=== PATIENT | male | born 1965 | race Caucasian/White ===

== ENCOUNTER 2018-01-01 08:46 | Day surgery (SDC) | payer BC ==
[2017-12-28 10:14] VITALS: BMI 29.5
[~2018-01-01 08:46] MED LIST: LACTATED RINGERS 1,000 ML IV SCH
[2018-01-01 09:29] VITALS: RESP 16; TEMP 97.9
[2018-01-01] MEDS ORDERED: LIDOCAINE 1% 20 ML VIAL (10MG/ML) FOR IV START INTRADERMA ONE (09:38)
[2018-01-01] MEDS ORDERED: PROPOFOL 10 MG/ML 20 ML VIAL IV ONE (10:01)
--- NOTE | 2018-01-01 10:27 | P.PCN ---
Date of Procedure: 01/01/18 Procedure(s) Performed: Procedure: Total colonoscopy. Preoperative diagnosis: Screening for neoplasia. Postoperative diagnosis: Exam within normal limits. Preparation: HalfLytely prep. Sedation: Was provided by anesthesia. Brief clinical history: The patient is a 52-year-old male who is scheduled for this evaluation for screening for neoplasia because of history of polyps. His last colonoscopy was 5 years ago. The patient has no abdominal complaints, bleeding or anemia. Procedure: With the patient on his left lateral decubitus position and after informed consent and adequate sedation, the perianal area was inspected and it did not show any fissures or fistulas. There were no masses felt on digital rectal examination. The Olympus CFQ 160L video colonoscope was then inserted in the rectum in the usual fashion and advanced to the cecum. The mucosa appeared healthy. No polyps or tumors were seen or any obvious diverticular disease or other pathology. I retroflexed the endoscope in the rectum before the endoscope was withdrawn. The patient tolerated the procedure well. Plan: The patient was reassured. In light of his history, I am recommending repeat exam in 5 years. He will follow up with you as planned.
[2018-01-01 10:40] VITALS: BP 127/85; PULSE 68
== END 2018-01-01 10:53 | disposition home or self-care (01) ==
LOC: ORWHC2ENDO 08:46
DX: Z12.11 Encounter for screening for malignant neoplasm of colon (principal); Z86.010 Personal history of colon polyps; K21.9 Gastro-esophageal reflux disease without esophagitis; M19.90 Unspecified osteoarthritis, unspecified site; Z79.1 Long term (current) use of non-steroidal anti-inflammatories (NSAID); Z79.899 Other long term (current) drug therapy; Z88.0 Allergy status to penicillin; Z88.1 Allergy status to other antibiotic agents; Z91.040 Latex allergy status
CPT/HCPCS: J2704; G0105

== ENCOUNTER 2021-09-05 19:40 | Inpatient (IN) | payer OTHER ==
--- NOTE | 2021-09-05 21:20 | XR ---
EXAMINATION TYPE: XR chest 2V DATE OF EXAM: 09/05/2021 COMPARISON: NONE HISTORY: Cough. TECHNIQUE: 2 views FINDINGS: There is patchy bilateral pulmonary interstitial and airspace infiltrates. Pulmonary vascul arity difficult to evaluate. No obvious heart failure. No pleural effusion. IMPRESSION: Moderate bilateral pneumonia..
[2021-09-05 21:37] LABS: Basophils % (A) 0 %; Eosinophils % (A) 0 %; HCT 40.7 % (39.0-53.0); Lymphocytes # (A) 0.7 k/uL (1.0-4.8); Lymphocytes % (A) 5 %; MCH 31.7 pg (25.0-35.0); MCHC 34.4 g/dL (31.0-37.0); Mean Platelet Volume 8.6; Monocytes # (A) 0.4 k/uL (0-1.0); Monocytes % (A) 3 %; Neutrophils # (A) 12.6 k/uL (1.3-7.7); Neutrophils % (A) 91 %; Platelet Count 308 k/uL (150-450); RBC 4.42 m/uL (4.30-5.90); RDW 12.9 % (11.5-15.5); WBC 13.8 k/uL (3.8-10.6)
[2021-09-05 21:50] LABS: ALT 48 U/L (4-49); AST 45 U/L (17-59); African American GFR (CKD) >90 (>60 ml/min/1.73 sqM); Albumin 3.5 g/dL (3.5-5.0); Alkaline Phosphatase 98 U/L (38-126); Anion Gap 10 mmol/L; Blood Urea Nitrogen 24 mg/dL (9-20); Calcium 9.2 mg/dL (8.4-10.2); Carbon Dioxide 25 mmol/L (22-30); Chloride 102 mmol/L (98-107); Glucose 128 mg/dL (74-99); Non-African American GFR(CKD) 81 (>60 ml/min/1.73 sqM); Potassium 4.4 mmol/L (3.5-5.1); Sodium 137 mmol/L (137-145); Total Bilirubin 0.6 mg/dL (0.2-1.3); Total Protein 6.9 g/dL (6.3-8.2)
[2021-09-05] MEDS ORDERED: DEXAMETHASONE SOD PHOSPHATE 10 MG/ML 1 ML VIAL IVP STA (22:08)
[2021-09-05] MEDS ORDERED: SODIUM CHLORIDE 0.9% 1,000 ML IV STA (22:44)
--- NOTE | 2021-09-05 22:45 | ED ---
URI HPI - General Chief Complaint: Upper Respiratory Infection Stated Complaint: Covid+,MELITA Time Seen by Provider: 09/05/21 21:56 Source: patient, RN notes reviewed Mode of arrival: ambulatory Limitations: no limitations - History of Present Illness Initial Comments: 56-year-old male presents to emergency department complaining of being Covid positive and feeling short of breath. Patient notes that he really never gets sick but feels like this time and him pretty hard. Patient was in good spirits during the exam interview. He notes that he is short of breath at rest and on exertion. Patient notes that he does not use oxygen at home but noted his saturation was 85% in triage. Patient was otherwise well-appearing. He denied any chest pain headache nausea vomiting diarrhea constipation fever fatigue chills. - Related Data Home Medications Medication Instructions Recorded Confirmed Meloxicam [Mobic] 15 mg PO QID PRN 12/28/17 12/28/17 Multivitamins, Thera [Multivitamin 1 tab PO DAILY 12/28/17 12/28/17 (formulary)] Ranitidine HCl 150 mg PO HS PRN 12/28/17 12/28/17 Allergies Allergy/AdvReac Type Severity Reaction Status Date / Time latex Allergy skin Verified 09/05/21 21:00 irritation Penicillins Allergy Rash/Hives Verified 09/05/21 21:00 tetracycline Allergy Rash/Hives Verified 09/05/21 21:00 Review of Systems ROS Statement: Those systems with pertinent positive or pertinent negative responses have been documented in the HPI. ROS Other: All systems not noted in ROS Statement are negative. Past Medical History Past Medical History: GERD/Reflux, Osteoarthritis (OA) Additional Past Medical History / Comment(s): jeannette shoulder pain from arthritis History of Any Multi-Drug Resistant Organisms: None Reported Past Surgical History: Hernia Repair, Tonsillectomy Past Anesthesia/Blood Transfusion Reactions: Motion Sickness Past Psychological History: No Psychological Hx Reported Smoking Status: Never smoker Past Alcohol Use History: Occasional Past Drug Use History: None Reported - Past Family History Sister(s) Family Medical History: Cancer General Exam Limitations: no limitations General appearance: alert, in no apparent distress Head exam: Present: atraumatic, normocephalic, normal inspection Eye exam: Present: normal appearance, PERRL, EOMI. Absent: scleral icterus, conjunctival injection, periorbital swelling ENT exam: Present: normal exam, mucous membranes moist Neck exam: Present: normal inspection Respiratory exam: Present: decreased breath sounds. Absent: respiratory distress, wheezes, rales, rhonchi, stridor Cardiovascular Exam: Present: regular rate, normal rhythm, normal heart sounds. Absent: systolic murmur, diastolic murmur, rubs, gallop, clicks GI/Abdominal exam: Present: soft, normal bowel sounds. Absent: distended, tenderness, guarding, rebound, rigid Extremities exam: Present: normal inspection, full ROM, normal capillary refill. Absent: tenderness, pedal edema, joint swelling, calf tenderness Neurological exam: Present: alert, oriented X3 Psychiatric exam: Present: normal affect, normal mood Skin exam: Present: warm, dry, intact, normal color. Absent: rash Course Vital Signs 09/05/21 09/05/21 20:56 21:02 Temperature 97.8 F Pulse Rate 92 Respiratory 22 Rate Blood Pressure 181/92 O2 Sat by Pulse 85 L 93 L Oximetry Medical Decision Making - Medical Decision Making 56-year-old male Covid-positive complaining of shortness of breath. Oxygen saturation room air was 85%, patient started on oxygen via nasal cannula at 2 L. Labs, chest x-ray ordered. X-ray shows bilateral pneumonia. Labs mild leukocytosis with white count of 10.8, lactic acid 2.6. 1 L normal saline, 10 mg Decadron ordered. Case discussed with Dr. Escamilla him a patient will be admitted. Use [facility] with him to be contacted twice as the on-call admitting physicians with no response in over an hour. Admitting orders placed. - Lab Data Result diagrams: 09/05/21 21:15 09/05/21 21:15 Lab Results 09/05/21 09/05/21 09/05/21 Range/Units 21:15 21:15 21:15 WBC 13.8 H (3.8-10.6) k/uL RBC 4.42 (4.30-5.90) m/uL Hgb 14.0 (13.0-17.5) gm/dL Hct 40.7 (39.0-53.0) % MCV 92.0 (80.0-100.0) fL MCH 31.7 (25.0-35.0) pg MCHC 34.4 (31.0-37.0) g/dL RDW 12.9 (11.5-15.5) % Plt Count 308 (150-450) k/uL MPV 8.6 Neutrophils % 91 % Lymphocytes % 5 % Monocytes % 3 % Eosinophils % 0 % Basophils % 0 % Neutrophils # 12.6 H (1.3-7.7) k/uL Lymphocytes # 0.7 L (1.0-4.8) k/uL Monocytes # 0.4 (0-1.0) k/uL Eosinophils # 0.0 (0-0.7) k/uL Basophils # 0.0 (0-0.2) k/uL Sodium 137 (137-145) mmol/L Potassium 4.4 (3.5-5.1) mmol/L Chloride 102 (98-107) mmol/L Carbon Dioxide 25 (22-30) mmol/L Anion Gap 10 mmol/L BUN 24 H (9-20) mg/dL Creatinine 1.02 (0.66-1.25) mg/dL Est GFR (CKD-EPI)AfAm >90 (>60 ml/min/1.73 sqM) Est GFR (CKD-EPI)NonAf 81 (>60 ml/min/1.73 sqM) Glucose 128 H (74-99) mg/dL Plasma Lactic Acid Yvon 2.6 H* (0.7-2.0) mmol/L Calcium 9.2 (8.4-10.2) mg/dL Total Bilirubin 0.6 (0.2-1.3) mg/dL AST 45 (17-59) U/L ALT 48 (4-49) U/L Alkaline Phosphatase 98 (38-126) U/L Total Protein 6.9 (6.3-8.2) g/dL Albumin 3.5 (3.5-5.0) g/dL - Radiology Data Radiology results: report reviewed, image reviewed Chest x-ray: Bilateral pneumonia. Disposition Clinical Impression: COVID, Hypoxia, Bilateral pneumonia Disposition: ADMITTED IP TO THIS HOSP Condition: Stable Is patient prescribed a controlled substance at d/c from ED?: No Referrals: Cody Velasquez DO [Primary Care Provider] - 1-2 days Time of Disposition: 23:17
[2021-09-06] MEDS ORDERED: MELOXICAM 7.5 MG TAB PO PRN (00:37)
[2021-09-06] MEDS ORDERED: FAMOTIDINE 20 MG TAB PO PRN (00:37)
[2021-09-06] MEDS: SODIUM CHLORIDE 0.9% 1,000 ML IV SCH ×4 (03:27→20:23)
[2021-09-06] MEDS: MULTIVITAMINS, THERA 1 EACH TAB PO SCH (09:31)
[2021-09-06] MEDS: dexAMETHasone 2 MG TAB PO SCH (12:27)
--- NOTE | 2021-09-06 16:01 | P.HPIM ---
History of Present Illness Patient was a 56-year-old male came in with complaints of shortness of breath which started 5 days to 7 days ago patient is not really clear on exact onset of symptoms patient was having sinusitis like kind of symptoms and then started having flulike symptoms. Patient was vaccinated for Covid 19 in month of January patient is found to have leukocytosis without any fever here, patient had a chest x-ray which showed moderate bilateral pneumonia patient denied any history of smoking, BMI 31 patient didn't receive any monoclonal antibodies at this time patient is presently on 2 L of oxygen came down from 4 L patient was given a do se of IV Decadron patient will be started on oral Decadron along with Lovenox pulmonary will be consulted. Patient will evaluated the pulmonary for Remdesivir. REVIEW OF SYSTEMS: CONSTITUTIONAL: No fever, no malaise, no fatigue. HEENT: No recent visual problems or hearing problems. Denied any sore throat. CARDIOVASCULAR: No chest pain, orthopnea, PND, no palpitations, no syncope. PULMONARY: As mentioned in HPI GASTROINTESTINAL: No diarrhea, no nausea, no vomiting, no abdominal pain. NEUROLOGICAL: No headaches, no weakness, no numbness. HEMATOLOGICAL: Denies any bleeding or petechiae. GENITOURINARY: Denies any burning micturition, frequency, or urgency. MUSCULOSKELETAL/RHEUMATOLOGICAL: Denies any joint pain, swelling, or any muscle pain. ENDOCRINE: Denies any polyuria or polydipsia. The rest of the 14-point review of systems is negative. PHYSICAL EXAMINATION: GENERAL: The patient is alert and oriented x3, not in any acute distress. Well developed, well nourished. HEENT: Pupils are round and equally reacting to light. EOMI. No scleral icterus. No conjunctival pallor. Normocephalic, atraumatic. No pharyngeal erythema. No thyromegaly. CARDIOVASCULAR: S1 and S2 present. No murmurs, rubs, or gallops. PULMONARY: Chest is clear to auscultation, no wheezing or crackles. ABDOMEN: Soft, nontender, nondistended, normoactive bowel sounds. No palpable organomegaly. MUSCULOSKELETAL: No joint swelling or deformity. EXTREMITIES: No cyanosis, clubbing, or pedal edema. NEUROLOGICAL: Gross neurological examination did not reveal any focal deficits. SKIN: No rashes. Assessment and plan -Covid 19 pneumonia: Patient will be continued on Decadron, Covid 19 vitamins, we'll order d-dimer, Lovenox for due to prophylaxis -Sepsis and lactic is doses: Secondary to Covid 19 pneumonia -Gastro esophageal reflux disease DVT prophylaxis: Lovenox Past Medical History Past Medical History: GERD/Reflux, Osteoarthritis (OA) Additional Past Medical History / Comment(s): jeannette shoulder pain from arthritis History of Any Multi-Drug Resistant Organisms: None Reported Past Surgical History: Hernia Repair, Tonsillectomy Past Anesthesia/Blood Transfusion Reactions: Motion Sickness Past Psychological History: No Psychological Hx Reported Smoking Status: Never smoker Past Alcohol Use History: Occasional Additional Past Alcohol Use History / Comment(s): occ cigar use Past Drug Use History: None Reported - Past Family History Sister(s) Family Medical History: Cancer Medications and Allergies Home Medications Medication Instructions Recorded Confirmed Type Meloxicam [Mobic] 15 mg PO DAILY 12/28/17 09/06/21 History Cefuroxime Axetil [Ceftin] 500 mg PO BID 09/06/21 09/06/21 History Omeprazole 20 mg PO DAILY 09/06/21 09/06/21 History traMADol HCL [Ultram] 50 mg PO BID PRN 09/06/21 09/06/21 History Allergies Allergy/AdvReac Type Severity Reaction Status Date / Time Penicillins Allergy Rash/Hives Verified 09/06/21 07:55 tetracycline Allergy Rash/Hives Verified 09/06/21 07:55 latex AdvReac skin Verified 09/06/21 07:55 irritation Physical Exam Vitals: Vital Signs Temp Pulse Pulse Resp BP BP Pulse Ox 09/06/21 14:30 98.2 F 87 18 145/83 97 09/06/21 12:51 98.6 F 92 20 153/85 94 L 09/06/21 12:32 92 20 153/85 94 L 09/06/21 10:11 77 18 94 L 09/06/21 08:00 98.6 F 79 16 149/85 94 L 09/06/21 03:30 98.7 F 84 16 171/93 94 L 09/06/21 00:00 98.8 F 81 18 154/88 94 L 09/05/21 21:02 93 L 09/05/21 20:56 97.8 F 92 22 181/92 85 L Intake and Output 09/06/21 09/06/21 09/06/21 06:59 14:59 22:59 Other: Weight 100.698 kg Results CBC & Chem 7: 09/05/21 21:15 09/05/21 21:15 Labs: Abnormal Lab Results - Last 24 Hours (Table) 09/05/21 09/05/21 09/05/21 Range/Units 21:15 21:15 21:15 WBC 13.8 H (3.8-10.6) k/uL Neutrophils # 12.6 H (1.3-7.7) k/uL Lymphocytes # 0.7 L (1.0-4.8) k/uL BUN 24 H (9-20) mg/dL Glucose 128 H (74-99) mg/dL Plasma Lactic Acid Yvon 2.6 H* (0.7-2.0) mmol/L Thrombosis Risk Factor Assmnt - Choose All That Apply Each Factor Represents 1 point: Age 41-60 years, Obesity (BMI >25) Thrombosis Risk Factor Assessment Total Risk Factor Score: 2 Thrombosis Risk Factor Assessment Level: Low Risk
--- NOTE | 2021-09-06 17:26 | P.CNPUL ---
History of Present Illness Consult date: 09/06/21 Requesting physician: Shayna Francis Reason for consult: pneumonia Chief complaint: Nasal congestion, cough, shortness of breath. History of present illness: This is a 56-year-old white male with no previous significant past medical history, nonsmoker, COVID-19 vaccinated, patient presented to the ER with 5 days history of multiple symptoms consistent with URI symptoms including pressure and fullness over the sinuses, cough, fever, shortness of breath. His last COVID-19 vaccination was in January, patient received [employer] vaccination. Multiple family members with recently diagnosed as having COVID-19 infection, patient was found to have bilateral pneumonia consistent with COVID-19 pneumonitis. Patient was admitted, he was on 2 L nasal cannula, and I was asked to see him on consulta tion. I have recommended remdesivir, I have also recommended that COVID-19 cocktail. And this would be started today. Patient denies any headache, denies any blurred vision, no dizziness, denies any loss of sensation of taste or smell, denies any GI symptoms. Review of Systems CONSTITUTIONAL: Low-grade fever, no chills, no fatigue, no weight loss. HEENT: Mostly symptoms of sinusitis pressure pressure and fullness over the sinus CARDIOVASCULAR: Negative. PULMONARY: As mentioned in HPI mostly cough and shortness of breath. Cough is productive with whitish phlegm. GASTROINTESTINAL: Negative. NEUROLOGICAL: Negative. HEMATOLOGICAL: Negative. GENITOURINARY: Negative MUSCULOSKELETAL/RHEUMATOLOGICAL: Negative. ENDOCRINE: Negative Past Medical History Past Medical History: GERD/Reflux, Osteoarthritis (OA) Additional Past Medical History / Comment(s): jeannette shoulder pain from arthritis History of Any Multi-Drug Resistant Organisms: None Reported Past Surgical History: Hernia Repair, Tonsillectomy Past Anesthesia/Blood Transfusion Reactions: Motion Sickness Past Psychological History: No Psychological Hx Reported Smoking Status: Never smoker Past Alcohol Use History: Occasional Additional Past Alcohol Use History / Comment(s): occ cigar use Past Drug Use History: None Reported - Past Family History Sister(s) Family Medical History: Cancer Medications and Allergies Home Medications Medication Instructions Recorded Confirmed Type Meloxicam [Mobic] 15 mg PO DAILY 12/28/17 09/06/21 History Cefuroxime Axetil [Ceftin] 500 mg PO BID 09/06/21 09/06/21 History Omeprazole 20 mg PO DAILY 09/06/21 09/06/21 History traMADol HCL [Ultram] 50 mg PO BID PRN 09/06/21 09/06/21 History Allergies Allergy/AdvReac Type Severity Reaction Status Date / Time Penicillins Allergy Rash/Hives Verified 09/06/21 07:55 tetracycline Allergy Rash/Hives Verified 09/06/21 07:55 latex AdvReac skin Verified 09/06/21 07:55 irritation Physical Exam Vitals: Vital Signs Temp Pulse Pulse Resp BP BP Pulse Ox 09/06/21 14:30 98.2 F 87 18 145/83 97 09/06/21 12:51 98.6 F 92 20 153/85 94 L 09/06/21 12:32 92 20 153/85 94 L 09/06/21 10:11 77 18 94 L 09/06/21 08:00 98.6 F 79 16 149/85 94 L 09/06/21 03:30 98.7 F 84 16 171/93 94 L 09/06/21 00:00 98.8 F 81 18 154/88 94 L 09/05/21 21:02 93 L 09/05/21 20:56 97.8 F 92 22 181/92 85 L Intake and Output 09/06/21 09/06/21 09/06/21 06:59 14:59 22:59 Other: Weight 100.698 kg Physical Exam: Revealed a 56-year-old white male in no distress. On 2 L nasal cannula. Head: Atraumatic, normocephalic. HEENT:[Neck is supple.] [No neck masses.] [No thyromegaly.] [No JVD.] Chest: [Symmetrical chest expansion, final crackles at the bases.] Cardiac Exam: [Normal S1 and S2, no S3 gallop, no murmur.] Abdomen: [Soft, nontender, no megaly, no rebound, no guarding, normal bowel sounds.] Extremities: [No clubbing, no edema, no cyanosis.] Neurological Exam: [No focal neurologic deficit.] Alert oriented 3. Psychiatric: Normal mood, affect and normal mental status examination. Skin: No rashes, multiple tattoos all over. Results - Laboratory Findings CBC and BMP: 09/05/21 21:15 09/05/21 21:15 Abnormal lab findings: Abnormal Labs 09/05/21 09/05/21 09/05/21 21:15 21:15 21:15 WBC 13.8 H Neutrophils # 12.6 H Lymphocytes # 0.7 L BUN 24 H Glucose 128 H Plasma Lactic Acid Yvon 2.6 H* - Diagnostic Findings Chest x-ray: image reviewed (As noted in HPI, bilateral infiltrates noted.) Assessment and Plan Assessment: Impression: Acute hypoxic respiratory failure secondary to COVID-19 pneumonia Lymphopenia secondary to COVID-19 pneumonia History of degenerative joint disease. History of GERD. COVID-19 vaccinated. Recommendation: Patient will be kept on oxygen and that will be titrated accordingly. Start the COVID-19 cocktail. Start Decadron. Start remdesivir Start Lovenox. We'll continue to follow. Time with Patient: Greater than 30
[2021-09-06] MEDS ORDERED: REMDESIVIR 200 MG in SODIUM CHLORIDE 0.9% 250 ML IVPB ONE (18:15)
[2021-09-06] MEDS: FAMOTIDINE 20 MG TAB PO SCH (20:23)
[2021-09-06] MEDS: ASCORBIC ACID 500 MG TAB PO SCH (20:23)
[2021-09-06] MEDS ORDERED: ASCORBIC ACID 500 MG TAB PO SCH (21:00)
[2021-09-07] MEDS: ZINC SULFATE 220 MG CAP PO SCH (08:39)
[2021-09-07] MEDS: ASCORBIC ACID 500 MG TAB PO SCH ×2 (08:39→20:08)
[2021-09-07] MEDS: MULTIVITAMINS, THERA 1 EACH TAB PO SCH (08:39)
[2021-09-07] MEDS: FAMOTIDINE 20 MG TAB PO SCH ×2 (08:39→20:08)
[2021-09-07] MEDS: dexAMETHasone 2 MG TAB PO SCH (08:39)
[2021-09-07] MEDS: ENOXAPARIN 40 MG/0.4 ML SYRINGE SQ SCH (09:50)
--- NOTE | 2021-09-07 15:18 | P.PN ---
Subjective Progress Note Date: 09/07/21 Principal diagnosis: Dyspnea, hypoxia, COVID-19 pneumonia This is a 56-year-old white male with no previous significant past medical history, nonsmoker, COVID-19 vaccinated, patient presented to the ER with 5 days history of multiple symptoms consistent with URI symptoms including pressure and fullness over the sinuses, cough, fever, shortness of breath. His last COVID-19 vaccination was in January, patient received Pfizer vaccination. Multiple family members with recently diagnosed as having COVID-19 infection, patient was found to have bilateral pneumonia consistent with COVID-19 pneumonitis. Patient was admitted, he was on 2 L nasal cannula, and I was asked to see him on consultation. I have recommended remdesivir, I have also recommended that COVID-19 cocktail. And this would be started today. Patient denies any headache, denies any blurred vision, no dizziness, denies any loss of sensation of taste or smell, denies any GI symptoms. On 09/07/2021 patient seen in follow-up, patient is awake and alert, he is on 2 L of oxygen, pulse ox is 94%, he is on day 2 of Remdesivir, afebrile, hemodynamically stable, appears to be breathing quite comfortably. He remains on Decadron, 6 mg daily, Lovenox and multivitamins. D-dimer today is 0.65, lactic acid has improved and is down to 1.8, inflammatory markers are pending. She continues on IV hydration with 0.9 normal saline at a rate of 75 ML per hour. No nausea vomiting or diarrhea. Objective - Vital Signs Vital signs: Vital Signs Temp 98.4 F 09/07/21 14:19 Pulse 82 09/07/21 14:19 Resp 18 09/07/21 14:19 BP 151/82 09/07/21 14:19 Pulse Ox 97 09/07/21 14:19 Intake & Output 09/06/21 09/07/21 09/07/21 18:59 06:59 18:59 Output Total 400 Balance -400 Weight 100.698 kg Output: Urine 400 - Exam GENERAL EXAM: Alert, very pleasant, 56-year-old male, on 3 L of oxygen and pulse ox of 97% comfortable in no apparent distress. HEAD: Normocephalic/atraumatic. EYES: Normal reaction of pupils, equal size. Conjunctiva pink, sclera white. NOSE: Clear with pink turbinates. THROAT: No erythema or exudates. NECK: No masses, no JVD, no thyroid enlargement, no adenopathy. CHEST: No chest wall deformity. Symmetrical expansion. LUNGS: Equal air entry with bibasilar crackles CVS: Regular rate and rhythm, normal S1 and S2, no gallops, no murmurs, no rubs ABDOMEN: Soft, nontender. No hepatosplenomegaly, normal bowel sounds, no guarding or rigidity. EXTREMITIES: No clubbing, no edema, no cyanosis, 2+ pulses and upper and lower extremities. MUSCULOSKELETAL: Muscle strength and tone normal. SPINE: No scoliosis or deformity SKIN: No rashes CENTRAL NERVOUS SYSTEM: Alert and oriented -3. No focal deficits, tone is normal in all 4 extremities. PSYCHIATRIC: Alert and oriented -3. Appropriate affect. Intact judgment and insight. - Labs CBC & Chem 7: 09/05/21 21:15 09/05/21 21:15 Labs: Abnormal Lab Results - Last 24 Hours (Table) 09/06/21 Range/Units 17:39 D-Dimer 0.65 H (<0.60) mg/L FEU Microbiology - Last 24 Hours (Table) 09/05/21 21:15 Blood Culture - Preliminary Blood No Growth after 24 hours Assessment and Plan Plan: Assessment: #1. Acute hypoxic respiratory failure is suspected to COVID-19 pneumonia, patient presented with 5 day history of symptoms, patient did receive Pfizer vaccination in January 2021. Patient was started on Remdesivir on 09/06/2021 #2. Mild lactic acidosis improved with hydration #3. GERD/reflux #4. Osteoarthritis #5. Never smoker Plan: Continue current medical treatment Today is day 2 of Remdesivir Continue Decadron Continue Lovenox Continue multivitamins Obtain follow-up chest x-ray and inflammatory markers and d-dimer tomorrow I performed a history & physical examination of the patient and discussed their management with my nurse practitioner, Jennifer Gan. I reviewed the nurse practitioner's note and agree with the documented findings and plan of care. Lung sounds are positive for diminished breath sounds throughout the lung wright. The findings and the impression was discussed with the patient. I attest to the documentation by the nurse practitioner. Time with Patient: Less than 30
--- NOTE | 2021-09-07 15:32 | P.PN ---
Subjective Progress Note Date: 09/07/21 Patient was a 56-year-old male came in with complaints of shortness of breath which started 5 days to 7 days ago patient is not really clear on exact onset of symptoms patient was having sinusitis like kind of symptoms and then started having flulike symptoms. Patient was vaccinated for Covid 19 in month of January patient is found to have leukocytosis without any fever here, patient had a chest x-ray which showed moderate bilateral pneumonia patient denied any history of smoking, BMI 31 patient didn't receive any monoclonal antibodies at this time patient is presently on 2 L of oxygen came down from 4 L patient was given a dose of IV Decadron patient will be started on oral Decadron along with Lovenox pulmonary will be consulted. Patient will evaluated the pulmonary for Remdesivir. 09/07/2021 Patient is seen and evaluated in follow-up and continues on 2 L via nasal cannula. Pulmonary following closely and patient is maintained on Remdesivir. Patient also on IV dexamethasone along with vitamin and zinc supplements and subcutaneous Lovenox and will continue. Will add incentive spirometer and encourage the patient use at least 10 times every hour while awake. Patient states he is getting up and walking to the bathroom and continues to have shortness of breath but is having a shorter recovery time and improving more quickly. Discussed with him about following up with pulmonary in the outpatient setting and most likely requiring oxygen therapy secondary to COVID-19 pneumonia on discharge. D-dimer mildly elevated at 0.65 and will continue Lovenox daily. Lactic acid improved and will discontinue IV fluids. Patient is tolerating diet with no reports of nausea or vomiting noted. Will repeat labs along with chest x-ray in the morning. Encouraged increase activity as tolerated. Review of systems: Constitutional: No reports of fatigue, fever, or chills Cardiovascular: No reports of chest pain or palpitations Respiratory: No reports of worsening shortness of breath , reports continued cough GI: No reports of nausea, vomiting, or diarrhea : No reports of dysuria or retention Neurovascular: No reports of weakness or numbness All medications have been reviewed Active Medications Ascorbic Acid (Ascorbic Acid 500 Mg Tab) 500 mg PO BID [facility] Last Admin: 09/07/21 08:39 Dose: 500 mg Documented by: Dexamethasone (Dexamethasone 2 Mg Tab) 6 mg PO DAILY [facility] Last Admin: 09/07/21 08:39 Dose: 6 mg Documented by: Enoxaparin Sodium (Enoxaparin 40 Mg/0.4 Ml Syringe) 40 mg SQ DAILY [facility] Last Admin: 09/07/21 09:50 Dose: 40 mg Documented by: Famotidine (Famotidine 20 Mg Tab) 20 mg PO HS PRN PRN Reason: reflux Last Admin: 09/06/21 03:25 Dose: 20 mg Documented by: Famotidine (Famotidine 20 Mg Tab) 20 mg PO BID [facility] Last Admin: 09/07/21 08:39 Dose: 20 mg Documented by: Sodium Chloride (Saline 0.9%) 1,000 mls @ 75 mls/hr IV .[id number] [facility] Last Admin: 09/06/21 20:23 Dose: 75 mls/hr Documented by: Remdesivir 100 mg/ Sodium (Chloride) 250 mls @ 250 mls/hr IVPB DAILY@1800 [facility] Stop: 09/10/21 18:59 Meloxicam (Meloxicam 7.5 Mg Tab) 15 mg PO QID PRN PRN Reason: Pain Multivitamins (Multivitamins, Thera 1 Each Tab) 1 each PO DAILY [facility] Last Admin: 09/07/21 08:39 Dose: 1 each Documented by: Zinc Sulfate (Zinc Sulfate 220 Mg Cap) 220 mg PO DAILY [facility] Last Admin: 09/07/21 08:39 Dose: 220 mg Documented by: PHYSICAL EXAMINATION: GENERAL: The patient is alert and oriented x3, not in any acute distress. Well developed, well nourished. Continues on 2 L. HEENT: Pupils are round and equally reacting to light. EOMI. No scleral icterus. No conjunctival pallor. Normocephalic, atraumatic. No pharyngeal erythema. No thyromegaly. CARDIOVASCULAR: S1 and S2 present. No murmurs, rubs, or gallops. PULMONARY: Chest is clear to auscultation, no wheezing or crackles. ABDOMEN: Soft, nontender, nondistended, normoactive bowel sounds. No palpable organomegaly. MUSCULOSKELETAL: No joint swelling or deformity. EXTREMITIES: No cyanosis, clubbing, or pedal edema. NEUROLOGICAL: Gross neurological examination did not reveal any focal deficits. SKIN: No rashes. Assessment and plan: -Covid 19 pneumonia: Patient will be continued on Decadron, Covid 19 vitamins, Lovenox for DVT prophylaxis -Sepsis and lactic is doses: Secondary to Covid 19 pneumonia -Elevated d-dimer secondary to COVID-19 pneumonia -Gastroesophageal reflux disease -Obesity with a BMI of 31.0 -DVT prophylaxis: Lovenox -GI prophylaxis -Full code Objective - Vital Signs Vital signs: Vital Signs Temp 98.3 F 09/07/21 05:35 Pulse 81 09/07/21 05:35 Resp 15 09/07/21 05:35 BP 149/78 09/07/21 05:35 Pulse Ox 94 L 09/07/21 07:03 Intake & Output 09/06/21 09/07/21 09/07/21 18:59 06:59 18:59 Output Total 400 Balance -400 Weight 100.698 kg Output: Urine 400 - Labs CBC & Chem 7: 09/05/21 21:15 09/05/21 21:15 Labs: Abnormal Lab Results - Last 24 Hours (Table) 09/06/21 Range/Units 17:39 D-Dimer 0.65 H (<0.60) mg/L FEU Microbiology - Last 24 Hours (Table) 09/05/21 21:15 Blood Culture - Preliminary Blood No Growth after 24 hours
[2021-09-07] MEDS: SODIUM CHLORIDE 0.9% 1,000 ML IV SCH (16:04)
[2021-09-07] MEDS ORDERED: REMDESIVIR 100 MG in SODIUM CHLORIDE 0.9% 250 ML IVPB SCH (18:00)
[2021-09-08 06:08] VITALS: RESP 16
[2021-09-08 07:05] LABS: Basophils % (A) 0 %; Eosinophils # (A) 0.3 k/uL (0-0.7); Eosinophils % (A) 3 %; HCT 41.9 % (39.0-53.0); HGB 13.9 gm/dL (13.0-17.5); Lymphocytes # (A) 1.2 k/uL (1.0-4.8); Lymphocytes % (A) 11 %; MCH 30.8 pg (25.0-35.0); MCHC 33.1 g/dL (31.0-37.0); MCV 93.1 fL (80.0-100.0); Mean Platelet Volume 8.4; Monocytes # (A) 0.5 k/uL (0-1.0); Monocytes % (A) 5 %; Neutrophils # (A) 9.2 k/uL (1.3-7.7); Neutrophils % (A) 80 %; Platelet Count 330 k/uL (150-450); RBC 4.51 m/uL (4.30-5.90); RDW 12.5 % (11.5-15.5); WBC 11.5 k/uL (3.8-10.6)
[2021-09-08 07:21] LABS: African American GFR (CKD) 88 (>60 ml/min/1.73 sqM); Anion Gap 11 mmol/L; Blood Urea Nitrogen 27 mg/dL (9-20); C Reactive Protein 5.6 mg/dL (<1.0); Calcium 9.2 mg/dL (8.4-10.2); Carbon Dioxide 24 mmol/L (22-30); Chloride 100 mmol/L (98-107); Glucose 103 mg/dL (74-99); LDH 687 U/L (313-618); Non-African American GFR(CKD) 76 (>60 ml/min/1.73 sqM); Potassium 4.2 mmol/L (3.5-5.1); Sodium 135 mmol/L (137-145)
--- NOTE | 2021-09-08 07:49 | XR ---
EXAMINATION TYPE: XR chest 1V portable DATE OF EXAM: 09/08/2021 COMPARISON: 09/05/2021 INDICATION: Covid TECHNIQUE: Single frontal view of the chest is obtained. FINDINGS: The heart size is normal. The pulmonary vasculature is prominent. Diffuse increased lung markings are present bilaterally. Findings are worsened over the interval. IMPRESSION: 1. Worsening bilateral lung infiltrates.
[2021-09-08] MEDS: ASCORBIC ACID 500 MG TAB PO SCH (08:58)
[2021-09-08] MEDS: MULTIVITAMINS, THERA 1 EACH TAB PO SCH (08:58)
[2021-09-08] MEDS: ENOXAPARIN 40 MG/0.4 ML SYRINGE SQ SCH (08:58)
[2021-09-08] MEDS: FAMOTIDINE 20 MG TAB PO SCH (08:58)
[2021-09-08] MEDS: ZINC SULFATE 220 MG CAP PO SCH (08:58)
[2021-09-08] MEDS ORDERED: amLODIPine 5 MG TAB PO SCH (09:00)
[2021-09-08 10:27] VITALS: BP 142/73; PULSE 81; TEMP 98
[2021-09-08] MEDS: dexAMETHasone 2 MG TAB PO SCH (12:13)
--- NOTE | 2021-09-08 13:33 | P.PN ---
Subjective Progress Note Date: 09/08/21 Principal diagnosis: Dyspnea, hypoxia, COVID-19 pneumonia This is a 56-year-old white male with no previous significant past medical history, nonsmoker, COVID-19 vaccinated, patient presented to the ER with 5 days history of multiple symptoms consistent with URI symptoms including pressure and fullness over the sinuses, cough, fever, shortness of breath. His last COVID-19 vaccination was in January, patient received Pfizer vaccination. Multiple family members with recently diagnosed as having COVID-19 infection, patient was found to have bilateral pneumonia consistent with COVID-19 pneumonitis. Patient was admitted, he was on 2 L nasal cannula, and I was asked to see him on consultation. I have recommended remdesivir, I have also recommended that COVID-19 cocktail. And this would be started today. Patient denies any headache, denies any blurred vision, no dizziness, denies any loss of sensation of taste or smell, denies any GI symptoms. On 09/07/2021 patient seen in follow-up, patient is awake and alert, he is on 2 L of oxygen, pulse ox is 94%, he is on day 2 of Remdesivir, afebrile, hemodynamically stable, appears to be breathing quite comfortably. He remains on Decadron, 6 mg daily, Lovenox and multivitamins. D-dimer today is 0.65, lactic acid has improved and is down to 1.8, inflammatory markers are pending. She continues on IV hydration with 0.9 normal saline at a rate of 75 ML per hour. No nausea vomiting or diarrhea. On 09/08/2021 patient seen in follow-up, patient is awake and alert, in no acute distress, he is currently on room air, his pulse ox is 96%, doing well, he sitting up in a recliner, denies any specific complaints, looks very comfortable, vital signs have been stable. Today's labs have been reviewed, white blood cell count is 11.5, improving, lymphocyte count is 1.2, d-dimer is 0.54, within normal limits, electrolytes and renal profile are unremarkable, LDH is 687, CRP is 5.6. Patient continues on Remdesivir, today is day 3 of treatment. Objective - Vital Signs Vital signs: Vital Signs Temp 98 F 09/08/21 10:26 Pulse 81 09/08/21 10: Resp 16 09/08/21 10: BP 142/73 09/08/21 10:26 Pulse Ox 94 L 09/08/21 10:26 Intake & Output 09/07/21 09/08/21 09/08/21 18:59 06:59 18:59 Intake Total 236 236 Output Total 600 Balance 236 -600 236 Intake: Oral 236 236 Output: Urine 600 Other: Voiding Method Toilet Toilet # Voids 1 2 - Exam GENERAL EXAM: Alert, very pleasant, 56-year-old male, on room air with pulse ox of 96% comfortable in no apparent distress. HEAD: Normocephalic/atraumatic. EYES: Normal reaction of pupils, equal size. Conjunctiva pink, sclera white. NOSE: Clear with pink turbinates. THROAT: No erythema or exudates. NECK: No masses, no JVD, no thyroid enlargement, no adenopathy. CHEST: No chest wall deformity. Symmetrical expansion. LUNGS: Equal air entry with bibasilar crackles CVS: Regular rate and rhythm, normal S1 and S2, no gallops, no murmurs, no rubs ABDOMEN: Soft, nontender. No hepatosplenomegaly, normal bowel sounds, no guarding or rigidity. EXTREMITIES: No clubbing, no edema, no cyanosis, 2+ pulses and upper and lower extremities. MUSCULOSKELETAL: Muscle strength and tone normal. SPINE: No scoliosis or deformity SKIN: No rashes CENTRAL NERVOUS SYSTEM: Alert and oriented -3. No focal deficits, tone is normal in all 4 extremities. PSYCHIATRIC: Alert and oriented -3. Appropriate affect. Intact judgment and insight. - Labs CBC & Chem 7: 09/08/21 06:26 09/08/21 06:26 Labs: Abnormal Lab Results - Last 24 Hours (Table) 09/08/21 09/08/21 Range/Units 06:26 06:26 WBC 11.5 H (3.8-10.6) k/uL Neutrophils # 9.2 H (1.3-7.7) k/uL Sodium 135 L (137-145) mmol/L BUN 27 H (9-20) mg/dL Glucose 103 H (74-99) mg/dL Lactate Dehydrogenase 687 H (313-618) U/L C-Reactive Protein 5.6 H (<1.0) mg/dL Microbiology - Last 24 Hours (Table) 09/05/21 21:15 Blood Culture - Preliminary Blood No Growth after 48 hours Assessment and Plan Plan: Assessment: #1. Acute hypoxic respiratory failure is suspected to COVID-19 pneumonia, patient presented with 5 day history of symptoms, patient did receive Pfizer vaccination in January 2021. Patient was started on Remdesivir on 09/06/2021 #2. Mild lactic acidosis improved with hydration #3. GERD/reflux #4. Osteoarthritis #5. Never smoker Plan: Clinically patient has remained stable, He is feeling better, he is improving, breathing comfortably Currently on room air, maintaining O2 saturations above 92% No acute events overnight, vitals are stable From pulmonary perspective he is stable for discharge home today No need to finish Remdesivir course He can complete a total of 10 day course of Decadron 6 mg daily Outpatient follow-up with Dr. Culver in the office in 2 weeks I performed a history & physical examination of the patient and discussed their management with my nurse practitioner, Jennifer Gan. I reviewed the nurse practitioner's note and agree with the documented findings and plan of care. Lung sounds are positive for diminished breath sounds throughout the lung wright. The findings and the impression was discussed with the patient. I attest to the documentation by the nurse practitioner. Time with Patient: Less than 30
--- NOTE | 2021-09-08 16:01 | P.DS ---
Providers Date of admission: 09/05/21 22:14 Expected date of discharge: 09/08/21 Attending physician: Kassi Castro Consults: 09/06/21 15:56 Consult Physician Routine Consulting Provider: Joesph Orellana Consult Reason/Comments: Covid 19 pneumonia Do you want consulting provider notified?: Yes Primary care physician: Cody Knowles [facility] Course: Final diagnosis -Covid 19 pneumonia -Sepsis and lactic acidosis, present on admission Secondary to Covid 19 pneumonia -Elevated d-dimer secondary to COVID-19 pneumonia -Gastroesophageal reflux disease -Obesity with a BMI of 31.0 -DVT prophylaxis -GI prophylaxis -Full code Discharge disposition Patient is being discharged in a stable condition with guarded prognosis to home. Patient will follow-up with Dr. Knowles in the outpatient setting upon discharge. Patient is to also follow-up with pulmonology Dr. Ghosh in the outpatient setting in 2-3 weeks. Patient will continue on dexamethasone to complete the course along with vitamin and zinc supplements. Patient will require home oxygen of 2 L via nasal cannula secondary to COVID-19. Total time taken is greater than 35 minutes. Hospital course Patient was a 56-year-old male came in with complaints of shortness of breath which started 5 days to 7 days ago patient is not really clear on exact onset of symptoms patient was having sinusitis like kind of symptoms and then started having flulike symptoms. Patient was vaccinated for Covid 19 in month of January patient is found to have leukocytosis without any fever here, patient had a chest x-ray which showed moderate bilateral pneumonia patient denied any history of smoking, BMI 31 patient didn't receive any monoclonal antibodies at this time patient is presently on 2 L of oxygen came down from 4 L patient was given a dose of IV Decadron patient will be started on oral Decadron along with Lovenox pulmonary will be consulted. Patient will evaluated the pulmonary for Remdesivir. 09/07/2021 Patient is seen and evaluated in follow-up and continues on 2 L via nasal cannula. Pulmonary following closely and patient is maintained on Remdesivir. Patient also on IV dexamethasone along with vitamin and zinc supplements and subcutaneous Lovenox and will continue. Will add incentive spirometer and encourage the patient use at least 10 times every hour while awake. Patient states he is getting up and walking to the bathroom and continues to have shortness of breath but is having a shorter recovery time and improving more quickly. Discussed with him about following up with pulmonary in the outpatient setting and most likely requiring oxygen therapy secondary to COVID-19 pneumonia on discharge. D-dimer mildly elevated at 0.65 and will continue Lovenox daily. Lactic acid improved and will discontinue IV fluids. Patient is tolerating diet with no reports of nausea or vomiting noted. Will repeat labs along with chest x-ray in the morning. Encouraged increase activity as tolerated. 09/08/2021 Patient is evaluated this morning currently sitting up in the chair on room air stating he is feeling a lot better. Patient continues to have shortness of breath with exertion and will most likely require oxygen via 2 L nasal cannula on discharge secondary to COVID-19. Case management given a prescription and arranging for home oxygen for discharge. Patient been evaluated by pulmonary recommending close outpatient follow-up and patient will also continue on dexamethasone 6 mg daily for the next 8 days to complete the course. Patient will also continue with vitamin and zinc supplements on discharge. Recommend obtaining a pulse oximeter and monitoring pulse ox saturations closely as patient does well on room air although oxygen saturations dipped down to 82% with minimal exertion. Patient was started on Remdesivir and has received 3 of the 5 doses. Patient encouraged to follow-up with primary care provider on discharge. Blood pressure mildly elevated during hospitalization with no past medical history of hypertension and will initiate low-dose Norvasc 5 mg and instructed the patient to follow-up with his primary care provider this week and monitor blood pressure and keep a diary for follow-up. Currently no reports of chest pain, shortness of breath, or palpitations. Patient is afebrile. No reports of nausea or vomiting and patient is tolerating diet. Patient will be discharged home today. GENERAL: The patient is alert and oriented x3, not in any acute distress. Well developed, well nourished. Continues on 2 L. HEENT: Pupils are round and equally reacting to light. EOMI. No scleral icterus. No conjunctival pallor. Normocephalic, atraumatic. No pharyngeal erythema. No thyromegaly. CARDIOVASCULAR: S1 and S2 present. No murmurs, rubs, or gallops. PULMONARY: Chest is clear to auscultation, no wheezing or crackles. ABDOMEN: Soft, nontender, nondistended, normoactive bowel sounds. No palpable organomegaly. MUSCULOSKELETAL: No joint swelling or deformity. EXTREMITIES: No cyanosis, clubbing, or pedal edema. NEUROLOGICAL: Gross neurological examination did not reveal any focal deficits. SKIN: No rashes. Please refer to medication reconciliation sheet for a list of medications. Patient Condition at Discharge: Stable Plan - Discharge Summary New Discharge Prescriptions: New Dexamethasone 6 mg PO DAILY 8 Days #8 tablet Ascorbic Acid [Vitamin C] 500 mg PO BID 30 Days #60 tab Multivitamins, Thera [Multivitamin (formulary)] 1 each PO DAILY 30 Days #30 tab amLODIPine [Norvasc] 5 mg PO DAILY 30 Days #30 tab Zinc Sulfate [Orazinc] 220 mg PO DAILY 30 Days #30 cap Famotidine [Pepcid] 20 mg PO BID 30 Days #60 tab Continue Meloxicam [Mobic] 15 mg PO DAILY traMADol HCL [Ultram] 50 mg PO BID PRN PRN Reason: Pain Discontinued Cefuroxime Axetil [Ceftin] 500 mg PO BID Omeprazole 20 mg PO DAILY Discharge Medication List Meloxicam [Mobic] 15 mg PO DAILY 12/28/17 [History] traMADol HCL [Ultram] 50 mg PO BID PRN 09/06/21 [History] Ascorbic Acid [Vitamin C] 500 mg PO BID 30 Days #60 tab 09/08/21 [Rx] Dexamethasone 6 mg PO DAILY 8 Days #8 tablet 09/08/21 [Rx] Famotidine [Pepcid] 20 mg PO BID 30 Days #60 tab 09/08/21 [Rx] Multivitamins, Thera [Multivitamin (formulary)] 1 each PO DAILY 30 Days #30 tab 09/08/21 [Rx] Zinc Sulfate [Orazinc] 220 mg PO DAILY 30 Days #30 cap 09/08/21 [Rx] amLODIPine [Norvasc] 5 mg PO DAILY 30 Days #30 tab 09/08/21 [Rx] Follow up Appointment(s)/Referral(s): oTbias Ghosh MD [STAFF PHYSICIAN] - 10/11/21 1:00 pm [facility] [NON-STAFF] - As Needed (oxygen ) Cody Knowles DO [Primary Care Provider] - 1-2 days (September 10 9:20am video call. If you have not done a video call before, please call office a day ahead of video to receive instructions from the office.) Patient Instructions/Handouts: Coronavirus Disease 2019 (COVID-19), Using Oxygen at Home (DC) Activity/Diet/Wound Care/Special Instructions: Activity Limited until follow-up Follow-up with primary care provider on discharge Follow-up with pulmonary outpatient Continue taking medications as prescribed Continue oxygen at 2 L via nasal cannula secondary to COVID-19 Obtain pulse oximeter and monitor oxygen saturations and keep a diary for pulmonary follow-up Continue using incentive spirometer at least 10 times every hour while awake Encourage fluids and rest and monitor closely for any worsening signs and symptoms of Covid Continue current diet Discharge/Stand Alone Forms: Work/Release Restrictions Form Discharge Disposition: HOME SELF-CARE
== END 2021-09-08 16:07 | disposition home or self-care (01) | DRG 871 ==
LOC: EC 19:40 → 4SSUR 22:14
PROVIDERS: ADMIT Hospitalist; ATTEND Hospitalist
PROC: XW033E5 Introduction of Remdesivir Anti-infective into Peripheral Vein, Percutaneous Approach, New Technology Group 5 (ICD-10-PCS; principal; 2021-09-06)
DX: A41.89 Other specified sepsis (principal); U07.1 COVID-19; J12.82 Pneumonia due to coronavirus disease 2019; J96.01 Acute respiratory failure with hypoxia; E87.2 Acidosis; I10 Essential (primary) hypertension; K21.9 Gastro-esophageal reflux disease without esophagitis; M19.90 Unspecified osteoarthritis, unspecified site; J06.9 Acute upper respiratory infection, unspecified; D72.810 Lymphocytopenia; E66.9 Obesity, unspecified; Z68.31 Body mass index [BMI] 31.0-31.9, adult; Z79.1 Long term (current) use of non-steroidal anti-inflammatories (NSAID)
CPT/HCPCS: 36415; 71045; 71046; 80048; 80053; 83605; 83615; 85025; 85379; 86140; 87040; 94760

== ENCOUNTER → 2021-09-16 | Outpatient (CLI) | payer OTHER ==
--- NOTE | 2021-09-16 15:04 | XR ---
EXAMINATION TYPE: XR chest 2V DATE OF EXAM: 09/16/2021 COMPARISON: 09/08/2021 HISTORY: 56-year-old male lewis virus pneumonia, [id number] TECHNIQUE: Frontal and lateral views FINDINGS: The cardiomediastinal silhouette, aorta, and pulmonary vasculature are within normal limits. Residual interstitial densities remain especially in the mid and lower lungs with significantly improved from prior exam. IMPRESSION: Mild residual COVID infiltrates remain in the mid and lower lungs but significantly improved from ta or exam.
== END | disposition home or self-care (01) ==
LOC: RADXRYALE 13:37
PROVIDERS: ATTEND Physician Assistant Medical
DX: U07.1 COVID-19 (principal); J12.82 Pneumonia due to coronavirus disease 2019
CPT/HCPCS: 71046

== ENCOUNTER → 2022-09-02 | Outpatient (CLI) | payer OTHER ==
--- NOTE | 2022-09-02 12:17 | XR ---
EXAMINATION TYPE: XR lumbosacral spine min 4V DATE OF EXAM: 09/02/2022 10:31 AM INDICATION: Patient age:Male; 57 years old; Reason for study: M5441,[id number],[id number] LBP,LUMBAGO,DDD; YCH. COMPARISON: None TECHNIQUE: Frontal, lateral , bilateral oblique and coned in L5-S1 lateral views of the spine. FINDINGS: No evidence of any acute osseous pathology. No evidence of loss of vertebral body height i s seen. There is normal alignment of the lumbar vertebral bodies. Mild scattered disc space narrowing . Multilevel marginal osteophyte formation throughout the visualized spine. There is facet joint arth ropathy throughout the spine. Scattered at least mild neural foraminal stenosis. IMPRESSION: 1. No acute fracture. 2. Mild multilevel disc degeneration.
== END | disposition home or self-care (01) ==
LOC: RADXRYALE 10:11
PROVIDERS: ATTEND Family Medicine
DX: M51.36 Other intervertebral disc degeneration, lumbar region (principal); M47.816 Spondylosis without myelopathy or radiculopathy, lumbar region; M99.73 Connective tissue and disc stenosis of intervertebral foramina of lumbar region
CPT/HCPCS: 72110

== ENCOUNTER → 2022-10-17 | Outpatient (CLI) | payer OTHER ==
--- NOTE | 2022-10-17 11:58 | XR ---
EXAMINATION TYPE: XR Hip Complete RT DATE OF EXAM: 10/17/2022 CLINICAL HISTORY: pain TECHNIQUE: AP and frogleg views of the right hip are obtained. COMPARISON: None. FINDINGS: There is no acute fracture/dislocation evident. Well-corticated ossific density adjacent t o the right inferior pubic ramus could reflect a remote avulsion fracture. The joint space appears mildly narrowed.. The overlying soft tissue appears unremarkable. IMPRESSION: 1. There is no acute fracture or dislocation. ICD 10 NO FRACTURE, INITIAL EVALUATION
== END | disposition home or self-care (01) ==
LOC: RADXRYALE 11:37
PROVIDERS: ATTEND Family Medicine
DX: M25.551 Pain in right hip (principal)
CPT/HCPCS: 73502

== ENCOUNTER → 2022-12-08 | Outpatient (CLI) | payer OTHER ==
--- NOTE | 2022-12-08 14:55 | XR ---
EXAMINATION TYPE: XR chest 2V DATE OF EXAM: 12/08/2022 COMPARISON: 09/16/2021 HISTORY: Congestion and cough x1 week TECHNIQUE: Frontal and lateral views of the chest are obtained. FINDINGS: The heart is not enlarged and there is no pulmonary vascular congestion. The lungs are ronald ar and there is no pleural effusion. No pneumothorax. No acute osseous abnormality. IMPRESSION: No acute cardiopulmonary process.
== END | disposition home or self-care (01) ==
LOC: RADXRYALE 14:29
PROVIDERS: ATTEND Family Medicine
DX: R05.9 Cough, unspecified (principal)
CPT/HCPCS: 71046

== ENCOUNTER 2023-04-14 23:08 | Inpatient (IN) | payer OTHER, SELFPAY ==
--- NOTE | 2023-04-15 00:55 | ED ---
Chest Pain HPI - General Chief Complaint: Chest Pain Stated Complaint: Chest Pain Time Seen by Provider: 04/15/23 00:11 Source: patient Mode of arrival: ambulatory Limitations: no limitations - History of Present Illness Initial Comments: This patient is 58-year-old man arriving here to have evaluation of substernal chest pain. The patient states that a little after 10 PM he was helping a neighbor with something when he noticed that the chest pain had come on. The patient has been having intermittent episodes going back a number of weeks. Patient states that the symptoms lasted about 3 minutes or so. He may have had a little bit of shortness of breath. Patient's brought him to have evaluation related to this. He states that all of the symptoms have resolved now MD Complaint: chest pain -: hour(s) Onset: during exertion Pain Location: substernal Pain Radiation: none - Related Data Home Medications Medication Instructions Recorded Confirmed traMADol HCL [Ultram] 50 mg PO BID PRN 09/06/21 04/15/23 Aspirin EC [Ecotrin Low Dose] 81 mg PO DAILY 04/15/23 04/15/23 Cyclobenzaprine [Flexeril] 5 - 10 mg PO TID PRN 04/15/23 04/15/23 Lisinopril-Hctz 20-25 mg 1 tab PO DAILY 04/15/23 04/15/23 [Zestoretic 20-25] Multivit-Mins/Iron/Folic/Lycop 2 tab PO DAILY 04/15/23 04/15/23 [Centrum Men's Tablet] Omeprazole [PriLOSEC] 20 mg PO DAILY 04/15/23 04/15/23 Rosuvastatin [Crestor] 10 mg PO DAILY 04/15/23 04/15/23 Previous Rx's Medication Instructions Recorded Metoprolol Tartrate [Lopressor] 25 mg PO BID #60 tab 04/17/23 Prasugrel [Effient] 10 mg PO DAILY #30 tab 04/17/23 Allergies Allergy/AdvReac Type Severity Reaction Status Date / Time Penicillins Allergy Rash/Hives Verified 04/15/23 12:23 tetracycline Allergy Rash/Hives Verified 04/15/23 12:23 latex AdvReac skin Verified 04/15/23 12:23 irritation Review of Systems ROS Statement: Those systems with pertinent positive or pertinent negative responses have been documented in the HPI. ROS Other: All systems not noted in ROS Statement are negative. Constitutional: Denies: fever, chills Respiratory: Denies: cough, dyspnea Cardiovascular: Reports: chest pain. Denies: palpitations, orthopnea, edema, syncope Gastrointestinal: Denies: abdominal pain, nausea, vomiting, diarrhea Genitourinary: Denies: dysuria, hematuria Musculoskeletal: Denies: back pain Skin: Denies: rash Neurological: Denies: headache, weakness EKG Findings - EKG Results: EKG: interpreted by ERMD, sinus rhythm (Rate 86 bpm), normal axis, normal QRS - Blocks, [place], Hypertrophy, ST Abn: Repolarization changes or abnormalities: ST or T wave suggestive of ischemia (There are inferior T inversions) Past Medical History Past Medical History: GERD/Reflux, Osteoarthritis (OA) Additional Past Medical History / Comment(s): jeannette shoulder pain from arthritis History of Any Multi-Drug Resistant Organisms: None Reported Past Surgical History: Hernia Repair, Tonsillectomy Past Anesthesia/Blood Transfusion Reactions: Motion Sickness Past Psychological History: No Psychological Hx Reported Smoking Status: Never smoker Past Alcohol Use History: Occasional Past Drug Use History: None Reported - Past Family History Sister(s) Family Medical History: Cancer Mother Family Medical History: Congestive Heart Failure (CHF) General Exam Limitations: no limitations General appearance: alert, in no apparent distress Head exam: Present: atraumatic, normocephalic Eye exam: Present: normal appearance. Absent: scleral icterus, conjunctival injection ENT exam: Present: normal oropharynx Neck exam: Present: normal inspection Respiratory exam: Present: normal lung sounds bilaterally. Absent: respiratory distress, wheezes, rales, rhonchi, stridor Cardiovascular Exam: Present: regular rate, normal rhythm, normal heart sounds. Absent: systolic murmur, diastolic murmur, rubs, gallop GI/Abdominal exam: Present: soft. Absent: distended, tenderness, guarding, rebound, rigid, mass Extremities exam: Present: normal inspection, normal capillary refill. Absent: pedal edema, calf tenderness Back exam: Present: normal inspection. Absent: CVA tenderness (R), CVA tender ness (L) Neurological exam: Present: alert Skin exam: Present: warm, dry, intact, normal color. Absent: rash Course Vital Signs 04/14/23 04/15/23 04/15/23 23:11 04:00 05:00 Temperature 97.8 F Pulse Rate 79 Pulse Rate [ 70 74 Supine Complex Commercial Litigation Paralegal] Respiratory 20 16 16 Rate Blood Pressure 123/79 Blood Pressure 119/79 119/78 [Right Arm Supine] O2 Sat by Pulse 97 95 100 Oximetry 04/15/23 04/15/23 04/15/23 06:00 08:04 11:42 Temperature Pulse Rate 73 71 Pulse Rate [ 72 Supine Complex Commercial Litigation Paralegal] Respiratory 16 18 18 Rate Blood Pressure 118/80 123/75 Blood Pressure 114/71 [Right Arm Supine] O2 Sat by Pulse 97 98 98 Oximetry 04/15/23 12:34 Temperature Pulse Rate 69 Pulse Rate [ 69 Supine Complex Commercial Litigation Paralegal] Respiratory 18 Rate Blood Pressure 117/78 Blood Pressure 117/78 [Right Arm Supine] O2 Sat by Pulse 99 Oximetry Chest Pain MDM - MDM This patient is a 58-year-old man presenting with symptoms that are concerning for acute coronary syndrome. The symptoms did resolve, but the patient does have mild elevation of troponin on his initial workup. IV heparin administered, patient be admitted for serial cardiac enzymes, telemetry monitoring, cardiology consultation. He did remain symptom-free. The patient had chest x-ray which I interpreted as negative for acute infiltrate, congestive heart failure, pneumothorax. Was pt. sent in by a medical professional or institution (, PA, BEAUTY CULTURIST APPRENTICE, urgent care, hospital, or usp...) When possible be specific @ -[No] Did you speak to anyone other than the patient for history (EMS, parent, family, police, friend...)? What history was obtained from this source @ -[No] Did you review nursing and triage notes (agree or disagree)? Why? @ -[I reviewed and agree with nursing and triage notes] Were old charts reviewed (outside hosp., previous admission, EMS record, old EKG, old radiological studies, urgent care reports/EKG's, usp records)? Report findings @ -[No old charts were reviewed] Differential Diagnosis (chest pain, altered mental status, abdominal pain women, abdominal pain men, vaginal bleeding, weakness, fever, dyspnea, syncope, headache, dizziness, GI bleed, back pain, seizure, CVA, palpatations, mental health, musculoskeletal)? @ -[Differential Chest Pain: Stable Angina, Unstable Angina, STEMI, NSTEMI Aortic Dissection, Pneumothorax, Musculoskeletal, Esophageal Spasm GERD, Cholecystitis, Pancreatitis, Zoster, this is not meant to be an all-inclusive list. EKG interpreted by me (3pts min.). @ -[As above] X-rays interpreted by me (1pt min.). @ -[As above CT interpreted by me (1pt min.). @ -[None done] U/S interpreted by me (1pt. min.). @ -[None done] What testing was considered but not performed or refused? (CT, X-rays, U/S, labs)? Why? @ -[None] What meds were considered but not given or refused? Why? @ -[None] Did you discuss the management of the patient with other professionals (professionals i.e. , PA, BEAUTY CULTURIST APPRENTICE, lab, RT, psych nurse, social service manager, environmental manager, teacher, probation officer, hospice case manager)? Give summary @ -[Case discussed with admitting physician Was smoking cessation discussed for >3mins.? @ -[No] Was critical care preformed (if so, how long)? @ -[yes, 30 minutes Were there social determinants of health that impacted care today? How? (Homelessness, low income, unemployed, alcoholism, drug addiction, transportation, low edu. Level, literacy, decrease access to med. care, senior living, rehab)? @ -[No] Was there de-escalation of care discussed even if they declined (Discuss DNR or withdrawal of care, Hospice)? DNR status @ -[No] What co-morbidities impacted this encounter? (DM, HTN, Smoking, COPD, CAD, Cancer, CVA, ARF, Chemo, Hep., AIDS, mental health diagnosis, sleep apnea, morbid obesity)? @ -[None] Was patient admitted / discharged? Hospital course, mention meds given and route, prescriptions, significant lab abnormalities, going to OR and other pertinent info. @ -[As above Undiagnosed new problem with uncertain prognosis? @ -[No] Drug Therapy requiring intensive monitoring for toxicity (Heparin, Nitro, Insulin, Cardizem)? @ -[IV heparin administered Were any procedures done? @ -[No] Diagnosis/symptom? @ -[Acute coronary syndrome elevated troponin I Acute, or Chronic, or Acute on Chronic? @ -[acute Uncomplicated (without systemic symptoms) or Complicated (systemic symptoms)? @ -[uncomplicated Side effects of treatment? @ -[No] Exacerbation, Progression, or Severe Exacerbation? @ -[No] Poses a threat to life or bodily function? How? (Chest pain, USA, NM, pneumonia, PE, COPD, DKA, ARF, appy, cholecystitis, CVA, Diverticulitis, Homicidal, Suicidal, threat to staff... and all critical care pts) @ -[Yes, untreated acute coronary syndrome related to acute NM/ Critical Care Time Critical Care Time: Yes (30 minutes) Disposition Clinical Impression: Chest pain, Elevated troponin I level Disposition: ADMITTED IP TO THIS HOSP Condition: Fair Is patient prescribed a controlled substance at d/c from ED?: No
[2023-04-15 01:12] LABS: Basophils # (A) 0.1 k/uL (0-0.2); Basophils % (A) 1 %; Eosinophils # (A) 0.4 k/uL (0-0.7); Eosinophils % (A) 6 %; HCT 41.1 % (39.0-53.0); Lymphocytes # (A) 1.9 k/uL (1.0-4.8); Lymphocytes % (A) 25 %; MCH 31.1 pg (25.0-35.0); MCHC 34.2 g/dL (31.0-37.0); MCV 90.8 fL (80.0-100.0); Mean Platelet Volume 7.9; Monocytes # (A) 0.5 k/uL (0-1.0); Monocytes % (A) 6 %; Neutrophils # (A) 4.7 k/uL (1.3-7.7); Neutrophils % (A) 61 %; Platelet Count 232 k/uL (150-450); RBC 4.52 m/uL (4.30-5.90); RDW 12.4 % (11.5-15.5); WBC 7.8 k/uL (3.8-10.6)
[2023-04-15 01:24] LABS: Partial Thromboplastin Time 23.8 sec (22.0-30.0); Prothrombin Time 10.3 sec (9.0-12.0)
[2023-04-15 01:30] LABS: Albumin 4.3 g/dL (3.5-5.0); Calcium 9.2 mg/dL (8.4-10.2); Potassium 4.4 mmol/L (3.5-5.1); Total Bilirubin 0.5 mg/dL (0.2-1.3); Total Protein 7.3 g/dL (6.3-8.2)
--- NOTE | 2023-04-15 01:41 | XR ---
EXAM: XR Chest, 2 Views CLINICAL HISTORY: ITS.REASON XR Reason: Chest Pain TECHNIQUE: Frontal and lateral views of the chest. COMPARISON: XR Chest dated 12/08/22 FINDINGS: Lungs: Unremarkable. No consolidation. Pleural space: Unremarkable. No pneumothorax. Heart: Unremarkable. No cardiomegaly. Mediastinum: Unremarkable. Bones/joints: Unremarkable. Mild degenerative changes of the thoracic spine. IMPRESSION: No evidence of acute cardiopulmonary disease.
[2023-04-15] MEDS ORDERED: HEPARIN SODIUM 1,000 UN/ML (10ML VL) IV PRN (02:24)
[2023-04-15] MEDS ORDERED: HEPARIN SODIUM 1,000 UN/ML (10ML VL) IV ONE ×2 (02:24→14:58)
[2023-04-15] MEDS ORDERED: HEPARIN SOD,PORK IN 0.45% NACL 25,000 UNIT in 0.45% NACL 1 250ML.BAG IV SCH (02:30)
[2023-04-15] MEDS ORDERED: NITROGLYCERIN SL TABS 0.4 MG TAB SUBLINGUAL PRN ×3 (02:43→15:30)
[2023-04-15] MEDS: SODIUM CHLORIDE 0.9% 1,000 ML IV SCH ×3 (02:51→23:00)
--- NOTE | 2023-04-15 04:50 | P.HPIM ---
History of Present Illness H&P Date: 04/15/23 Chief Complaint: chest pain 58 year old mal with hypertension and hyperlipidemia patient coming in for chest pain, he was checking on his sick neighbour and when coming back home noticed chest pain , centrally right across his chest , no radiation, no associated nausea , vomiting, SOB, or diaphoresis , no palpitations . pain was 5-6/10 squeezing pain. he rested for 5 mini and took 2 baby aspirin and pain went away. he has been having similar pain episodes whenever he exerts himself, he recently had a stress test done OP about 3 weeks ago, and his historian dramatic arts told him it was abnormal and they set an appointment OP, however he decided to come in today after this episode. otherwise, denies any GI bleeding , SOB, fever, chills, cough, URI symptoms , changes in urinary or bowel habits he denies tobacco smoking, illicit drugs or alcohol Review of Systems Pertinent positives as noted in HPI. All other systems were reviewed and are negative Past Medical History Past Medical History: GERD/Reflux, Osteoarthritis (OA) Additional Past Medical History / Comment(s): jeannette shoulder pain from arthritis History of Any Multi-Drug Resistant Organisms: None Reported Past Surgical History: Hernia Repair, Tonsillectomy Past Anesthesia/Blood Transfusion Reactions: Motion Sickness Past Psychological History: No Psychological Hx Reported Smoking Status: Never smoker Past Alcohol Use History: Occasional Past Drug Use History: None Reported - Past Family History Sister(s) Family Medical History: Cancer Medications and Allergies Home Medications Medication Instructions Recorded Confirmed Type Meloxicam [Mobic] 15 mg PO DAILY 12/28/17 09/06/21 History traMADol HCL [Ultram] 50 mg PO BID PRN 09/06/21 09/06/21 History Ascorbic Acid [Vitamin C] 500 mg PO BID 30 Days #60 tab 09/08/21 Rx Famotidine [Pepcid] 20 mg PO BID 30 Days #60 tab 09/08/21 Rx Multivitamins, Thera [Multivitamin 1 each PO DAILY 30 Days #30 tab 09/08/21 Rx (formulary)] Zinc Sulfate [Orazinc] 220 mg PO DAILY 30 Days #30 cap 09/08/21 Rx amLODIPine [Norvasc] 5 mg PO DAILY 30 Days #30 tab 09/08/21 Rx dexAMETHasone [Dexamethasone] 6 mg PO DAILY 8 Days #8 tablet 09/08/21 Rx Allergies Allergy/AdvReac Type Severity Reaction Status Date / Time Penicillins Allergy Rash/Hives Verified 04/14/23 23:14 tetracycline Allergy Rash/Hives Verified 04/14/23 23:14 latex AdvReac skin Verified 04/14/23 23:14 irritation Physical Exam Vitals: Vital Signs Temp Pulse Resp BP Pulse Ox 04/14/23 23:11 97.8 F 79 20 123/79 97 Intake and Output 04/14/23 04/14/23 04/15/23 14:59 22:59 06:59 Other: Weight 98.883 kg Constitutional: No acute distress, conversant, pleasant Eyes: Anicteric sclerae, moist conjunctiva, Pupils equal round reactive to light ENMT: NC/AT Oropharynx clear, no erythema, or exudates Neck: Supple, no masses, or JVD No carotid bruits No thyromegaly Lungs: Clear to auscultation Clear to percussion Normal respiratory effort, no accessory muscle use Cardiovascular: Heart regular in rate and rhythm, No murmurs, gallops, or rubs No peripheral edema Abdominal: Soft Nontender, no guarding, rebound or rigidity Abdomen moving with respiration Normoactive bowel sounds No hepatomegaly, No splenomegaly No palpable mass No abdominal wall hernia noted Skin: Normal temperature, tone, texture, turgor No induration No subcutaneous nodules No rash, lesions No ulcers Extremities: No digital cyanosis No clubbing Pedal pulses intact and symmetrical Radial pulses intact and symmetrical No calf tenderness Psychiatric: Alert and oriented to person, place and time Appropriate affect fair judgement Neuro Muscles Strength 5/5 in all 4 extremities Sensation to light touch grossly present throughout Cranial nerves II-XII grossly intact Lymphatics: no palpable cervical or supraclavicular lymph nodes Results CBC & Chem 7: 04/15/23 00:45 04/15/23 00:45 Labs: Abnormal Lab Results - Last 24 Hours (Table) 04/15/23 04/15/23 Range/Units 00:45 00:45 BUN 30 H (9-20) mg/dL Creatinine 1.28 H (0.66-1.25) mg/dL Glucose 104 H (74-99) mg/dL Troponin I 0.055 H* (0.000-0.034) ng/mL Assessment and Plan Assessment: 58 year old male with hypertension , hyperlipidemia , coming in for chest pain , I discussed the case with ED doc, and I accepted the admission for chest pain to rule out ACS with anticipated length of stay > 2 midnights NSTEMI heparin gtt cardiology consult daily aspirin and statin framing mechanic monitor vital signs nitro prn EKG showed t wave inversion lead III ivf hydration with normal saline elevatd trops 0.055 continue to trend chronic conditions hypertension , resume amlodipine 5 mg po daily hyperlipidemia resume atorvastatin 40 mg po daily renal function unremarkable BUN 30 , cr 1.28 WBC 7.8, Hgb 14 unremarkable full code DVT PPX heparin gtt for ACS
[2023-04-15] MEDS: ZINC SULFATE 220 MG CAP PO SCH (08:13)
[2023-04-15] MEDS: ATORVASTATIN 40 MG TAB PO SCH (08:13)
[2023-04-15] MEDS: METOPROLOL TARTRATE 25 MG TAB PO SCH ×2 (08:13→20:06)
[2023-04-15] MEDS: FAMOTIDINE 20 MG TAB PO SCH ×2 (08:13→20:06)
[2023-04-15] MEDS ORDERED: amLODIPine 5 MG TAB PO SCH (09:00)
[2023-04-15] MEDS ORDERED: ALPRAZolam 0.5 MG TAB PO PRN (11:13)
[2023-04-15] MEDS ORDERED: ALPRAZolam 0.25 MG TAB PO PRN (11:13)
[2023-04-15] MEDS ORDERED: ASPIRIN 325 MG TAB PO STA (11:13)
[2023-04-15] MEDS ORDERED: ATORVASTATIN 40 MG TAB PO STA (11:13)
--- NOTE | 2023-04-15 11:13 | P.CRDCN ---
History of Present Illness Consult date: 04/15/23 History of present illness: History of Present Illness: The patient's a 58-year-old male with a history of hypertension, recently seen by Dr. Hahn for evaluation of chest discomfort. For the last 2 months or so he has been getting chest discomfort, lasting few minutes, more activity related and relieved with rest associated with sweating at times and dyspnea. He underwent an MPI that showed evidence of stress-induced ischemia in the inferior wall. His ejection fraction was preserved. Yesterday he had an episode of chest discomfort while coming back from his neighbors home lasting for a few minutes and because of the persistent symptoms he came into the emergency room, his troponin was mildly elevated. He is pain-free at the time of my evaluation. The patient has no prior history of CHF or arrhythmia. He is a nonsmoker. He has a history of hypertension and hyperlipidemia, he is non-diabetic. He has a family history of premature CAD Medications: aspirin once a day, rosuvastatin 10 mg daily, lisinopril HCT 2025 milligrams daily. Review of Systems: Respiratory: He has episodes of dyspnea on exertion with the pain. He has a remote history of asthma GI: No nausea or vomiting . No history of peptic ulcer disease. No recent GI bleed. : No hematuria or dysuria. Nervous System: No stroke or seizure. Physical Examination: 58-year-old male, alert and oriented no apparent distress ,Blood pressure 118/80, Heart rate 70 Head: Normocephalic. Eyes: Sclerae nonicteric. Neck: Good carotid upstroke, no bruit, no jugular venous distention. Lungs: Clear to auscultation. Heart: Regular rate and rhythm, S1-S2, no S3, no rub. No murmur. Abdomen: Soft nontender, positive bowel sounds no organomegaly. Extremities: No edema, intact distal pulses. Labs: Hemoglobin 14, BUN 30, creatinine 1.28. Potassium 4.4. Troponin 0.055, 0.056, 0.039. Chest x-ray with no acute infiltrate EKG: Sinus mechanism with T-wave inversion inferiorly Impression: 1. Non-STEMI in a patient with abnormal MPI 2. History of hypertension 3. History of hyperlipidemia 4. Mild renal insufficiency Plan: 1. Proceed with coronary angiography, the risks and the complications were discussed with the patient who is in full agreement and understanding 2. Obtain an echocardiogram with Doppler 3. Depending on the results of the testing further recommendations will be made 4. Thank you for this consult we will follow with you Past Medical History Past Medical History: GERD/Reflux, Osteoarthritis (OA) Additional Past Medical History / Comment(s): jeannette shoulder pain from arthritis History of Any Multi-Drug Resistant Organisms: None Reported Past Surgical History: Hernia Repair, Tonsillectomy Past Anesthesia/Blood Transfusion Reactions: Motion Sickness Past Psychological History: No Psychological Hx Reported Smoking Status: Never smoker Past Alcohol Use History: Occasional Past Drug Use History: None Reported - Past Family History Sister(s) Family Medical History: Cancer Medications and Allergies Home Medications Medication Instructions Recorded Confirmed Type Meloxicam [Mobic] 15 mg PO DAILY 12/28/17 09/06/21 History traMADol HCL [Ultram] 50 mg PO BID PRN 09/06/21 09/06/21 History Ascorbic Acid [Vitamin C] 500 mg PO BID 30 Days #60 tab 09/08/21 Rx Famotidine [Pepcid] 20 mg PO BID 30 Days #60 tab 09/08/21 Rx Multivitamins, Thera [Multivitamin 1 each PO DAILY 30 Days #30 tab 09/08/21 Rx (formulary)] Zinc Sulfate [Orazinc] 220 mg PO DAILY 30 Days #30 cap 09/08/21 Rx amLODIPine [Norvasc] 5 mg PO DAILY 30 Days #30 tab 09/08/21 Rx dexAMETHasone [Dexamethasone] 6 mg PO DAILY 8 Days #8 tablet 09/08/21 Rx Allergies Allergy/AdvReac Type Severity Reaction Status Date / Time Penicillins Allergy Rash/Hives Verified 04/14/23 23:14 tetracycline Allergy Rash/Hives Verified 04/14/23 23:14 latex AdvReac skin Verified 04/14/23 23:14 irritation Physical Exam Vitals: Vital Signs Temp Pulse Pulse Resp BP BP Pulse Ox 04/15/23 08:04 73 18 118/80 98 04/15/23 06:00 72 16 114/71 97 04/15/23 05:00 74 16 119/78 100 04/15/23 04:00 70 16 119/79 95 04/14/23 23:11 97.8 F 79 20 123/79 97 Intake and Output 04/14/23 04/15/23 04/15/23 22:59 06:59 14:59 Other: Weight 98.883 kg Results 04/15/23 00:45 04/15/23 00:45 Cardiac Enzymes 04/15/23 04/15/23 04/15/23 Range/Units 00:45 00:45 04:42 AST 34 (17-59) U/L Troponin I 0.055 H* 0.056 H* (0.000-0.034) ng/mL 04/15/23 Range/Units 08:40 AST (17-59) U/L Troponin I 0.039 H* (0.000-0.034) ng/mL Coagulation 04/15/23 04/15/23 Range/Units 00:45 08:40 PT 10.3 (9.0-12.0) sec APTT 23.8 40.4 H (22.0-30.0) sec CBC 04/15/23 Range/Units 00:45 WBC 7.8 (3.8-10.6) k/uL RBC 4.52 (4.30-5.90) m/uL Hgb 14.0 (13.0-17.5) gm/dL Hct 41.1 (39.0-53.0) % Plt Count 232 (150-450) k/uL Comprehensive Metabolic Panel 04/15/23 Range/Units 00:45 Sodium 137 (137-145) mmol/L Potassium 4.4 (3.5-5.1) mmol/L Chloride 102 (98-107) mmol/L Carbon Dioxide 25 (22-30) mmol/L BUN 30 H (9-20) mg/dL Creatinine 1.28 H (0.66-1.25) mg/dL Glucose 104 H (74-99) mg/dL Calcium 9.2 (8.4-10.2) mg/dL AST 34 (17-59) U/L ALT 41 (4-49) U/L Alkaline Phosphatase 76 (38-126) U/L Total Protein 7.3 (6.3-8.2) g/dL Albumin 4.3 (3.5-5.0) g/dL Current Medications Generic Name Dose Route Start Last Admin Trade Name Freq PRN Reason Stop Dose Admin Amlodipine Besylate 5 mg 04/15/23 09:00 04/15/23 08:13 Amlodipine 5 Mg Tab PO 5 mg DAILY MARI Administration Aspirin 325 mg 04/16/23 09:00 Aspirin 325 Mg Tab PO DAILY MARI Atorvastatin Calcium 40 mg 04/15/23 09:00 04/15/23 08:13 Atorvastatin 40 Mg Tab PO 40 mg DAILY MARI Administration Famotidine 20 mg 04/15/23 09:00 04/15/23 08:13 Famotidine 20 Mg Tab PO 20 mg BID MARI Administration Heparin Sodium (Porcine) 0 unit 04/15/23 02:24 Heparin Sodium 1,000 Un/Ml (10ml Vl) IV PER PROTOCOL PRN Low PTT Protocol Heparin Sodium/Sodium Chloride 250 mls @ 10 mls/hr 04/15/23 02:30 04/15/23 02:49 25,000 unit/ Sodium Chloride IV 10.113 units/kg/hr .Q24H MARI 10 mls/hr Administration Protocol 10.113 UNITS/KG/HR Sodium Chloride 1,000 mls @ 100 mls/hr 04/15/23 02:45 04/15/23 02:51 Saline 0.9% IV 100 mls/hr .Q10H MARI Administration Metoprolol Tartrate 25 mg 04/15/23 09:00 04/15/23 08:13 Metoprolol Tartrate 25 Mg Tab PO 25 mg BID MARI Administration Nitroglycerin 0.4 mg 04/15/23 02:43 Nitroglycerin Sl Tabs 0.4 Mg Tab SUBLINGUAL Q5M PRN Chest Pain Zinc Sulfate 220 mg 04/15/23 09:00 04/15/23 08:13 Zinc Sulfate 220 Mg Cap PO 220 mg DAILY MARI Administration Intake and Output 04/14/23 04/15/23 04/15/23 22:59 06:59 14:59 Other: Weight 98.883 kg 04/15/23 00:45 04/15/23 00:45
[2023-04-15 11:44] LABS: Glucose,Whole Blood 101 mg/dL (70-110)
[2023-04-15] MEDS ORDERED: VERAPAMIL 2.5 MG/ML 2 ML AMP ONE (14:12)
--- NOTE | 2023-04-15 14:25 | P.PN ---
Subjective Progress Note Date: 04/15/23 Hospital course: Patient is a very pleasant 58-year-old male with a past medical history of hypertension, hyperlipidemia, and GERD. He presented to the emergency department with a chief complaint of chest pain. Patient reports his neighbor was sick and they had to call an ambulance and upon running across the street to check on his neighbor and running back home he began having pain in his midsternal chest which seemed to radiate horizontally across the entire chest. Patient described this pain as a squeezing sensation. He was evaluated by EMS and given 2 baby aspirin and sublingual nitro and after 5 minutes this pain seemed to resolve. Patient reports that he has been under outpatient workup with dental manager, Dr. Hahn secondary to previous episodes of exertional c hest pain and he underwent an outpatient stress test in which he and his reports was abnormal showing evidence of stress induced ischemia. Patient denies having any other associated symptoms with this episode of chest pain and reports since receiving the single dose of nitroglycerin and aspirin he has not had any further events. He underwent full evaluation in the emergency department. CBC, liver profile and coagulation profile were unremarkable. BMP showing a slight elevation of renal function with BUN of 30, creatinine 1.28, and GFR of 61 with baseline creatinine of 1.5. Initial troponin elevated at 0.055. EKG was completed showing normal sinus rhythm at 86 bpm with T-wave inversion in linferior leads III and aVF upon personal review and interpretation, no previous EKGs available for comparison. Chest x-ray completed and negative for acute cardiopulmonary process. Patient was started on heparin infusion admitted under our services with consultation to cardiology. Troponins were trended and remained elevated at 0.055, 0.056, and 0.039. Physical exam: Vital signs reviewed and stable. General: Nontoxic, no distress and appears stated age. Derm: Skin warm and dry, normal coloration for ethnicity. Head: Atraumatic, normocephalic and symmetric. Eyes: EOMs intact, no lid lag, and anicteric sclera Mouth: no lip lesions, mucus membranes moist Cardiovascular: regular rate and rhythm with normal S1S2, no murmur, positive posterior tibial pulses bilaterally, and cap refill < 2 seconds. Lungs: Respirations even, regular, and unlabored on room air. Lungs CTA jeannette aterally, no rhonchi, no rales, no wheezing, and no accessory muscle usage. Abdominal: soft, nontender to palpation, no guarding, no appreciable organomegaly Ext: ROM intact. No gross muscle atrophy, no edema, no contractures Neuro: Speech clear, face symmetrical and CN II-XII grossly intact with no noted focal neuro deficits Psych: Alert and oriented to person, place, time, and situation. Appropriate and pleasant affect. Assessment and Plan of Care: NSTEMI -Troponins were trended and remained elevated at 0.055, 0.056, and 0.039. -PTT subtherapeutic at 40.4, heparin infusion was increased to 12.1 units per kilogram per hour or 11.9 mL/hr. -EKG showing normal sinus rhythm at 86 bpm with T-wave inversion in linferior leads III and aVF upon personal review and interpretation, no previous EKGs available for comparison. -Chest x-ray completed and negative for acute cardiopulmonary process. -Troponins were trended and remained elevated at 0.055, 0.056, and 0.039. -Echocardiogram to be completed -Cardiology following planning to take patient for cardiac cath. CODE STATUS: Full code DVT prophylaxis: Heparin Discussed with: Patient, RN, and cardiology Anticipated discharge date: Clinical course to determine Anticipated discharge place: Home Patient was seen independently by Nurse Pracitioner. This document was prepared using [employer] dictation software. Please allow for errors in environmental health safety engineer, while rare they do occur. I reviewed the documentation as provided by the KRISTEL above, who is the original author of this note. I agree with the documented assessment and plan, with the following changes: none Objective - Vital Signs Vital signs: Vital Signs Temp 97.8 F 04/14/23 23:11 Pulse 73 04/15/23 08:04 Resp 18 04/15/23 08:04 BP 118/80 04/15/23 08:04 Pulse Ox 98 04/15/23 08:04 FiO2 Intake & Output 04/14/23 04/15/23 04/15/23 18:59 06:59 18:59 Weight 98.883 kg - Labs CBC & Chem 7: 04/15/23 00:45 04/15/23 00:45 Labs: Abnormal Lab Results - Last 24 Hours (Table) 04/15/23 04/15/23 04/15/23 Range/Units 00:45 00:45 04:42 BUN 30 H (9-20) mg/dL Creatinine 1.28 H (0.66-1.25) mg/dL Glucose 104 H (74-99) mg/dL Troponin I 0.055 H* 0.056 H* (0.000-0.034) ng/mL
[2023-04-15] MEDS ORDERED: fentaNYL (PF) 50 MCG/ML 2 ML AMP ONE (14:29)
[2023-04-15] MEDS ORDERED: IV FLUID CONTINUATION 1,000 ML IV ONE (14:33)
[2023-04-15] MEDS ORDERED: fentaNYL (PF) 50 MCG/ML 2 ML AMP IV ONE (14:45)
[2023-04-15] MEDS ORDERED: LIDOCAINE 1% INJ 10MG/ML (5 ML VIAL-PF) SQ ONE (14:47)
[2023-04-15] MEDS ORDERED: VERAPAMIL SYRINGE (5 MG/10 ML) INTRAARTER ONE (14:49)
[2023-04-15] MEDS ORDERED: MIDAZOLAM 2 MG/2 ML VIAL IV ONE (14:56)
[2023-04-15] MEDS ORDERED: PRASUGREL 10 MG TAB PO ONE (15:00)
[2023-04-15] MEDS ORDERED: PRASUGREL 10 MG TAB ONE (15:01)
[2023-04-15] MEDS ORDERED: IOPAMIDOL-370 100ML BTL INJ ONE ×2 (15:14→15:20)
[2023-04-15] MEDS ORDERED: MAG HYDROX/AL HYDROX/SIMETH 30 ML CUP PO PRN (15:30)
[2023-04-15] MEDS ORDERED: RX INFO: IV CONTRAST WAS GIVEN 1 EACH MISC MISCELLANE PRN (15:30)
[2023-04-15] MEDS ORDERED: ZOLPIDEM 5 MG TAB PO PRN (15:30)
[2023-04-15] MEDS ORDERED: ATROPINE SULFATE 0.1 MG/ML 10ML SYRINGE IV PRN (15:30)
[2023-04-15] MEDS ORDERED: SODIUM CHLORIDE 0.9% 1,000 ML in EMPTY BAG 1 BAG IV SCH (15:30)
--- NOTE | 2023-04-15 15:40 | P.CARDCATH ---
Date of Procedure: 04/15/23 Description of Procedure: Cardiac Catheterization: The patient is a 58-year-old male known history of hypertension and hyperlipidemia who has been complaining of chest discomfort. He has a family history of premature CAD. Had an abnormal MPI as an outpatient. He has been seen by Dr. Hahn. He presented with symptoms of chest discomfort and mild troponin elevation. Recommendations were made regarding cardiac catheterization, the risks and the complications were discussed with the patient who is in full understanding and agreement. Procedure Description: Patient was brought to lab assistant in fasting semi-sedated state after receiving Fentanyl and Benadryl achieiving moderate conscious sedated state. Using Xylocaine Anesthesia and Seldinger technique, a 6-Cymraes sheath was introduced in the right radial artery . Subsequently, selective coronary angiography was performed using a 5-Cymraes 3.5 bend Sasha catheter. Multiple views of the coronary artery including hemiaxial views were obtained. The 5-Cymraes pigtail catheter was used to cross the aortic valve and LVEDP was calculated. PCI: After removing the catheters a 6-Cymraes 0.75 AL guiding catheter was introduced and after cannulating the right coronary ostium a 0.014 BMW J-wire was positioned in the distal RCA subsequently a 2.5 X 12 mm Treck was advanced and one inflation at 8 eliel was done. After removing the balloon 3.015 mm Xience corina point stent was deployed at 16 eliel. After appropriate wait the wire was withdrawn and images were obtained and reveal stable successful stenting. Following that, catheter and sheath were removed. Hemostasis was obtained with deployment of TR band . There was no immediate complication. Patient was returned to room in stable condition. Of note, the patient received a total of 7000 units of intravenous heparin as well as intra-arterial verapamil. He received an oral loading dose of Effient. His ACT was monitored. He had chest discomfort with the inflations that resolved at the end of the procedure. Findings: Left main: This is a large size vessel, bifurcating into LAD and left circumflex. The distal left main has a 30-40% plaque. The rest of the vessel has no high-grade stenosis LAD: This is a large size vessel, reaching to the apex, the LAD gives rise to 2 diagonal branch. The LAD has mild intimal disease in the proximal and midsegment with no high-grade stenosis. Left circumflex: This is a nondominant vessel giving rise to a very proximal first obtuse marginal branch subsequently the vessel gives rise to a second smaller obtuse marginal branch that is totally occluded with no antegrade flow. There is retrograde flow through collaterals to the third obtuse margin branch and the appearance of bridging collaterals. RCA: This is a large dominant vessel, tortuous, bifurcating distally to PDA and PLV. The proximal RCA has eccentric 50% stenosis, the mid segment has a 30-40% plaque, and in the distal segment there is an eccentric 95% stenosis, the rest of the vessel has no high-grade stenosis Left Ventriculogram: Not performed Hemodynamics: There was no gradient across the aortic valve , LVEDP was 15-18 mmHg Conclusion: 1. Critical stenosis in the mid-distal RCA with intimal disease of moderate degree in the proximal and midsegment 2. Mild disease in the distal left main 3. Mild disease in the LAD 4. Totally occluded third obtuse marginal branch with retrograde filling through collaterals 5. Successful stenting mid-distal RCA with reduction of stenosis from 95% to less than 5% Recommendations: The patient will continue on aspirin and Effient for 1 year without any interruption in addition to aggressive coronary risks modifications. He will be evaluated for the need to undergo attempt angioplasty to the totally occluded left circumflex obtuse marginal branch. The findings and the recommendations were discussed with the patient and the family and they were in full understanding and agreement. Duration of sedation is 35 minutes.
--- NOTE | 2023-04-15 18:35 | CA ---
Transthoracic Echo Report Name: Arben Coley Age: 58 Gender: M : 1965 Exam Date: 04/15/2023 11:01 Exam Location: [facility] Ht (in): 71 Wt (lb): 218 Ordering Physician: Vibha Ramirez Attending/Referring Phys: [id number], James Press Box Custodian Yelitza Mcmillan, TODD Procedure CPT: Indications: chest pain, elevated troponin Cardiac Hx: Technical Quality: Good Contrast 1: Total Dose (mL): Contrast 2: Total Dose (mL): MEASUREMENTS (Male / Female) Normal Values 2D ECHO LV Diastolic Diameter PLAX 4.4 cm 4.2 - 5.9 / 3.9 - 5.3 cm LV Systolic Diameter PLAX 3.1 cm IVS Diastolic Thickness 1.2 cm 0.6 - 1.0 / 0.6 - 0.9 cm LVPW Diastolic Thickness 1.2 cm 0.6 - 1.0 / 0.6 - 0.9 cm LV Relative Wall Thickness 0.6 RV Internal Dim ED PLAX 3.1 cm LA Systolic Diameter LX 3.8 cm 3.0 - 4.0 / 2.7 - 3.8 cm LV Diastolic Volume MOD BP 81.0 cm??? 67 - 155 / 56 - 104 cm??? LV Systolic Volume MOD BP 41.4 cm??? 22 - 58 / 19 - 49 cm??? LV Ejection Fraction MOD BP 48.9 % >= 55 % LV Cardiac Index MOD BP 1107.9 cm???/min???m??? LV Diastolic Volume MOD 4C 69.4 cm??? LV Systolic Volume MOD 4C 32.7 cm??? LV Ejection Fraction MOD 4C 53.0 % LV Cardiac Index MOD 4C 1029.5 cm???/min???m??? LV Diastolic Length 4C 8.3 cm LV Systolic Length 4C 7.0 cm LV Diastolic Volume MOD 2C 88.6 cm??? LV Systolic Volume MOD 2C 50.7 cm??? LV Ejection Fraction MOD 2C 42.8 % LV Cardiac Index MOD 2C 1062.7 cm???/min???m??? LV Diastolic Length 2C 7.6 cm LV Systolic Length 2C 6.6 cm LA Volume 55.9 cm??? 18 - 58 / 22 - 52 cm??? M-MODE Aortic Root Diameter MM 3.2 cm MV E Point Septal Separation 0.3 cm AV Cusp Separation MM 2.0 cm DOPPLER MV Area PHT 4.7 cm??? Mitral E Point Velocity 78.9 cm/s Mitral A Point Velocity 89.3 cm/s Mitral E to A Ratio 0.9 MV Deceleration Time 160.0 ms MV E' Velocity 7.9 cm/s Mitral E to MV E' Ratio 10.0 TR Peak Velocity 193.1 cm/s TR Peak Gradient 14.9 mmHg Right Ventricular Systolic Press 19.9 mmHg FINDINGS Left Ventricle Left ventricular ejection fraction is estimated at 50-55 %. Left ventricular cavity size normal. Left ventricle systolic function borderline normal. Mild left ventricle hypertrophy. Right Ventricle Normal right ventricular size and function. Right ventricular systolic pressure within normal limits. Right Atrium Normal right atrial size. Left Atrium Normal left atrial size. Mitral Valve Mitral valve thickened. Mild mitral annular calcification. Mild mitral regurgitation. Aortic Valve Trileaflet aortic valve. No aortic valve stenosis or regurgitation. Tricuspid Valve Structurally normal tricuspid valve. Mild tricuspid regurgitation. Pulmonic Valve Structurally normal pulmonic valve. Trace pulmonic regurgitation. Pericardium Normal pericardium. No pericardial effusion. Aorta Normal size aortic root and proximal ascending aorta. CONCLUSIONS 1. Left ventricle systolic function borderline normal with no clear segmental wall motion abnormality 2. Mild mitral and tricuspid regurgitation 3. No pericardial effusion Previewed by: Dr. Jeannette Lowe MD (Electronically Signed) Final Date: 15 April 2023 18:35
[2023-04-15] MEDS: lisinopriL 5 MG TAB PO SCH (20:06)
[2023-04-16] MEDS ORDERED: HEPARIN SODIUM,PORCINE 2,500 UNIT in SODIUM CHLORIDE 0.9% 250 ML IRRIGATION PRN (07:00)
[2023-04-16] MEDS ORDERED: HEPARIN SODIUM,PORCINE 10,000 UNIT in SODIUM CHLORIDE 0.9% 1,000 ML IRRIGATION PRN (07:00)
[2023-04-16 07:32] LABS: HCT 43.9 % (39.0-53.0); HGB 14.8 gm/dL (13.0-17.5); MCH 31.2 pg (25.0-35.0); MCHC 33.8 g/dL (31.0-37.0); MCV 92.4 fL (80.0-100.0); Mean Platelet Volume 8.1; Platelet Count 234 k/uL (150-450); RBC 4.75 m/uL (4.30-5.90); RDW 12.5 % (11.5-15.5); WBC 8.6 k/uL (3.8-10.6)
[2023-04-16 07:57] LABS: African American GFR (CKD) 69 (>60 ml/min/1.73 sqM); Anion Gap 9 mmol/L; Blood Urea Nitrogen 24 mg/dL (9-20); Calcium 9.1 mg/dL (8.4-10.2); Carbon Dioxide 26 mmol/L (22-30); Chloride 101 mmol/L (98-107); Glucose 102 mg/dL (74-99); Non-African American GFR(CKD) 60 (>60 ml/min/1.73 sqM); Potassium 4.8 mmol/L (3.5-5.1); Sodium 136 mmol/L (137-145)
[2023-04-16] MEDS ORDERED: ASPIRIN 325 MG TAB PO SCH (09:00)
[2023-04-16] MEDS: SODIUM CHLORIDE 0.9% 1,000 ML IV SCH ×2 (09:15→19:57)
[2023-04-16] MEDS: ASPIRIN 81 MG PO SCH (09:17)
[2023-04-16] MEDS: FAMOTIDINE 20 MG TAB PO SCH ×2 (09:18→21:16)
[2023-04-16] MEDS: ZINC SULFATE 220 MG CAP PO SCH ×2 (09:18→09:21)
[2023-04-16] MEDS: METOPROLOL TARTRATE 25 MG TAB PO SCH ×2 (09:18→21:16)
[2023-04-16] MEDS: lisinopriL 5 MG TAB PO SCH ×2 (09:18→21:16)
[2023-04-16] MEDS: ATORVASTATIN 40 MG TAB PO SCH (09:18)
--- NOTE | 2023-04-16 10:39 | P.PN ---
Subjective Progress Note Date: 04/16/23 PROGRESS NOTE The patient's a 58-year-old male with a history of hypertension, recently seen by Dr. Hahn for evaluation of chest discomfort. For the last 2 months or so he has been getting chest discomfort, lasting few minutes, more activity related and relieved with rest associated with sweating at times and dyspnea. He underwent an MPI that showed evidence of stress-induced ischemia in the inferior wall. His ejection fraction was preserved. Yesterday he had an episode of chest discomfort while coming back from his neighbors home lasting for a few minutes and because of the persistent symptoms he came into the emergency room, his troponin was mildly elevated. He is pain-free at the time of my evaluation. The patient has no prior history of CHF or arrhythmia. He is a nonsmoker. He has a history of hypertension and hyperlipidemia, he is non-diabetic. He has a family history of premature CAD April 16: The patient is doing well this morning, ambulating without any symptoms of chest discomfort. He denies any dizziness or palpitations. He denies any nausea. He continues to be in sinus mechanism. Hemodynamically stable. He underwent cardiac catheterization and stenting of the RCA yesterday. He has chronically occluded OM. His left ventricle systolic function is preserved. Medications: Aspirin, Effient 10 mg daily, Lipitor 40 mg daily, Zestril 5 mg twice a day, Lopressor 25 mg twice a day PHYSICAL EXAMINATION: Blood pressure 133/70 heart rate 80 LUNGS: Clear to auscultation HEART: Regular rate and rhythm, S1, S2. No S3. Systolic ejection murmur ABDOMEN: Soft, nontender, no organomegaly EXTREMETIES: No edema, right radial pulse intact LAB: BUN 24, creatinine 1.3, hemoglobin 14.8. EKG no acute changes. IMPRESSION: 1. Status post non-STEMI with stenting of the RCA 2. Chronically occluded OM branch 3. Hypertension 4. Chronic kidney disease PLAN: 1. Increase physical activity 2. Follow renal functions 3. 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 If stable discharged home tomorrow and follow-up with Dr. Hahn Objective - Vital Signs Vital signs: Vital Signs Temp 97.8 F 04/16/23 09:10 Pulse 81 04/16/23 09:10 Resp 16 04/16/23 09:10 BP 133/70 04/16/23 09:10 Pulse Ox 95 04/16/23 09:10 FiO2 Intake & Output 04/15/23 04/16/23 04/16/23 18:59 06:59 18:59 Intake Total 342 200 180 Output Total 500 Balance 342 -300 180 Weight 98.883 kg Intake: IV 75 Intake, IV Titration 87 200 Amount Heparin Sod,Pork in 0.45% 87 NaCl 25,000 unit In 0.45 % NaCl 1 250ml.bag @ 10. 113 UNITS/KG/HR 10 mls/hr IV .Q24H [facility]I Rx#: [id number] Sodium Chloride 0.9% 1, 200 000 ml @ 100 mls/hr IV . Q10H MARI Rx#:[id number] Oral 180 180 Output: Urine 500 Other: # Voids 2 1 - Labs CBC & Chem 7: 04/16/23 07:00 04/16/23 07:00 Labs: Abnormal Lab Results - Last 24 Hours (Table) 04/15/23 04/16/23 Range/Units 17:40 07:00 APTT 61.6 H (22.0-30.0) sec Sodium 136 L (137-145) mmol/L BUN 24 H (9-20) mg/dL Creatinine 1.30 H (0.66-1.25) mg/dL Glucose 102 H (74-99) mg/dL
[2023-04-16] MEDS: PRASUGREL 10 MG TAB PO SCH (10:47)
--- NOTE | 2023-04-16 13:54 | P.PN ---
Subjective Progress Note Date: 04/16/23 (delayed charting seen at 1030) Patient is a 58-year-old male with hypertension, hyperlipidemia, and GERD who presented to the emergency department with chest pain. EMS given 2 baby aspirin and sublingual nitro and after 5 minutes this pain seemed to resolve. He underwent an extensive evaluation in the emergency department. Laboratory analysis was remarkable for a BUN of 30, creatinine 1.28, baseline creatinine of 1.5. Initial troponin was elevated at 0.055. EKG was completed showing normal sinus rhythm at 86 bpm with T-wave inversion in inferior leads III and aVF. Chest x-ray negative for acute process. Patient was started on heparin infusion admitted under our services with consultation to cardiology. Troponins were trended and remained elevated at 0.055, 0.056, and 0.039. He underwent cardiac catheterization on 04/15 which found critical stenosis in the mid distal RCA with mild disease in the distal left main and LAD. Patient had successful stenting of the mid distal RCA. Echocardiogram showed ejection fraction 50-55%. Patient seen and examined at bedside. He denies any chest pain or shortness of breath. He has been up and walking around. He denies any lightheadedness or dizziness. His mother and 2 sisters are present all questions are answered. Vital signs reviewed General: nontoxic, no distress, appears at stated age Cardiovascular: S1S2 reg, no murmur, positive posterior tibial pulse bilateral, Lungs: CTA bilateral, no rhonchi, no rales , no accessory muscle use Abdominal: soft, nontender to palpation, no guarding, no appreciable organomegaly Ext: no gross muscle atrophy, no edema, no contractures Neuro: CN II-XI grossly intact, no focal neuro deficits Psych: Alert, oriented, appropriate affect Assessment: Non-ST segment elevated myocardial infarction with PCI to the RCA Hypertension Chronic kidney disease stage II Dyslipidemia GERD Imaging: None additional Data Review: Vitals revealed temperature 97.8, pulse 81, respirations 16, blood pressure 133/70, O2 sat 95% on room air Laboratory analysis remarkable for sodium 136, creatinine 1.3 (1.3 yesterday) Plan: -Discussed with Dr. Fuller patient will likely be stable for discharge tomorrow -Continue with aspirin 81 mg, Effient 10 mg daily, Lopressor 25 mg twice daily, lisinopril 5 mg twice daily, Lipitor 40 mg daily -Follow blood pressures DVT prophylaxis: SCDs Discussed with: Patient, nursing Anticipated discharge date: in AM Anticipated discharge place: home This dictation was prepared using [employer] voice recognition software. Though every attempt is made to correct errors during during dictation some may still exist. Objective - Vital Signs Vital signs: Vital Signs Temp 97.8 F 04/16/23 09:10 Pulse 70 04/16/23 13:07 Resp 16 04/16/23 13:07 BP 120/80 04/16/23 13:07 Pulse Ox 98 04/16/23 13:07 FiO2 Intake & Output 04/15/23 04/16/23 04/16/23 18:59 06:59 18:59 Intake Total 342 200 180 Output Total 500 Balance 342 -300 180 Weight 98.883 kg Intake: IV 75 Intake, IV Titration 87 200 Amount Heparin Sod,Pork in 0.45% 87 NaCl 25,000 unit In 0.45 % NaCl 1 250ml.bag @ 10. 113 UNITS/KG/HR 10 mls/hr IV .Q24H MARI Rx#: [id number] Sodium Chloride 0.9% 1, 200 000 ml @ 100 mls/hr IV . Q10H MARI Rx#:[id number] Oral 180 180 Output: Urine 500 Other: # Voids 2 1 - Labs CBC & Chem 7: 04/16/23 07:00 04/16/23 07:00 Labs: Abnormal Lab Results - Last 24 Hours (Table) 04/15/23 04/16/23 Range/Units 17:40 07:00 APTT 61.6 H (22.0-30.0) sec Sodium 136 L (137-145) mmol/L BUN 24 H (9-20) mg/dL Creatinine 1.30 H (0.66-1.25) mg/dL Glucose 102 H (74-99) mg/dL
[2023-04-16] MEDS ORDERED: HYDROcodone/APAP 5-325MG 1 EACH TAB PO PRN (19:06)
[2023-04-16] MEDS ORDERED: ACETAMINOPHEN TAB 325 MG TAB PO PRN (19:06)
[2023-04-17] MEDS: SODIUM CHLORIDE 0.9% 1,000 ML IV SCH (03:35)
[2023-04-17 03:38] VITALS: PULSE 71
[2023-04-17] MEDS: PRASUGREL 10 MG TAB PO SCH (07:51)
[2023-04-17] MEDS: ATORVASTATIN 40 MG TAB PO SCH (07:52)
[2023-04-17] MEDS: ASPIRIN 81 MG PO SCH (07:52)
[2023-04-17] MEDS: lisinopriL 5 MG TAB PO SCH (07:52)
[2023-04-17] MEDS: FAMOTIDINE 20 MG TAB PO SCH (07:52)
[2023-04-17] MEDS: METOPROLOL TARTRATE 25 MG TAB PO SCH (07:52)
[2023-04-17] MEDS: ZINC SULFATE 220 MG CAP PO SCH (07:53)
[2023-04-17 07:55] VITALS: RESP 16; TEMP 98
--- NOTE | 2023-04-17 10:37 | P.PN ---
Subjective PROGRESS NOTE The patient's a 58-year-old male with a history of hypertension, recently seen by Dr. Hahn for evaluation of chest discomfort. For the last 2 months or so he has been getting chest discomfort, lasting few minutes, more activity related and relieved with rest associated with sweating at times and dyspnea. He underwent an MPI that showed evidence of stress-induced ischemia in the inferior wall. His ejection fraction was preserved. Yesterday he had an episode of chest discomfort while coming back from his neighbors home lasting for a few minutes and because of the persistent symptoms he came into the emergency room, his troponin was mildly elevated. He is pain-free at the time of my evaluation. The patient has no prior history of CHF or arrhythmia. He is a nonsmoker. He has a history of hypertension and hyperlipidemia, he is non-diabetic. He has a family history of premature CAD April 16: The patient is doing well this morning, ambulating without any symptoms of chest discomfort. He denies any dizziness or palpitations. He denies any nausea. He continues to be in sinus mechanism. Hemodynamically stable. He underwent cardiac catheterization and stenting of the RCA yesterday. He has chronically occluded OM. His left ventricle systolic function is preserved. 04/17 Seen and examined. Patient denies any chest pain or pressure. He underwent PCI of RCA. He still has circumflex LICENSED FINAL EXPENSE AGENTS however no significant angina. He has been on metoprolol and tolerating well. No hematochezia or melena. PHYSICAL EXAMINATION: Vitals reviewed LUNGS: Clear to auscultation HEART: Regular rate and rhythm, S1, S2. No S3. Systolic ejection murmur ABDOMEN: Soft, nontender, no organomegaly EXTREMETIES: No edema, right radial pulse intact IMPRESSION: 1. Status post non-STEMI with stenting of the RCA 2. Chronically occluded OM branch 3. Hypertension 4. Chronic kidney disease PLAN: Continue current regimen. Patient appears stable for discharge home. Follow-up in office in 1 week. Objective - Vital Signs Vital signs: Vital Signs Temp 98.0 F 04/17/23 07:48 Pulse 71 04/17/23 07:48 Resp 16 04/17/23 07:48 BP 120/76 04/17/23 07:48 Pulse Ox 98 04/17/23 08:13 FiO2 Intake & Output 04/16/23 04/17/23 04/17/23 18:59 06:59 18:59 Intake Total 540 250 240 Output Total 475 Balance 540 -225 240 Intake: Oral 540 250 240 Output: Urine 475 Other: Voiding Method Toilet # Voids 3 2 - Labs CBC & Chem 7: 04/16/23 07:00 04/16/23 07:00
[2023-04-17 10:47] LABS: African American GFR (CKD) 69 (>60 ml/min/1.73 sqM); Anion Gap 10 mmol/L; Blood Urea Nitrogen 31 mg/dL (9-20); Calcium 9.5 mg/dL (8.4-10.2); Carbon Dioxide 25 mmol/L (22-30); Chloride 100 mmol/L (98-107); Glucose 116 mg/dL (74-99); Non-African American GFR(CKD) 59 (>60 ml/min/1.73 sqM); Potassium 5.3 mmol/L (3.5-5.1); Sodium 135 mmol/L (137-145)
[2023-04-17] MEDS ORDERED: SODIUM ZIRCONIUM CYCLOSILICATE 10 GM PACKET PO ONE (11:00)
[2023-04-17 11:35] VITALS: BP 120/68
[2023-04-17 11:48] LABS: Chol/HDL Ratio 4.18 Ratio
--- NOTE | 2023-04-17 12:10 | P.DS ---
Providers Date of admission: 04/15/23 02:43 Expected date of discharge: 04/17/23 Attending physician: Veronica Valdez MD Consults: 04/15/23 02:43 Consult Physician Urgent Consulting Provider: Prabhjot Armendariz Consult Reason/Comments: chest pain Do you want consulting provider notified?: Yes 04/15/23 15:30 Consult Physician Routine Consulting Provider: [facility] Consult Reason/Comments: Post Interventional Patient Do you want consulting provider notified?: Already Contacted Primary care physician: Cody Velasquez Hospital Course: Discharge Diagnosis: Non-ST segment elevated myocardial infarction with PCI to the RCA Hypertension Hyperkalemia Chronic kidney disease stage II Dyslipidemia GERD Hospital Course: Patient is a 58-year-old male with hypertension, hyperlipidemia, and GERD who presented to the emergency department with chest pain. EMS given 2 baby aspirin and sublingual nitro and after 5 minutes this pain seemed to resolve. He underwent an extensive evaluation in the emergency department. Laboratory analysis was remarkable for a BUN of 30, creatinine 1.28, baseline creatinine of 1.5. Initial troponin was elevated at 0.055. EKG was completed showing normal sinus rhythm at 86 bpm with T-wave inversion in inferior leads III and aVF. Chest x-ray negative for acute process. Patient was started on heparin infusion admitted under our services with consultation to cardiology. Troponins were trended and remained elevated at 0.055, 0.056, and 0.039. He underwent cardiac catheterization on 04/15 which found critical stenosis in the mid distal RCA with mild disease in the distal left main and LAD. Patient had successful stenting of the mid distal RCA. Echocardiogram showed ejection fraction 50-55%. He did well. He was determined stable for discharge home by cardiology. He did have one episode of hyperkalemia treated with lokelma. His hydrochlorothiazide was restarted which we anticipate will correct his hyperkalemia. Follow-up: Dr. Hahn in 1 week, Dr. Velasquez on 04/21/23, repeat basic metabolic profile in 2-3 days, medications include FEN 10 mg daily and metop rolol 25 mg twice daily. He was resumed on his prior dose of Crestor, aspirin, and lisinopril hydrochlorothiazide Patient seen and examined at bedside. Well. No chest pain. No shortness of breath. Understands the need to ensure he takes both of his antiplatelet agents every day due to the risk of thrombosis if he misses a dose. Vital signs reviewed and stable. General: nontoxic, no distress, appears at stated age Cardiovascular: S1S2 reg, no murmur, positive posterior tibial pulse bilateral, Lungs: CTA bilateral, no rhonchi, no rales , no accessory muscle use Abdominal: soft, nontender to palpation, no guarding, no appreciable organomegaly Ext: no gross muscle atrophy, no edema b/l lower extremities, no contractures Neuro: CN II-XI grossly intact, no focal neuro deficits Psych: Alert, oriented, appropriate affect A total of 35 minutes of time were spent preparing this complex discharge summary. Patient was discharged on 04/17/23. This dictation was prepared using Deep Domain voice recognition software. Though every attempt is made to correct errors during during dictation some may still exist. Patient Condition at Discharge: Fair Plan - Discharge Summary New Discharge Prescriptions: New RX: Prasugrel [Effient] 10 mg PO DAILY #30 tab RX: Metoprolol Tartrate [Lopressor] 25 mg PO BID #60 tab Continue RX: Omeprazole [PriLOSEC] 20 mg PO DAILY RX: Multivit-Mins/Iron/Folic/Lycop [Centrum Men's Tablet] 2 tab PO DAILY RX: Lisinopril-Hctz 20-25 mg [Zestoretic 20-25] 1 tab PO DAILY RX: traMADol HCL [Ultram] 50 mg PO BID PRN PRN Reason: Pain RX: Cyclobenzaprine [Flexeril] 5 - 10 mg PO TID PRN PRN Reason: Muscle Pain RX: Rosuvastatin [Crestor] 10 mg PO DAILY RX: Aspirin EC [Ecotrin Low Dose] 81 mg PO DAILY Discontinued Acetaminophen [Tylenol Arthritis] 650 mg PO Q6H PRN PRN Reason: Pain Or Fever > 100.5 Discharge Medication List RX: traMADol HCL [Ultram] 50 mg PO BID PRN 09/06/21 [History] RX: Aspirin EC [Ecotrin Low Dose] 81 mg PO DAILY 04/15/23 [History] RX: Cyclobenzaprine [Flexeril] 5 - 10 mg PO TID PRN 04/15/23 [History] RX: Lisinopril-Hctz 20-25 mg [Zestoretic 20-25] 1 tab PO DAILY 04/15/23 [History] RX: Multivit-Mins/Iron/Folic/Lycop [Centrum Men's Tablet] 2 tab PO DAILY 04/15/23 [History] RX: Omeprazole [PriLOSEC] 20 mg PO DAILY 04/15/23 [History] RX: Rosuvastatin [Crestor] 10 mg PO DAILY 04/15/23 [History] RX: Metoprolol Tartrate [Lopressor] 25 mg PO BID #60 tab 04/17/23 [Rx] RX: Prasugrel [Effient] 10 mg PO DAILY #30 tab 04/17/23 [Rx] Follow up Appointment(s)/Referral(s): Mauricio Hahn DO [STAFF PHYSICIAN] - 04/18/23 7:45 am Cody Velasquez DO [Primary Care Provider] - 04/21/23 10:20 am Ambulatory/Diagnostic Orders: Basic Metabolic Panel [LAB.AMB] Time Frame: 3 Days, Location: None Selected Patient Instructions/Handouts: Chest Pain (ED), Heart Catheterization (DC) Activity/Diet/Wound Care/Special Instructions: Activity: as tolerated, post radial cath precautions Diet: heart healthy Special Instructions: Do not miss aspirin and Effient this would put you at risk for your started to develop a blockage. Repeat potassium level [facility] Thank you for trusting us with your care we wish you well [facility] Discharge Disposition: HOME SELF-CARE
[2023-04-18] MEDS ORDERED: lisinopriL 5 MG TAB PO SCH (09:00)
== END 2023-04-17 12:32 | disposition home or self-care (01) | DRG 247 ==
LOC: EC 23:08 → 3SCARD 04-15 02:43
PROVIDERS: ADMIT Internal Medicine; ATTEND Internal Medicine
PROC: 027034Z Dilation of Coronary Artery, One Artery with Drug-eluting Intraluminal Device, Percutaneous Approach (ICD-10-PCS; principal; 2023-04-15 13:30)
PROC: B2111ZZ Fluoroscopy of Multiple Coronary Arteries using Low Osmolar Contrast (ICD-10-PCS; principal; 2023-04-15 13:30)
PROC: 4A023N7 Measurement of Cardiac Sampling and Pressure, Left Heart, Percutaneous Approach (ICD-10-PCS; principal; 2023-04-15 13:30)
DX: I21.4 Non-ST elevation (NSTEMI) myocardial infarction (principal); E78.5 Hyperlipidemia, unspecified; E87.5 Hyperkalemia; I12.9 Hypertensive chronic kidney disease with stage 1 through stage 4 chronic kidney disease, or unspecified chronic kidney disease; N18.2 Chronic kidney disease, stage 2 (mild); K21.9 Gastro-esophageal reflux disease without esophagitis; I25.10 Atherosclerotic heart disease of native coronary artery without angina pectoris; M19.012 Primary osteoarthritis, left shoulder; M19.011 Primary osteoarthritis, right shoulder; Z79.1 Long term (current) use of non-steroidal anti-inflammatories (NSAID); Z79.899 Other long term (current) drug therapy; Z88.0 Allergy status to penicillin; Z91.040 Latex allergy status; Z88.1 Allergy status to other antibiotic agents
CPT/HCPCS: 36415; 71046; 80048; 80053; 80061; 83735; 84484; 85025; 85027; 85610; 85730; 93005; 93306; 93458; 94760; 96361; 96365; 96375; 99291

== ENCOUNTER 2024-09-04 17:21 | Inpatient (IN) | payer OTHER ==
--- NOTE | 2024-09-04 17:47 | ED ---
Chest Pain HPI - General Chief Complaint: Chest Pain Stated Complaint: chest pressure Time Seen by Provider: 09/04/24 17:37 Source: patient, RN notes reviewed, old records reviewed Mode of arrival: ambulatory Limitations: no limitations - History of Present Illness Initial Comments: This is a 59-year-old male to the ER for evaluation of chest pain today. Patient had about a 20-minute episode of chest pain prior to arrival with history of CAD and stent placed MD Complaint: chest pain, other (Chest pain resolved) -: hour(s) Onset: during rest, during exertion Pain Location: substernal, left chest Pain Radiation: RUE Severity: mild Severity scale (1-10): 2 Quality: tightness Consistency: constant, now resolved Improves With: nothing Worsens With: nothing Anginal Symptoms: dyspnea, sense of impending doom Other Symptoms: palpitations Treatments Prior to Arrival: none - Related Data Home Medications Medication Instructions Recorded Confirmed traMADol HCL [Ultram] 50 mg PO BID PRN 09/06/21 09/04/24 Aspirin EC [Ecotrin Low Dose] 81 mg PO DAILY 04/15/23 09/04/24 Cyclobenzaprine [Flexeril] 5 mg PO HS 04/15/23 09/04/24 Omeprazole [PriLOSEC] 20 mg PO DAILY 04/15/23 09/04/24 Ezetimibe [Zetia] 10 mg PO DAILY 09/04/24 09/04/24 Isosorbide Mononitrate ER [Imdur] 30 mg PO DAILY 09/04/24 09/04/24 Meloxicam [Mobic] 7.5 mg PO DAILY 09/04/24 09/04/24 Montelukast [Singulair] 10 mg PO DAILY 09/04/24 09/04/24 Rosuvastatin [Crestor] 20 mg PO DAILY 09/04/24 09/04/24 lisinopriL [Zestril] 20 mg PO BID 09/04/24 09/04/24 Previous Rx's Medication Instructions Recorded Metoprolol Tartrate [Lopressor] 25 mg PO BID #60 tab 04/17/23 Allergies Allergy/AdvReac Type Severity Reaction Status Date / Time Penicillins Allergy Rash/Hives Verified 09/04/24 20:17 tetracycline Allergy Rash/Hives Verified 09/04/24 20:17 latex AdvReac skin Verified 09/04/24 20:17 irritation Review of Systems ROS Statement: Those systems with pertinent positive or pertinent negative responses have been documented in the HPI. ROS Other: All systems not noted in ROS Statement are negative. EKG Findings - EKG Comments: EKG Findings:: EKG is sinus 78 CA 160 QRS 93 QTc 377 - EKG Results: EKG: interpreted by DANICAD Past Medical History Past Medical History: GERD/Reflux, Hypertension, Myocardial Infarction (PA), Osteoarthritis (OA) Additional Past Medical History / Comment(s): jeannette shoulder pain from arthritis History of Any Multi-Drug Resistant Organisms: None Reported Past Surgical History: Hernia Repair, Tonsillectomy Past Anesthesia/Blood Transfusion Reactions: No Reported Reaction, Motion Sickness Past Psychological History: No Psychological Hx Reported Smoking Status: Never smoker Past Alcohol Use History: Occasional Past Drug Use History: None Reported - Past Family History Sister(s) Family Medical History: Cancer Mother Family Medical History: Congestive Heart Failure (CHF) Father Additional Family Medical History / Comment(s): Father in a motorcycle accident when he was 32 General Exam Limitations: no limitations General appearance: alert, in no apparent distress Head exam: Present: atraumatic, normocephalic, normal inspection Eye exam: Present: normal appearance, PERRL, EOMI. Absent: scleral icterus, conjunctival injection, periorbital swelling ENT exam: Present: normal exam, mucous membranes moist Neck exam: Present: normal inspection. Absent: tenderness, meningismus, lymphadenopathy Respiratory exam: Present: normal lung sounds bilaterally. Absent: respiratory distress, wheezes, rales, rhonchi, stridor Cardiovascular Exam: Present: regular rate, normal rhythm, normal heart sounds. Absent: systolic murmur, diastolic murmur, rubs, gallop, clicks GI/Abdominal exam: Present: soft, normal bowel sounds. Absent: distended, tenderness, guarding, rebound, rigid Extremities exam: Present: normal inspection, full ROM, normal capillary refill. Absent: tenderness, pedal edema, joint swelling, calf tenderness Back exam: Present: normal inspection Neurological exam: Present: alert, oriented X3, CN II-XII intact Psychiatric exam: Present: normal affect, normal mood Skin exam: Present: warm, dry, intact, normal color. Absent: rash Course Vital Signs 09/04/24 09/04/2409/04/24 17:28 21:13 22:19 Temperature 98.1 F 98.0 F Pulse Rate 85 76 77 Respiratory 18 19 18 Rate Blood Pressure 138/83 140/95 149/87 O2 Sat by Pulse 97 97 96 Oximetry 09/05/24 09/05/24 09/05/24 01:08 06:01 11:14 Temperature 97.9 F 98.0 F Pulse Rate 77 74 74 Respiratory 18 18 18 Rate Blood Pressure 154/92 117/80 118/64 O2 Sat by Pulse 96 96 99 Oximetry - Reevaluation(s) Reevaluation #1: 09/04/24 20:30 Medical records reviewed Reevaluation #2: 09/04/24 21:04 Patient has no current chest pain Reevaluation #3: 09/04/24 21:04 Patient informed of results questions answered Reevaluation #4: Was pt. sent in by a medical professional or institution (, PA, COSMETIC MAKER, urgent care, hospital, or custodial...) When possible be specific @ -no Did you speak to anyone other than the patient for history (EMS, parent, family, police, friend...)? What history was obtained from this source @ -no Did you review nursing and triage notes (agree or disagree)? Why? @ -agree Are old charts reviewed (outside hosp., previous admission, EMS record, old EKG, old radiological studies, urgent care reports/EKG's, custodial records)? Report findings @ -yes Differential Diagnosis (chest pain, altered mental status, abdominal pain women, abdominal pain men, vaginal bleeding, weakness, fever, dyspnea, syncope, headache, dizziness, GI bleed, back pain, seizure, CVA, palpatations, mental health, musculoskeletal)? @ -prior EKG interpreted by me (3pts min.). @ -yes X-rays interpreted by me (1pt min.). @ -yes negative for acute disease CT interpreted by me (1pt min.). @ -no U/S interpreted by me (1pt. min.). @ -no What testing was considered but not performed or refused? (CT, X-rays, U/S, labs)? Why? @ -none What meds were considered but not given or refused? Why? @ -none Did you discuss the management of the patient with other professionals (professionals i.e. , PA, COSMETIC MAKER, lab, RT, psych nurse, social services technician, director of outside sales, teacher, custodial officer, rehabilitation case coordinator)? Give summary @ -no Was smoking cessation discussed for >3mins.? @ -no Was critical care preformed (if so, how long)? @ -yes31 Were there social determinants of health that impacted care today? How? ( Homelessness, low income, unemployed, alcoholism, drug addiction, transportation, low edu. Level, literacy, decrease access to med. care, snf, rehab)? @ -none Was there de-escalation of care discussed even if they declined (Discuss DNR or withdrawal of care, Hospice)? DNR status @ -no What co-morbidities impacted this encounter? (DM, HTN, Smoking, COPD, CAD, Cancer, CVA, ARF, Chemo, Hep., AIDS, mental health diagnosis, sleep apnea, morbid obesity)? @ -none Was patient admitted / discharged? Hospital course, mention meds given and route, prescriptions, significant lab abnormalities, going to OR and other pertinent info. @ - 59-year-old male with elevated troponin, patient will be admitted for non- ST elevated PA with chest pain that is resolved here in the ER Admitted Undiagnosed new problem with uncertain prognosis? @ -no Drug Therapy requiring intensive monitoring for toxicity (Heparin, Nitro, Insulin, Cardizem)? @ -no Were any procedures done? @ -no Diagnosis/symptom? @ -Non-STEMI Acute, or Chronic, or Acute on Chronic? @ -Acute Uncomplicated (without systemic symptoms) or Complicated (systemic symptoms)? @ -Complicated Side effects of treatment? @ -no Exacerbation, Progression, or Severe Exacerbation? @ -exacerbation Poses a threat to life or bodily function? How? (Chest pain, USA, PA, pneumonia, PE, COPD, DKA, ARF, appy, cholecystitis, CVA, Diverticulitis, Homicidal, Suicidal, threat to staff... and all critical care pts) @ -yes Reevaluation #5: Differential Chest Pain: Stable Angina, Unstable Angina, STEMI, NSTEMI Aortic Dissection, Pneumothorax, Musculoskeletal, Esophageal Spasm GERD, Cholecystitis, Pancreatitis, Zoster, this is not meant to be an all-inclusive list. - Consultations Consultation #1: Spoke with bhumi who agrees to admit this patient Chest Pain MDM - MDM 59-year-old male with elevated troponin, patient will be admitted for non-ST elevated PA with chest pain that is resolved here in the ER Critical Care Time Critical Care Time: Yes Total Critical Care Time: 31 Disposition Clinical Impression: NSTEMI (non-ST elevated myocardial infarction), Chest pain, Unstable angina pectoris Disposition: ADMITTED IP TO THIS HOSP Condition: Serious Is patient prescribed a controlled substance at d/c from ED?: No Time of Disposition: 21:00
[2024-09-04 18:28] LABS: Basophils % (A) 0 %; Eosinophils # (A) 0.5 k/uL (0-0.7); Eosinophils % (A) 5 %; HCT 45.2 % (39.0-53.0); HGB 15.5 gm/dL (13.0-17.5); Lymphocytes # (A) 1.7 k/uL (1.0-4.8); Lymphocytes % (A) 19 %; MCH 31.4 pg (25.0-35.0); MCHC 34.4 g/dL (31.0-37.0); MCV 91.5 fL (80.0-100.0); Mean Platelet Volume 8.3; Monocytes # (A) 0.5 k/uL (0-1.0); Monocytes % (A) 5 %; Neutrophils # (A) 6.2 k/uL (1.3-7.7); Neutrophils % (A) 69 %; Platelet Count 237 k/uL (150-450); RBC 4.94 m/uL (4.30-5.90); RDW 13.3 % (11.5-15.5)
--- NOTE | 2024-09-04 18:29 | XR ---
EXAMINATION TYPE: XR chest 2V DATE OF EXAM: 09/04/2024 6:25 PM CLINICAL INDICATION: Male, 59 years old with history of Chest Pain; [facility] COMPARISON: Chest radiographs from 04/15/2023 TECHNIQUE: XR chest 2V Frontal and lateral views of the chest. FINDINGS: Lungs/Pleura: There is no evidence of pleural effusion, focal consolidation, or pneumothorax. Pulmonary vascularity: Unremarkable. Heart/mediastinum: Cardiomediastinal silhouette is unremarkable. Musculoskeletal: No acute osseous pathology. IMPRESSION: No acute cardiopulmonary disease/process. [facility], , 09/04/2024 6:26 PM
[2024-09-04 18:37] LABS: ALT 43 U/L (4-49); AST 42 U/L (17-59); African American GFR (CKD) 69 (>60 ml/min/1.73 sqM); Albumin 4.6 g/dL (3.5-5.0); Alkaline Phosphatase 69 U/L (38-126); Anion Gap 9 mmol/L; Blood Urea Nitrogen 25 mg/dL (9-20); Calcium 9.2 mg/dL (8.4-10.2); Carbon Dioxide 26 mmol/L (22-30); Chloride 105 mmol/L (98-107); Glucose 94 mg/dL (74-99); INR 0.9 (<1.2); Lipase 104 U/L (23-300); Magnesium 1.9 mg/dL (1.6-2.3); Non-African American GFR(CKD) 60 (>60 ml/min/1.73 sqM); Partial Thromboplastin Time 24.1 sec (22.0-30.0); Potassium 4.7 mmol/L (3.5-5.1); Prothrombin Time 10.3 sec (10.0-12.5); Sodium 140 mmol/L (137-145); Total Bilirubin 0.6 mg/dL (0.2-1.3); Total Protein 7.3 g/dL (6.3-8.2)
[2024-09-04 18:42] LABS: NT-Pro-B-Type Natriuretic Pept 56 pg/mL
[2024-09-04] MEDS ORDERED: NITROGLYCERIN SL TABS 0.4 MG TAB SUBLINGUAL PRN (21:01)
[2024-09-04] MEDS ORDERED: MORPHINE SULFATE 4 MG/ML SYRINGE IV PRN (21:01)
[2024-09-04] MEDS: HEPARIN SODIUM 1,000 UN/ML (10ML VL) IV ONE (21:19)
[2024-09-04] MEDS: HEPARIN SOD,PORK IN 0.45% NACL 25,000 UNIT in 0.45% NACL 1 250ML.BAG IV SCH (21:20)
[2024-09-04] MEDS: ASPIRIN 81 MG PO STA (21:22)
[2024-09-04] MEDS: NITROGLYCERIN OINT 1 INCH/GM PACKET TOPICAL SCH (22:30)
--- NOTE | 2024-09-05 00:40 | P.HPIM ---
History of Present Illness H&P Date: 09/05/24 History of present illness; Arben Coley 59-year-old male with CAD with stent placement, hypertension, chronic muscle pain presents with chest pain. Patient states chest pain began suddenly located substernally, described as pressure, nonradiating and lasting for 2 minutes, nonpleuritic. Symptoms occurred while at walking into work and was a 10 out of 10 in severity. Pain stopped after sitting and resting. Patient had no other symptoms at that time. Patient describes previous incident of a similar pain 1 year ago which resulted in coronary stent placement in mid distal RCA, and has had no incident since. No other complaints at this time. Patient notes qasim-going chest pain 11/22 at the time of interview, also substernal and non-radiating. Patient currently reports absence of fever, chills, weight loss, palpitations, diaphoresis, dyspnea, cough, nausea, vomiting, constipation, diarrhea, abdominal pain, weakness, myalgia, dizziness, headache, LE pain or edema, and dysuria. Initial lab work done in the ER showed WBC 9.0, hemoglobin 15.5, platelets 237, coag studies are WNL, sodium 140, potassium 4.7, bicarb 26, BUN 25, creatinine 1.3, proBNP 56, troponin 0.019 => 0.056 EKG done in the ER independently interpreted showed heart rate of 78, no ST segment elevation or depression seen, no T-wave inversions seen. Chest x-ray done independently interpreted in the ER showed no acute cardio pulmonary process Patient admitted to internal medicine service for chest pain REVIEW OF SYSTEMS: All Systems reviewed, pertinent positives and negatives noted in HPI. All other symptoms are negative. PHYSICAL EXAMINATION: Vitals reviewed GENERAL: No acute distress. Well developed, well nourished. HEENT: Pupils are round and equally reacting to light. EOMI. No scleral icterus. Normocephalic, atraumatic. No pharyngeal erythema. No thyromegaly. CARDIOVASCULAR: S1 and S2 present. No murmurs, rubs, or gallops. PULMONARY: Chest is clear to auscultation, no wheezing or crackles. ABDOMEN: Soft, nontender, nondistended, normoactive bowel sounds. No palpable organomegaly. MUSCULOSKELETAL: No apparent joint swelling and deformities. EXTREMITIES: No apparent cyanosis, clubbing, or pedal edema. NEUROLOGICAL: The patient is alert and oriented x3, Gross neurological examination did not reveal any focal deficits. SKIN: No apparent rashes. Labs reviewed Imaging reviewed Assessment and plan Arben Coley 59-year-old male with CAD with stent placement, hypertension, chronic muscle pain who is being treated for NSTEMI. # NSTEMI # CAD with hx of PCI to RCA -Troponin 0.019 => 0.056, continue to trend No acute ST changes noted on EKG Reports absence of current chest pain Given aspirin 325mg and continue daily Continue Lipitor 80mg stat and HS Continue metoprolol 25 mg twice daily Continue heparin drip Continue Nitrostat sublingual and nitroglycerin topical, and IV morphine as needed Obtain echocardiogram Pending lipid panel Cardiology consulted Cardiac monitoring Chronic Medical Conditions # Essential hypertension Resume home lisinopril #Chronic muscle and joint pain Resume Mobic and Flexeril #Hyperlipidemia Lipitor as above Resume home ezetimibe #GERD Begin pantoprazole F: P.o. E: Replete as needed N: Heart healthy diet E: None DVT ppx: Heparin infusion Code status: Full code Anticipated discharge place: Pending clinical course Anticipated discharge time: Pending clinical course Dictation was produced using [employer] dictation software. Please excuse any grammatical, word or spelling errors. Past Medical History Past Medical History: GERD/Reflux, Hypertension, Myocardial Infarction (ME), Osteoarthritis (OA) Additional Past Medical History / Comment(s): jeannette shoulder pain from arthritis History of Any Multi-Drug Resistant Organisms: None Reported Past Surgical History: Hernia Repair, Tonsillectomy Past Anesthesia/Blood Transfusion Reactions: No Reported Reaction, Motion Sickness Past Psychological History: No Psychological Hx Reported Smoking Status: Never smoker Past Alcohol Use History: Occasional Past Drug Use History: None Reported - Past Family History Sister(s) Family Medical History: Cancer Mother Family Medical History: Congestive Heart Failure (CHF) Medications and Allergies Home Medications Medication Instructions Recorded Confirmed Type traMADol HCL [Ultram] 50 mg PO BID PRN 09/06/21 09/04/24 History Aspirin EC [Ecotrin Low Dose] 81 mg PO DAILY 04/15/23 09/04/24 History Cyclobenzaprine [Flexeril] 5 mg PO HS 04/15/23 09/04/24 History Omeprazole [PriLOSEC] 20 mg PO DAILY 04/15/23 09/04/24 History Metoprolol Tartrate [Lopressor] 25 mg PO BID #60 tab 04/17/23 09/04/24 Rx Ezetimibe [Zetia] 10 mg PO DAILY 09/04/24 09/04/24 History Isosorbide Mononitrate ER [Imdur] 30 mg PO DAILY 09/04/24 09/04/24 History Meloxicam [Mobic] 7.5 mg PO DAILY 09/04/24 09/04/24 History Montelukast [Singulair] 10 mg PO DAILY 09/04/24 09/04/24 History Rosuvastatin [Crestor] 20 mg PO DAILY 09/04/24 09/04/24 History lisinopriL [Zestril] 20 mg PO BID 09/04/24 09/04/24 History Allergies Allergy/AdvReac Type Severity Reaction Status Date / Time Penicillins Allergy Rash/Hives Verified 09/04/24 20:17 tetracycline Allergy Rash/Hives Verified 09/04/24 20:17 latex AdvReac skin Verified 09/04/24 20:17 irritation Physical Exam Vitals: Vital Signs Temp Pulse Resp BP Pulse Ox 09/04/24 22:19 98.0 F 77 18 149/87 96 09/04/24 21:13 76 19 140/95 97 09/04/24 17:28 98.1 F 85 18 138/83 97 Intake and Output 09/04/24 09/04/24 09/05/24 14:59 22:59 06:59 Other: Weight 103.873 kg Results CBC & Chem 7: 09/04/24 17:58 09/04/24 17:58 Labs: Abnormal Lab Results - Last 24 Hours (Table) 09/04/24 09/04/24 Range/Units 17:58 20:18 BUN 25 H (9-20) mg/dL Creatinine 1.30 H (0.66-1.25) mg/dL Troponin I 0.056 H* (0.000-0.034) ng/mL
[2024-09-05] MEDS: HEPARIN SODIUM 1,000 UN/ML (10ML VL) IV PRN ×2 (05:46→23:30)
[2024-09-05] MEDS: ATORVASTATIN 80 MG TAB PO SCH (08:23)
[2024-09-05] MEDS: ASPIRIN 81 MG PO SCH (08:23)
[2024-09-05] MEDS: MONTELUKAST 10 MG TAB PO SCH (08:24)
[2024-09-05] MEDS: SODIUM CHLORIDE 0.9% 1,000 ML IV SCH (08:24)
[2024-09-05] MEDS: EZETIMIBE 10 MG TAB PO SCH (08:24)
[2024-09-05] MEDS: METOPROLOL TARTRATE 25 MG TAB PO SCH (08:24)
[2024-09-05] MEDS: PANTOPRAZOLE 40 MG TABLET PO SCH (08:24)
[2024-09-05] MEDS: lisinopriL 20 MG TAB PO SCH (08:24)
[2024-09-05 08:56] LABS: Chol/HDL Ratio 2.78 Ratio; VLDL Calculation 18.38 mg/dL (5.00-40.00)
[2024-09-05] MEDS ORDERED: MELOXICAM 7.5 MG TAB PO SCH (09:00)
[2024-09-05] MEDS ORDERED: ASPIRIN 325 MG TAB PO SCH (09:00)
[2024-09-05] MEDS ORDERED: ASPIRIN 81 MG PO SCH (09:00)
[2024-09-05] MEDS ORDERED: NITROGLYCERIN SL TABS 0.4 MG TAB SUBLINGUAL PRN ×2 (09:10→12:16)
[2024-09-05] MEDS ORDERED: ALPRAZolam 0.25 MG TAB PO PRN (09:10)
[2024-09-05] MEDS ORDERED: ALPRAZolam 0.5 MG TAB PO PRN (09:10)
[2024-09-05] MEDS: ATORVASTATIN 80 MG TAB PO STA (09:17)
[2024-09-05] MEDS: ASPIRIN 325 MG TAB PO STA (09:21)
--- NOTE | 2024-09-05 11:03 | P.CRDCN ---
History of Present Illness Consult date: 09/05/24 Consult reason: chest pain History of present illness: This is a 59-year-old male patient of Dr. Marilyn Hoang in the past and is now following with Dr. Jackson with past medical history of coronary artery disease status post angioplasty and stent placement of the right coronary artery in the setting of a mild non-ST MARILYN with known chronically occluded OM with collaterals, hypertension, hyperlipidemia. We have been asked to evaluate the patient for chest pain. The patient states that he developed some mid sternal chest pain when he arrived at work yesterday. He was not exerting himself at the time. He states it lasted for about 1 to 2 minutes and has not returned. He has been feeling more tired over the past couple of days. He denies having any other symptoms with this, no nausea or vomiting, no diaphoresis, no radiation of pain, no palpitations. He has been taking all of his medications as directed. Blood pressure 117/80, heart rate 74. Patient is seen today in the emergency center waiting for bed on the cardiac stepdown unit. He has been started on a heparin drip. Regarding kidney function, patient states that he has had trouble taking Mobic which caused his kidney function to worsen and he has been on and off this for his osteoarthritis. Discussed recommendations for cardiac catheterization for which patient is willing to move forward with. EKG: Sinus rhythm with Q waves similar to previous EKGs Chest x-ray: No acute findings. Laboratory studies: Troponin 0.019, 0.056, 0.049 and 0.03. proBNP 56. CBC within normal limits. BUN 25 creatinine 1.3. Home cardiac medications: Aspirin 81 mg daily, Zetia 10 mg daily, Imdur 30 mg daily, lisinopril 20 mg twice daily, Lopressor 25 mg twice daily, Crestor 20 mg daily. Cardiac catheterization performed 04/14/[address] Lowe revealed critical stenosis in the mid distal RCA with intimal disease of the moderate degree in the proximal and mid section. Mild disease in the distal left main, mild disease in the LAD. Totally occluded third obtuse marginal branch with retrograde filling through collaterals. Patient underwent successful stenting of the mid distal RCA. Echocardiogram performed 04/15/2023 revealed EF of 50 to 55%, mild mitral and tricuspid regurgitation. No pericardial effusion. Review Of Systems: At the time of my exam: CONSTITUTIONAL: Denies fever or chills. HEENT: Denies blurred vision, vision changes, or eye pain. Denies hemoptysis CARDIOVASCULAR: Denies chest pain. Denies orthopnea. Denies PND. Denies palpitations RESPIRATORY: Denies shortness of breath. GASTROINTESTINAL: Denies abdominal pain. Denies nausea or vomiting. HEMATOLOGIC: Denies bleeding disorders. GENITOURINARY: Denies any blood in urine. SKIN: Denies puritis. Denies rash. Physical examination: Gen: This is a 59-year-old male in no acute distress. VS: reviewed HEENT: Head is atraumatic, normocephalic. Pupils equal, round. Sclerae is anicteric. NECK: Supple. No JVD. LUNGS: Clear to auscultation. No wheezes or rhonchi. No intercostal retractions. HEART: Regular rate and rhythm. No murmur. ABDOMEN: Soft No tenderness. EXTREMITIES: No pedal edema. No calf tenderness. NEUROLOGICAL: Patient is awake, alert and oriented x3. Assessment: NSTEMI History of coronary artery disease with previous stenting of the mid distal RCA in April 2023 Hypertension Hyperlipidemia Plan: Resume patient's home cardiac medications Continue heparin drip Start patient on aspirin 81 mg daily, continue atorvastatin 80 mg daily Schedule patient for cardiac catheterization today with Dr. Marilyn Hoang Obtain 2-D echocardiogram and Doppler study to assess cardiac structure and func tion Further recommendations to follow based upon clinical course Thank you kindly for this consultation. Nurse practitioner note has been reviewed, I agree with documented findings and plan of care. Patient was seen and examined. Past Medical History Past Medical History: GERD/Reflux, Hypertension, Myocardial Infarction ([place]), Osteoarthritis (OA) Additional Past Medical History / Comment(s): jeannette shoulder pain from arthritis History of Any Multi-Drug Resistant Organisms: None Reported Past Surgical History: Hernia Repair, Tonsillectomy Past Anesthesia/Blood Transfusion Reactions: No Reported Reaction, Motion Sickness Past Psychological History: No Psychological Hx Reported Smoking Status: Never smoker Past Alcohol Use History: Occasional Past Drug Use History: None Reported - Past Family History Sister(s) Family Medical History: Cancer Mother Family Medical History: Congestive Heart Failure (CHF) Medications and Allergies Home Medications Medication Instructions Recorded Confirmed Type traMADol HCL [Ultram] 50 mg PO BID PRN 09/06/21 09/04/24 History Aspirin EC [Ecotrin Low Dose] 81 mg PO DAILY 04/15/23 09/04/24 History Cyclobenzaprine [Flexeril] 5 mg PO HS 04/15/23 09/04/24 History Omeprazole [PriLOSEC] 20 mg PO DAILY 04/15/23 09/04/24 History Metoprolol Tartrate [Lopressor] 25 mg PO BID #60 tab 04/17/23 09/04/24 Rx Ezetimibe [Zetia] 10 mg PO DAILY 09/04/24 09/04/24 History Isosorbide Mononitrate ER [Imdur] 30 mg PO DAILY 09/04/24 09/04/24 History Meloxicam [Mobic] 7.5 mg PO DAILY 09/04/24 09/04/24 History Montelukast [Singulair] 10 mg PO DAILY 09/04/24 09/04/24 History Rosuvastatin [Crestor] 20 mg PO DAILY 09/04/24 09/04/24 History lisinopriL [Zestril] 20 mg PO BID 09/04/24 09/04/24 History Allergies Allergy/AdvReac Type Severity Reaction Status Date / Time Penicillins Allergy Rash/Hives Verified 09/04/24 20:17 tetracycline Allergy Rash/Hives Verified 09/04/24 20:17 latex AdvReac skin Verified 09/04/24 20:17 irritation Physical Exam Vitals: Vital Signs Temp Pulse Resp BP Pulse Ox 09/05/24 06:01 98.0 F 74 18 117/80 96 09/05/24 01:08 97.9 F 77 18 154/92 96 09/04/24 22:19 98.0 F 77 18 149/87 96 09/04/24 21:13 76 19 140/95 97 09/04/24 17:28 98.1 F 85 18 138/83 97 Intake and Output 09/04/24 09/05/24 09/05/24 22:59 06:59 14:59 Intake Total 81.667 Balance 81.667 Intake: Intake, IV Titration 81.667 Amount Heparin Sod,Pork in 0.45% 81.667 NaCl 25,000 unit In 0.45 % NaCl 1 250ml.bag @ 9. 627 UNITS/KG/HR 10 mls/hr IV .Q24H [facility] Rx#: [id number] Other: Weight 103.873 kg Results 09/04/24 17:58 09/04/24 17:58 Cardiac Enzymes 09/04/24 09/04/24 09/04/24 Range/Units 17:58 17:58 20:18 AST 42 (17-59) U/L Troponin I 0.019 0.056 H* (0.000-0.034) ng/mL 09/05/24 09/05/24 Range/Units 00:11 04:08 AST (17-59) U/L Troponin I 0.049 H* 0.030 (0.000-0.034) ng/mL Coagulation 09/04/24 09/05/24 Range/Units 17:58 04:08 PT 10.3 (10.0-12.5) sec APTT 24.1 37.4 H (22.0-30.0) sec CBC 09/04/24 Range/Units 17:58 WBC 9.0 (3.8-10.6) k/uL RBC 4.94 (4.30-5.90) m/uL Hgb 15.5 (13.0-17.5) gm/dL Hct 45.2 (39.0-53.0) % Plt Count 237 (150-450) k/uL Comprehensive Metabolic Panel 09/04/24 Range/Units 17:58 Sodium 140 (137-145) mmol/L Potassium 4.7 (3.5-5.1) mmol/L Chloride 105 (98-107) mmol/L Carbon Dioxide 26 (22-30) mmol/L BUN 25 H (9-20) mg/dL Creatinine 1.30 H (0.66-1.25) mg/dL Glucose 94 (74-99) mg/dL Calcium 9.2 (8.4-10.2) mg/dL AST 42 (17-59) U/L ALT 43 (4-49) U/L Alkaline Phosphatase 69 (38-126) U/L Total Protein 7.3 (6.3-8.2) g/dL Albumin 4.6 (3.5-5.0) g/dL Current Medications Generic Name Dose Route Start Last Admin Trade Name Freq PRN Reason Stop Dose Admin Aspirin 325 mg 09/05/24 09:00 Aspirin 325 Mg Tab PO DAILY [facility] Atorvastatin Calcium 80 mg 09/05/24 09:00 Atorvastatin 80 Mg Tab PO DAILY [facility] Cyclobenzaprine HCl 5 mg 09/05/24 21:00 Cyclobenzaprine 5 Mg Tab PO HS [facility] Ezetimibe 10 mg 09/05/24 09:00 Ezetimibe 10 Mg Tab PO DAILY [facility] Heparin Sodium (Porcine) 0 unit 09/05/24 05:34 09/05/24 05:46 Heparin Sodium 1,000 Un/Ml (10ml Vl) IV 2,596 unit PER PROTOCOL PRN Administration Low PTT Protocol Heparin Sodium/Sodium Chloride 250 mls @ 10 mls/hr 09/04/24 21:15 09/05/24 05:30 25,000 unit/ Sodium Chloride IV 11.627 units/kg/hr .Q24H MARI 12.077 mls/hr Titration Protocol 9.627 UNITS/KG/HR Lisinopril 20 mg 09/05/24 09:00 Lisinopril 20 Mg Tab PO BID [facility] Meloxicam 7.5 mg 09/05/24 09:00 Meloxicam 7.5 Mg Tab PO DAILY [facility] Metoprolol Tartrate 25 mg 09/05/24 09:00 Metoprolol Tartrate 25 Mg Tab PO BID [facility] Montelukast Sodium 10 mg 09/05/24 09:00 Montelukast 10 Mg Tab PO DAILY [facility] Morphine Sulfate 4 mg 09/04/24 21:01 Morphine Sulfate 4 Mg/Ml Syringe IV Q4HR PRN Chest Pain Nitroglycerin 0.4 mg 09/04/24 21:01 Nitroglycerin Sl Tabs 0.4 Mg Tab SUBLINGUAL Q5M PRN Chest Pain Nitroglycerin 0.5 inch 09/04/24 22:30 09/05/24 05:59 Nitroglycerin Oint 1 Inch/Gm Packet TOPICAL 0.5 inch Q6HR [facility] Administration Pantoprazole Sodium 40 mg 09/05/24 07:30 Pantoprazole 40 Mg Tablet PO AC-BRKFST [facility] Intake and Output 09/04/24 09/05/24 09/05/24 22:59 06:59 14:59 Intake Total 81.667 Balance 81.667 Intake: Intake, IV Titration 81.667 Amount Heparin Sod,Pork in 0.45% 81.667 NaCl 25,000 unit In 0.45 % NaCl 1 250ml.bag @ 9. 627 UNITS/KG/HR 10 mls/hr IV .Q24H [facility] Rx#: [id number] Other: Weight 103.873 kg 09/04/24 17:58 09/04/24 17:58
--- NOTE | 2024-09-05 11:27 | CA ---
Transthoracic Echo Report Name: Arben Coley Age: 59 Gender: M : 1965 Exam Date: 09/05/2024 08:39 Exam Location: [facility] Ht (in): 71 Wt (lb): 229 Ordering Physician: Yunior Escamilla DO Attending/Referring Phys: [id number], Andi Associate Manager [employer] Cinthya Em RDCS Procedure CPT: Indications: elevTrop Cardiac Hx: Stent 05/05 Technical Quality: Technically difficult study Contrast 1: Definity Total Dose (mL): 2 Contrast 2: Total Dose (mL): MEASUREMENTS (Male / Female) Normal Values 2D ECHO LV Diastolic Diameter PLAX 4.6 cm 4.2 - 5.9 / 3.9 - 5.3 cm LV Systolic Diameter PLAX 3.1 cm IVS Diastolic Thickness 0.8 cm 0.6 - 1.0 / 0.6 - 0.9 cm LVPW Diastolic Thickness 1.0 cm 0.6 - 1.0 / 0.6 - 0.9 cm LV Relative Wall Thickness 0.4 LVOT Diameter 2.1 cm LA Volume 45.6 cm??? 18 - 58 / 22 - 52 cm??? LA Volume Index 19.7 cm???/m??? 16 - 28 cm???/m??? Ascending Aorta Diameter 3.3 cm DOPPLER AV Peak Velocity 143.7 cm/s AV Peak Gradient 8.3 mmHg AV Mean Velocity 103.4 cm/s AV Mean Gradient 4.7 mmHg AV Velocity Time Integral 26.9 cm LVOT Peak Velocity 113.7 cm/s LVOT Peak Gradient 5.2 mmHg LVOT Velocity Time Integral 21.1 cm LVOT Stroke Volume 72.3 cm??? LVOT Stroke Volume Index 32.4 ml/m??? LVOT Cardiac Index 2346.1 cm???/min???m??? AV Area Cont Eq vti 2.7 cm??? AV Area Cont Eq pk 2.7 cm??? MV Area PHT 3.4 cm??? Mitral E Point Velocity 48.3 cm/s Mitral A Point Velocity 63.4 cm/s Mitral E to A Ratio 0.8 MV Deceleration Time 226.0 ms PV Peak Velocity 124.8 cm/s PV Peak Gradient 6.2 mmHg FINDINGS Left Ventricle Left ventricular ejection fraction is estimated at 55-60 %. Left ventricular cavity size normal. Left ventricular wall thickness normal. No obvious regional wall motion abnormalities. Right Ventricle Normal right ventricular size and function. Unable to estimate the right ventricular systolic pressure. Right Atrium Normal right atrial size. Left Atrium Normal left atrial size. Mitral Valve Structurally normal mitral valve. No mitral stenosis, regurgitation or prolapse. Aortic Valve Trileaflet aortic valve. No aortic valve stenosis or regurgitation. Tricuspid Valve Structurally normal tricuspid valve. No tricuspid stenosis. No tricuspid regurgitation. Pulmonic Valve Pulmonic valve not well visualized. No pulmonic stenosis. No pulmonic regurgitation. Increased velocities. Pericardium No pericardial effusion. Prominent epicardial fat. Aorta Normal size aortic root and proximal ascending aorta. CONCLUSIONS Normal left ventricle size and systolic function. Significant abnormality on the Doppler exam. No pericardial effusion probable fat pad. There is aortic sclerosis and mild mitral annular calcification Previewed by: Dr. Barry Leigh MD (Electronically Signed) Final Date: 05 September 2024 11:26
[2024-09-05] MEDS: HEPARIN SODIUM,PORCINE (1 ML) 2,500 UNIT in SODIUM CHLORIDE 0.9% 250 ML IRRIGATION PRN (11:45)
[2024-09-05] MEDS: HEPARIN SODIUM,PORCINE 10,000 UNIT in SODIUM CHLORIDE 0.9% 1,000 ML IRRIGATION PRN (11:45)
[2024-09-05] MEDS: MIDAZOLAM 2 MG/2 ML VIAL IVP ONE (11:49)
[2024-09-05] MEDS: fentaNYL (PF) 50 MCG/ML 2 ML AMP IVP ONE (11:49)
[2024-09-05] MEDS: IV FLUID CONTINUATION 1,000 ML IV ONE (11:50)
[2024-09-05] MEDS: LIDOCAINE 1% INJ 10MG/ML (20 ML MDV) SQ ONE (11:50)
[2024-09-05] MEDS: VERAPAMIL SYRINGE (5 MG/10 ML) INTRAARTER ONE (11:52)
[2024-09-05] MEDS: HEPARIN SODIUM 1,000 UN/ML (10ML VL) IV ONE (11:59)
[2024-09-05] MEDS: IOPAMIDOL-370 100ML BTL INJ ONE (12:14)
[2024-09-05] MEDS ORDERED: ATROPINE SULFATE 0.1 MG/ML 10ML SYRINGE IV PRN (12:16)
[2024-09-05] MEDS ORDERED: ZOLPIDEM 5 MG TAB PO PRN (12:16)
[2024-09-05] MEDS ORDERED: RX INFO: IV CONTRAST WAS GIVEN 1 EACH MISC MISCELLANE PRN (12:16)
--- NOTE | 2024-09-05 13:02 | CC ---
CARDIAC CATHETERIZATION REPORT INDICATION: Acute non ST-segment elevation AR. PROCEDURE NOTE: After obtaining informed consent, left heart catheterization and coronary angiogram were performed via the right radial artery using standard Sasha catheters. The patient tolerated the procedure well without any obvious immediate complications. Total sedation time was 22 minutes. Right radial artery access was obtained using Seldinger technique, 6-Slovak sheath was placed. Catheters and wires were floated into the ascending aorta under fluoroscopic guidance. The patient received verapamil and heparin per protocol. FINDINGS: 1. HEMODYNAMICS: Left ventricular end-diastolic pressure is 18 mm. There is no significant gradient across the aortic valve. 2. LEFT VENTRICULOGRAM: Left ventriculogram was not performed. 3. ANGIOGRAPHIC DATA: a.Right coronary artery: Right coronary artery is a large dominant vessel that had prior intervention in the mid to distal portion with stent placement. Stent appeared patent. However, in the proximal portion of the right coronary artery, there is a focal 70% stenosis noted. b.Left main coronary artery is a normal-sized vessel. There is a 30% stenosis in the distal portion as it bifurcates into LAD and circumflex coronary artery. c.Circumflex coronary artery is totally occluded proximally. There are collaterals from the distal right to the OM branches. LAD shows a focal 80% to 90% stenosis in the proximal part. CONCLUSION: Severe three-vessel coronary artery disease as described above. PLAN: I reviewed angiographic data with Dr. Lowe, the on-call waterfront director, who felt that the patient will be better after surgical revascularization. We are going to treat him with optimal medical therapy and consult Dr. Lynne, the Cardiothoracic Surgeon for surgical revascularization. I discussed these issues with the patient and his . They understand and are in agreement with the plans. MMODL / IJN: [id number] /
--- NOTE | 2024-09-05 13:24 | P.GSCN ---
History of Present Illness Consult date: 09/05/24 Reason for Consult: Coronary artery disease Requesting physician: Makenzie Seay History of present illness: This is a 59-year-old gentleman who follows outpatient with Dr. Velasquez for primary care. He has a previous medical history of coronary artery disease with previous stenting to the RCA in April 2023, hypertension, hyperlipidemia, remote history of pneumonia, COVID in 2019, previous tobacco dependence. In April 2023 he underwent heart catheterization by Dr. Lowe and had stent placed to the right coronary artery, was discharged on Effient for 1 year. He presented to [facility] emergency room yesterday with complaints of chest pressure, states it feels similar to when he was here over a year ago. He denied any shortness of breath, nausea, dizziness, or any other symptomatology. In the [facility] room EKG demonstrated sinus rhythm without ischemic changes. Chest x-ray revealed no acute cardiopulmonary process. Lab work was unremarkable except BUN 25, creatinine 1.3, and troponin elevation as high as 0.056. The patient was admitted for evaluation and treatment with consultation placed to cardiology. Echocardiogram was completed this morning demonstrating normal left ventricular systolic function with EF 55 to 60%, and no significant valvular pathology. He was taken [facility] today by Dr. Hoang revealing triple-vessel coronary artery disease with RCA stenosis 70%, circumflex stenosis 100%, and proximal LAD stenosis 80 to 90%. Due to these findings consultation was placed to Dr. Lynne from cardiothoracic surgery for surgical revascularization recommendations. Review of Systems Review of systems was completed and was negative except as noted - Cardiovascular Reports chest pain Past Medical History Past Medical History: Coronary Artery Disease (CAD), GERD/Reflux, Hyper lipidemia, Hypertension, Myocardial Infarction ([place]), Osteoarthritis (OA) Additional Past Medical History / Comment(s): jeannette shoulder pain from arthritis History of Any Multi-Drug Resistant Organisms: None Reported Past Surgical History: Hernia Repair, Tonsillectomy Past Anesthesia/Blood Transfusion Reactions: No Reported Reaction, Motion Sickness Past Psychological History: No Psychological Hx Reported Smoking Status: Former smoker Past Alcohol Use History: Occasional Additional Past Alcohol Use History / Comment(s): States he has 1 drink per week Past Drug Use History: None Reported Additional History: States he quit smoking many many years ago - Past Family History Sister(s) Family Medical History: Cancer Mother Family Medical History: Congestive Heart Failure (CHF) Father Additional Family Medical History / Comment(s): Father in a motorcycle accident when he was 31 Medications and Allergies Home Medications Medication Instructions Recorded Confirmed Type traMADol HCL [Ultram] 50 mg PO BID PRN 09/06/21 09/04/24 History Aspirin EC [Ecotrin Low Dose] 81 mg PO DAILY 04/15/23 09/04/24 History Cyclobenzaprine [Flexeril] 5 mg PO HS 04/15/23 09/04/24 History Omeprazole [PriLOSEC] 20 mg PO DAILY 04/15/23 09/04/24 History Metoprolol Tartrate [Lopressor] 25 mg PO BID #60 tab 04/17/23 09/04/24 Rx Ezetimibe [Zetia] 10 mg PO DAILY 09/04/24 09/04/24 History Isosorbide Mononitrate ER [Imdur] 30 mg PO DAILY 09/04/24 09/04/24 History Meloxicam [Mobic] 7.5 mg PO DAILY 09/04/24 09/04/24 History Montelukast [Singulair] 10 mg PO DAILY 09/04/24 09/04/24 History Rosuvastatin [Crestor] 20 mg PO DAILY 09/04/24 09/04/24 History lisinopriL [Zestril] 20 mg PO BID 09/04/24 09/04/24 History Allergies Allergy/AdvReac Type Severity Reaction Status Date / Time Penicillins Allergy Rash/Hives Verified 09/04/24 20:17 tetracycline Allergy Rash/Hives Verified 09/04/24 20:17 latex AdvReac skin Verified 09/04/24 20:17 irritation Surgical - Exam Vital Signs Temp Pulse Resp BP Pulse Ox 98.1 F 85 18 138/83 97 09/04/24 17:28 09/04/24 17:28 09/04/24 17:28 09/04/24 17:28 09/04/24 17:28 CONSTITUTIONAL: Awake and alert, appears comfortable, cooperative, well- developed, well-nourished, no pain, no acute distress EYES: Pupils equal, round, reactive to light, normal ocular movement ENT: Moist mucous membranes without oral lesions present NECK: No masses, no bruits, trachea midline RESPIRATORY: Lungs sounds clear to auscultation bilaterally. Respirations even, nonlabored. Currently on room air with oxygen saturation 94%. Strong cough. No chest wall deformities. No clubbing or cyanosis present CARDIOVASCULAR: S1, S2 present. Regular rate and rhythm, sinus rhythm on telemetry. Palpable peripheral pulses bilaterally. No edema present. No calf pain or tenderness noted. No significant lower extremity varicosities noted GASTROINTESTINAL: Abdomen soft, nontender, nondistended without masses or organomegaly noted. There is no rebound or guarding present. Active bowel sounds present 4 quadrants. GENITOURINARY: Deferred INTEGUMENTARY: Skin is warm and dry with evidence of good perfusion. NEUROLOGIC: Cranial nerves II through XII intact, normal coordination, no obvious motor or sensory deficits, speech is normal MUSKULOSKELETAL: Able to move all extremities, strength equal bilaterally, normal posture PSYCHIATRIC: Alert and oriented to person place and time, appropriate affect, intact judgment and insight CLINICAL FRAILTY SCORE 3 Results - Labs 09/04/24 17:58 09/04/24 17:58 Abnormal Lab Results - Last 24 Hours (Table) 09/04/24 09/04/24 09/05/24 Range/Units 17:58 20:18 00:11 APTT (22.0-30.0) sec BUN 25 H (9-20) mg/dL Creatinine 1.30 H (0.66-1.25) mg/dL Troponin I 0.056 H* 0.049 H* (0.000-0.034) ng/mL 09/05/24 Range/Units 04:08 APTT 37.4 H (22.0-30.0) sec BUN (9-20) mg/dL Creatinine (0.66-1.25) mg/dL Troponin I (0.000-0.034) ng/mL Diabetes panel 09/04/24 09/05/24 Range/Units 17:58 04:08 Sodium 140 (137-145) mmol/L Potassium 4.7 (3.5-5.1) mmol/L Chloride 105 (98-107) mmol/L Carbon Dioxide 26 (22-30) mmol/L BUN 25 H (9-20) mg/dL Creatinine 1.30 H (0.66-1.25) mg/dL Glucose 94 (74-99) mg/dL Calcium 9.2 (8.4-10.2) mg/dL AST 42 (17-59) U/L ALT 43 (4-49) U/L Alkaline Phosphatase 69 (38-126) U/L Total Protein 7.3 (6.3-8.2) g/dL Albumin 4.6 (3.5-5.0) g/dL Triglycerides 91.90 (0.00-149.00) mg/dL HDL Cholesterol 43.60 (40.00-60.00) mg/dL Calcium panel 09/04/24 Range/Units 17:58 Calcium 9.2 (8.4-10.2) mg/dL Albumin 4.6 (3.5-5.0) g/dL Pituitary panel 09/04/24 Range/Units 17:58 Sodium 140 (137-145) mmol/L Potassium 4.7 (3.5-5.1) mmol/L Chloride 105 (98-107) mmol/L Carbon Dioxide 26 (22-30) mmol/L BUN 25 H (9-20) mg/dL Creatinine 1.30 H (0.66-1.25) mg/dL Glucose 94 (74-99) mg/dL Calcium 9.2 (8.4-10.2) mg/dL Adrenal panel 09/04/24 Range/Units 17:58 Sodium 140 (137-145) mmol/L Potassium 4.7 (3.5-5.1) mmol/L Chloride 105 (98-107) mmol/L Carbon Dioxide 26 (22-30) mmol/L BUN 25 H (9-20) mg/dL Creatinine 1.30 H (0.66-1.25) mg/dL Glucose 94 (74-99) mg/dL Calcium 9.2 (8.4-10.2) mg/dL Total Bilirubin 0.6 (0.2-1.3) mg/dL AST 42 (17-59) U/L ALT 43 (4-49) U/L Alkaline Phosphatase 69 (38-126) U/L Total Protein 7.3 (6.3-8.2) g/dL Albumin 4.6 (3.5-5.0) g/dL - Imaging Chest x-ray: report reviewed, image reviewed EKG: image reviewed Assessment and Plan Assessment: Triple-vessel coronary artery disease, non-STEMI this admission Chest pain, secondary to above History of coronary artery disease with previous stenting to the RCA in April 2023 Hypertension Hyperlipidemia, treated, cholesterol 121, LDL 59 Remote history of pneumonia COVID in 2019 Previous tobacco dependence with cessation a long time ago Plan: The patient was seen and examined sitting up on a cart in the Extended Stay unit after having his heart catheterization. was present. Chart/diagnostics reviewed. The usual perioperative course of open-heart surgery was discussed in detail with the patient and his , risks and benefits were reviewed, all questions were answered. Preoperative testing was initiated. Once complete we will calculate STS risk score and discuss with the patient. Will complete 5 m walk test. Recommend continuing to maximize medical therapy with aspirin, statin, beta-delia therapy. Case will be discussed in detail with Dr. Lynne, will review films. Continue medical management per internal medicine, cardiology. More recommendations to follow. Thank you for this consult. We will continue to follow along with you and make recommendations as appropriate. I have personally seen and examined the patient, performed the documentation and the assessment and plan as written. Number of minutes spent on the visit: 30. ARMAND March
--- NOTE | 2024-09-05 15:04 | US ---
EXAMINATION TYPE: US arterial LE multi level DATE OF EXAM: 09/05/2024 2:56 PM CLINICAL INDICATION: Male, 59 years old with history of Ankle Brachial Index (MARIKA); History of: Smoker: No Hypertension: Yes Diabetic: No Hyperlipidemia: No TIA/CVA: No Previous Vascular Surgery: Yes CAD: Yes SD: Yes Vascular Ulcers: No Claudication: No Gangrene: No Doppler Waveforms: Right: Biphasic Left: Biphasic Pulse Volume Recording: Pressure Gradients: Right Brachial Pressure: 150 Left Brachial Pressure: 150 Ankle-Brachial Indices: Right: 1.17 Left: 1.15 (Vessel hardening > 1.4; Normal 0.9 - 1.4, Moderate 0.7 - 0.9, Severe 0.5-0.7) Toe Brachial Indices: Right: NA Left: NA IMPRESSION: ABIs are within the normal range bilaterally. [facility], , 09/05/2024 3:01 PM
--- NOTE | 2024-09-05 15:48 | US ---
EXAMINATION TYPE: Pre-Operative Non-Invasive Evaluation of the hand for Potential Radial Artery Janet , Measurements only DATE OF EXAM: 09/05/2024 2:57 PM CLINICAL INDICATION: Male, 59 years old with history of measurements only; SIDE PERFORMED: Left TECHNIQUE: Grayscale and color Doppler imaging of the radial artery(s) FINDINGS: Dominant hand: Right Duplex Findings: Radial Artery: Color flow seen Measurements in mm, transverse view: Left Radial: Proximal: 3.1 x 2.6 mm Mid: 3.1 x 2.7 mm Distal: 2.8 x 2.0 mm IMPRESSION: No evidence for occlusion. Measurements as described above. [facility], , 09/05/2024 3:45 PM
--- NOTE | 2024-09-05 15:50 | US ---
EXAMINATION TYPE: US carotid duplex BILAT DATE OF EXAM: 09/05/2024 COMPARISON: NONE CLINICAL INDICATION: Male, 59 years old with history of preop cardiac surgery; TECHNIQUE: Grayscale, color Doppler and spectral Doppler evaluation of the bilateral carotid systems and vertebral arteries.Indirect Doppler criteria was utilized. 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 Elevated velocities within right ICA, ECA, and left CCA. IMPRESSION: Right: 50-69% stenosis of the carotid bifurcation suggested by peak systolic velocity however the rat io is not elevated. Left: Less than 50% stenosis of the carotid bifurcation. Normal (no stenosis)=ICA PSV < 125 cm/s: rat io < 2.0: ICA EDV<40 cm/s. Criteria for Assigning % of Stenosis / Diameter reduction (Estimation based on the indirect measurements of the internal carotid artery velocities (ICA PSV). 1. Normal (no stenosis)=ICA PSV < 125 cm/s: ratio < 2.0: ICA EDV<40 cm/s. 2. Less than 50% stenosis=ICA PSV < 125 cm/s: ratio < 2.0: ICA EDV<40 cm/s. 3. 50 to 69% stenosis=ICA PSV of 125 to 230 cm/s: ration 2.0 ? 4.0: ICA EDV 40-100 cm/s. 4. Greater than 70% stenosis to near occlusion= ICA PSV > 230 cm/s: ratio > 4.0: ICA EDV > 100 cm/s. 5. Near occlusion= ICA PSV velocities may be low or undetectable: variable ratio and ICA EDV. 6. Total occlusion=unable to detect flow. [facility], , 09/05/2024 3:47 PM
--- NOTE | 2024-09-05 16:25 | US ---
EXAMINATION TYPE: US vein mapping BILAT DATE OF EXAM: 09/05/2024 2:57 PM COMPARISON: NONE CLINICAL INDICATION: Male, 59 years old with history of preop cardiac surgery; TECHNIQUE: Grayscale and color Doppler imaging of the lower extremity venous system. SIDE PERFORMED: Bilateral FINDINGS: PATIENT HISTORY: Smoker: Prior Previous DVT: No Vascular Surgery: No Discoloration: No Hypertension: Yes Diabetes: No Paralysis: No Varicosities: No Edema: No DUPLEX FINDINGS: Greater Saphenous: Color flow seen Lesser Saphenous: Color flow seen Measurements in mm: Right Greater Saphenous: Groin: 9.5 x 7.4 mm High Thigh: 3.7 x 3.5 mm Mid Thigh: 3.4 x 3.5 mm Above Knee: 2.8 x 2.1 mm Knee: 3.3 x 2.4 mm Below Knee: 1.9 x 1.6 mm Mid Calf: 1.3 x 1.2 mm At Ankle: 3.5 x 2.1 mm Left Greater Saphenous: Groin: 7.9 x 7.2 mm High Thigh: 2.4 x 2.9 mm Mid Thigh: 3.2 x 2.6 mm Above Knee: 3.1 x 2.1 mm Knee: 3.3 x 2.3 mm Below Knee: 3.1 x 2.7 mm Mid Calf: 2.7 x 1.8 mm At Ankle: 2.3 x 1.5 mm Veins appear to have intimal wall thickening. IMPRESSION: 1. No evidence for occlusion. 2. GSV measurements listed above. 3. Performing surgeon to determine viability as conduit. [facility], Workstation: [id number], 09/05/2024 4:23 PM
[2024-09-05] MEDS: HEPARIN SOD,PORK IN 0.45% NACL 25,000 UNIT in 0.45% NACL 1 250ML.BAG IV SCH (16:36)
[2024-09-05 16:37] LABS: Appearance,Urine Clear (Clear); Bilirubin,Urine Negative (Negative); Blood,Urine Negative (Negative); Color,Urine Light Yellow; Glucose,Urine (UA) Negative (Negative); Ketones,Urine Negative (Negative); Leukocyte Esterase,Urine Negative (Negative); Nitrite,Urine Negative (Negative); PH, Urine 6.5 (5.0-8.0); Protein,Urine Negative (Negative); Specific Gravity,Urine 1.022 (1.001-1.035); Urobilinogen,Urine <2.0 mg/dL (<2.0)
--- NOTE | 2024-09-05 17:16 | CT ---
EXAMINATION TYPE: CT chest wo con CT DLP: 546.5 mGycm, Automated exposure control for dose reduction was used. DATE OF EXAM: 09/05/2024 4:40 PM COMPARISON: None CLINICAL INDICATION: Male, 59 years old with history of Evaluate aorta for clamp ability; [facility], Evalua te aorta for clampability. TECHNIQUE: Multiple axial images were obtained through the chest. Sagittal and coronal reformats were created for review. MIP was performed on a separate workstation. Contrast used: mL of (None if empty) Oral contrast used: (None if empty) FINDINGS: LUNGS/ PLEURA: No evidence for focal consolidation, pneumothorax or pleural effusion. Right middle lo be 4 mm pulmonary nodule. Series 201 image 79. AIRWAY: Patent and unremarkable. HEART: Size within normal limits.Atherosclerosis of the arterial vasculature. MEDIASTINUM: No gross evidence of adenopathy. Small hiatal hernia. VASCULATURE: . Minimal calcifications along the aorta. No evidence for aneurysmal dilation. MUSCULOSKELETAL: Mild disc degeneration changes are present throughout the thoracolumbar spine. SOFT TISSUES/LYMPH NODES: Unremarkable. LOWER NECK: No significant findings. UPPER ABDOMEN: No significant findings. IMPRESSION: 1. Minimal calcification along the aorta. 2. Mild to moderate coronary artery dislocations. 3. Small hiatal hernia. [facility], , 09/05/2024 5:14 PM
--- NOTE | 2024-09-05 17:53 | P.PN ---
Subjective Progress Note Date: 09/05/24 Hospital course: Patient is a very pleasant 59-year-old male with a past medical history of CAD with previous stent placement, hypertension, hyperlipidemia, and GERD. He presented to the emergency department on 09/04/2024 secondary to reports of chest pain. Upon arrival to our facility, patient underwent evaluation in the emergency department. Vital signs upon arrival show blood pressure 138/83, heart rate 85, respiratory rate 18, temp 98.1 F, and SpO2 of 97% on room air. She was completed showing normal sinus rhythm at 78 bpm with no noted T wave or ST abnormality showing no signs of acute ischemia upon personal review and interpretation. Chest x-ray was negative for acute cardiopulmonary process. Labs were completed and reviewed. CBC unremarkable. Coagulation profile normal findings. BMP showing mild elevation of renal function with BUN of 25, creatinine of 1.30, GFR of 60. Magnesium was 1.9. Liver profile unremarkable. Troponin was 0.019 and proBNP was 56. Patient was admitted under our services with consultation to cardiology. Troponins were trended resulting at 0.019 and elevating to 0.056. Patient was started on low intensity heparin infusion. Physical exam: Patient was seen and fully evaluated at bedside this morning. He was sitting on edge of bed visiting with family at bedside. Patient awaiting to be taken down for cardiac catheterization later today. He reports resolution of previous reported chest pain and currently denies having any complaints. Vital signs reviewed and stable. General: Nontoxic, no distress and appears stated age. Derm: Skin warm and dry, normal coloration for ethnicity. Head: Atraumatic, normocephalic and symmetric. Eyes: EOM's intact, no lid lag, and anicteric sclera Mouth: no lip lesions, mucus membranes moist Cardiovascular: regular rate and rhythm with normal S1S2, no murmur, positive posterior tibial pulses bilaterally, and cap refill < 2 seconds. Lungs: Respirations even, regular, and unlabored on room air. Lungs CTA bilate rally, no rhonchi, no rales, no wheezing, and no accessory muscle usage. Abdominal: soft, nontender to palpation, no guarding, no appreciable organomegaly Ext: ROM intact. No gross muscle atrophy, no edema, no contractures Neuro: Speech clear, face symmetrical and CN II-XII grossly intact with no noted focal neuro deficits Psych: Alert and oriented to person, place, time, and situation. Appropriate and pleasant affect. 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 -Telemetry monitoring -Per trended overnight resulting at 0.019, 0.056, 0.049, and 0.030. -Cardiac diet, NPO at midnight -Aspirin 81 mg daily, atorvastatin 80 mg daily, Zetia 10 mg daily, lisinopril 20 mg twice daily, and metoprolol 25 mg twice daily. -Continue low intensity heparin infusion with close monitoring of PTT for goal therapeutic range of 45 to 79 seconds. Currently PTT subtherapeutic at 37.4. Heparin infusion paused at this time pending cardiac catheterization. -Lipid profile unremarkable. -Echocardiogram completed showing preserved EF of 55 to 60% with no significant valvular or structural abnormalities reported. CODE STATUS: Full Code DVT prophylaxis: Heparin Anticipated discharge date: Pending clinical course Anticipated discharge place: Home Patient was seen independently by Nurse Pracitioner. This document was prepared using [employer] dictation software. 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 I reviewed the documentation as provided by the KRISTEL above, who is the original author of this note. I agree with the documented assessment and plan, with the following changes: none Objective - Vital Signs Vital signs: Vital Signs Temp 98.0 F 09/05/24 06:01 Pulse 74 09/05/24 06:01 Resp 18 09/05/24 06:01 BP 117/80 09/05/24 06:01 Pulse Ox 96 09/05/24 06:01 FiO2 Intake & Output 09/04/24 09/05/24 09/05/24 18:59 06:59 18:59 Intake Total 81.667 Balance 81.667 Weight 103.873 kg Intake: Intake, IV Titration 81.667 Amount Heparin Sod,Pork in 0.45% 81.667 NaCl 25,000 unit In 0.45 % NaCl 1 250ml.bag @ 9. 627 UNITS/KG/HR 10 mls/hr IV .Q24H [facility] Rx#: [id number] - Labs CBC & Chem 7: 09/08/24 07:09 09/08/24 07:09 Labs: Abnormal Lab Results - Last 24 Hours (Table) 09/04/24 09/04/24 09/05/24 Range/Units 17:58 20:18 00:11 APTT (22.0-30.0) sec BUN 25 H (9-20) mg/dL Creatinine 1.30 H (0.66-1.25) mg/dL Troponin I 0.056 H* 0.049 H* (0.000-0.034) ng/mL 09/05/24 Range/Units 04:08 APTT 37.4 H (22.0-30.0) sec BUN (9-20) mg/dL Creatinine (0.66-1.25) mg/dL Troponin I (0.000-0.034) ng/mL
[2024-09-05] MEDS: CYCLOBENZAPRINE 5 MG TAB PO SCH (20:13)
[2024-09-06 06:37] LABS: Basophils % (A) 1 %; Eosinophils # (A) 0.4 k/uL (0-0.7); Eosinophils % (A) 6 %; HCT 43.8 % (39.0-53.0); HGB 14.1 gm/dL (13.0-17.5); Lymphocytes # (A) 1.6 k/uL (1.0-4.8); Lymphocytes % (A) 25 %; MCH 30.8 pg (25.0-35.0); MCHC 32.3 g/dL (31.0-37.0); MCV 95.4 fL (80.0-100.0); Mean Platelet Volume 8.2; Monocytes # (A) 0.4 k/uL (0-1.0); Monocytes % (A) 6 %; Neutrophils # (A) 3.9 k/uL (1.3-7.7); Neutrophils % (A) 60 %; Platelet Count 193 k/uL (150-450); RBC 4.59 m/uL (4.30-5.90); RDW 12.9 % (11.5-15.5); WBC 6.5 k/uL (3.8-10.6)
[2024-09-06 08:22] LABS: Potassium 5.2 mmol/L (3.5-5.1)
[2024-09-06 08:23] LABS: African American GFR (CKD) 69 (>60 ml/min/1.73 sqM); Anion Gap 8 mmol/L; Blood Urea Nitrogen 20 mg/dL (9-20); Carbon Dioxide 25 mmol/L (22-30); Chloride 106 mmol/L (98-107); Glucose 106 mg/dL (74-99); Non-African American GFR(CKD) 60 (>60 ml/min/1.73 sqM); Sodium 139 mmol/L (137-145)
--- NOTE | 2024-09-06 11:27 | P.PN ---
Subjective Progress Note Date: 09/06/24 Principal diagnosis: Multivessel coronary artery disease, non-ST elevated myocardial infarction this admission. Past medical history significant for hypertension, hyperlipidemia, myocardial infarction in April 2023, coronary artery disease with previous stenting to the RCA in April 2023, GERD, osteoarthritis, remote history of pneumonia, COVID in 2019, previous tobacco dependence. The patient was seen and examined in follow-up today September 06, 2024 at his bedside on the third floor cardiac stepdown unit. He is currently sitting up to the bedside edge, is awake, alert, oriented x 3 and is in no acute apparent distress. Denies any complaints of shortness of breath, chest pain/chest pressure, nausea or vomiting. Remains hemodynamically stable and is currently on no inotropic or pressor support. Heparin drip remains infusing per protocol. He is scheduled for off-pump myocardial revascularization surgery on Tuesday, September 10, 2024 with left internal mammary artery, endoscopic vein harvest, possible endoscopic left radial harvest, exclusion left atrial appendage and intraoperative transesophageal echocardiogram to be completed by Dr. Asim Lynne. A 5 m walk test was completed with the patient today and he tolerated well, time 1: 2.18 seconds, time 2: 2.75 seconds, time 3: 2.46 seconds. A clinical frailty score was calculated yesterday which the score equaled 3. An STS risk was calculated and discussed with the patient. Preoperative teaching has been reinforced with the patient. Carotid duplex study results showed a right 50 to 69% stenosis of the carotid bifurcation, and left less than 50% stenosis of the carotid bifurcation. CT scan of the chest showed minimal calcification along the aorta, mild to moderate coronary artery calcifications, and small hiatal hernia. Oxygen saturations are 97% on room air and he is achieving 1500 mL on his incentive spirometry with encouragement. Remote telemetry is showing normal sinus rhythm heart rate 70 bpm. Objective - Vital Signs Vital signs: Vital Signs Temp 98.2 F 09/06/24 04:00 Pulse 69 09/06/24 04:00 Resp 18 09/06/24 04:00 BP 145/83 09/06/24 04:00 Pulse Ox 97 09/06/24 04:00 FiO2 Intake & Output 09/05/24 09/06/24 09/06/24 18:59 06:59 18:59 Intake Total 551.5 79 103.616 Balance 551.5 79 103.616 Weight 103.873 kg 103.3 kg Intake: IV 551.5 10 Invasive Line 1 10 Intake, IV Titration 69 103.616 Amount Heparin Sod,Pork in 0.45% 69 103.616 NaCl 25,000 unit In 0.45 % NaCl 1 250ml.bag @ 9. 627 UNITS/KG/HR 10 mls/hr IV .Q24H [facility] Rx#: [id number] Other: Voiding Method Urinal Toilet # Voids 1 - Exam CONSTITUTIONAL: Sitting up to the bedside edge on the cardiac stepdown unit, appears comfortable, cooperative, no apparent acute distress. HEENT: Neck is supple, no JVD, no lymphadenopathy. RESPIRATORY: Lungs sounds essentially clear throughout. No wheezes, rhonchi or crackles. Respirations are symmetrical and nonlabored. Currently on room air with oxygen saturations 96%. Able to achieve 1500 mL on his incentive spirometry. Strong cough. CARDIOVASCULAR: Regular rhythm and rate. S1 and S2 present, negative for S3, gallop or murmur. GASTROINTESTINAL: Abdomen soft, nontender, nondistended. Active bowel sounds present 4 quadrants. Tolerating diet. Passing flatus. No guarding or rigidity. GENITOURINARY: Continues to void. INTEGUMENTARY: Skin is warm and dry with no evidence of clubbing or cyanosis. NEUROLOGIC: Cranial nerves II through XII intact. No focal deficits. MUSKULOSKELETAL: Able to move all extremities, strength equal bilaterally. PSYCHIATRIC: Alert and oriented to person place and time, appropriate affect, intact judgment and insight. - Allied health notes Allied health notes reviewed: nursing - Labs CBC & Chem 7: 09/06/24 06:05 09/06/24 06:05 Labs: Abnormal Lab Results - Last 24 Hours (Table) 09/05/24 09/06/24 09/06/24 Range/Units 22:36 06:05 06:05 APTT 32.4 H 82.2 H (22.0-30.0) sec Potassium 5.2 H (3.5-5.1) mmol/L Creatinine 1.29 H (0.66-1.25) mg/dL Glucose 106 H (74-99) mg/dL - Imaging and Cardiology Chest x-ray: report reviewed, image reviewed CT scan - chest: report reviewed, image reviewed Venous US: report reviewed Assessment and Plan Assessment: Triple-vessel coronary artery disease, non-STEMI this admission Chest pain, secondary to above History of coronary artery disease with previous stenting to the RCA in April 2023 History of myocardial infarction in April 2023 Hypertension Hyperlipidemia, treated, cholesterol 121, LDL 59 Remote history of pneumonia COVID in 2019 GERD Osteoarthritis Previous tobacco dependence with cessation a long time agoq Plan: The patient is scheduled for off-pump myocardial revascularization surgery on Tuesday, September 10, 2024 with left internal mammary artery, endoscopic vein harvest, possible left radial artery harvest, exclusion left atrial appendage, and intraoperative transesophageal echocardiogram to be completed by Dr. Asim Lynne. A 5 m walk test was completed with the patient today and he tolerated well, time 1: 2.18 seconds, time 2: 2.75 seconds, time 3: 2.46 seconds. Preoperative teaching has been reinforced with the patient. An STS risk or has been calculated and discussed with the patient. Heparin drip management per cardiology recommendations. Continue to maximize medical management with aspirin, statin and beta-delia. More recommendations to follow based on patient's clinical course. Time with Patient: Greater than 30
--- NOTE | 2024-09-06 11:59 | P.PN ---
Subjective Progress Note Date: 09/06/24 Hospital course: Patient is a very pleasant 59-year-old male with a past medical history of CAD with previous stent placement, hypertension, hyperlipidemia, and GERD. He presented to the emergency department on 09/04/2024 secondary to reports of chest pain. Upon arrival to our facility, patient underwent evaluation in the emergency department. Vital signs upon arrival show blood pressure 138/83, heart rate 85, respiratory rate 18, temp 98.1 F, and SpO2 of 97% on room air. She was completed showing normal sinus rhythm at 78 bpm with no noted T wave or ST abnormality showing no signs of acute ischemia upon personal review and interpretation. Chest x-ray was negative for acute cardiopulmonary process. Labs were completed and reviewed. CBC unremarkable. Coagulation profile normal findings. BMP showing mild elevation of renal function with BUN of 25, creatinine of 1.30, GFR of 60. Magnesium was 1.9. Liver profile unremarkable. Troponin was 0.019 and proBNP was 56. Patient was admitted under our services with consultation to cardiology. Troponins were trended resulting at 0.019 and elevating to 0.056. Patient was started on low intensity heparin infusion. Echocardiogram completed showing preserved EF of 55 to 60% with no significant v alvular or structural abnormalities reported. He was taken to the [facility] 09/05/[address] Hoang. Cardiac cath revealed triple-vessel coronary artery disease with RCA stenosis 70%, circumflex stenosis 100%, and proximal LAD stenosis 80 to 90%. Due to these findings cardiology consulted cardiothoracic surgery for evaluation and possible revascularization. Physical exam: Patient was seen and fully evaluated at bedside this morning. He was sitting up in the chair visiting with family members at bedside. Patient currently denies having any pain or complaints at this time. He remains on heparin infusion and states full resolution of previous reported chest pain he was experiencing. Vital signs reviewed and stable. General: Nontoxic, no distress and appears stated age. Derm: Skin warm and dry, normal coloration for ethnicity. Head: Atraumatic, normocephalic and symmetric. Eyes: EOM's intact, no lid lag, and anicteric sclera Mouth: no lip lesions, mucus membranes moist Cardiovascular: regular rate and rhythm with normal S1S2, no murmur, positive posterior tibial pulses bilaterally, and cap refill < 2 seconds. Lungs: Respirations even, regular, and unlabored on room air. Lungs CTA bilaterally, no rhonchi, no rales, no wheezing, and no accessory muscle usage. Abdominal: soft, nontender to palpation, no guarding, no appreciable org anomegaly Ext: ROM intact. No gross muscle atrophy, no edema, no contractures Neuro: Speech clear, face symmetrical and CN II-XII grossly intact with no noted focal neuro deficits Psych: Alert and oriented to person, place, time, and situation. Appropriate and pleasant affect. Assessment and Plan of Care: NSTEMI Triple vessel obstructive coronary artery disease Hyperkalemia History of CAD status post previous stenting Hypertension Hyperlipidemia -Cardiology consulted, took patient for cardiac cath on 09/05/2024 revealing triple-vessel obstructive coronary artery disease. -Cardiac cath revealed triple-vessel coronary artery disease with RCA stenosis 70%, circumflex stenosis 100%, and proximal LAD stenosis 80 to 90%. -Cardiothoracic surgery was consulted for evaluation and has scheduled patient for off-pump myocardial revascularization surgery on 09/10/[address] Lynne. -Patient to remain on continuous telemetry monitoring -Discontinued lisinopril secondary to hyperkalemia. Discussed with cardiothoracic surgery who was in agreement and recommended starting patient on hydralazine -Aspirin 81 mg daily, atorvastatin 80 mg daily, Zetia 10 mg daily, hydralazine 25 mg twice daily, and metoprolol 25 mg twice daily. Lisinopril was discontinued secondary to hyperkalemia. -Continue low intensity heparin infusion with close monitoring of PTT for goal therapeutic range of 45 to 79 seconds. Currently PTT supratherapeutic at 82.2. Heparin infusion was decreased from 12.6 units/kg/h down to 10.6 units/kg/h -Lipid profile unremarkable. -Echocardiogram completed showing preserved EF of 55 to 60% with no significant valvular or structural abnormalities reported. Data and imaging reviewed: -Morning labs reviewed and stable. CBC showing WBC count of 6.5, hemoglobin 14.1 and platelet count of 193. PTT was supratherapeutic at 82.2. BMP showing hyperkalemia with potassium of 5.2 and slightly elevated renal function with BUN of 20, creatinine of 1.29, GFR of 60. Blood glucose was 114 hemoglobin A1c 5.6%. Normal findings at 1.90. -Cardiac cath revealed triple-vessel coronary artery disease with RCA stenosis 70%, circumflex stenosis 100%, and proximal LAD stenosis 80 to 90%. CODE STATUS: Full Code DVT prophylaxis: Heparin Anticipated discharge date: Pending clinical course Anticipated discharge place: Home Patient was seen independently by Nurse Pracitioner. This document was prepared using [employer] dictation software. 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 I reviewed the documentation as provided by the KRISTEL above, who is the original author of this note. I agree with the documented assessment and plan, with the following changes: none Objective - Vital Signs Vital signs: Vital Signs Temp 98.2 F 09/06/24 04:00 Pulse 69 09/06/24 04:00 Resp 18 09/06/24 04:00 BP 145/83 09/06/24 04:00 Pulse Ox 97 09/06/24 04:00 FiO2 Intake & Output 09/05/24 09/06/24 09/06/24 18:59 06:59 18:59 Intake Total 551.5 79 103.616 Balance 551.5 79 103.616 Weight 103.873 kg 103.3 kg Intake: IV 551.5 10 Invasive Line 1 10 Intake, IV Titration 69 103.616 Amount Heparin Sod,Pork in 0.45% 69 103.616 NaCl 25,000 unit In 0.45 % NaCl 1 250ml.bag @ 9. 627 UNITS/KG/HR 10 mls/hr IV .Q24H [facility] Rx#: [id number] Other: Voiding Method Urinal Toilet # Voids 1 - Labs CBC & Chem 7: 09/08/24 07:09 09/08/24 07:09 Labs: Abnormal Lab Results - Last 24 Hours (Table) 09/05/24 09/06/24 09/06/24 Range/Units 22:36 06:05 06:05 APTT 32.4 H 82.2 H (22.0-30.0) sec Potassium 5.2 H (3.5-5.1) mmol/L
--- NOTE | 2024-09-06 12:12 | P.PN ---
Subjective Progress Note Date: 09/06/24 Consult reason: chest pain History of present illness: This is a 59-year-old male patient of Dr. Marilyn Hoang in the past and is now following with Dr. Jackson with past medical history of coronary artery disease status post angioplasty and stent placement of the right coronary artery in the setting of a mild non-ST MARILYN with known chronically occluded OM with collaterals, hypertension, hyperlipidemia. We have been asked to evaluate the patient for chest pain. The patient states that he developed some mid sternal chest pain when he arrived at work yesterday. He was not exerting himself at the time. He states it lasted for about 1 to 2 minutes and has not returned. He has been feeling more tired over the past couple of days. He denies having any other symptoms with this, no nausea or vomiting, no diaphoresis, no radiation of pain, no palpitations. He has been taking all of his medications as directed. Blood pressure 117/80, heart rate 74. Patient is seen today in the emergency center waiting for bed on the cardiac stepdown unit. He has been started on a heparin drip. Regarding kidney function, patient states that he has had trouble taking Mobic which caused his kidney function to worsen and he has been on and off this for his osteoarthritis. Discussed recommendations for cardiac catheterization for which patient is willing to move forward with. EKG: Sinus rhythm with Q waves similar to previous EKGs Chest x-ray: No acute findings. Laboratory studies: Troponin 0.019, 0.056, 0.049 and 0.03. proBNP 56. CBC within normal limits. BUN 25 creatinine 1.3. Home cardiac medications: Aspirin 81 mg daily, Zetia 10 mg daily, Imdur 30 mg daily, lisinopril 20 mg twice daily, Lopressor 25 mg twice daily, Crestor 20 mg daily. Cardiac catheterization performed 04/14/[address] Lowe revealed critical stenosis in the mid distal RCA with intimal disease of the moderate degree in the proximal and mid section. Mild disease in the distal left main, mild disease in the LAD. Totally occluded third obtuse marginal branch with retrogra de filling through collaterals. Patient underwent successful stenting of the mid distal RCA. Echocardiogram performed 04/15/2023 revealed EF of 50 to 55%, mild mitral and tricuspid regurgitation. No pericardial effusion. 09/06 Yesterday, patient underwent cardiac catheterization with Dr. Hoang which revealed severe three-vessel coronary artery disease. Patient has been seen by cardiothoracic surgery and scheduled for CABG 60%. Aortic sclerosis and mild mitral annular calcification. Carotid ultrasound reveals 50 to 69% stenosis of the right carotid bifurcation and less than 50% on the left. CT chest minimal calcification along the aorta. Mild to moderate coronary artery atherosclerosis. Blood pressure 146/84, heart rate 77, pulse ox 95% on room air. Patient denies having any chest pain no lightheadedness or dizziness. He has been ambulating in his room without any symptoms. Noted the blood pressure readings are somewhat elevated but will be holding on starting any new medicatio ns at this time. Patient encouraged to start using incentive spirometer now. Repeat EKG normal sinus rhythm with no acute changes. Physical examination: Gen: This is a 59-year-old male in no acute distress. VS: reviewed HEENT: Head is atraumatic, normocephalic. Pupils equal, round. Sclerae is an icteric. NECK: Supple. No JVD. LUNGS: Clear to auscultation. No wheezes or rhonchi. No intercostal retractions. HEART: Regular rate and rhythm. No murmur. ABDOMEN: Soft No tenderness. EXTREMITIES: No pedal edema. No calf tenderness. NEUROLOGICAL: Patient is awake, alert and oriented x3. Assessment: NSTEMI with three-vessel coronary artery disease on cardiac cath performed 09/05 History of coronary artery disease with previous stenting of the mid distal RCA in April 2023 Hypertension Hyperlipidemia Plan: Continue current cardiac medications: Aspirin 81 mg daily, atorvastatin 80 mg daily, Zetia 10 mg daily, Lopressor 25 mg twice daily Hydralazine 25 mg twice daily started by medicine Continue heparin drip Further recommendations to follow based upon clinical course Thank you kindly for this consultation. Nurse practitioner note has been reviewed, I agree with documented findings and plan of care. Patient was seen and examined. Objective - Vital Signs Vital signs: Vital Signs Temp 98.2 F 09/06/24 04:00 Pulse 69 09/06/24 04:00 Resp 18 09/06/24 04:00 BP 145/83 09/06/24 04:00 Pulse Ox 97 09/06/24 04:00 FiO2 Intake & Output 09/05/24 09/06/24 09/06/24 18:59 06:59 18:59 Intake Total 551.5 79 103.616 Balance 551.5 79 103.616 Weight 103.873 kg 103.3 kg Intake: IV 551.5 10 Invasive Line 1 10 Intake, IV Titration 69 103.616 Amount Heparin Sod,Pork in 0.45% 69 103.616 NaCl 25,000 unit In 0.45 % NaCl 1 250ml.bag @ 9. 627 UNITS/KG/HR 10 mls/hr IV .Q24H [facility] Rx#: [id number] Other: Voiding Method Urinal Toilet # Voids 1 - Labs CBC & Chem 7: 09/06/24 06:05 09/06/24 06:05 Labs: Abnormal Lab Results - Last 24 Hours (Table) 09/05/24 09/06/24 09/06/24 Range/Units 22:36 06:05 06:05 APTT 32.4 H 82.2 H (22.0-30.0) sec Potassium 5.2 H (3.5-5.1) mmol/L Creatinine 1.29 H (0.66-1.25) mg/dL Glucose 106 H (74-99) mg/dL
[2024-09-06 14:51] VITALS: BMI 31.7
[2024-09-06 15:55] LABS: Hepatitis A Antibody IgM Nonreactive (Nonreactive)
[2024-09-06 15:56] LABS: Hepatitis B Core IgM Nonreactive (Nonreactive); Hepatitis B Surface Antigen Nonreactive (Nonreactive); Hepatitis C IgG Antibody Nonreactive (Nonreactive)
[2024-09-06] MEDS: hydrALAZINE HCL 25 MG TAB PO SCH (21:04)
[2024-09-07 06:51] LABS: HCT 43.9 % (39.0-53.0); MCH 30.3 pg (25.0-35.0); MCHC 31.9 g/dL (31.0-37.0); Mean Platelet Volume 7.6; Platelet Count 192 k/uL (150-450); RBC 4.62 m/uL (4.30-5.90); RDW 12.9 % (11.5-15.5)
[2024-09-07 08:00] LABS: African American GFR (CKD) 76 (>60 ml/min/1.73 sqM); Anion Gap 6 mmol/L; Blood Urea Nitrogen 20 mg/dL (9-20); Calcium 9.1 mg/dL (8.4-10.2); Carbon Dioxide 25 mmol/L (22-30); Chloride 107 mmol/L (98-107); Glucose 103 mg/dL (74-99); Magnesium 1.8 mg/dL (1.6-2.3); Non-African American GFR(CKD) 66 (>60 ml/min/1.73 sqM); Potassium 4.5 mmol/L (3.5-5.1); Sodium 138 mmol/L (137-145)
--- NOTE | 2024-09-07 08:32 | P.PN ---
Subjective Progress Note Date: 09/07/24 Principal diagnosis: Multivessel coronary artery disease, non-ST elevated myocardial infarction this admission. Past medical history significant for hypertension, hyperlipidemia, myocardial infarction in April 2023, coronary artery disease with previous stenting to the RCA in April 2023, GERD, osteoarthritis, remote history of pneumonia, COVID in 2019, previous tobacco dependence. The patient was seen and examined in follow-up today September 07, 2024 at his bedside on the third floor cardiac stepdown unit. He is currently up ambulating in his room, is awake, alert, oriented x 3 and is in no acute apparent distress. Denies any complaints of shortness of breath or chest pain/chest pressure at this time. He remains on heparin drip per protocol. Oxygen saturations are 97% on room air and he is achieving 3500 mL on his incentive spirometry with encouragement. Remote telemetry is showing normal sinus rhythm heart rate 74 bpm. Preoperative teaching has been reinforced with the patient. He is scheduled for off-pump myocardial revascularization surgery with left internal mammary artery, endoscopic greater saphenous vein harvest, possible endoscopic left radial artery harvest, intraoperative transesophageal echocardiogram, and exclusion left atrial appendage to be performed by Dr. Asim Lynne on Tuesday, September 10, 2024. Preoperative testing has been completed, and STS risk or has been calculated and discussed with the patient. Laboratory results were re viewed. Objective - Vital Signs Vital signs: Vital Signs Temp 97.9 F 09/07/24 03:50 Pulse 65 09/07/24 03:50 Resp 15 09/07/24 03:50 BP 121/75 09/07/24 03:50 Pulse Ox 97 09/07/24 03:50 FiO2 Intake & Output 09/06/24 09/07/24 09/07/24 18:59 06:59 18:59 Intake Total 1866.138 20 Output Total 525 Balance 1866.138 -505 Weight 103.3 kg 102.1 kg Intake: IV 20 Invasive Line 1 20 Intake, IV Titration 546.138 Amount Heparin Sod,Pork in 0.45% 171.138 NaCl 25,000 unit In 0.45 % NaCl 1 250ml.bag @ 9. 627 UNITS/KG/HR 10 mls/hr IV .Q24H [facility] Rx#: [id number] Sodium Chloride 0.9% 1, 375 000 ml @ 75 mls/hr IV . [id number] [facility] Rx#:[id number] Oral 1320 Output: Urine 525 Other: Voiding Method Toilet # Voids 2 1 # Bowel Movements 0 1 - Exam CONSTITUTIONAL: Appears comfortable, cooperative, no apparent acute distress. HEENT: Neck is supple, no JVD, no lymphadenopathy. RESPIRATORY: Lungs sounds essentially clear throughout. No wheezes, rhonchi or crackles. Respirations are symmetrical and nonlabored. Currently on room air with oxygen saturations 97%. Able to achieve 3500 mL on his incentive spirometry. Strong cough. CARDIOVASCULAR: Regular rhythm and rate. S1 and S2 present, negative for S3, gallop or murmur. GASTROINTESTINAL: Abdomen soft, nontender, nondistended. Active bowel sounds present 4 quadrants. Tolerating diet. Passing flatus. No guarding or rigidity. GENITOURINARY: Continues to void. INTEGUMENTARY: Skin is warm and dry with no evidence of clubbing or cyanosis. NEUROLOGIC: Cranial nerves II through XII intact. No focal deficits. MUSKULOSKELETAL: Able to move all extremities, strength equal bilaterally. PSYCHIATRIC: Alert and oriented to person place and time, appropriate affect, intact judgment and insight. - Allied health notes Allied health notes reviewed: nursing - Labs CBC & Chem 7: 09/07/24 06:21 09/07/24 06:21 Labs: Abnormal Lab Results - Last 24 Hours (Table) 09/06/24 09/06/24 09/07/24 Range/Units 06:05 12:58 06:21 APTT 46.4 H (22.0-30.0) sec Creatinine 1.29 H (0.66-1.25) mg/dL Glucose 106 H 103 H (74-99) mg/dL 09/07/24 Range/Units 06:21 APTT 45.1 H (22.0-30.0) sec Creatinine (0.66-1.25) mg/dL Glucose (74-99) mg/dL Microbiology - Last 24 Hours (Table) 09/05/24 16:10 Nasal Screen MRSA/MSSA - Final Nasopharyngeal Swab Assessment and Plan Assessment: Triple-vessel coronary artery disease, non-STEMI this admission Chest pain, secondary to above History of coronary artery disease with previous stenting to the RCA in April 2023 History of myocardial infarction in April 2023 Hypertension Hyperlipidemia, treated, cholesterol 121, LDL 59 Remote history of pneumonia COVID in 2019 GERD Osteoarthritis Previous tobacco dependence with cessation a long time agoq Plan: The patient is scheduled for off-pump myocardial revascularization surgery on Tuesday, September 10, 2024 with left internal mammary artery, endoscopic vein harvest, possible left radial artery harvest, exclusion left atrial appendage, and intraoperative transesophageal echocardiogram to be completed by Dr. Asim Lynne. A 5 m walk test has been completed with the patient and he tolerated well, time 1: 2.18 seconds, time 2: 2.75 seconds, time 3: 2.46 seconds. Preoperative teaching has been reinforced with the patient. An STS risk or has been calculated and discussed with the patient. Heparin drip management per cardiology recommendations. Continue to maximize medical management with aspirin, statin and beta-delia. Lisinopril was discontinued yesterday as his potassium has been trending up to 5.2, he was started on hydralazine 25 mg p.o. twice daily. More recommendations to follow based on patient's clinical course. Time with Patient: Greater than 30
[2024-09-07] MEDS: MAGNESIUM SULFATE-D5W PMX 1 GM in DEXTROSE/WATER 1 100ML.BAG IVPB ONE (09:06)
--- NOTE | 2024-09-07 11:28 | P.PN ---
Subjective Progress Note Date: 09/07/24 Hospital course: Patient is a very pleasant 59-year-old male with a past medical history of CAD with previous stent placement, hypertension, hyperlipidemia, and GERD. He presented to the emergency department on 09/04/2024 secondary to reports of chest pain. Upon arrival to our facility, patient underwent evaluation in the emergency department. Vital signs upon arrival show blood pressure 138/83, heart rate 85, respiratory rate 18, temp 98.1 F, and SpO2 of 97% on room air. She was completed showing normal sinus rhythm at 78 bpm with no noted T wave or ST abnormality showing no signs of acute ischemia upon personal review and interpretation. Chest x-ray was negative for acute cardiopulmonary process. Labs were completed and reviewed. CBC unremarkable. Coagulation profile normal findings. BMP showing mild elevation of renal function with BUN of 25, creatinine of 1.30, GFR of 60. Magnesium was 1.9. Liver profile unremarkable. Troponin was 0.019 and proBNP was 56. Patient was admitted under our services with consultation to cardiology. Troponins were trended resulting at 0.019 and elevating to 0.056. Patient was started on low intensity heparin infusion. Echocardiogram completed showing preserved EF of 55 to 60% with no significant v alvular or structural abnormalities reported. He was taken to the [facility] 09/05/[address] Hoang. Cardiac cath revealed triple-vessel coronary artery disease with RCA stenosis 70%, circumflex stenosis 100%, and proximal LAD stenosis 80 to 90%. Due to these findings cardiology consulted cardiothoracic surgery for evaluation and possible revascularization. Patient is scheduled to undergo off-pump myocardial revascularization surgery on 09/10/[address] Lynne. Physical exam: Patient was seen and fully evaluated at bedside this morning. He was sitting up in chair this morning and reports feeling well. Patient states he is went for 2 walks already this morning and denies any further episodes of chest pain/discomfort. Patient reports just feeling anxious over impending CABG on Monday. Otherwise denies having any complaints or concerns at this time. Vital signs reviewed and stable. General: Nontoxic, no distress and appears stated age. Derm: Skin warm and dry, normal coloration for ethnicity. Head: Atraumatic, normocephalic and symmetric. Eyes: EOM's intact, no lid lag, and anicteric sclera Mouth: no lip lesions, mucus membranes moist Cardiovascular: regular rate and rhythm with normal S1S2, no murmur, positive posterior tibial pulses bilaterally, and cap refill < 2 seconds. Lungs: Respirations even, regular, and unlabored on room air. Lungs CTA bilaterally, no rhonchi, no rales, no wheezing, and no accessory muscle usage. Abdominal: soft, nontender to palpation, no guarding, no appreciable organomegaly Ext: ROM intact. No gross muscle atrophy, no edema, no contractures Neuro: Speech clear, face symmetrical and CN II-XII grossly intact with no noted focal neuro deficits Psych: Alert and oriented to person, place, time, and situation. Appropriate and pleasant affect. Assessment and Plan of Care: NSTEMI Triple vessel obstructive coronary artery disease Hyperkalemia, resolved History of CAD status post previous stenting Hypertension Hyperlipidemia -Cardiology consulted, took patient for cardiac cath on 09/05/2024 revealing triple-vessel obstructive coronary artery disease. -Cardiac cath revealed triple-vessel coronary artery disease with RCA stenosis 70%, circumflex stenosis 100%, and proximal LAD stenosis 80 to 90%. -Cardiothoracic following and patient is scheduled for off-pump myocardial revascularization surgery on 09/10/[address] Lynne. -Patient to remain on continuous telemetry monitoring -Discontinued lisinopril secondary to hyperkalemia. Discussed with cardiothoracic surgery who was in agreement and recommended starting patient on hydralazine -Aspirin 81 mg daily, atorvastatin 80 mg daily, Zetia 10 mg daily, hydralazine 2 5 mg twice daily, and metoprolol 25 mg twice daily. Lisinopril was discontinued as stated above secondary to hyperkalemia. -Continue low intensity heparin infusion with close monitoring of PTT for goal therapeutic range of 45 to 79 seconds. Currently PTT supratherapeutic at 82.2. Heparin infusion was decreased from 12.6 units/kg/h down to 10.6 units/kg/h -Lipid profile unremarkable. -Echocardiogram completed showing preserved EF of 55 to 60% with no significant valvular or structural abnormalities reported. Data and imaging reviewed: -Morning labs reviewed and stable. CBC and BMP remain unremarkable. Blood glucose 103. Magnesium 1.8. PTT therapeutic at 45.1. -Vital signs reviewed. Blood pressure 133/75, heart rate 76, respiratory rate 17, temp 97.5 F, and SpO2 of 97% on room air. CODE STATUS: Full Code DVT prophylaxis: Heparin Anticipated discharge date: Pending clinical course Anticipated discharge place: Home Patient was seen independently by Nurse Pracitioner. This document was prepared using [email or web address] dictation software. Please allow for errors in net maker, while rare they do occur. I reviewed the documentation as provided by the KRISTEL above, who is the original author of this note. I agree with the documented assessment and plan, with the following changes: none Objective - Vital Signs Vital signs: Vital Signs Temp 97.9 F 09/07/24 03:50 Pulse 65 09/07/24 03:50 Resp 15 09/07/24 03:50 BP 121/75 09/07/24 03:50 Pulse Ox 97 09/07/24 03:50 FiO2 Intake & Output 09/06/24 09/07/24 09/07/24 18:59 06:59 18:59 Intake Total 1866.138 20 Output Total 525 Balance 1866.138 -505 Weight 103.3 kg 102.1 kg Intake: IV 20 Invasive Line 1 20 Intake, IV Titration 546.138 Amount Heparin Sod,Pork in 0.45% 171.138 NaCl 25,000 unit In 0.45 % NaCl 1 250ml.bag @ 9. 627 UNITS/KG/HR 10 mls/hr IV .Q24H [facility] Rx#: [id number] Sodium Chloride 0.9% 1, 375 000 ml @ 75 mls/hr IV . [id number] [facility] Rx#:[id number] Oral 1320 Output: Urine 525 Other: Voiding Method Toilet # Voids 2 1 # Bowel Movements 0 1 - Labs CBC & Chem 7: 09/08/24 07:09 09/08/24 07:09 Labs: Abnormal Lab Results - Last 24 Hours (Table) 09/06/24 09/06/24 09/07/24 Range/Units 06:05 12:58 06:21 APTT 46.4 H 45.1 H (22.0-30.0) sec Potassium 5.2 H (3.5-5.1) mmol/L Creatinine 1.29 H (0.66-1.25) mg/dL Glucose 106 H (74-99) mg/dL Microbiology - Last 24 Hours (Table) 09/05/24 16:10 Nasal Screen MRSA/MSSA - Final Nasopharyngeal Swab
--- NOTE | 2024-09-07 12:30 | P.PN ---
Subjective Progress Note Date: 09/07/24 The patient is a 59-year-old male who presented to the emergency room with chest pressure. He underwent coronary angiogram revealing severe triple coronary artery disease. Surgery has been consulted and he is pending CABG on Monday with Dr. Lynne. Patient stated did well overnight. No current chest pain or pressure. No difficulty breathing. He has been up ambulating around the unit GENERAL: Well-appearing, well-nourished and in no acute distress. NECK: Supple without JVD or thyromegaly. LUNGS: Breath sounds clear to auscultation bilaterally. Respiration equal and unlabored. No wheezes, rales or rhonchi. HEART: Regular rate and rhythm without murmurs, rubs or gallops. S1 and S2 heard. EXTREMITIES: Normal range of motion, no edema. No clubbing or cyanosis. Peripheral pulses intact and strong. TELEMETRY: Sinus rhythm overnight without arrhythmias LABS: WBC 7.0, hemoglobin 14.0, hematocrit 43.9, platelet 192, sodium 138, potassium 4.5, BUN 20, creatinine 1.20 IMPRESSION: NSTEMI with three-vessel coronary artery disease on cardiac cath performed 09/05 History of coronary artery disease with previous stenting of the mid distal RCA in April 2023 Hypertension Hyperlipidemia PLAN: Continue IV heparin Patient to undergo coronary bypass next week Continue pulmonary hygiene preoperatively Further recommendations to be based upon clinical course I am dictating on behalf of Dr Jayme Whiteside's history/physical and assessment/plan. Objective - Vital Signs Vital signs: Vital Signs Temp 97.5 F L 09/07/24 09:03 Pulse 67 09/07/24 11:30 Resp 18 09/07/24 11:30 BP 127/70 09/07/24 11:30 Pulse Ox 100 09/07/24 11:30 FiO2 Intake & Output 09/06/24 09/07/24 09/07/24 18:59 06:59 18:59 Intake Total 1866.138 20 240 Output Total 525 Balance 1866.138 -505 240 Weight 103.3 kg 102.1 kg Intake: IV 20 Invasive Line 1 20 Intake, IV Titration 546.138 Amount Heparin Sod,Pork in 0.45% 171.138 NaCl 25,000 unit In 0.45 % NaCl 1 250ml.bag @ 9. 627 UNITS/KG/HR 10 mls/hr IV .Q24H [facility] Rx#: [id number] Sodium Chloride 0.9% 1, 375 000 ml @ 75 mls/hr IV . [id number] [facility] Rx#:[id number] Oral 1320 240 Output: Urine 525 Other: Voiding Method Toilet Toilet # Voids 2 1 # Bowel Movements 0 1 - Labs CBC & Chem 7: 09/07/24 06:21 09/07/24 06:21 Labs: Abnormal Lab Results - Last 24 Hours (Table) 09/06/24 09/07/24 09/07/24 Range/Units 12:58 06:21 06:21 APTT 46.4 H 45.1 H (22.0-30.0) sec Glucose 103 H (74-99) mg/dL Microbiology - Last 24 Hours (Table) 09/05/24 16:10 Nasal Screen MRSA/MSSA - Final Nasopharyngeal Swab
[2024-09-07] MEDS: MAG HYDROX/AL HYDROX/SIMETH 30 ML CUP PO PRN (22:47)
[2024-09-08 07:46] LABS: HCT 44.9 % (39.0-53.0); HGB 15.1 gm/dL (13.0-17.5); MCH 31.3 pg (25.0-35.0); MCHC 33.7 g/dL (31.0-37.0); MCV 92.7 fL (80.0-100.0); Mean Platelet Volume 8.3; Platelet Count 233 k/uL (150-450); RBC 4.84 m/uL (4.30-5.90); RDW 13.4 % (11.5-15.5); WBC 7.2 k/uL (3.8-10.6)
[2024-09-08 08:06] LABS: African American GFR (CKD) 81 (>60 ml/min/1.73 sqM); Anion Gap 7 mmol/L; Blood Urea Nitrogen 20 mg/dL (9-20); Calcium 9.2 mg/dL (8.4-10.2); Carbon Dioxide 25 mmol/L (22-30); Chloride 106 mmol/L (98-107); Glucose 98 mg/dL (74-99); Non-African American GFR(CKD) 70 (>60 ml/min/1.73 sqM); Potassium 4.4 mmol/L (3.5-5.1); Sodium 138 mmol/L (137-145)
--- NOTE | 2024-09-08 09:01 | P.PN ---
Subjective Progress Note Date: 09/08/24 Principal diagnosis: Multivessel coronary artery disease, non-ST elevated myocardial infarction this admission. Past medical history significant for hypertension, hyperlipidemia, myocardial infarction in April 2023, coronary artery disease with previous stenting to the RCA in April 2023, GERD, osteoarthritis, remote history of pneumonia, COVID in 2019, previous tobacco dependence. The patient was seen and examined at his bedside on the third floor cardiac stepdown unit today September 08, 2024. He is currently sitting up to the bedside edge, his is present at his bedside. The patient is awake, alert, oriented x 3 and is in no acute apparent distress. Denies any complaints of pain or shortness of breath at this time. States he had an episode of heartburn last ni gh which was relieved with some Maalox. Heparin drip is infusing per protocol. Oxygen saturations are 97% on room air and he is achieving 3500 mL on his incentive spirometry with encouragement. Remote telemetry is showing normal sinus rhythm heart rate 70 bpm. Laboratory and chest x-ray results reviewed. He is scheduled for off-pump myocardial revascularization surgery with left internal mammary artery, endoscopic greater saphenous vein harvest, possible endoscopic left radial artery harvest, intraoperative transesophageal echocardiogram, and exclusion left atrial appendage to be performed by Dr. Asim Lynne on Tuesday, September 10, 2024. Preoperative testing has been reinforced with the patient and his family member present at his bedside. Objective - Vital Signs Vital signs: Vital Signs Temp 97.7 F 09/08/24 04:00 Pulse 62 09/08/24 04:00 Resp 15 09/08/24 04:00 BP 128/67 09/08/24 04:00 Pulse Ox 97 09/08/24 04:00 FiO2 Intake & Output 09/07/24 09/08/24 09/08/24 18:59 06:59 18:59 Intake Total 1450 20 10 Output Total 600 Balance 1450 -580 10 Weight 102.1 kg Intake: IV 20 10 Invasive Line 1 20 Invasive Line 2 10 Intake, IV Titration 250 Amount Heparin Sod,Pork in 0.45% 250 NaCl 25,000 unit In 0.45 % NaCl 1 250ml.bag @ 9. 627 UNITS/KG/HR 10 mls/hr IV .Q24H [facility] Rx#: [id number] Oral 1200 Output: Urine 600 Other: Voiding Method Toilet Toilet # Voids 2 2 # Bowel Movements 2 - Exam CONSTITUTIONAL: Appears comfortable, cooperative, no apparent acute distress. HEENT: Neck is supple, no JVD, no lymphadenopathy. RESPIRATORY: Lungs sounds essentially clear throughout. No wheezes, rhonchi or crackles. Respirations are symmetrical and nonlabored. Currently on room air with oxygen saturations 97%. Able to achieve 3500 mL on his incentive spirometry. Strong cough. CARDIOVASCULAR: Regular rhythm and rate. S1 and S2 present, negative for S3, gallop or murmur. GASTROINTESTINAL: Abdomen soft, nontender, nondistended. Active bowel sounds present 4 quadrants. Tolerating diet. Passing flatus. No guarding or rigidity. GENITOURINARY: Continues to void. INTEGUMENTARY: Skin is warm and dry with no evidence of clubbing or cyanosis. NEUROLOGIC: Cranial nerves II through XII intact. No focal deficits. MUSKULOSKELETAL: Able to move all extremities, strength equal bilaterally. PSYCHIATRIC: Alert and oriented to person place and time, appropriate affect, intact judgment and insight. - Allied health notes Allied health notes reviewed: nursing - Labs CBC & Chem 7: 09/08/24 07:09 09/08/24 07:09 Labs: Abnormal Lab Results - Last 24 Hours (Table) 09/08/24 Range/Units 07:09 APTT 46.4 H (22.0-30.0) sec Assessment and Plan Assessment: Triple-vessel coronary artery disease, non-STEMI this admission Chest pain, secondary to above History of coronary artery disease with previous stenting to the RCA in April 2023 History of myocardial infarction in April 2023 Hypertension Hyperlipidemia, treated, cholesterol 121, LDL 59 Remote history of pneumonia COVID in 2019 GERD Osteoarthritis Previous tobacco dependence with cessation a long time agoq Plan: The patient is scheduled for off-pump myocardial revascularization surgery on Tuesday, September 10, 2024 with left internal mammary artery, endoscopic vein harvest, possible left radial artery harvest, exclusion left atrial appendage, and intraoperative transesophageal echocardiogram to be completed by Dr. Asim Lynne. A 5 m walk test has been completed with the patient and he tolerated well, time 1: 2.18 seconds, time 2: 2.75 seconds, time 3: 2.46 seconds. Preoperative teaching has been reinforced with the patient. An STS risk or has been calculated and discussed with the patient. Heparin drip management per cardiology recommendations. Continue to maximize medical management with aspirin, statin and beta-delia. Continue hydralazine 25 mg p.o. twice daily. More recommendations to follow based on patient's clinical course. Time with Patient: Greater than 30
[2024-09-08] MEDS: ACETAMINOPHEN TAB 325 MG TAB PO PRN (10:13)
--- NOTE | 2024-09-08 12:13 | P.PN ---
Subjective Progress Note Date: 09/08/24 The patient is a 59-year-old male who presented to the emergency room with chest pressure. He underwent coronary angiogram revealing severe triple coronary artery disease. Surgery has been consulted and he is pending CABG on Monday with Dr. Lynne. Patient stated did well overnight. He did have an episode of acid reflux, which required some Maalox. No current chest pain or pressure. No difficulty breathing. He has been up ambulating around the unit. GENERAL: Well-appearing, well-nourished and in no acute distress. NECK: Supple without JVD or thyromegaly. LUNGS: Breath sounds clear to auscultation bilaterally. Respiration equal and unlabored. No wheezes, rales or rhonchi. HEART: Regular rate and rhythm without murmurs, rubs or gallops. S1 and S2 heard. EXTREMITIES: Normal range of motion, no edema. No clubbing or cyanosis. Peripheral pulses intact and strong. TELEMETRY: Sinus rhythm overnight without arrhythmias LABS: WBC 7.2, hemoglobin 15.1, hematocrit 44.9, platelet 233, sodium 138, potassium 4.4, BUN 20, creatinine 1.14 IMPRESSION: NSTEMI with three-vessel coronary artery disease on cardiac cath performed 09/05 History of coronary artery disease with previous stenting of the mid distal RCA in April 2023 Hypertension Hyperlipidemia PLAN: Continue IV heparin Patient to undergo coronary bypass on Monday Further recommendations to be based upon clinical course I am dictating on behalf of Dr Jayme Whiteside's history/physical and assessment/plan. Objective - Vital Signs Vital signs: Vital Signs Temp 97.9 F 09/08/24 09:37 Pulse 62 09/08/24 11:24 Resp 17 09/08/24 11:24 BP 126/78 09/08/24 11:24 Pulse Ox 95 09/08/24 11:24 FiO2 Intake & Output 09/07/24 09/08/24 09/08/24 18:59 06:59 18:59 Intake Total 1450 20 250 Output Total 600 Balance 1450 -580 250 Weight 102.1 kg Intake: IV 20 10 Invasive Line 1 20 Invasive Line 2 10 Intake, IV Titration 250 Amount Heparin Sod,Pork in 0.45% 250 NaCl 25,000 unit In 0.45 % NaCl 1 250ml.bag @ 9. 627 UNITS/KG/HR 10 mls/hr IV .Q24H [facility] Rx#: [id number] Oral 1200 240 Output: Urine 600 Other: Voiding Method Toilet Toilet Toilet # Voids 2 2 # Bowel Movements 2 - Labs CBC & Chem 7: 09/08/24 07:09 09/08/24 07:09 Labs: Abnormal Lab Results - Last 24 Hours (Table) 09/08/24 Range/Units 07:09 APTT 46.4 H (22.0-30.0) sec
--- NOTE | 2024-09-08 14:30 | P.PN ---
Subjective Progress Note Date: 09/08/24 Hospital course: Patient is a very pleasant 59-year-old male with a past medical history of CAD with previous stent placement, hypertension, hyperlipidemia, and GERD. He presented to the emergency department on 09/04/2024 secondary to reports of chest pain. Upon arrival to our facility, patient underwent evaluation in the emergency department. Vital signs upon arrival show blood pressure 138/83, heart rate 85, respiratory rate 18, temp 98.1 F, and SpO2 of 97% on room air. She was completed showing normal sinus rhythm at 78 bpm with no noted T wave or ST abnormality showing no signs of acute ischemia upon personal review and interpretation. Chest x-ray was negative for acute cardiopulmonary process. Labs were completed and reviewed. CBC unremarkable. Coagulation profile normal findings. BMP showing mild elevation of renal function with BUN of 25, creatinine of 1.30, GFR of 60. Magnesium was 1.9. Liver profile unremarkable. Troponin was 0.019 and proBNP was 56. Patient was admitted under our services with consultation to cardiology. Troponins were trended resulting at 0.019 and elevating to 0.056. Patient was started on low intensity heparin infusion. Echocardiogram completed showing preserved EF of 55 to 60% with no significant v alvular or structural abnormalities reported. He was taken to the [facility] 09/05/[address] Hoang. Cardiac cath revealed triple-vessel coronary artery disease with RCA stenosis 70%, circumflex stenosis 100%, and proximal LAD stenosis 80 to 90%. Due to these findings cardiology consulted cardiothoracic surgery for evaluation and possible revascularization. Patient is scheduled to undergo off-pump myocardial revascularization surgery on 09/10/[address] Lynne. Physical exam: Patient was seen and fully evaluated at bedside this morning. He was sitting up in chair this morning and visiting with his at bedside. Patient reports he continues to do well despite mild anxiety over CABG scheduled for Monday. Patient reports he has been using his incentive spirometry as recommended and continues to ambulate in the halls without difficulties. He remains on heparin infusion at this time denies any further episodes of chest pain/discomfort. Vital signs reviewed and stable. General: Nontoxic, no distress and appears stated age. Derm: Skin warm and dry, normal coloration for ethnicity. Head: Atraumatic, normocephalic and symmetric. Eyes: EOM's intact, no lid lag, and anicteric sclera Mouth: no lip lesions, mucus membranes moist Cardiovascular: regular rate and rhythm with normal S1S2, no murmur, positive posterior tibial pulses bilaterally, and cap refill < 2 seconds. Lungs: Respirations even, regular, and unlabored on room air. Lungs CTA bilaterally, no rhonchi, no rales, no wheezing, and no accessory muscle usage. Abdominal: soft, nontender to palpation, no guarding, no appreciable organomegaly Ext: ROM intact. No gross muscle atrophy, no edema, no contractures Neuro: Speech clear, face symmetrical and CN II-XII grossly intact with no noted focal neuro deficits Psych: Alert and oriented to person, place, time, and situation. Appropriate and pleasant affect. Assessment and Plan of Care: NSTEMI Triple vessel obstructive coronary artery disease Hyperkalemia, resolved History of CAD status post previous stenting Hypertension Hyperlipidemia -Cardiology consulted, took patient for cardiac cath on 09/05/2024 revealing triple-vessel obstructive coronary artery disease. -Cardiac cath revealed triple-vessel coronary artery disease with RCA stenosis 70%, circumflex stenosis 100%, and proximal LAD stenosis 80 to 90%. -Cardiothoracic following surgery following and discussed with Cardiothoracic LAWYER CRIMINAL, patient is scheduled for off-pump myocardial revascularization surgery on 09/10/[address] Lynne. -Patient to remain on continuous telemetry monitoring -Discontinued lisinopril secondary to hyperkalemia. Discussed with cardiothoracic surgery who was in agreement and recommended starting patient on hydralazine -Aspirin 81 mg daily, atorvastatin 80 mg daily, Zetia 10 mg daily, hydralazine 25 mg twice daily, and metoprolol 25 mg twice daily. Lisinopril was discontinued as stated above secondary to hyperkalemia. -Continue low intensity heparin infusion with close monitoring of PTT for goal therapeutic range of 45 to 79 seconds. Currently PTT therapeutic at 46.4. -Lipid profile unremarkable. -Echocardiogram completed showing preserved EF of 55 to 60% with no significant valvular or structural abnormalities reported. Data and imaging reviewed: -Morning labs reviewed and stable. CBC and BMP remain unremarkable. Blood glucose 98. Magnesium 2.0. PTT therapeutic at 46.4. -Vital signs reviewed. Blood pressure 128/78, heart rate 71, respiratory rate 17, temp 97.9 F, and SpO2 of 95% on room air. CODE STATUS: Full Code DVT prophylaxis: Heparin Anticipated discharge date: Pending clinical course Anticipated discharge place: Home Patient was seen independently by Nurse Pracitioner. This document was prepared using [employer] dictation software. Please allow for errors in semi conductor assembler, while rare they do occur. I reviewed the documentation as provided by the KRISTEL above, who is the original author of this note. I agree with the documented assessment and plan, with the following changes: none Objective - Vital Signs Vital signs: Vital Signs Temp 97.7 F 09/08/24 04:00 Pulse 62 09/08/24 04:00 Resp 15 09/08/24 04:00 BP 128/67 09/08/24 04:00 Pulse Ox 97 09/08/24 04:00 FiO2 Intake & Output 09/07/24 09/08/24 09/08/24 18:59 06:59 18:59 Intake Total 1450 20 10 Output Total 600 Balance 1450 -580 10 Weight 102.1 kg Intake: IV 20 10 Invasive Line 1 20 Invasive Line 2 10 Intake, IV Titration 250 Amount Heparin Sod,Pork in 0.45% 250 NaCl 25,000 unit In 0.45 % NaCl 1 250ml.bag @ 9. 627 UNITS/KG/HR 10 mls/hr IV .Q24H [facility] Rx#: [id number] Oral 1200 Output: Urine 600 Other: Voiding Method Toilet Toilet # Voids 2 2 # Bowel Movements 2 - Labs CBC & Chem 7: 09/08/24 07:09 09/08/24 07:09 Labs: Abnormal Lab Results - Last 24 Hours (Table) 09/08/24 Range/Units 07:09 APTT 46.4 H (22.0-30.0) sec
[2024-09-09 05:24] LABS: HCT 43.4 % (39.0-53.0); HGB 14.7 gm/dL (13.0-17.5); MCH 31.2 pg (25.0-35.0); MCHC 33.8 g/dL (31.0-37.0); MCV 92.5 fL (80.0-100.0); Mean Platelet Volume 8.2; Platelet Count 205 k/uL (150-450); RBC 4.69 m/uL (4.30-5.90); RDW 13.4 % (11.5-15.5); WBC 8.4 k/uL (3.8-10.6)
[2024-09-09 05:48] LABS: African American GFR (CKD) 64 (>60 ml/min/1.73 sqM); Anion Gap 4 mmol/L; Blood Urea Nitrogen 22 mg/dL (9-20); Calcium 9.2 mg/dL (8.4-10.2); Carbon Dioxide 28 mmol/L (22-30); Chloride 106 mmol/L (98-107); Glucose 102 mg/dL (74-99); Non-African American GFR(CKD) 56 (>60 ml/min/1.73 sqM); Potassium 4.8 mmol/L (3.5-5.1); Sodium 138 mmol/L (137-145)
[2024-09-09] MEDS ORDERED: MD COMMUNICATION TO PHARMACY 1 EACH MISC PO ONE ×4 (08:25)
--- NOTE | 2024-09-09 08:49 | P.PN ---
Subjective Progress Note Date: 09/09/24 Principal diagnosis: Multivessel coronary artery disease, non-ST elevated myocardial infarction this admission. Past medical history significant for hypertension, hyperlipidemia, myocardial infarction in April 2023, coronary artery disease with previous stenting to the RCA in April 2023, GERD, osteoarthritis, remote history of pneumonia, COVID in 2019, previous tobacco dependence. The patient was seen and examined at his bedside on the third floor cardiac stepdown unit today September 09, 2024. He is currently sitting up to the bedside chair. The patient is awake, alert, oriented x 3 and is in no acute apparent distress. Denies any complaints of chest pain/chest pressure or shortness of breath at this time. Heparin drip is infusing per protocol. Oxygen saturations are 98% on room air and he is achieving 3500 mL on his incentive spirometry with encouragement. Remote telemetry is showing normal sinus rhythm heart rate 72 bpm. Laboratory and chest x-ray results reviewed. He is scheduled for off-pump myocardial revascularization surgery with left internal mammary artery, endoscopic greater saphenous vein harvest, possible endoscopic left radial artery harvest, intraoperative transesophageal echocardiogram, and exclusion left atrial appendage to be performed by Dr. Asim Lynne tomorrow Monday, September 10, 2024. Preoperative teaching has been reinforced with the patient. Objective - Vital Signs Vital signs: Vital Signs Temp 98.1 F 09/08/24 20:15 Pulse 72 09/09/24 03:05 Resp 16 09/09/24 03:05 BP 146/75 09/09/24 03:05 Pulse Ox 98 09/09/24 03:05 FiO2 Intake & Output 09/08/24 09/09/24 09/09/24 18:59 06:59 18:59 Intake Total 740 Output Total 275 325 Balance 740 -275 -325 Weight 100.9 kg Intake: IV 10 Invasive Line 2 10 Intake, IV Titration 250 Amount Heparin Sod,Pork in 0.45% 250 NaCl 25,000 unit In 0.45 % NaCl 1 250ml.bag @ 9. 627 UNITS/KG/HR 10 mls/hr IV .Q24H [facility] Rx#: [id number] Oral 480 Output: Urine 275 325 Other: Voiding Method Toilet Toilet # Voids 2 1 1 - Exam CONSTITUTIONAL: Appears comfortable, cooperative, no apparent acute distress. HEENT: Neck is supple, no JVD, no lymphadenopathy. RESPIRATORY: Lungs sounds essentially clear throughout. No wheezes, rhonchi or crackles. Respirations are symmetrical and nonlabored. Currently on room air with oxygen saturations 98%. Able to achieve 3500 mL on his incentive spirometry. Strong cough. CARDIOVASCULAR: Regular rhythm and rate. S1 and S2 present, negative for S3, gallop or murmur. GASTROINTESTINAL: Abdomen soft, nontender, nondistended. Active bowel sounds present 4 quadrants. Tolerating diet. Passing flatus. No guarding or rigidity. GENITOURINARY: Continues to void. INTEGUMENTARY: Skin is warm and dry with no evidence of clubbing or cyanosis. NEUROLOGIC: Cranial nerves II through XII intact. No focal deficits. MUSKULOSKELETAL: Able to move all extremities, strength equal bilaterally. PSYCHIATRIC: Alert and oriented to person place and time, appropriate affect, intact judgment and insight. - Allied health notes Allied health notes reviewed: nursing - Labs CBC & Chem 7: 09/09/24 05:11 09/09/24 05:11 Labs: Abnormal Lab Results - Last 24 Hours (Table) 09/09/24 09/09/24 Range/Units 05:11 05:11 APTT 42.2 H (22.0-30.0) sec BUN 22 H (9-20) mg/dL Creatinine 1.37 H (0.66-1.25) mg/dL Glucose 102 H (74-99) mg/dL Assessment and Plan Assessment: Triple-vessel coronary artery disease, non-STEMI this admission Chest pain, secondary to above History of coronary artery disease with previous stenting to the RCA in April 2023 History of myocardial infarction in April 2023 Hypertension Hyperlipidemia, treated, cholesterol 121, LDL 59 Remote history of pneumonia COVID in 2019 GERD Osteoarthritis Previous tobacco dependence with cessation a long time ago Plan: The patient is scheduled for off-pump myocardial revascularization surgery tomorrow Tuesday, September 10, 2024 with left internal mammary artery, endoscopic vein harvest, possible left radial artery harvest, exclusion left atrial appendage, and intraoperative transesophageal echocardiogram to be completed by Dr. Asim Lynne. A 5 m walk test has been completed with the patient and he tolerated well, time 1: 2.18 seconds, time 2: 2.75 seconds, time 3: 2.46 seconds. Preoperative teaching has been reinforced with the patient. An STS risk or has been calculated and discussed with the patient. Heparin drip management per cardiology recommendations. Hold heparin drip at 6 AM. Continue to maximize medical management with aspirin, statin and beta-delia. Continue hydralazine 25 mg p.o. twice daily. Increase 0.9% normal saline to 75 mL/h as his creatinine today is 1.37. N.p.o. after midnight More recommendations to follow based on patient's clinical course. Time with Patient: Greater than 30
--- NOTE | 2024-09-09 11:45 | P.PN ---
Subjective HISTORY OF PRESENT ILLNESS: This is a 59-year-old male patient of Dr. Marilyn Hoang in the past and is now following with Dr. Jackson with past medical history of coronary artery disease status post angioplasty and stent placement of the right coronary artery in the setting of a mild non-ST MARILYN with known chronically occluded OM with collaterals, hypertension, hyperlipidemia. We have been asked to evaluate the patient for chest pain. The patient states that he developed some mid sternal chest pain when he arrived at work yesterday. He was not exerting himself at the time. He states it lasted for about 1 to 2 minutes and has not returned. He has been feeling more tired over the past couple of days. He denies having any other symptoms with this, no nausea or vomiting, no diaphoresis, no radiation of pain, no palpitations. He has been taking all of his medications as directed. Blood pressure 117/80, heart rate 74. Patient is seen today in the emergency center waiting for bed on the cardiac stepdown unit. He has been started on a heparin drip. Regarding kidney function, patient states that he has had trouble taking Mobic which caused his kidney function to worsen and he has been on and off this for his osteoarthritis. Discussed recommendations for cardiac catheterization for which patient is willing to move forward with. EKG: Sinus rhythm with Q waves similar to previous EKGs Chest x-ray: No acute findings. Laboratory studies: Troponin 0.019, 0.056, 0.049 and 0.03. proBNP 56. CBC within normal limits. BUN 25 creatinine 1.3. Home cardiac medications: Aspirin 81 mg daily, Zetia 10 mg daily, Imdur 30 mg daily, lisinopril 20 mg twice daily, Lopressor 25 mg twice daily, Crestor 20 mg daily. Cardiac catheterization performed 04/14/[address] Lowe revealed critical stenosis in the mid distal RCA with intimal disease of the moderate degree in the proximal and mid section. Mild disease in the distal left main, mild disease in the LAD. Totally occluded third obtuse marginal branch with retrograde filling through collaterals. Patient underwent successful stenting of the mid distal RCA. Echocardiogram performed 04/15/2023 revealed EF of 50 to 55%, mild mitral and tricuspid regurgitation. No pericardial effusion. 09/06 Yesterday, patient underwent cardiac catheterization with Dr. Hoang which revealed severe three-vessel coronary artery disease. Patient has been seen by cardiothoracic surgery and scheduled for CABG 60%. Aortic sclerosis and mild mitral annular calcification. Carotid ultrasound reveals 50 to 69% stenosis of the right carotid bifurcation and less than 50% on the left. CT chest minimal c alcification along the aorta. Mild to moderate coronary artery atherosclerosis. Blood pressure 146/84, heart rate 77, pulse ox 95% on room air. Patient denies having any chest pain no lightheadedness or dizziness. He has been ambulating in his room without any symptoms. Noted the blood pressure readings are somewhat elevated but will be holding on starting any new medications at this time. Patient encouraged to start using incentive spirometer now. Repeat EKG normal sinus rhythm with no acute changes. 09/09/2024 Patient examined this morning at the bedside. Patient currently denies chest pain or pressure. He denies shortness of breath. He remains on IV heparin. Vital signs are stable. Telemetry reveals sinus mechanism. He is scheduled to undergo CABG tomorrow with Dr. Lynne. PHYSICAL EXAM: VITAL SIGNS: Reviewed. GENERAL: Well-developed in no acute distress. NECK: Supple. No JVD or thyromegaly LUNGS: Respirations even and unlabored. Lungs essentially clear to auscultation bilaterally. HEART: Regular rate and rhythm. S1 and S2 heard. EXTREMITIES: Normal range of motion. No clubbing or cyanosis. Peripheral pulses intact. No lower extremity edema ASSESSMENT: NSTEMI with three-vessel coronary artery disease on cardiac cath performed 09/05 History of coronary artery disease with previous stenting of the mid distal RCA in April 2023 Hypertension Hyperlipidemia Former nicotine dependence Mild TRAN, creatinine 1.37 PLAN: Continue current cardiac medications Continue IV heparin Patient scheduled for CABG tomorrow with CT surgery Further recommendations pending patient course Nurse practitioner note has been reviewed by physician. Signing provider agrees with the documented findings, assessment, and plan of care documented by BRIM PLATER as a scribe. Objective - Vital Signs Vital signs: Vital Signs Temp 98.1 F 09/08/24 20:15 Pulse 72 09/09/24 03:05 Resp 16 09/09/24 03:05 BP 146/75 09/09/24 03:05 Pulse Ox 98 09/09/24 03:05 FiO2 Intake & Output 09/08/24 09/09/24 09/09/24 18:59 06:59 18:59 Intake Total 740 Output Total 275 325 Balance 740 -275 -325 Weight 100.9 kg Intake: IV 10 Invasive Line 2 10 Intake, IV Titration 250 Amount Heparin Sod,Pork in 0.45% 250 NaCl 25,000 unit In 0.45 % NaCl 1 250ml.bag @ 9. 627 UNITS/KG/HR 10 mls/hr IV .Q24H [facility] Rx#: [id number] Oral 480 Output: Urine 275 325 Other: Voiding Method Toilet Toilet # Voids 2 1 1 - Labs CBC & Chem 7: 09/09/24 05:11 09/09/24 05:11 Labs: Abnormal Lab Results - Last 24 Hours (Table) 09/09/24 09/09/24 Range/Units 05:11 05:11 APTT 42.2 H (22.0-30.0) sec BUN 22 H (9-20) mg/dL Creatinine 1.37 H (0.66-1.25) mg/dL Glucose 102 H (74-99) mg/dL
--- NOTE | 2024-09-09 13:16 | P.PN ---
Subjective Progress Note Date: 09/09/24 Hospital course: Patient is a very pleasant 59-year-old male with a past medical history of CAD with previous stent placement, hypertension, hyperlipidemia, and GERD. He presented to the emergency department on 09/04/2024 secondary to reports of chest pain. Upon arrival to our facility, patient underwent evaluation in the emergency department. Vital signs upon arrival show blood pressure 138/83, heart rate 85, respiratory rate 18, temp 98.1 F, and SpO2 of 97% on room air. She was completed showing normal sinus rhythm at 78 bpm with no noted T wave or ST abnormality showing no signs of acute ischemia upon personal review and interpretation. Chest x-ray was negative for acute cardiopulmonary process. Labs were completed and reviewed. CBC unremarkable. Coagulation profile normal findings. BMP showing mild elevation of renal function with BUN of 25, creatinine of 1.30, GFR of 60. Magnesium was 1.9. Liver profile unremarkable. Troponin was 0.019 and proBNP was 56. Patient was admitted under our services with consultation to cardiology. Troponins were trended resulting at 0.019 and elevating to 0.056. Patient was started on low intensity heparin infusion. Echocardiogram completed showing preserved EF of 55 to 60% with no significant v alvular or structural abnormalities reported. He was taken to the [facility] 09/05/[address] Hoang. Cardiac cath revealed triple-vessel coronary artery disease with RCA stenosis 70%, circumflex stenosis 100%, and proximal LAD stenosis 80 to 90%. Due to these findings cardiology consulted cardiothoracic surgery for evaluation and possible revascularization. Patient is scheduled to undergo off-pump myocardial revascularization surgery tomorrow with Dr. Lynne. Physical exam: Patient was seen and fully evaluated at bedside this morning. He was sitting up in chair this morning and visiting with his daughter at bedside. Patient reports he continues to do well despite mild anxiety over CABG scheduled for Monday but states his anxiety is nothing compared to his families. Patient reports he is otherwise doing well and continues to have no complaints. He has been using his incentive spirometry as recommended and continues to ambulate in the halls without difficulties. He remains on heparin infusion at this time and continues to deny any further episodes of chest pain/discomfort. Vital signs reviewed and stable. General: Nontoxic, no distress and appears stated age. Derm: Skin warm and dry, normal coloration for ethnicity. Head: Atraumatic, normocephalic and symmetric. Eyes: EOM's intact, no lid lag, and anicteric sclera Mouth: no lip lesions, mucus membranes moist Cardiovascular: regular rate and rhythm with normal S1S2, no murmur, positive posterior tibial pulses bilaterally, and cap refill < 2 seconds. Lungs: Respirations even, regular, and unlabored on room air. Lungs CTA bilaterally, no rhonchi, no rales, no wheezing, and no accessory muscle usage. Abdominal: soft, nontender to palpation, no guarding, no appreciable o rganomegaly Ext: ROM intact. No gross muscle atrophy, no edema, no contractures Neuro: Speech clear, face symmetrical and CN II-XII grossly intact with no noted focal neuro deficits Psych: Alert and oriented to person, place, time, and situation. Appropriate and pleasant affect. Assessment and Plan of Care: NSTEMI Triple vessel obstructive coronary artery disease Hyperkalemia, resolved History of CAD status post previous stenting Hypertension Hyperlipidemia -Cardiology consulted, took patient for cardiac cath on 09/05/2024 revealing triple-vessel obstructive coronary artery disease. -Cardiac cath revealed triple-vessel coronary artery disease with RCA stenosis 70%, circumflex stenosis 100%, and proximal LAD stenosis 80 to 90%. -Cardiothoracic following surgery following and discussed with Cardiothoracic ABRASIVE BAND WINDER, patient is scheduled for off-pump myocardial revascularization surgery tomorrow with Dr. Lynne. -Patient to remain on continuous telemetry monitoring -Discontinued lisinopril secondary to hyperkalemia. Discussed with cardiothoracic surgery who was in agreement and recommended starting patient on hydralazine -Aspirin 81 mg daily, atorvastatin 80 mg daily, Zetia 10 mg daily, hydralazine 25 mg twice daily, and metoprolol 25 mg twice daily. Lisinopril was discontinued as stated above secondary to hyperkalemia. -Continue low intensity heparin infusion with close monitoring of PTT for goal therapeutic range of 45 to 79 seconds. Currently PTT subtherapeutic at 42.4. -Lipid profile unremarkable. -Echocardiogram completed showing preserved EF of 55 to 60% with no significant valvular or structural abnormalities reported. Data and imaging reviewed: -Morning labs reviewed. CBC unremarkable. BMP showing mild elevation of renal function with BUN of 22, creatinine of 1.37, GFR 56. Blood glucose 102. Magnesium 2.0. PTT is subtherapeutic at 42.4 -Vital signs reviewed. Blood pressure 128/78, heart rate 71, respiratory rate 17, temp 97.9 F, and SpO2 of 95% on room air. CODE STATUS: Full Code DVT prophylaxis: Heparin Anticipated discharge date: Pending clinical course Anticipated discharge place: Home Patient was seen independently by Nurse Pracitioner. This document was prepared using [employer] dictation software. Please allow for errors in tack cleaner, while rare they do occur. I reviewed the documentation as provided by the KRISTEL above, who is the original author of this note. I agree with the documented assessment and plan, with the following changes: none Objective - Vital Signs Vital signs: Vital Signs Temp 98.1 F 09/08/24 20:15 Pulse 72 09/09/24 03:05 Resp 16 09/09/24 03:05 BP 146/75 09/09/24 03:05 Pulse Ox 98 09/09/24 03:05 FiO2 Intake & Output 09/08/24 09/09/24 09/09/24 18:59 06:59 18:59 Intake Total 740 Output Total 275 325 Balance 740 -275 -325 Weight 100.9 kg Intake: IV 10 Invasive Line 2 10 Intake, IV Titration 250 Amount Heparin Sod,Pork in 0.45% 250 NaCl 25,000 unit In 0.45 % NaCl 1 250ml.bag @ 9. 627 UNITS/KG/HR 10 mls/hr IV .Q24H [facility] Rx#: [id number] Oral 480 Output: Urine 275 325 Other: Voiding Method Toilet Toilet # Voids 2 1 1 - Labs CBC & Chem 7: 09/09/24 05:11 09/09/24 05:11 Labs: Abnormal Lab Results - Last 24 Hours (Table) 09/09/24 09/09/24 Range/Units 05:11 05:11 APTT 42.2 H (22.0-30.0) sec BUN 22 H (9-20) mg/dL Creatinine 1.37 H (0.66-1.25) mg/dL Glucose 102 H (74-99) mg/dL
[2024-09-09] MEDS: MUPIROCIN 2% OINT 22 GM TUBE NASAL SCH (19:32)
[2024-09-10] MEDS ORDERED: ALBUMIN HUMAN 25% 50 ML in EMPTY BAG 1 BAG IVPB ONE (05:00)
[2024-09-10] MEDS ORDERED: SODIUM BICARB 8.4% 50 ML SYR (1 MEQ/ML) IV ONE (05:00)
[2024-09-10] MEDS ORDERED: MAGNESIUM SULFATE 16.24 MEQ in EMPTY SYRINGE 1 SYR IV ONE (05:00)
[2024-09-10] MEDS ORDERED: NITROGLYCERIN-D5W PMX 50 MG in DEXTROSE/WATER 1 250ML.BAG IV SCH (05:00)
[2024-09-10] MEDS ORDERED: ceFAZolin 1,000 MG in SODIUM CHLORIDE 0.9% IRRIGATIO 1,000 ML IRRIGATION ONE (05:00)
[2024-09-10] MEDS ORDERED: PAPAVERINE 360 MG in SODIUM CHLORIDE 0.9% 90 ML IV ONE (05:00)
[2024-09-10] MEDS ORDERED: PHENYLEPHRINE 10 MG/ML VIAL IV ONE (05:00)
[2024-09-10] MEDS ORDERED: PROTAMINE SULFATE 10 MG/ML 25 ML VIAL IV ONE ×2 (05:00→13:18)
[2024-09-10] MEDS ORDERED: ALBUMIN HUMAN 5% 500 ML in EMPTY BAG 1 BAG IVPB ONE ×6 (05:00)
[2024-09-10] MEDS ORDERED: MANNITOL 25% 12.5 GM/50 ML VIAL IV ONE ×2 (05:00)
[2024-09-10] MEDS ORDERED: NOREPINEPHRINE 4 MG in SODIUM CHLORIDE 0.9% 250 ML IV SCH (05:00)
[2024-09-10] MEDS ORDERED: PROTAMINE SULFATE 250 MG in EMPTY BAG 1 BAG IV ONE (05:00)
[2024-09-10] MEDS ORDERED: TRANEXAMIC ACID 2,000 MG in SODIUM CHLORIDE 0.9% 80 ML IV ONE ×2 (05:00→06:00)
[2024-09-10] MEDS ORDERED: HEPARIN SODIUM 1,000 UN/ML (10ML VL) IV ONE (05:00)
[2024-09-10] MEDS ORDERED: NITROGLYCERIN-D5W PMX 25 MG/250 ML BTL IV ONE (05:00)
[2024-09-10] MEDS ORDERED: DILTIAZEM 125 MG in SODIUM CHLORIDE 0.9% 100 ML IV SCH (05:00)
[2024-09-10] MEDS ORDERED: HEPARIN SODIUM,PORCINE (1 ML) 5,000 UNIT in SODIUM CHLORIDE 0.9% 500 ML 500 ML IV ONE (05:00)
[2024-09-10] MEDS ORDERED: CLEVIDIPINE BUTYRATE 25 MG in EMPTY BAG 1 BAG IV SCH (05:00)
[2024-09-10] MEDS ORDERED: CALCIUM CHLORIDE 100 MG/ML 10 ML SYRINGE IVP ONE (05:00)
[2024-09-10] MEDS ORDERED: PHENYLEPHRINE 40 MG in SODIUM CHLORIDE 0.9% 250 ML IV ONE (05:00)
[2024-09-10] MEDS: METOPROLOL TARTRATE 12.5 MG TAB PO ONE (05:12)
[2024-09-10] MEDS: ATORVASTATIN 10 MG TAB PO ONE (05:12)
[2024-09-10] MEDS: ASPIRIN 325 MG TAB PO ONE (05:12)
[2024-09-10] MEDS ORDERED: CARDIOPLEGIC SOLN (K+ 16 MEQ/L 1,000 ML with SOD BICARB SYR 8.4% (1 MEQ/ML) 20 ML, LIDO... PERFUSION NR (06:00)
[2024-09-10] MEDS ORDERED: INSULIN REGULAR 100 UNIT in SODIUM CHLORIDE 0.9% 100 ML IV SCH (06:00)
[2024-09-10 06:45] LABS: HCT 44.8 % (39.0-53.0); HGB 14.9 gm/dL (13.0-17.5); MCH 31.1 pg (25.0-35.0); MCHC 33.2 g/dL (31.0-37.0); MCV 93.6 fL (80.0-100.0); Mean Platelet Volume 7.7; Platelet Count 218 k/uL (150-450); RBC 4.79 m/uL (4.30-5.90); WBC 8.7 k/uL (3.8-10.6)
[2024-09-10 07:04] LABS: ALT 106 U/L (4-49); AST 75 U/L (17-59); African American GFR (CKD) 64 (>60 ml/min/1.73 sqM); Albumin 4.2 g/dL (3.5-5.0); Alkaline Phosphatase 66 U/L (38-126); Anion Gap 6 mmol/L; Blood Urea Nitrogen 23 mg/dL (9-20); Calcium 9.3 mg/dL (8.4-10.2); Carbon Dioxide 29 mmol/L (22-30); Chloride 103 mmol/L (98-107); Glucose 99 mg/dL (74-99); Magnesium 1.9 mg/dL (1.6-2.3); Non-African American GFR(CKD) 55 (>60 ml/min/1.73 sqM); Potassium 4.4 mmol/L (3.5-5.1); Sodium 138 mmol/L (137-145); Total Bilirubin 0.6 mg/dL (0.2-1.3); Total Protein 6.7 g/dL (6.3-8.2)
[2024-09-10] MEDS: IV FLUID CONTINUATION 1,000 ML IV ONE (11:37)
[2024-09-10 12:01] LABS: Glucose,Whole Blood 88 mg/dL (70-110)
--- NOTE | 2024-09-10 12:02 | P.PN ---
Subjective HISTORY OF PRESENT ILLNESS: This is a 59-year-old male patient of Dr. Marilyn Hoang in the past and is now following with Dr. Jackson with past medical history of coronary artery disease status post angioplasty and stent placement of the right coronary artery in the setting of a mild non-ST MARILYN with known chronically occluded OM with collaterals, hypertension, hyperlipidemia. We have been asked to evaluate the patient for chest pain. The patient states that he developed some mid sternal chest pain when he arrived at work yesterday. He was not exerting himself at the time. He states it lasted for about 1 to 2 minutes and has not returned. He has been feeling more tired over the past couple of days. He denies having any other symptoms with this, no nausea or vomiting, no diaphoresis, no radiation of pain, no palpitations. He has been taking all of his medications as directed. Blood pressure 117/80, heart rate 74. Patient is seen today in the emergency center waiting for bed on the cardiac stepdown unit. He has been started on a heparin drip. Regarding kidney function, patient states that he has had trouble taking Mobic which caused his kidney function to worsen and he has been on and off this for his osteoarthritis. Discussed recommendations for cardiac catheterization for which patient is willing to move forward with. EKG: Sinus rhythm with Q waves similar to previous EKGs Chest x-ray: No acute findings. Laboratory studies: Troponin 0.019, 0.056, 0.049 and 0.03. proBNP 56. CBC within normal limits. BUN 25 creatinine 1.3. Home cardiac medications: Aspirin 81 mg daily, Zetia 10 mg daily, Imdur 30 mg daily, lisinopril 20 mg twice daily, Lopressor 25 mg twice daily, Crestor 20 mg daily. Cardiac catheterization performed 04/14/[address] Lowe revealed critical stenosis in the mid distal RCA with intimal disease of the moderate degree in the proximal and mid section. Mild disease in the distal left main, mild disease in the LAD. Totally occluded third obtuse marginal branch with retrograde filling through collaterals. Patient underwent successful stenting of the mid distal RCA. Echocardiogram performed 04/15/2023 revealed EF of 50 to 55%, mild mitral and tricuspid regurgitation. No pericardial effusion. 09/06 Yesterday, patient underwent cardiac catheterization with Dr. Hoang which revealed severe three-vessel coronary artery disease. Patient has been seen by cardiothoracic surgery and scheduled for CABG 60%. Aortic sclerosis and mild mitral annular calcification. Carotid ultrasound reveals 50 to 69% stenosis of the right carotid bifurcation and less than 50% on the left. CT chest minimal c alcification along the aorta. Mild to moderate coronary artery atherosclerosis. Blood pressure 146/84, heart rate 77, pulse ox 95% on room air. Patient denies having any chest pain no lightheadedness or dizziness. He has been ambulating in his room without any symptoms. Noted the blood pressure readings are somewhat elevated but will be holding on starting any new medications at this time. Patient encouraged to start using incentive spirometer now. Repeat EKG normal sinus rhythm with no acute changes. 09/09/2024 Patient examined this morning at the bedside. Patient currently denies chest pain or pressure. He denies shortness of breath. He remains on IV heparin. Vital signs are stable. Telemetry reveals sinus mechanism. He is scheduled to undergo CABG tomorrow with Dr. Lynne. 09/10/2024 Patient examined this morning at the bedside. Patient's family is present. Patient currently denies chest pain or pressure. He denies shortness of breath. He remains on IV heparin. Patient is scheduled for CABG this afternoon. PHYSICAL EXAM: VITAL SIGNS: Reviewed. GENERAL: Well-developed in no acute distress. NECK: Supple. No JVD or thyromegaly LUNGS: Respirations even and unlabored. Lungs essentially clear to auscultation bilaterally. HEART: Regular rate and rhythm. S1 and S2 heard. EXTREMITIES: Normal range of motion. No clubbing or cyanosis. Peripheral pulses intact. No lower extremity edema ASSESSMENT: NSTEMI with three-vessel coronary artery disease on cardiac cath performed 09/05 History of coronary artery disease with previous stenting of the mid distal RCA in April 2023 Hypertension Hyperlipidemia Former nicotine dependence Mild TRAN, creatinine 1.37 PLAN: Continue current cardiac medications Continue IV heparin Patient scheduled for CABG this afternoon with CT surgery Further recommendations pending patient course Nurse practitioner note has been reviewed by physician. Signing provider agrees with the documented findings, assessment, and plan of care documented by PAPER SALES REPRESENTATIVE as a scribe. Objective - Vital Signs Vital signs: Vital Signs Temp 97.6 F 09/10/24 11:34 Pulse 74 09/10/24 11:34 Resp 16 09/10/24 11:34 BP 140/78 09/10/24 11:34 Pulse Ox 94 L 09/10/24 11:34 FiO2 Intake & Output 09/09/24 09/10/24 09/10/24 18:59 06:59 18:59 Intake Total 250.184 164.074 Output Total 325 800 Balance -74.816 -635.926 Weight 101 kg Intake: Intake, IV Titration 250.184 164.074 Amount Heparin Sod,Pork in 0.45% 250.184 164.074 NaCl 25,000 unit In 0.45 % NaCl 1 250ml.bag @ 9. 627 UNITS/KG/HR 10 mls/hr IV .Q24H [facility] Rx#: [id number] Output: Urine 325 800 Other: Voiding Method Toilet Toilet Toilet Urinal # Voids 1 - Labs CBC & Chem 7: 09/10/24 06:05 09/10/24 06:05 Labs: Abnormal Lab Results - Last 24 Hours (Table) 09/09/24 09/10/24 Range/Units 23:07 06:05 APTT 51.2 H (22.0-30.0) sec BUN 23 H (9-20) mg/dL Creatinine 1.38 H (0.66-1.25) mg/dL AST 75 H (17-59) U/L ALT 106 H (4-49) U/L
[2024-09-10] MEDS: CHLORHEXIDINE GLUCONATE 15 ML CUP MUCOUS MEM ONE (12:29)
[2024-09-10] MEDS ORDERED: VECURONIUM 10 MG VIAL IV ONE (13:18)
[2024-09-10] MEDS ORDERED: PROPOFOL 10 MG/ML 20 ML VIAL IV ONE (13:18)
[2024-09-10] MEDS ORDERED: ALBUMIN HUMAN 5% (25gm) 500 ML VIAL IVPB ONE (13:18)
[2024-09-10] MEDS ORDERED: HEPARIN SODIUM,PORCINE 10,000 UNIT/ML 1 ML VIAL ONE (13:18)
[2024-09-10] MEDS ORDERED: fentaNYL (PF) 50 MCG/ML 50 ML VIAL ONE (13:18)
[2024-09-10] MEDS ORDERED: MIDAZOLAM HCL 10 MG/10 ML VIAL ONE (13:18)
[2024-09-10 13:46] LABS: ABG Glucose Whole Blood 97 mg/dL (75-99); ABG HCO3 25 mmol/L (21-25); ABG Hematocrit 41 % (34.0-46.0); ABG Ionized Calcium 4.8 mg/dL (4.5-5.3); ABG Lactic Acid Whole Blood 1.2 mmol/L (0.5-1.6); ABG Oxygen Saturation 99.1 % (94-97); ABG PCO2 45 mmHg (35-45); ABG PH 7.35 (7.35-7.45); ABG PO2 302 mmHg (83-108); ABG Potassium Whole Blood 4.1 mmol/L (3.4-4.5); ABG Sodium Whole Blood 140 mmol/L (135-146); ABG TCO2 23 mmol/L (19-24)
[2024-09-10] MEDS: ceFAZolin 1,000 MG in SODIUM CHLORIDE 0.9% 1,000 ML IRRIGATION ONE (14:23)
[2024-09-10] MEDS: PAPAVERINE 360 MG in SODIUM CHLORIDE 0.9% 90 ML IV ONE (14:23)
[2024-09-10] MEDS: SODIUM CHLORIDE 0.9% 500 ML 500 ML with HEPARIN SODIUM,PORCINE (1 ML) 5,000 UNIT IV ONE (14:23)
--- NOTE | 2024-09-10 14:30 | P.ANPRN ---
Procedure Note - Anesthesia - Invasive Line Right Arterial Line Time Out Performed: Yes (1240) Date of Procedure: 09/10/24 Time of Procedure: 12:41 Location of Patient: Phase I Preparation: Sterile Prep, Sterile Dressing Arterial Line Location: Radial (right) Ultrasound Used: No Purpose - Visualization and Identification of Vasculature: No Needle Guage: 20g Image Stored and Saved: No Narrative: Invasive line placement per sterile protocol utilized.
--- NOTE | 2024-09-10 14:31 | P.ANPRN ---
Procedure Note - Anesthesia - Invasive Line Right Central Line Time Out Performed: Yes (1240) Date of Procedure: 09/10/24 Time of Procedure: 12:47 Location of Patient: Phase I Preparation: Sterile Prep, Sterile Dressing Central Line Location: Internal Jugular (right ij) Ultrasound Used: No Purpose - Visualization and Identification of Vasculature: No Needle Guage: 18g angio Image Stored and Saved: No Narrative: Invasive line placement per sterile protocol utilized. Anesthesia note Procedure: Right internal jugular central venous catheter insertion: 8.5-Cambodian Cordis Sterile protocol followed. Right neck prepped. Lidocaine 1% used. local ane sthetic was instilled site over right Internal Jugular vein. Angiocath was used to gain access via ultrasound. Once free flow non-pulsatile blood flow was confirmed, 12 inch extension tubing was then placed on Angiocath. Once central venous pressure was confirmed, J-wire was then placed through Angiocath. Angiocath was then withdrawn. Local was instilled at J-wire site. Small skin leona was then made with provided sterile scalpel. 8.5-Cambodian Cordis was then inserted over the wire while maintaining control of wire at all times. Uneventful insertion with dilation. Free flow nonpulsatile blood flow through Cordis. Hooked up to IV tubing. Secured with suture. Dressings applied. Drapes Removed. Attempts x1.
--- NOTE | 2024-09-10 14:32 | P.ANPRN ---
Procedure Note - Anesthesia - Invasive Line Right [place] Time Out Performed: Yes (1240) Date of Procedure: 09/10/24 Time of Procedure: 12:55 Location of Patient: PreOp Preparation: Sterile Prep [place] Line Location: Internal Jugular (right) Ultrasound Used: No Purpose - Visualization and Identification of Vasculature: No Image Stored and Saved: No Narrative: Invasive line placement per sterile protocol utilized. Anesthesia note Procedure right [place] catheter placed through central venous catheter Sterile protocol maintained from previous procedure. [place] catheter sterilely placed in sheath and flushed prior to insertion. After advancing 15 cm [place] catheter was then slowly inserted with balloon up. Advanced through CVP, RV to PA waveform. [place] catheter wedged around 51 cm. Balloon down. Catheter withdrawn 5 cm. . No wedge. Proximal and distal sites locked on sheath. Attempts x1. Sterile drapes removed and dressings applied.
--- NOTE | 2024-09-10 14:33 | P.ANPRN ---
Procedure Note - Anesthesia - LEONEL Intraop Pre Bypass LEONEL Intraop - Anesthesia Indication: cad Date of Procedure: 09/10/24 Pre-operative Diagnosis: cad Post-operative Diagnosis: same Surgeon: Asim Lynne Left Ventricle: wnl Ejection Fraction: Normal Regional Wall Motion Abnormalities: None Left Ventricle Hypertrophy: No R. Ventricle Function: Normal Anatomy: Trileaflet Aortic Stenosis: None Aortic Regurgitation: None Mitral Stenosis: None Mitral Regurgitation: Trace Tricuspid Stenosis: None Tricuspid Regurgitation: Trace Pulmonic Stenosis: None Pulmonic Regurgitation: None R. Atrial Dilation: No R. Atrial PFO: No L. Atrial Dilation: No Aortic Dissection: No Aortic Calcification: None Plural Effusion: None
--- NOTE | 2024-09-10 14:49 | P.PN ---
Subjective Progress Note Date: 09/10/24 Hospital course: Patient is a very pleasant 59-year-old male with a past medical history of CAD with previous stent placement, hypertension, hyperlipidemia, and GERD. He presented to the emergency department on 09/04/2024 secondary to reports of chest pain. Upon arrival to our facility, patient underwent evaluation in the emergency department. Vital signs upon arrival show blood pressure 138/83, heart rate 85, respiratory rate 18, temp 98.1 F, and SpO2 of 97% on room air. She was completed showing normal sinus rhythm at 78 bpm with no noted T wave or ST abnormality showing no signs of acute ischemia upon personal review and interpretation. Chest x-ray was negative for acute cardiopulmonary process. Labs were completed and reviewed. CBC unremarkable. Coagulation profile normal findings. BMP showing mild elevation of renal function with BUN of 25, creatinine of 1.30, GFR of 60. Magnesium was 1.9. Liver profile unremarkable. Troponin was 0.019 and proBNP was 56. Patient was admitted under our services with consultation to cardiology. Troponins were trended resulting at 0.019 and elevating to 0.056. Patient was started on low intensity heparin infusion. Echocardiogram completed showing preserved EF of 55 to 60% with no significant v alvular or structural abnormalities reported. He was taken to the [facility] 09/05/[address] Hoang. Cardiac cath revealed triple-vessel coronary artery disease with RCA stenosis 70%, circumflex stenosis 100%, and proximal LAD stenosis 80 to 90%. Due to these findings cardiology consulted cardiothoracic surgery for evaluation and possible revascularization. Patient is scheduled to undergo off-pump myocardial revascularization surgery tomorrow with Dr. Lynne. Physical exam: Patient was seen and fully evaluated at bedside this morning. He was sitting up in chair this morning and visiting with his at bedside. Patient waiting to be taken down for preparation of CABG scheduled today at noon. Patient and patient's at bedside deny having any questions, needs, or concerns at this time. Patient denies having any chest pain, palpitations, shortness of breath, or any other complaints at this time. States he is just ready to get this over with so he can get back home. Vital signs reviewed and stable. General: Nontoxic, no distress and appears stated age. Derm: Skin warm and dry, normal coloration for ethnicity. Head: Atraumatic, normocephalic and symmetric. Eyes: EOM's intact, no lid lag, and anicteric sclera Mouth: no lip lesions, mucus membranes moist Cardiovascular: regular rate and rhythm with normal S1S2, no murmur, positive posterior tibial pulses bilaterally, and cap refill < 2 seconds. Lungs: Respirations even, regular, and unlabored on room air. Lungs CTA bilaterally, no rhonchi, no rales, no wheezing, and no accessory muscle usage. Abdominal: soft, nontender to palpation, no guarding, no appreciable organome alexia Ext: ROM intact. No gross muscle atrophy, no edema, no contractures Neuro: Speech clear, face symmetrical and CN II-XII grossly intact with no noted focal neuro deficits Psych: Alert and oriented to person, place, time, and situation. Appropriate and pleasant affect. Assessment and Plan of Care: NSTEMI Triple vessel obstructive coronary artery disease Hyperkalemia, resolved History of CAD status post previous stenting Hypertension Hyperlipidemia -Cardiology consulted, took patient for cardiac cath on 09/05/2024 revealing triple-vessel obstructive coronary artery disease. -Cardiac cath revealed triple-vessel coronary artery disease with RCA stenosis 70%, circumflex stenosis 100%, and proximal LAD stenosis 80 to 90%. -Cardiothoracic following surgery taking patient for off-pump myocardial revascularization surgery later today with Dr. Lynne. -Patient to remain on continuous telemetry monitoring -Discontinued lisinopril secondary to episode of hyperkalemia. Discussed with cardiothoracic surgery who was in agreement and recommended starting patient on hydralazine -Aspirin 81 mg daily, atorvastatin 80 mg daily, Zetia 10 mg daily, hydralazine 25 mg twice daily, and metoprolol 25 mg twice daily. Lisinopril was discontinued as stated above secondary to hyperkalemia. -Lipid profile unremarkable. -Echocardiogram completed showing preserved EF of 55 to 60% with no significant valvular or structural abnormalities reported. Data and imaging reviewed: -Morning labs reviewed. CBC unremarkable. BMP showing mild elevation of renal function with BUN of 23, creatinine of 1.38, GFR 55. Blood glucose 99. Magnesium 1.9. Liver profile showing elevated AST of 75 and ALT of 106. -Vital signs reviewed. Blood pressure 120/79, heart rate 96, respiratory rate 18, temp 98.5 F, and SpO2 of 94% on room air. CODE STATUS: Full Code DVT prophylaxis: Heparin Anticipated discharge date: Pending clinical course Anticipated discharge place: Home Patient was seen independently by Nurse Pracitioner. This document was prepared using [employer] dictation software. Please allow for errors in crematory operator, while rare they do occur. I reviewed the documentation as provided by the KRISTEL above, who is the original author of this note. I agree with the documented assessment and plan, with the following changes: none Objective - Vital Signs Vital signs: Vital Signs Temp 98.5 F 09/10/24 07:45 Pulse 96 09/10/24 07:45 Resp 18 09/10/24 08:03 BP 120/79 09/10/24 07:45 Pulse Ox 94 L 09/10/24 07:45 FiO2 Intake & Output 09/09/24 09/10/24 09/10/24 18:59 06:59 18:59 Intake Total 250.184 164.074 Output Total 325 800 Balance -74.816 -635.926 Weight 101 kg Intake: Intake, IV Titration 250.184 164.074 Amount Heparin Sod,Pork in 0.45% 250.184 164.074 NaCl 25,000 unit In 0.45 % NaCl 1 250ml.bag @ 9. 627 UNITS/KG/HR 10 mls/hr IV .Q24H [facility] Rx#: [id number] Output: Urine 325 800 Other: Voiding Method Toilet Toilet Toilet Urinal # Voids 1 - Labs CBC & Chem 7: 09/10/24 06:05 09/10/24 06:05 Labs: Abnormal Lab Results - Last 24 Hours (Table) 09/09/24 09/09/24 09/10/24 Range/Units 05:14 23:07 06:05 APTT 51.2 H (22.0-30.0) sec BUN 23 H (9-20) mg/dL Creatinine 1.38 H (0.66-1.25) mg/dL AST 75 H (17-59) U/L ALT 106 H (4-49) U/L Crossmatch See Detail
[2024-09-10 15:13] LABS: ABG Base Excess -0.4 mmol/L; ABG Glucose Whole Blood 107 mg/dL (75-99); ABG HCO3 25 mmol/L (21-25); ABG Hematocrit 40 % (34.0-46.0); ABG Ionized Calcium 4.7 mg/dL (4.5-5.3); ABG Lactic Acid Whole Blood 1.1 mmol/L (0.5-1.6); ABG PCO2 44 mmHg (35-45); ABG PH 7.37 (7.35-7.45); ABG PO2 203 mmHg (83-108); ABG Potassium Whole Blood 4.3 mmol/L (3.4-4.5); ABG Sodium Whole Blood 139 mmol/L (135-146); ABG TCO2 23 mmol/L (19-24)
[2024-09-10 15:54] LABS: ABG Base Excess -0.5 mmol/L; ABG Glucose Whole Blood 100 mg/dL (75-99); ABG HCO3 25 mmol/L (21-25); ABG Hematocrit 37 % (34.0-46.0); ABG Ionized Calcium 4.6 mg/dL (4.5-5.3); ABG Lactic Acid Whole Blood 0.9 mmol/L (0.5-1.6); ABG PCO2 42 mmHg (35-45); ABG PH 7.38 (7.35-7.45); ABG PO2 191 mmHg (83-108); ABG Potassium Whole Blood 4.2 mmol/L (3.4-4.5); ABG Sodium Whole Blood 139 mmol/L (135-146); ABG TCO2 23 mmol/L (19-24)
[2024-09-10 17:08] LABS: ABG Base Excess -0.8 mmol/L; ABG Glucose Whole Blood 108 mg/dL (75-99); ABG HCO3 24 mmol/L (21-25); ABG Hematocrit 37 % (34.0-46.0); ABG Ionized Calcium 4.6 mg/dL (4.5-5.3); ABG Lactic Acid Whole Blood 0.9 mmol/L (0.5-1.6); ABG Oxygen Saturation 98.9 % (94-97); ABG PCO2 41 mmHg (35-45); ABG PH 7.39 (7.35-7.45); ABG PO2 172 mmHg (83-108); ABG Potassium Whole Blood 4.1 mmol/L (3.4-4.5); ABG Sodium Whole Blood 139 mmol/L (135-146); ABG TCO2 22 mmol/L (19-24)
[2024-09-10] MEDS ORDERED: hydrALAZINE HCL 20 MG/ML 1 ML VIAL IVP PRN (17:17)
[2024-09-10] MEDS ORDERED: ALBUMIN HUMAN 5% 250 ML in EMPTY BAG 1 BAG IVPB PRN (17:17)
[2024-09-10] MEDS ORDERED: IPRATROPIUM-ALBUTEROL 3 ML NEB INHALATION PRN (17:17)
[2024-09-10] MEDS ORDERED: Potassium Replacement Protocol 1 EACH MISC MISCELLANE PRN (17:17)
[2024-09-10] MEDS ORDERED: BENZOCAINE/MENTHOL LOZENG 1 EACH LOZENGE MUCOUS MEM PRN (17:17)
[2024-09-10] MEDS ORDERED: Magnesium Replacement Protocol 1 EACH MISC MISCELLANE PRN (17:17)
[2024-09-10] MEDS ORDERED: DEXTROSE 50% SYRINGE 50 ML IVP PRN ×2 (17:17)
--- NOTE | 2024-09-10 17:45 | P.OP ---
Date of Procedure: 09/10/24 Preoperative Diagnosis: Coronary artery disease, unstable angina, subendocardial infarction. Postoperative Diagnosis: Same Procedure(s) Performed: Off-pump CABG x 3 with TERRY to LAD, saphenous vein graft to PDA, saphenous vein graft to obtuse marginal. Endovascular vein harvest from left lower extremity greater saphenous vein. Occlusion of left atrial appendage with 35 mm AtriCure clip. Implants: 35 mm AtriCure clip to left atrial appendage Anesthesia: GETA Surgeon: Asim Lynne Senior Systems Analyst #1: Jens Barnes Senior Systems Analyst #2: Paras Young Estimated Blood Loss (ml): 600 IV fluids (ml): 2,000 Urine output (ml): 200 Pathology: none sent Condition: stable Disposition: ICU Indications for Procedure: 59-year-old male with known history of coronary artery disease and previous coronary stenting presents with unstable angina and subendocardial infarction. He was found to have three-vessel coronary artery disease with restenosis of the proximal LAD. Urgent surgical revascularization was requested. Operative Findings: Coronary targets were small but graftable. TERRY was also small it was cut fairly short and had good flow. Saphenous vein was of excellent quality. Description of Procedure: Monitoring lines were placed in the preop holding area. Patient was brought to the operating room and placed supine on the operating table. General anesthesia was induced and the LEONEL probe was placed. Anterior torso and bilateral lower extremities were sterilely prepped and draped. Greater saphenous vein was harvested from mid calf to groin using endovascular vein harvest technique and was prepared on the back table. Simultaneous sternotomy was performed the left hemisternum was retracted upwards and the left internal mammary artery harvested on a vascularized pedicle left intact on its origin from the subclavian and divided distally. It was a relatively small vessel. Left pleural space was drained with a 32 Austrian chest tube. Standard sternal retractor was placed. Pericardium was opened in the midline. Heart was exposed with pericardial sutures. The patient was systemically heparinized. ACT's were maintained greater than 250 during grafting. 35 mm AtriCure clip was placed at the base of the left atrial appendage. TERRY was tunneled into the pericardial space. The LAD was relatively small but could be grafted proximally fairly easily and had no evidence of diffuse disease present whatsoever. The TERRY was small however by cutting it fairly short we healed a reasonable sized piece of artery that had good flow. LAD was opened to the proximal third bed flow was controlled with a 1.5 mm flow-through. End-to-side anastomosis between the TERRY to the LAD was constructed with running 8-0 Prolene suture. On completion of the anastomosis the flow through was removed effectively probing the proximal distal portion of the anastomosis. Suture was tied with good result and hemostasis. Inflow was opened. Graft was noted to lay well with good length. The guerra filled well with no kinking. The ARTHUR pedicle was tacked surrounding epicardium with 6-0 silk sutures. Next the lateral wall of the heart was exposed. The obtuse marginal was a remarkably good-looking vessel. It was grafted fairly proximally. It was opened and was 1.75 mm lumen. Blood flow was controlled with a 1.5 mm flow-through. There was relatively little blood flow in this vessel. Saphenous vein was anastomosed in end-to-side fashion with running 7-0 Prolene suture. On completion of the anastomosis, flow through was removed effectively probing the proximal and distal portion of the anastomosis. Suture was tied with good result and hemostasis and good backbleeding was noted into the vein graft to the first valve. Heart was lowered in anatomic position and the vein was brought up to the ascending aorta beneath the TERRY. It was cut to appropriate length. Heartstring device was deployed in the mid ascending aorta to the left of midline and proximal anastomosis of the vein graft to the OM was performed with running 5-0 Prolene suture. On completion the anastomosis heartstring device was removed suture was tied with good result hemostasis the vein graft was de-aired with needle holes in the inflow open. Graft was noted to lay well. Anastomosis was hemostatic. Next the inferior wall of the heart was exposed. The PDA was dissected out. It was a relatively small 1.5 mm vessel. In the proximal third there was a fairly tight lesion. We open distal to this and then cut across this lesion. Blood flow was controlled with a 1.5 mm flow-through. Baby patch anastomosis was performed with running 7-0 Prolene suture. On completion anastomosis the flow through was removed effective probing the proximal distal portion of the anastomosis. Suture was tied with good result and hemostasis. Good backbleeding was noted into the vein graft. The vein graft guerra filled well and the graft lay well. Heart was lowered in anatomic position. Vein was brought around the right side of the heart up to the ascending aorta. It was cut to appropriate length. Second heartstring de vice was deployed in the proximal ascending aorta in the midline. Proximal anastomosis of the vein graft to the PDA was performed with running 5-0 Prolene suture. On completion anastomosis, heartstring device was removed and the suture was tied with good result and hemostasis. Vein graft was de-aired with needle holes and the inflow was opened. The vein graft lay well with good length. Distal anastomosis was hemostatic. Heparin was now reversed with protamine. Good hemostasis was obtained throughout. The mediastinum was drained with a 36 Austrian chest tube. Mediastinum was irrigated with antibiotic solution. Sternum was closed with 8 sternal wires. Fascia was closed with 0 Ethibond. Subcutaneous and subcuticular layers and the leg and chest were closed with layers of Vicryl suture. Dry sterile dressings were applied the patient was transferred to ICU in stable hemodynamic condition on no inotropic support having received no blood transfusions.
[2024-09-10 18:04] LABS: Glucose,Whole Blood 90 mg/dL (70-110)
[2024-09-10] MEDS: NITROGLYCERIN-D5W PMX 50 MG in DEXTROSE/WATER 1 250ML.BAG IV SCH (18:05)
[2024-09-10] MEDS: CLEVIDIPINE BUTYRATE 25 MG in EMPTY BAG 1 BAG IV SCH (18:06)
[2024-09-10] MEDS: SODIUM CHLORIDE 0.9% 1,000 ML IV SCH (18:06)
[2024-09-10 18:14] LABS: Basophils % (A) 0 %; Eosinophils # (A) 0.3 k/uL (0-0.7); Eosinophils % (A) 3 %; HCT 37.4 % (39.0-53.0); HGB 12.7 gm/dL (13.0-17.5); Lymphocytes # (A) 1.2 k/uL (1.0-4.8); Lymphocytes % (A) 10 %; MCH 31.7 pg (25.0-35.0); MCHC 34.1 g/dL (31.0-37.0); MCV 93.2 fL (80.0-100.0); Mean Platelet Volume 8.5; Monocytes # (A) 0.5 k/uL (0-1.0); Monocytes % (A) 5 %; Neutrophils # (A) 9.4 k/uL (1.3-7.7); Neutrophils % (A) 82 %; Platelet Count 156 k/uL (150-450); RBC 4.02 m/uL (4.30-5.90); RDW 13.1 % (11.5-15.5); WBC 11.5 k/uL (3.8-10.6)
[2024-09-10 18:16] LABS: Ionized Calcium 4.7 mg/dL (4.5-5.3)
[2024-09-10 18:25] LABS: INR 1.2 (<1.2); Partial Thromboplastin Time 26.3 sec (22.0-30.0); Prothrombin Time 12.3 sec (10.0-12.5)
[2024-09-10 18:27] LABS: ALT 71 U/L (4-49); AST 57 U/L (17-59); African American GFR (CKD) 82 (>60 ml/min/1.73 sqM); Albumin 3.6 g/dL (3.5-5.0); Alkaline Phosphatase 39 U/L (38-126); Anion Gap 8 mmol/L; Blood Urea Nitrogen 20 mg/dL (9-20); Calcium 8.1 mg/dL (8.4-10.2); Carbon Dioxide 23 mmol/L (22-30); Chloride 107 mmol/L (98-107); Glucose 92 mg/dL (74-99); Magnesium 1.4 mg/dL (1.6-2.3); Non-African American GFR(CKD) 71 (>60 ml/min/1.73 sqM); Potassium 3.8 mmol/L (3.5-5.1); Sodium 138 mmol/L (137-145); Total Protein 5.7 g/dL (6.3-8.2)
[2024-09-10 18:32] LABS: ABG Base Excess -1.9 mmol/L; ABG HCO3 25 mmol/L (21-25); ABG PCO2 49 mmHg (35-45); ABG PH 7.31 (7.35-7.45); ABG PO2 271 mmHg (83-108); ABG TCO2 26 mmol/L (19-24); Allen Test Performed? Yes
[2024-09-10] MEDS: ACETAMINOPHEN IV (For NPO) 1,000 MG in EMPTY BAG 1 BAG IVPB SCH (18:33)
[2024-09-10] MEDS: MAGNESIUM SULFATE-D5W PMX 1 GM in DEXTROSE/WATER 1 100ML.BAG IVPB SCH (18:53)
--- NOTE | 2024-09-10 19:11 | XR ---
EXAMINATION TYPE: XR chest 1V portable DATE OF EXAM: 09/10/2024 COMPARISON: 09/04/2024 INDICATION: Postop cardiac surgery TECHNIQUE: Single frontal view of the chest is obtained. FINDINGS: The heart size is enlarged. The pulmonary vasculature is normal. Some mild right lower lobe infiltrate is present. Left costophrenic angle is poorly visualized. Degre e of inspiration is limited Endotracheal tube tip is 0.4 cm above the ja and could be pulled back at least 1 cm. Nasogastric tube positioning is normal with the tip in the left upper quadrant of the abdomen. Left-sided chest tube is present. No pneumothorax is evident. Mediastinal tube is in the midline. Swa n-Leyla catheter is present with the tip in the main pulmonary artery region IMPRESSION: 1. Clinical correlation for left basilar atelectasis. 2. Multiple lines and catheters discussed above. 3. Endotracheal tube tip 0.4 cm above the ja. This could be pulled back 1 to 1 and 1/[address] positioning[address] [facility], Workstation: [facility], 09/10/2024 7:08 PM
[2024-09-10 19:18] LABS: Glucose,Whole Blood 111 mg/dL (70-110)
[2024-09-10] MEDS: POTASSIUM BICARBONATE/CIT AC 20 MEQ TABLET.EFF NG-TUBE SCH (19:50)
[2024-09-10] MEDS: SENNOSIDES-DOCUSATE SODIUM 1 EACH TAB PO SCH (19:55)
[2024-09-10 20:17] LABS: Glucose,Whole Blood 155 mg/dL (70-110)
[2024-09-10] MEDS: INSULIN REGULAR 100 UNIT in SODIUM CHLORIDE 0.9% 100 ML IV SCH (20:19)
[2024-09-10] MEDS: DEXMEDETOMIDINE/0.9% NACL(PMX) 400 MCG in EMPTY BAG 1 BAG IV SCH (20:52)
[2024-09-10] MEDS: IPRATROPIUM-ALBUTEROL 3 ML NEB INHALATION SCH (20:53)
[2024-09-10 21:03] LABS: Glucose,Whole Blood 156 mg/dL (70-110)
[2024-09-10 21:18] LABS: Basophils # (A) 0.1 k/uL (0-0.2); Basophils % (A) 0 %; Eosinophils # (A) 0.2 k/uL (0-0.7); Eosinophils % (A) 2 %; HCT 39.6 % (39.0-53.0); HGB 13.4 gm/dL (13.0-17.5); Lymphocytes # (A) 1.4 k/uL (1.0-4.8); Lymphocytes % (A) 10 %; MCH 31.7 pg (25.0-35.0); MCHC 33.9 g/dL (31.0-37.0); MCV 93.6 fL (80.0-100.0); Mean Platelet Volume 8.2; Monocytes # (A) 0.7 k/uL (0-1.0); Monocytes % (A) 5 %; Neutrophils # (A) 11.6 k/uL (1.3-7.7); Neutrophils % (A) 82 %; Platelet Count 195 k/uL (150-450); RBC 4.23 m/uL (4.30-5.90); RDW 13.5 % (11.5-15.5); WBC 14.2 k/uL (3.8-10.6)
[2024-09-10 22:08] LABS: Glucose,Whole Blood 133 mg/dL (70-110)
[2024-09-10 22:12] LABS: ABG Base Excess -3.1 mmol/L; ABG HCO3 23 mmol/L (21-25); ABG Oxygen Saturation 96.3 % (94-97); ABG PCO2 41 mmHg (35-45); ABG PH 7.34 (7.35-7.45); ABG PO2 82 mmHg (83-108); ABG TCO2 24 mmol/L (19-24); Allen Test Performed? Yes
[2024-09-10 22:56] LABS: Glucose,Whole Blood 135 mg/dL (70-110)
[2024-09-10] MEDS: HEPARIN SODIUM,PORCINE 5,000 UNIT/ML 1 ML VIAL SQ SCH (23:26)
[2024-09-11 00:12] LABS: Glucose,Whole Blood 133 mg/dL (70-110)
[2024-09-11 00:40] LABS: Basophils % (A) 0 %; Eosinophils % (A) 0 %; HCT 39.9 % (39.0-53.0); HGB 13.4 gm/dL (13.0-17.5); Lymphocytes # (A) 0.5 k/uL (1.0-4.8); Lymphocytes % (A) 3 %; MCH 31.4 pg (25.0-35.0); MCHC 33.5 g/dL (31.0-37.0); MCV 93.8 fL (80.0-100.0); Mean Platelet Volume 7.8; Monocytes # (A) 0.8 k/uL (0-1.0); Monocytes % (A) 5 %; Neutrophils # (A) 13.1 k/uL (1.3-7.7); Neutrophils % (A) 90 %; Platelet Count 177 k/uL (150-450); RBC 4.25 m/uL (4.30-5.90); RDW 13.1 % (11.5-15.5); WBC 14.5 k/uL (3.8-10.6)
--- NOTE | 2024-09-11 01:08 | P.CNPUL ---
History of Present Illness Consult date: 09/11/24 Requesting physician: Magdalena De Jesus Reason for consult: other (Postcardiac surgery) Chief complaint: Chest pain History of present illness: Patient is 59-year-old male with past medical history significant for coronary artery disease with previous PCI/stenting, hypertension, hyperlipidemia, and remote history of tobacco use. Patient presented to the ED back on September 04 with non-ST elevation DC. Subsequently, underwent heart catheterization the following day showing severe triple-vessel coronary artery disease involving the LAD, left circumflex artery, and RCA. Cardiothoracic surgery was then consulted, and patient has had a thorough preoperative workup. Transthoracic echocardiogram showing a preserved left ventricular ejection fraction of 55 to 60%. No significant valvular abnormalities. Carotid Doppler significant for 50 to 69% stenosis at the right carotid bifurcation. Chest CT did not show evidence of acute pulmonary process such as focal consolidation, pneumothorax, pleural effusion; small right middle lobe 4 mm nodule. Yesterday, patient underwent off-pump CABG x 3 with TERRY to LAD, SVG to PDA, SVG to obtuse marginal, and left atrial appendage occlusion. No intraoperative complications were reported. EBL was 600. No blood products were necessary. Patient was then transferred back to the intensive care unit yesterday evening for recovery. Hemodynamics have remained stable. Not on any vasopressors. Current vitals include heart rate 84 bpm, blood pressure 101/58 mmHg, PAP 38/18 mmHg, and most recent CO/CI 5.8/2.6. Urine output has been adequate in the order of 30 to 50 cc/h. Minimal chest tube output with a total of 140 mL of serosanguineous drai nage in the mediastinal chest tube and 107 mL of serosanguineous drainage within the left pleural atrium. These are to suction at -20 cm H2O. No discernible airleak. Postoperative chest x-ray showing the endotracheal tube 4 mm from the ja. NG tube coursing below the diaphragm. Left chest tube and mediastinal chest tube midline. No pneumothoraces or pleural effusions. Pulmonary artery catheter in appropriate position. Minimal left basilar atelectasis. Propofol has been stopped, and transitioned over to Precedex infusion in preparation for weaning. He is calm and cooperative. Rapid weaning protocol is in place. Patient was on pressure support for 30 minutes, and follow-up ABG is satisfactory. PaO2 82, pCO2 41, pH of 7.34. Weaning parameters are also satisfactory. RSBI 38 and negative inspiratory force -23. There is a positive cuff leak. Calm and following commands appropriately. Hence, I gave the order for the patient to be extubated. Patient is currently being evaluated in the intensive care unit, he is on 3 L/min nasal cannula. He is in no acute respiratory distress. He is alert and fully oriented. No focal neurological deficits. Most recent CBC: WBC count 14.2, hemoglobin 13.4, hematocrit 39.6, platelets 195. Most recent postoperative CMP: Sodium 138, potassium 3.8, chloride 107, serum bicarb 23, BUN 20, creatinine 1.12, glucose 135. iCal 4.7. Magnesium 1.4. LFTs unremarkable. Normal saline is infusing at 50 mL/h. Nitroglycerin also infusing at 5 mcg/min. Insulin being titrated per protocol. Precedex is going to be turned off. Patient is going to receive an incentive spirometer. Postsurgical pain rated 5 on a 10 point numerical scale. Patient feels is well-managed with current analgesics. Plan is for early ambulation in the morning. Review of Systems Constitutional: Denies chills, Denies fever Ears, nose, mouth and throat: Reports sore throat, Denies headache, Denies nasal congestion, Denies nasal discharge, Denies post-nasal drip, Denies sinus pain, Denies sinus pressure Cardiovascular: Reports chest pain, Denies leg edema, Denies orthopnea, Denies palpitations, Denies paroxysmal nocturnal dyspnea, Denies shortness of breath Respiratory: Denies cough Gastrointestinal: Denies abdominal pain, Denies nausea, Denies vomiting Genitourinary: Denies dysuria Musculoskeletal: Denies limitation of motion Integumentary: Denies rash Neurological: Denies change in mentation, Denies change in speech, Denies lack of coordination, Denies paralysis, Denies paresthesias, Denies seizures, Denies syncope, Denies visual changes Psychiatric: Denies anxiety, Denies depression Past Medical History Past Medical History: Coronary Artery Disease (CAD), GERD/Reflux, Hyperlipidemia, Hypertension, Myocardial Infarction (DC), Osteoarthritis (OA) Additional Past Medical History / Comment(s): jeannette shoulder pain from arthritis Last Myocardial Infarction Date:: 04/18/2023 History of Any Multi-Drug Resistant Organisms: None Reported Past Surgical History: Heart Catheterization With Stent, Hernia Repair, Tonsillectomy Past Anesthesia/Blood Transfusion Reactions: No Reported Reaction, Motion Sickness Date of Last Stent Placement:: 04/19/2023 Past Psychological History: No Psychological Hx Reported Smoking Status: Former smoker Past Alcohol Use History: Occasional Additional Past Alcohol Use History / Comment(s): States he has 1 drink per week Past Drug Use History: None Reported - Past Family History Sister(s) Family Medical History: Cancer Mother Family Medical History: Congestive Heart Failure (CHF) Father Additional Family Medical History / Comment(s): Father in a motorcycle accident when he was 31 Medications and Allergies Home Medications Medication Instructions Recorded Confirmed Type traMADol HCL [Ultram] 50 mg PO BID PRN 09/06/21 09/04/24 History Aspirin EC [Ecotrin Low Dose] 81 mg PO DAILY 04/15/23 09/04/24 History Cyclobenzaprine [Flexeril] 5 mg PO HS 04/15/23 09/04/24 History Omeprazole [PriLOSEC] 20 mg PO DAILY 04/15/23 09/04/24 History Metoprolol Tartrate [Lopressor] 25 mg PO BID #60 tab 04/17/23 09/04/24 Rx Ezetimibe [Zetia] 10 mg PO DAILY 09/04/24 09/04/24 History Isosorbide Mononitrate ER [Imdur] 30 mg PO DAILY 09/04/24 09/04/24 History Meloxicam [Mobic] 7.5 mg PO DAILY 09/04/24 09/04/24 History Montelukast [Singulair] 10 mg PO DAILY 09/04/24 09/04/24 History Rosuvastatin [Crestor] 20 mg PO DAILY 09/04/24 09/04/24 History lisinopriL [Zestril] 20 mg PO BID 09/04/24 09/04/24 History Allergies Allergy/AdvReac Type Severity Reaction Status Date / Time Penicillins Allergy Rash/Hives Verified 09/04/24 20:17 tetracycline Allergy Rash/Hives Verified 09/04/24 20:17 latex AdvReac skin Verified 09/04/24 20:17 irritation Physical Exam Vitals: Vital Signs Temp Pulse Pulse Pulse Resp BP BP 09/10/24 23:15 84 18 121/78 09/10/24 23:00 86 15 09/10/24 22:45 88 20 09/10/24 22:30 90 18 09/10/24 22:15 89 17 135/81 09/10/24 22:05 09/10/24 22:00 95 16 09/10/24 21:45 92 17 09/10/24 21:30 91 18 09/10/24 21:15 87 16 121/69 09/10/24 21:05 92 09/10/24 21:00 90 16 09/10/24 20:53 90 09/10/24 20:50 09/10/24 20:45 96 16 106/73 09/10/24 20:30 84 16 116/67 09/10/24 20:15 84 16 09/10/24 20:00 98.1 F 86 92 16 09/10/24 19:45 84 17 09/10/24 19:30 80 16 09/10/24 19:15 79 16 09/10/24 19:00 78 16 09/10/24 18:45 80 16 09/10/24 18:37 09/10/24 18:36 09/10/24 18:30 81 12 09/10/24 18:20 79 12 09/10/24 18:10 77 12 09/10/24 18:01 09/10/24 18:00 75 12 09/10/24 11:34 97.6 F 74 16 140/78 09/10/24 08:03 18 09/10/24 07:45 98.5 F 96 18 09/10/24 04:00 98 F 72 15 BP BP Pulse Ox FiO2 09/10/24 23:15 98 09/10/24 23:00 96 09/10/24 22:45 98 09/10/24 22:30 97 09/10/24 22:15 99 09/10/24 22:05 40 09/10/24 22:00 98 09/10/24 21:45 97 40 09/10/24 21:30 97 09/10/24 21:15 97 09/10/24 21:05 09/10/24 21:00 94 L 09/10/24 20:53 09/10/24 20:50 60 09/10/24 20:45 97 09/10/24 20:30 94 L 09/10/24 20:15 95 09/10/24 20:00 95 60 09/10/24 19:45 96 09/10/24 19:30 94 L 09/10/24 19:15 94 L 09/10/24 19:00 94 L 09/10/24 18:45 97 09/10/24 18:37 60 09/10/24 18:36 60 09/10/24 18:30 100 09/10/24 18:20 100 100 09/10/24 18:10 100 09/10/24 18:01 100 09/10/24 18:00 100 100 09/10/24 11:34 140/78 94 L 09/10/24 08:03 09/10/24 07:45 120/79 94 L 09/10/24 04:00 122/72 96 Intake and Output 09/10/24 09/10/24 09/11/24 14:59 22:59 06:59 Intake Total 103 741.105 79 Output Total 1400 546 84 Balance -1297 195.105 -5 Intake: IV 103 635 79 ACETAMINOPHEN IV (For NPO 100 ) 1,000 mg In Empty Bag 1 bag @ 400 mls/hr IVPB Q6HR [facility] Rx#:[id number] CO/CI 90 20 Magnesium Sulfate-D5w Pmx 250 50 1 gm In Dextrose/Water 1 100ml.bag @ 100 mls/hr IVPB Q1H [facility] Rx#: [id number] Pressure Bags 45 9 Sodium Chloride 0.9% 1, 150 000 ml @ 50 mls/hr IV . Q20H [facility] Rx#:[id number] Intake, IV Titration 106.105 Amount Clevidipine Butyrate 25 35.667 mg In Empty Bag 1 bag @ 1 MG/HR 2 mls/hr IV .Q24H [facility] Rx#:[id number] Dexmedetomidine/0.9% NaCl 10.816 (Pmx) 400 mcg In Empty Bag 1 bag @ Titrate IV . Q0M [facility] Rx#:[id number] Insulin Regular 100 unit 3.567 In Sodium Chloride 0.9% 100 ml @ Per Protocol IV .Q0M [facility]I Rx#:[id number] propofoL 1,000 mg In 56.055 Empty Bag 1 bag @ Titrate IV .Q0M [facility]I Rx#: [id number] Output: Chest Tube Drainage 226 24 Left Pleural 100 10 Mediastinal 126 14 Urine 600 320 60 Estimated Blood Loss 800 Other: Voiding Method Toilet Indwelling Catheter Urinal ABP, PAP, CO, CI - Last 8 Hours Arterial Blood Pressure 111/62 Arterial Blood Pressure 101/58 Arterial Blood Pressure 118/66 Arterial Blood Pressure 114/62 Arterial Blood Pressure 122/63 Arterial Blood Pressure 135/63 Arterial Blood Pressure 129/61 Arterial Blood Pressure 128/60 Arterial Blood Pressure 139/60 Arterial Blood Pressure 115/55 Arterial Blood Pressure 108/57 Arterial Blood Pressure 121/54 Arterial Blood Pressure 119/55 Arterial Blood Pressure 124/55 Arterial Blood Pressure 130/57 Arterial Blood Pressure 153/58 Arterial Blood Pressure 146/58 Arterial Blood Pressure 137/57 Arterial Blood Pressure 133/57 Arterial Blood Pressure 127/47 Arterial Blood Pressure 137/68 Arterial Blood Pressure 116/49 Arterial Blood Pressure 0/0 Pulmonary Artery Pressure 36/13 Pulmonary Artery Pressure 38/18 Pulmonary Artery Pressure 35/13 Pulmonary Artery Pressure 36/12 Pulmonary Artery Pressure 37/15 Pulmonary Artery Pressure 39/16 Pulmonary Artery Pressure 42/18 Pulmonary Artery Pressure 39/19 Pulmonary Artery Pressure 38/18 Pulmonary Artery Pressure 37/17 Pulmonary Artery Pressure 62/3 Pulmonary Artery Pressure 35/21 Pulmonary Artery Pressure 39/24 Pulmonary Artery Pressure 46/25 Pulmonary Artery Pressure 69/21 Pulmonary Artery Pressure 31/24 Pulmonary Artery Pressure 45/24 Pulmonary Artery Pressure 45/26 Pulmonary Artery Pressure 49/24 Pulmonary Artery Pressure 44/17 Pulmonary Artery Pressure 35/9 Cardiac Output 5.8 Cardiac Output 7.1 Cardiac Output 7.2 Cardiac Output 7 Cardiac Output 5.5 Cardiac Output 5.5 Cardiac Output 5.5 Cardiac Output 5.5 Cardiac Output 5.5 Cardiac Index 2.6 Cardiac Index 3.2 Cardiac Index 3.3 Cardiac Index 3.2 Cardiac Index 2.5 Cardiac Index 2.5 Cardiac Index 2.5 Cardiac Index 2.5 Cardiac Index 2.5 GENERAL EXAM: Alert, 59-year-old white male, postsurgical midsternal incision with heart hugger in place, mediastinal and left pleural chest tubes, on 3 L/min nasal cannula, comfortable in no apparent distress. HEAD: Normocephalic and atraumatic EYES: Normal reaction of pupils, equal size. NOSE: Clear with pink turbinates. THROAT: No erythema or exudates. NECK: No masses, no JVD. Right IJ cordis with [place]-Leyla catheter locked CHEST: Midsternal incision approximated with surgical glue, postoperative dressing intact, mediastinal and left lateral chest tubes in place. Atriums to suction at -20 cm H2O. No airleak. LUNGS: Equal air entry with no crackles, wheeze, rhonchi or dullness. On 3 L/mi n nasal cannula. No conversational dyspnea or accessory muscle use.. CVS: S1 and S2 normal with no audible murmur, regular rhythm. No extra heart sounds ABDOMEN: No hepatosplenomegaly, active bowel sounds, no guarding or rigidity. SPINE: No scoliosis or deformity SKIN: No rashes CENTRAL NERVOUS SYSTEM: No focal deficits, tone is normal in all 4 extremities. EXTREMITIES: Bilateral lower extremities wrapped with Duarte bandages. No clubbing or cyanosis. Peripheral pulses are intact. Results - Laboratory Findings CBC and BMP: 09/10/24 21:00 09/10/24 18:03 ABG ABG pH 7.34 (7.35-7.45) L 09/10/24 22:10 ABG pCO2 41 mmHg (35-45) 09/10/24 22:10 ABG pO2 82 mmHg (83-108) L 09/10/24 22:10 ABG O2 Saturation 96.3 % (94-97) 09/10/24 22:10 PT/INR, D-dimer PT 12.3 sec (10.0-12.5) 09/10/24 18:03 INR 1.2 (<1.2) H 09/10/24 18:03 Abnormal lab findings: Abnormal Labs 09/04/24 09/04/24 09/05/24 17:58 20:18 00:11 WBC RBC Hgb Hct Neutrophils # INR APTT ABG pH ABG pCO2 ABG pO2 ABG Total CO2 ABG O2 Saturation ABG Glucose Hemoglobin Potassium BUN 25 H Creatinine 1.30 H Glucose POC Glucose (mg/dL) Calcium Magnesium AST ALT Troponin I 0.056 H* 0.049 H* Total Protein Arterial Blood Glucose Crossmatch 09/05/24 09/05/24 09/06/24 04:08 22:36 06:05 WBC RBC Hgb Hct Neutrophils # INR APTT 37.4 H 32.4 H ABG pH ABG pCO2 ABG pO2 ABG Total CO2 ABG O2 Saturation ABG Glucose Hemoglobin Potassium 5.2 H BUN Creatinine 1.29 H Glucose 106 H POC Glucose (mg/dL) Calcium Magnesium AST ALT Troponin I Total Protein Arterial Blood Glucose Crossmatch 09/06/24 09/06/24 09/07/24 06:05 12:58 06:21 WBC RBC Hgb Hct Neutrophils # INR APTT 82.2 H 46.4 H ABG pH ABG pCO2 ABG pO2 ABG Total CO2 ABG O2 Saturation ABG Glucose Hemoglobin Potassium BUN Creatinine Glucose 103 H POC Glucose (mg/dL) Calcium Magnesium AST ALT Troponin I Total Protein Arterial Blood Glucose Crossmatch 09/07/24 09/08/24 09/09/24 06:21 07:09 05:11 WBC RBC Hgb Hct Neutrophils # INR APTT 45.1 H 46.4 H ABG pH ABG pCO2 ABG pO2 ABG Total CO2 ABG O2 Saturation ABG Glucose Hemoglobin Potassium BUN 22 H Creatinine 1.37 H Glucose 102 H POC Glucose (mg/dL) Calcium Magnesium AST ALT Troponin I Total Protein Arterial Blood Glucose Crossmatch 09/09/24 09/09/24 09/09/24 05:11 05:14 23:07 WBC RBC Hgb Hct Neutrophils # INR APTT 42.2 H 51.2 H ABG pH ABG pCO2 ABG pO2 ABG Total CO2 ABG O2 Saturation ABG Glucose Hemoglobin Potassium BUN Creatinine Glucose POC Glucose (mg/dL) Calcium Magnesium AST ALT Troponin I Total Protein Arterial Blood Glucose Crossmatch See Detail 09/10/24 09/10/24 09/10/24 06:05 13:51 15:19 WBC RBC Hgb Hct Neutrophils # INR APTT ABG pH ABG pCO2 ABG pO2 302 H 203 H ABG Total CO2 ABG O2 Saturation 99.1 H 99.0 H ABG Glucose 107 H Hemoglobin Potassium BUN 23 H Creatinine 1.38 H Glucose POC Glucose (mg/dL) Calcium Magnesium AST 75 H ALT 106 H Troponin I Total Protein Arterial Blood Glucose 107 H Crossmatch 09/10/24 09/10/24 09/10/24 15:59 17:14 18:03 WBC 11.5 H RBC 4.02 L Hgb 12.7 L Hct 37.4 L Neutrophils # 9.4 H INR APTT ABG pH ABG pCO2 ABG pO2 191 H 172 H ABG Total CO2 ABG O2 Saturation 99.0 H 98.9 H ABG Glucose 100 H 108 H Hemoglobin 12.2 L 12.2 L Potassium BUN Creatinine Glucose POC Glucose (mg/dL) Calcium Magnesium AST ALT Troponin I Total Protein Arterial Blood Glucose 100 H 108 H Crossmatch 09/10/24 09/10/24 09/10/24 18:03 18:03 18:31 WBC RBC Hgb Hct Neutrophils # INR 1.2 H APTT ABG pH 7.31 L ABG pCO2 49 H ABG pO2 271 H ABG Total CO2 26 H ABG O2 Saturation 100.0 H ABG Glucose Hemoglobin Potassium BUN Creatinine Glucose POC Glucose (mg/dL) Calcium 8.1 L Magnesium 1.4 L AST ALT 71 H Troponin I Total Protein 5.7 L Arterial Blood Glucose Crossmatch 09/10/24 09/10/24 09/10/24 19:17 20:15 21:00 WBC 14.2 H RBC 4.23 L Hgb Hct Neutrophils # 11.6 H INR APTT ABG pH ABG pCO2 ABG pO2 ABG Total CO2 ABG O2 Saturation ABG Glucose Hemoglobin Potassium BUN Creatinine Glucose POC Glucose (mg/dL) 111 H 155 H Calcium Magnesium AST ALT Troponin I Total Protein Arterial Blood Glucose Crossmatch 09/10/24 09/10/24 09/10/24 21:01 22:05 22:10 WBC RBC Hgb Hct Neutrophils # INR APTT ABG pH 7.34 L ABG pCO2 ABG pO2 82 L ABG Total CO2 ABG O2 Saturation ABG Glucose Hemoglobin Potassium BUN Creatinine Glucose POC Glucose (mg/dL) 156 H 133 H Calcium Magnesium AST ALT Troponin I Total Protein Arterial Blood Glucose Crossmatch 09/10/24 09/11/24 22:55 00:00 WBC RBC Hgb Hct Neutrophils # INR APTT ABG pH ABG pCO2 ABG pO2 ABG Total CO2 ABG O2 Saturation ABG Glucose Hemoglobin Potassium BUN Creatinine Glucose POC Glucose (mg/dL) 135 H 133 H Calcium Magnesium AST ALT Troponin I Total Protein Arterial Blood Glucose Crossmatch - Diagnostic Findings Chest x-ray: image reviewed Assessment and Plan Assessment: Severe triple-vessel coronary artery disease status postoperative day #1 followi ng off-pump CABG x 3 with TERRY to the LAD, SVG to the PDA, SVG to the obtuse marginal, and left atrial appendage occlusion. No intraoperative complications were reported. Routine mechanical ventilator management, adequate ABG and weaning parameters. Extubated per rapid extubation protocol. Acute Non-ST elevation DC Acute leukocytosis, reactive to surgery Hypomagnesemia, replace per protocol Carotid artery stenosis, estimated at 50 to 69% at the right carotid bifurcation History of hypertension History of hyperlipidemia GERD Remote history of tobacco use Plan: Medications, labs, chest x-ray reviewed Rapid extubation protocol was in place. Patient had adequate ABG on pressure s upport and excellent weaning parameters. Positive cuff leak. Calm and follows commands on Precedex infusion. Patient was extubated without any complication. Currently on 3 L/min nasal cannula Patient will be provided with incentive spirometer, which should be encouraged 10 times per hour while awake Postoperative pain reportedly well-managed Monitor chest tube output Not requiring any vasopressor support Unnecessary lines will likely be discontinued in the morning Monitor and replace electrolytes per protocol GI prophylaxis: Protonix DVT prophylaxis: Heparin SCDs are on We will continue to follow the patient while in the intensive care unit I have personally seen and examined the patient, performed the documentation and the assessment and plan as written. Number of minutes spent on the visit:20 Time with Patient: Greater than 30
[2024-09-11 01:19] LABS: Glucose,Whole Blood 137 mg/dL (70-110)
[2024-09-11 02:20] LABS: Glucose,Whole Blood 132 mg/dL (70-110)
[2024-09-11 03:10] LABS: Glucose,Whole Blood 153 mg/dL (70-110)
[2024-09-11 04:19] LABS: Glucose,Whole Blood 137 mg/dL (70-110)
[2024-09-11 04:34] LABS: Basophils % (A) 0 %; Eosinophils % (A) 0 %; HCT 40.1 % (39.0-53.0); HGB 13.3 gm/dL (13.0-17.5); Lymphocytes # (A) 0.6 k/uL (1.0-4.8); Lymphocytes % (A) 4 %; MCH 30.9 pg (25.0-35.0); MCHC 33.2 g/dL (31.0-37.0); MCV 92.9 fL (80.0-100.0); Mean Platelet Volume 8.7; Monocytes # (A) 0.6 k/uL (0-1.0); Monocytes % (A) 4 %; Neutrophils # (A) 13.7 k/uL (1.3-7.7); Neutrophils % (A) 91 %; Platelet Count 179 k/uL (150-450); RBC 4.32 m/uL (4.30-5.90); RDW 13.5 % (11.5-15.5)
[2024-09-11 04:50] LABS: Ionized Calcium 4.7 mg/dL (4.5-5.3)
[2024-09-11] MEDS: ONDANSETRON 4 MG/2 ML VIAL IVP PRN (04:53)
[2024-09-11 05:02] LABS: ALT 72 U/L (4-49); AST 65 U/L (17-59); African American GFR (CKD) 84 (>60 ml/min/1.73 sqM); Alkaline Phosphatase 49 U/L (38-126); Anion Gap 6 mmol/L; Blood Urea Nitrogen 20 mg/dL (9-20); Calcium 8.5 mg/dL (8.4-10.2); Carbon Dioxide 21 mmol/L (22-30); Chloride 107 mmol/L (98-107); Glucose 136 mg/dL (74-99); Magnesium 1.9 mg/dL (1.6-2.3); Non-African American GFR(CKD) 73 (>60 ml/min/1.73 sqM); Potassium 4.4 mmol/L (3.5-5.1); Sodium 134 mmol/L (137-145); Total Bilirubin 1.1 mg/dL (0.2-1.3); Total Protein 6.1 g/dL (6.3-8.2)
[2024-09-11 05:10] LABS: Glucose,Whole Blood 142 mg/dL (70-110)
[2024-09-11] MEDS: MAGNESIUM SULFATE-D5W PMX 1 GM in DEXTROSE/WATER 1 100ML.BAG IVPB ONE (05:52)
[2024-09-11 05:57] LABS: Glucose,Whole Blood 150 mg/dL (70-110)
[2024-09-11] MEDS: METOCLOPRAMIDE 5 MG/ML 2 ML VIAL IVP PRN (06:42)
[2024-09-11 07:05] LABS: Glucose,Whole Blood 168 mg/dL (70-110)
--- NOTE | 2024-09-11 07:32 | XR ---
EXAMINATION TYPE: XR chest 1V portable DATE OF EXAM: 09/11/2024 Comparison: 09/10/2024 Clinical History: 59-year-old male Post Operative Cardiac Surgery Findings: Interval removal of ET tube and NG tube. Median sternotomy wires and post-CABG clips redemonstrated. Mediastinal drain and left-sided chest tube in place. Right IJ [place]-Leyla catheter redemonstrated. Cur rent exam is slightly rotated showing the tip of the catheter in the left hilum probably distal left main pulmonary artery. Clinically correlate. Dacp-le-zbtzyhem cardiomegaly. Patchy retrocardiac and l eft basilar opacity persists. Some improvement in the previous perihilar opacities. Impression: 1. Note that the right IJ [place]-Leyla catheter tip is at the LEFT hilum probably in the distal left nalini n pulmonary artery. 2. Cardiomegaly and improving pulmonary vascular congestion. Retrocardiac/left basilar opacity persis ts. [facility], , 09/11/2024 7:30 AM
[2024-09-11] MEDS: IPRATROPIUM-ALBUTEROL 3 ML NEB INHALATION SCH (07:49)
--- NOTE | 2024-09-11 08:09 | P.PN ---
Subjective Progress Note Date: 09/11/24 The patient is a pleasant 59-year-old gentleman who was admitted to the hospital with chest discomfort and underwent a heart catheterization which showed severe triple-vessel coronary artery disease. He underwent open heart surgery yesterday and he underwent CABG x 3 with TERRY to LAD and SVG to OM and SVG to PDA. September 11, 2024 The patient was seen and evaluated this morning and this is postoperation day #1. He is stable hemodynamically has been maintaining normal sinus mechanism with also urine output appears to be within normal limits. Blood work and chest x-ray reviewed. Overall the patient is stable from a cardiac standpoint of view and he is on maximized medical treatment. Examination is remarkable for regular rhythm with a distant heart sounds and diminished breathing sounds bilaterally and no edema was noted in the lower extremities. Assessment Acute coronary syndrome CAD Status post CABG Multiple comorbid conditions Plan Continue current medical regimen Continue monitor the blood work including CBC and BMP and electrolytes Follow-up with the daily chest x-ray Monitor the urine output Follow-up with the patient Objective - Vital Signs Vital signs: Vital Signs Temp 98.8 F 09/11/24 05:45 Pulse 84 09/11/24 08:03 Resp 18 09/11/24 06:15 BP 120/77 09/11/24 06:15 Pulse Ox 96 09/11/24 08:03 FiO2 40 09/10/24 22:05 Intake & Output 09/10/24 09/11/24 09/11/24 18:59 06:59 18:59 Intake Total 537.047 4109.622 2.233 Output Total 1485 1206 Balance -1202.000 -22.378 2.233 Weight 100.7 kg Intake: IV 282 1068 ACETAMINOPHEN IV (For NPO 100 ) 1,000 mg In Empty Bag 1 bag @ 400 mls/hr IVPB Q6HR [facility] Rx#:[id number] CO/CI 20 160 Magnesium Sulfate-D5w Pmx 650 1 gm In Dextrose/Water 1 100ml.bag @ 100 mls/hr IVPB Q1H [facility] Rx#: [id number] Pressure Bags 9 108 Sodium Chloride 0.9% 1, 50 100 000 ml @ 50 mls/hr IV . Q20H [facility] Rx#:[id number] ceFAZolin 2 gm In Sodium 50 Chloride 0.9% 50 ml @ 100 mls/hr IVPB ONCE ONE Rx# :[id number] Intake, IV Titration 1.000 115.622 2.233 Amount Clevidipine Butyrate 25 1.000 34.667 mg In Empty Bag 1 bag @ 1 MG/HR 2 mls/hr IV .Q24H [facility] Rx#:[id number] Dexmedetomidine/0.9% NaCl 10.816 (Pmx) 400 mcg In Empty Bag 1 bag @ Titrate IV . Q0M [facility] Rx#:[id number] Insulin Regular 100 unit 14.084 2.233 In Sodium Chloride 0.9% 100 ml @ Per Protocol IV .Q0M [facility] Rx#:[id number] propofoL 1,000 mg In 56.055 Empty Bag 1 bag @ Titrate IV .Q0M [facility] Rx#: [id number] Output: Chest Tube Drainage 0 486 Left Pleural 0 196 Mediastinal 0 290 Urine 685 720 Estimated Blood Loss 800 Other: Voiding Method Toilet Indwelling Catheter Urinal ABP, PAP, CO, CI - Last Documented Arterial Blood Pressure 119/57 Pulmonary Artery Pressure 26/16 Cardiac Output 6.4 Cardiac Index 2.9 - Labs CBC & Chem 7: 09/11/24 04:20 09/11/24 04:20 Labs: Abnormal Lab Results - Last 24 Hours (Table) 09/09/24 09/10/24 09/10/24 Range/Units 05:14 13:51 15:19 WBC (3.8-10.6) k/uL RBC (4.30-5.90) m/uL Hgb (13.0-17.5) gm/dL Hct (39.0-53.0) % Neutrophils # (1.3-7.7) k/uL Lymphocytes # (1.0-4.8) k/uL INR (<1.2) ABG pH (7.35-7.45) ABG pCO2 (35-45) mmHg ABG pO2 302 H 203 H (83-108) mmHg ABG Total CO2 (19-24) mmol/L ABG O2 Saturation 99.1 H 99.0 H (94-97) % ABG Glucose 107 H (75-99) mg/dL Hemoglobin (13.0-17.5) gm/dL Sodium (137-145) mmol/L Carbon Dioxide (22-30) mmol/L Glucose (74-99) mg/dL POC Glucose (mg/dL) (70-110) mg/dL Calcium (8.4-10.2) mg/dL Magnesium (1.6-2.3) mg/dL AST (17-59) U/L ALT (4-49) U/L Total Protein (6.3-8.2) g/dL Arterial Blood Glucose 107 H (75-99) mg/dL Crossmatch See Detail 09/10/24 09/10/24 09/10/24 Range/Units 15:59 17:14 18:03 WBC 11.5 H (3.8-10.6) k/uL RBC 4.02 L (4.30-5.90) m/uL Hgb 12.7 L (13.0-17.5) gm/dL Hct 37.4 L (39.0-53.0) % Neutrophils # 9.4 H (1.3-7.7) k/uL Lymphocytes # (1.0-4.8) k/uL INR (<1.2) ABG pH (7.35-7.45) ABG pCO2 (35-45) mmHg ABG pO2 191 H 172 H (83-108) mmHg ABG Total CO2 (19-24) mmol/L ABG O2 Saturation 99.0 H 98.9 H (94-97) % ABG Glucose 100 H 108 H (75-99) mg/dL Hemoglobin 12.2 L 12.2 L (13.0-17.5) gm/dL Sodium (137-145) mmol/L Carbon Dioxide (22-30) mmol/L Glucose (74-99) mg/dL POC Glucose (mg/dL) (70-110) mg/dL Calcium (8.4-10.2) mg/dL Magnesium (1.6-2.3) mg/dL AST (17-59) U/L ALT (4-49) U/L Total Protein (6.3-8.2) g/dL Arterial Blood Glucose 100 H 108 H (75-99) mg/dL Crossmatch 09/10/24 09/10/24 09/10/24 Range/Units 18:03 18:03 18:31 WBC (3.8-10.6) k/uL RBC (4.30-5.90) m/uL Hgb (13.0-17.5) gm/dL Hct (39.0-53.0) % Neutrophils # (1.3-7.7) k/uL Lymphocytes # (1.0-4.8) k/uL INR 1.2 H (<1.2) ABG pH 7.31 L (7.35-7.45) ABG pCO2 49 H (35-45) mmHg ABG pO2 271 H (83-108) mmHg ABG Total CO2 26 H (19-24) mmol/L ABG O2 Saturation 100.0 H (94-97) % ABG Glucose (75-99) mg/dL Hemoglobin (13.0-17.5) gm/dL Sodium (137-145) mmol/L Carbon Dioxide (22-30) mmol/L Glucose (74-99) mg/dL POC Glucose (mg/dL) (70-110) mg/dL Calcium 8.1 L (8.4-10.2) mg/dL Magnesium 1.4 L (1.6-2.3) mg/dL AST (17-59) U/L ALT 71 H (4-49) U/L Total Protein 5.7 L (6.3-8.2) g/dL Arterial Blood Glucose (75-99) mg/dL Crossmatch 09/10/24 09/10/24 09/10/24 Range/Units 19:17 20:15 21:00 WBC 14.2 H (3.8-10.6) k/uL RBC 4.23 L (4.30-5.90) m/uL Hgb (13.0-17.5) gm/dL Hct (39.0-53.0) % Neutrophils # 11.6 H (1.3-7.7) k/uL Lymphocytes # (1.0-4.8) k/uL INR (<1.2) ABG pH (7.35-7.45) ABG pCO2 (35-45) mmHg ABG pO2 (83-108) mmHg ABG Total CO2 (19-24) mmol/L ABG O2 Saturation (94-97) % ABG Glucose (75-99) mg/dL Hemoglobin (13.0-17.5) gm/dL Sodium (137-145) mmol/L Carbon Dioxide (22-30) mmol/L Glucose (74-99) mg/dL POC Glucose (mg/dL) 111 H 155 H (70-110) mg/dL Calcium (8.4-10.2) mg/dL Magnesium (1.6-2.3) mg/dL AST (17-59) U/L ALT (4-49) U/L Total Protein (6.3-8.2) g/dL Arterial Blood Glucose (75-99) mg/dL Crossmatch 09/10/24 09/10/24 09/10/24 Range/Units 21:01 22:05 22:10 WBC (3.8-10.6) k/uL RBC (4.30-5.90) m/uL Hgb (13.0-17.5) gm/dL Hct (39.0-53.0) % Neutrophils # (1.3-7.7) k/uL Lymphocytes # (1.0-4.8) k/uL INR (<1.2) ABG pH 7.34 L (7.35-7.45) ABG pCO2 (35-45) mmHg ABG pO2 82 L (83-108) mmHg ABG Total CO2 (19-24) mmol/L ABG O2 Saturation (94-97) % ABG Glucose (75-99) mg/dL Hemoglobin (13.0-17.5) gm/dL Sodium (137-145) mmol/L Carbon Dioxide (22-30) mmol/L Glucose (74-99) mg/dL POC Glucose (mg/dL) 156 H 133 H (70-110) mg/dL Calcium (8.4-10.2) mg/dL Magnesium (1.6-2.3) mg/dL AST (17-59) U/L ALT (4-49) U/L Total Protein (6.3-8.2) g/dL Arterial Blood Glucose (75-99) mg/dL Crossmatch 09/10/24 09/11/24 09/11/24 Range/Units 22:55 00:00 00:00 WBC 14.5 H (3.8-10.6) k/uL RBC 4.25 L (4.30-5.90) m/uL Hgb (13.0-17.5) gm/dL Hct (39.0-53.0) % Neutrophils # 13.1 H (1.3-7.7) k/uL Lymphocytes # 0.5 L (1.0-4.8) k/uL INR (<1.2) ABG pH (7.35-7.45) ABG pCO2 (35-45) mmHg ABG pO2 (83-108) mmHg ABG Total CO2 (19-24) mmol/L ABG O2 Saturation (94-97) % ABG Glucose (75-99) mg/dL Hemoglobin (13.0-17.5) gm/dL Sodium (137-145) mmol/L Carbon Dioxide (22-30) mmol/L Glucose (74-99) mg/dL POC Glucose (mg/dL) 135 H 133 H (70-110) mg/dL Calcium (8.4-10.2) mg/dL Magnesium (1.6-2.3) mg/dL AST (17-59) U/L ALT (4-49) U/L Total Protein (6.3-8.2) g/dL Arterial Blood Glucose (75-99) mg/dL Crossmatch 09/11/24 09/11/24 09/11/24 Range/Units 01:08 02:08 02:59 WBC (3.8-10.6) k/uL RBC (4.30-5.90) m/uL Hgb (13.0-17.5) gm/dL Hct (39.0-53.0) % Neutrophils # (1.3-7.7) k/uL Lymphocytes # (1.0-4.8) k/uL INR (<1.2) ABG pH (7.35-7.45) ABG pCO2 (35-45) mmHg ABG pO2 (83-108) mmHg ABG Total CO2 (19-24) mmol/L ABG O2 Saturation (94-97) % ABG Glucose (75-99) mg/dL Hemoglobin (13.0-17.5) gm/dL Sodium (137-145) mmol/L Carbon Dioxide (22-30) mmol/L Glucose (74-99) mg/dL POC Glucose (mg/dL) 137 H 132 H 153 H (70-110) mg/dL Calcium (8.4-10.2) mg/dL Magnesium (1.6-2.3) mg/dL AST (17-59) U/L ALT (4-49) U/L Total Protein (6.3-8.2) g/dL Arterial Blood Glucose (75-99) mg/dL Crossmatch 09/11/24 09/11/24 09/11/24 Range/Units 04:18 04:20 04:20 WBC 15.0 H (3.8-10.6) k/uL RBC (4.30-5.90) m/uL Hgb (13.0-17.5) gm/dL Hct (39.0-53.0) % Neutrophils # 13.7 H (1.3-7.7) k/uL Lymphocytes # 0.6 L (1.0-4.8) k/uL INR (<1.2) ABG pH (7.35-7.45) ABG pCO2 (35-45) mmHg ABG pO2 (83-108) mmHg ABG Total CO2 (19-24) mmol/L ABG O2 Saturation (94-97) % ABG Glucose (75-99) mg/dL Hemoglobin (13.0-17.5) gm/dL Sodium 134 L (137-145) mmol/L Carbon Dioxide 21 L (22-30) mmol/L Glucose 136 H (74-99) mg/dL POC Glucose (mg/dL) 137 H (70-110) mg/dL Calcium (8.4-10.2) mg/dL Magnesium (1.6-2.3) mg/dL AST 65 H (17-59) U/L ALT 72 H (4-49) U/L Total Protein 6.1 L (6.3-8.2) g/dL Arterial Blood Glucose (75-99) mg/dL Crossmatch 09/11/24 09/11/24 09/11/24 Range/Units 05:09 05:56 07:03 WBC (3.8-10.6) k/uL RBC (4.30-5.90) m/uL Hgb (13.0-17.5) gm/dL Hct (39.0-53.0) % Neutrophils # (1.3-7.7) k/uL Lymphocytes # (1.0-4.8) k/uL INR (<1.2) ABG pH (7.35-7.45) ABG pCO2 (35-45) mmHg ABG pO2 (83-108) mmHg ABG Total CO2 (19-24) mmol/L ABG O2 Saturation (94-97) % ABG Glucose (75-99) mg/dL Hemoglobin (13.0-17.5) gm/dL Sodium (137-145) mmol/L Carbon Dioxide (22-30) mmol/L Glucose (74-99) mg/dL POC Glucose (mg/dL) 142 H 150 H 168 H (70-110) mg/dL Calcium (8.4-10.2) mg/dL Magnesium (1.6-2.3) mg/dL AST (17-59) U/L ALT (4-49) U/L Total Protein (6.3-8.2) g/dL Arterial Blood Glucose (75-99) mg/dL Crossmatch
[2024-09-11 08:24] LABS: Glucose,Whole Blood 170 mg/dL (70-110)
[2024-09-11] MEDS: ATORVASTATIN 40 MG TAB PO SCH (08:49)
[2024-09-11] MEDS: METOPROLOL TARTRATE 12.5 MG TAB PO SCH (08:49)
[2024-09-11] MEDS: CLOPIDOGREL 75 MG TAB PO SCH (08:49)
[2024-09-11] MEDS: ASPIRIN 325 MG TAB PO SCH (08:49)
[2024-09-11] MEDS: PANTOPRAZOLE 40 MG/10 ML VIAL IVP SCH (08:50)
[2024-09-11] MEDS ORDERED: MAGNESIUM HYDROXIDE 2,400 MG/30 ML CUP PO PRN (09:00)
[2024-09-11 09:04] LABS: Glucose,Whole Blood 169 mg/dL (70-110)
[2024-09-11] MEDS ORDERED: KETOROLAC 15 MG/ML 1 ML VIAL IVP SCH (09:37)
--- NOTE | 2024-09-11 09:41 | P.PN ---
Subjective Progress Note Date: 09/11/24 Principal diagnosis: Multivessel coronary artery disease, non-ST elevated myocardial infarction this admission. Past medical history significant for hypertension, hyperlipidemia, myocardial infarction in April 2023, coronary artery disease with previous stenting to the RCA in April 2023, GERD, osteoarthritis, remote history of pneumonia, COVID in 2019, previous tobacco dependence. POD #1 Off-pump CABG x 3 with left internal mammary artery to the left anterior descending coronary artery, saphenous vein graft to posterior descending coronary artery, saphenous vein graft to obtuse marginal coronary artery. Endovascular vein harvest from left lower extremity greater saphenous vein. Occlusion of left atrial appendage with 35 mm AtriCure clip. The patient was seen and examined in follow-up today September 11, 2024 at his bedside in the intensive care unit. He was successfully extubated at 10:20 PM last evening, is currently sitting up to the bedside chair, is awake, alert, oriented x 3 and is in no acute apparent distress. Oxygen saturations are currently 96% on room air and he is achieving 1000 mL on his incentive spirometry. Bedside telemetry is showing normal sinus rhythm a heart rate 84 bpm. Right IJ cordis and Dickens-Leyla catheter remains in place with current hemodynamic showing a cardiac output 6.4, cardiac index 2.9, SVR 986, PA pressures 30/17 and CVP 7 mmHg. Mediastinal and left pleural chest tubes remain in place to low continuous wall suction -20 cm H2O. No air leak is present. Mediastinal chest tube draining thin serosanguineous drainage with 165 mL output in the last 8 hours and 280 mL output since surgery. Left pleural chest tube draining thin serosanguineous drainage with 100 mL output in the last 8 hours and 210 mL output since surgery. The patient denies any complaints of shortness of breath at this time, although is complaining of some surgical type pain and complaints of gas pain. Currently rating his pain 2-3 out of 10 on the pain scale. He reports the current pain medication regimen is controlling his pain. Laboratory and chest x-ray results were reviewed. Objective - Vital Signs Vital signs: Vital Signs Temp 98.8 F 09/11/24 05:45 Pulse 79 09/11/24 08:30 Resp 12 09/11/24 08:30 BP 138/78 09/11/24 08:30 Pulse Ox 97 09/11/24 08:30 FiO2 40 09/10/24 22:05 Intake & Output 09/10/24 09/11/24 09/11/24 18:59 06:59 18:59 Intake Total 650.686 6699.622 261.233 Output Total 1485 1206 150 Balance -1202.000 -22.378 111.233 Weight 100.7 kg Intake: IV 282 1068 59 ACETAMINOPHEN IV (For NPO 100 ) 1,000 mg In Empty Bag 1 bag @ 400 mls/hr IVPB Q6HR [facility] Rx#:[id number] CO/CI 20 160 Magnesium Sulfate-D5w Pmx 650 1 gm In Dextrose/Water 1 100ml.bag @ 100 mls/hr IVPB Q1H [facility]I Rx#: [id number] Pressure Bags 9 108 9 Sodium Chloride 0.9% 1, 50 100 50 000 ml @ 50 mls/hr IV . Q20H [facility]I Rx#:[id number] ceFAZolin 2 gm In Sodium 50 Chloride 0.9% 50 ml @ 100 mls/hr IVPB ONCE ONE Rx# :[id number] Intake, IV Titration 1.000 115.622 2.233 Amount Clevidipine Butyrate 25 1.000 34.667 mg In Empty Bag 1 bag @ 1 MG/HR 2 mls/hr IV .Q24H [facility] Rx#:[id number] Dexmedetomidine/0.9% NaCl 10.816 (Pmx) 400 mcg In Empty Bag 1 bag @ Titrate IV . Q0M [facility]I Rx#:[id number] Insulin Regular 100 unit 14.084 2.233 In Sodium Chloride 0.9% 100 ml @ Per Protocol IV .Q0M [facility]I Rx#:[id number] propofoL 1,000 mg In 56.055 Empty Bag 1 bag @ Titrate IV .Q0M MARI Rx#: [id number] Oral 200 Output: Chest Tube Drainage 0 486 20 Left Pleural 0 196 0 Mediastinal 0 290 20 Urine 685 720 130 Estimated Blood Loss 800 Other: Voiding Method Toilet Indwelling Catheter Indwelling Catheter Urinal ABP, PAP, CO, CI - Last Documented Arterial Blood Pressure 140/57 Pulmonary Artery Pressure 24/13 Cardiac Output 6.4 Cardiac Index 2.9 - Exam CONSTITUTIONAL: Sitting up to the bedside chair in the intensive care unit, appears comfortable, cooperative, no apparent acute distress. HEENT: Neck is supple, no JVD, no lymphadenopathy. Right IJ Cordis and Dickens- Leyla catheter in place and functioning. RESPIRATORY: Lungs sounds essentially clear throughout, diminished to his bilateral bases. Respirations are symmetrical and nonlabored. Currently on room air with oxygen saturations 96%. Able to achieve 1000 mL on their incentive spirometry. Strong cough. CARDIOVASCULAR: Regular rhythm and rate. S1 and S2 present, negative for S3, gallop or murmur. Sternum is stable. Palpable peripheral pulses bilaterally. No calf pain or tenderness noted. Heart hugger in place with patient demonstrating appropriate use. Knee-high JENNIFER hose and sequential compression devices in place to his bilateral lower extremities. GASTROINTESTINAL: Abdomen soft, nontender, nondistended. Hypoactive bowel sounds present 4 quadrants. Tolerating diet. Passing flatus. No guarding or rigidity. GENITOURINARY: Soto present draining clear, yellow urine. Urine output 485 mL in the last 8 hours. INTEGUMENTARY: Skin is warm and dry with no evidence of clubbing or cyanosis. Midline sternal incision clean dry and well approximated, covered with dry intact dressing. Left lower extremity EVH site well approximated without redness or drainage. NEUROLOGIC: Cranial nerves II through XII intact. No focal deficits. MUSKULOSKELETAL: Able to move all extremities, strength equal bilaterally, generalized weakness. PSYCHIATRIC: Alert and oriented to person place and time, appropriate affect, intact judgment and insight. INVASIVE LINES AND TUBES: Mediastinal/left pleural chest tubes present and connected to low continuous wall suction, no air leaks present. Mediastinal tube with 100 mL of thin serosanguineous drainage overnight, 210 mL output in the last 24 hours. Left pleural chest tube with 100 mL of thin serosanguineous drainage overnight, 165 mL output in the last 24 hours. Right internal jugular Dickens/Cordis, right radial arterial line present. Last CO 6.4, CI 2.9, SVR 986, PA 30/17 and CVP 7 mmHg. - Allied health notes Allied health notes reviewed: nursing - Labs CBC & Chem 7: 09/11/24 04:20 09/11/24 04:20 Labs: Abnormal Lab Results - Last 24 Hours (Table) 09/09/24 09/10/24 09/10/24 Range/Units 05:14 13:51 15:19 WBC (3.8-10.6) k/uL RBC (4.30-5.90) m/uL Hgb (13.0-17.5) gm/dL Hct (39.0-53.0) % Neutrophils # (1.3-7.7) k/uL Lymphocytes # (1.0-4.8) k/uL INR (<1.2) ABG pH (7.35-7.45) ABG pCO2 (35-45) mmHg ABG pO2 302 H 203 H (83-108) mmHg ABG Total CO2 (19-24) mmol/L ABG O2 Saturation 99.1 H 99.0 H (94-97) % ABG Glucose 107 H (75-99) mg/dL Hemoglobin (13.0-17.5) gm/dL Sodium (137-145) mmol/L Carbon Dioxide (22-30) mmol/L Glucose (74-99) mg/dL POC Glucose (mg/dL) (70-110) mg/dL Calcium (8.4-10.2) mg/dL Magnesium (1.6-2.3) mg/dL AST (17-59) U/L ALT (4-49) U/L Total Protein (6.3-8.2) g/dL Arterial Blood Glucose 107 H (75-99) mg/dL Crossmatch See Detail 09/10/24 09/10/24 09/10/24 Range/Units 15:59 17:14 18:03 WBC 11.5 H (3.8-10.6) k/uL RBC 4.02 L (4.30-5.90) m/uL Hgb 12.7 L (13.0-17.5) gm/dL Hct 37.4 L (39.0-53.0) % Neutrophils # 9.4 H (1.3-7.7) k/uL Lymphocytes # (1.0-4.8) k/uL INR (<1.2) ABG pH (7.35-7.45) ABG pCO2 (35-45) mmHg ABG pO2 191 H 172 H (83-108) mmHg ABG Total CO2 (19-24) mmol/L ABG O2 Saturation 99.0 H 98.9 H (94-97) % ABG Glucose 100 H 108 H (75-99) mg/dL Hemoglobin 12.2 L 12.2 L (13.0-17.5) gm/dL Sodium (137-145) mmol/L Carbon Dioxide (22-30) mmol/L Glucose (74-99) mg/dL POC Glucose (mg/dL) (70-110) mg/dL Calcium (8.4-10.2) mg/dL Magnesium (1.6-2.3) mg/dL AST (17-59) U/L ALT (4-49) U/L Total Protein (6.3-8.2) g/dL Arterial Blood Glucose 100 H 108 H (75-99) mg/dL Crossmatch 09/10/24 09/10/24 09/10/24 Range/Units 18:03 18:03 18:31 WBC (3.8-10.6) k/uL RBC (4.30-5.90) m/uL Hgb (13.0-17.5) gm/dL Hct (39.0-53.0) % Neutrophils # (1.3-7.7) k/uL Lymphocytes # (1.0-4.8) k/uL INR 1.2 H (<1.2) ABG pH 7.31 L (7.35-7.45) ABG pCO2 49 H (35-45) mmHg ABG pO2 271 H (83-108) mmHg ABG Total CO2 26 H (19-24) mmol/L ABG O2 Saturation 100.0 H (94-97) % ABG Glucose (75-99) mg/dL Hemoglobin (13.0-17.5) gm/dL Sodium (137-145) mmol/L Carbon Dioxide (22-30) mmol/L Glucose (74-99) mg/dL POC Glucose (mg/dL) (70-110) mg/dL Calcium 8.1 L (8.4-10.2) mg/dL Magnesium 1.4 L (1.6-2.3) mg/dL AST (17-59) U/L ALT 71 H (4-49) U/L Total Protein 5.7 L (6.3-8.2) g/dL Arterial Blood Glucose (75-99) mg/dL Crossmatch 09/10/24 09/10/24 09/10/24 Range/Units 19:17 20:15 21:00 WBC 14.2 H (3.8-10.6) k/uL RBC 4.23 L (4.30-5.90) m/uL Hgb (13.0-17.5) gm/dL Hct (39.0-53.0) % Neutrophils # 11.6 H (1.3-7.7) k/uL Lymphocytes # (1.0-4.8) k/uL INR (<1.2) ABG pH (7.35-7.45) ABG pCO2 (35-45) mmHg ABG pO2 (83-108) mmHg ABG Total CO2 (19-24) mmol/L ABG O2 Saturation (94-97) % ABG Glucose (75-99) mg/dL Hemoglobin (13.0-17.5) gm/dL Sodium (137-145) mmol/L Carbon Dioxide (22-30) mmol/L Glucose (74-99) mg/dL POC Glucose (mg/dL) 111 H 155 H (70-110) mg/dL Calcium (8.4-10.2) mg/dL Magnesium (1.6-2.3) mg/dL AST (17-59) U/L ALT (4-49) U/L Total Protein (6.3-8.2) g/dL Arterial Blood Glucose (75-99) mg/dL Crossmatch 09/10/24 09/10/24 09/10/24 Range/Units 21:01 22:05 22:10 WBC (3.8-10.6) k/uL RBC (4.30-5.90) m/uL Hgb (13.0-17.5) gm/dL Hct (39.0-53.0) % Neutrophils # (1.3-7.7) k/uL Lymphocytes # (1.0-4.8) k/uL INR (<1.2) ABG pH 7.34 L (7.35-7.45) ABG pCO2 (35-45) mmHg ABG pO2 82 L (83-108) mmHg ABG Total CO2 (19-24) mmol/L ABG O2 Saturation (94-97) % ABG Glucose (75-99) mg/dL Hemoglobin (13.0-17.5) gm/dL Sodium (137-145) mmol/L Carbon Dioxide (22-30) mmol/L Glucose (74-99) mg/dL POC Glucose (mg/dL) 156 H 133 H (70-110) mg/dL Calcium (8.4-10.2) mg/dL Magnesium (1.6-2.3) mg/dL AST (17-59) U/L ALT (4-49) U/L Total Protein (6.3-8.2) g/dL Arterial Blood Glucose (75-99) mg/dL Crossmatch 09/10/24 09/11/24 09/11/24 Range/Units 22:55 00:00 00:00 WBC 14.5 H (3.8-10.6) k/uL RBC 4.25 L (4.30-5.90) m/uL Hgb (13.0-17.5) gm/dL Hct (39.0-53.0) % Neutrophils # 13.1 H (1.3-7.7) k/uL Lymphocytes # 0.5 L (1.0-4.8) k/uL INR (<1.2) ABG pH (7.35-7.45) ABG pCO2 (35-45) mmHg ABG pO2 (83-108) mmHg ABG Total CO2 (19-24) mmol/L ABG O2 Saturation (94-97) % ABG Glucose (75-99) mg/dL Hemoglobin (13.0-17.5) gm/dL Sodium (137-145) mmol/L Carbon Dioxide (22-30) mmol/L Glucose (74-99) mg/dL POC Glucose (mg/dL) 135 H 133 H (70-110) mg/dL Calcium (8.4-10.2) mg/dL Magnesium (1.6-2.3) mg/dL AST (17-59) U/L ALT (4-49) U/L Total Protein (6.3-8.2) g/dL Arterial Blood Glucose (75-99) mg/dL Crossmatch 09/11/24 09/11/24 09/11/24 Range/Units 01:08 02:08 02:59 WBC (3.8-10.6) k/uL RBC (4.30-5.90) m/uL Hgb (13.0-17.5) gm/dL Hct (39.0-53.0) % Neutrophils # (1.3-7.7) k/uL Lymphocytes # (1.0-4.8) k/uL INR (<1.2) ABG pH (7.35-7.45) ABG pCO2 (35-45) mmHg ABG pO2 (83-108) mmHg ABG Total CO2 (19-24) mmol/L ABG O2 Saturation (94-97) % ABG Glucose (75-99) mg/dL Hemoglobin (13.0-17.5) gm/dL Sodium (137-145) mmol/L Carbon Dioxide (22-30) mmol/L Glucose (74-99) mg/dL POC Glucose (mg/dL) 137 H 132 H 153 H (70-110) mg/dL Calcium (8.4-10.2) mg/dL Magnesium (1.6-2.3) mg/dL AST (17-59) U/L ALT (4-49) U/L Total Protein (6.3-8.2) g/dL Arterial Blood Glucose (75-99) mg/dL Crossmatch 09/11/24 09/11/24 09/11/24 Range/Units 04:18 04:20 04:20 WBC 15.0 H (3.8-10.6) k/uL RBC (4.30-5.90) m/uL Hgb (13.0-17.5) gm/dL Hct (39.0-53.0) % Neutrophils # 13.7 H (1.3-7.7) k/uL Lymphocytes # 0.6 L (1.0-4.8) k/uL INR (<1.2) ABG pH (7.35-7.45) ABG pCO2 (35-45) mmHg ABG pO2 (83-108) mmHg ABG Total CO2 (19-24) mmol/L ABG O2 Saturation (94-97) % ABG Glucose (75-99) mg/dL Hemoglobin (13.0-17.5) gm/dL Sodium 134 L (137-145) mmol/L Carbon Dioxide 21 L (22-30) mmol/L Glucose 136 H (74-99) mg/dL POC Glucose (mg/dL) 137 H (70-110) mg/dL Calcium (8.4-10.2) mg/dL Magnesium (1.6-2.3) mg/dL AST 65 H (17-59) U/L ALT 72 H (4-49) U/L Total Protein 6.1 L (6.3-8.2) g/dL Arterial Blood Glucose (75-99) mg/dL Crossmatch 09/11/24 09/11/24 09/11/24 Range/Units 05:09 05:56 07:03 WBC (3.8-10.6) k/uL RBC (4.30-5.90) m/uL Hgb (13.0-17.5) gm/dL Hct (39.0-53.0) % Neutrophils # (1.3-7.7) k/uL Lymphocytes # (1.0-4.8) k/uL INR (<1.2) ABG pH (7.35-7.45) ABG pCO2 (35-45) mmHg ABG pO2 (83-108) mmHg ABG Total CO2 (19-24) mmol/L ABG O2 Saturation (94-97) % ABG Glucose (75-99) mg/dL Hemoglobin (13.0-17.5) gm/dL Sodium (137-145) mmol/L Carbon Dioxide (22-30) mmol/L Glucose (74-99) mg/dL POC Glucose (mg/dL) 142 H 150 H 168 H (70-110) mg/dL Calcium (8.4-10.2) mg/dL Magnesium (1.6-2.3) mg/dL AST (17-59) U/L ALT (4-49) U/L Total Protein (6.3-8.2) g/dL Arterial Blood Glucose (75-99) mg/dL Crossmatch 09/11/24 Range/Units 08:21 WBC (3.8-10.6) k/uL RBC (4.30-5.90) m/uL Hgb (13.0-17.5) gm/dL Hct (39.0-53.0) % Neutrophils # (1.3-7.7) k/uL Lymphocytes # (1.0-4.8) k/uL INR (<1.2) ABG pH (7.35-7.45) ABG pCO2 (35-45) mmHg ABG pO2 (83-108) mmHg ABG Total CO2 (19-24) mmol/L ABG O2 Saturation (94-97) % ABG Glucose (75-99) mg/dL Hemoglobin (13.0-17.5) gm/dL Sodium (137-145) mmol/L Carbon Dioxide (22-30) mmol/L Glucose (74-99) mg/dL POC Glucose (mg/dL) 170 H (70-110) mg/dL Calcium (8.4-10.2) mg/dL Magnesium (1.6-2.3) mg/dL AST (17-59) U/L ALT (4-49) U/L Total Protein (6.3-8.2) g/dL Arterial Blood Glucose (75-99) mg/dL Crossmatch - Imaging and Cardiology Chest x-ray: report reviewed, image reviewed Assessment and Plan Assessment: Triple-vessel coronary artery disease, non-STEMI this admission, status post off-pump three-vessel coronary artery bypass grafting surgery Chest pain, secondary to above Carotid artery stenosis, estimated at 50 to 69% at the right carotid bifurcation per carotid Doppler History of coronary artery disease with previous stenting to the RCA in April 2023 History of myocardial infarction in April 2023 Hypertension Hyperlipidemia, treated, cholesterol 121, LDL 59 Remote history of pneumonia COVID in 2019 GERD Osteoarthritis Previous tobacco dependence with cessation a long time ago, , preoperative FEV1 3.07, 83% of predicted value Plan: Continue to maximize medical therapy with aspirin, statin, Plavix and beta- delia. Will increase his metoprolol to tartrate to 25 mg p.o. twice daily with hold parameters. Discontinue IV nitroglycerin drip. Wean oxygen as tolerated. Encourage incentive spirometry use 10 times every hour while awake. Bronchodilators per pulmonology. Increase activity, ambulate as tolerated. PT/OT/cardiac rehab consulted. Will monitor daily labs and chest x-rays. Electrolyte replacement per protocol. GI/DVT prophylaxis. Remove right IJ Dickens-Leyla catheter. Continue right IJ cordis with continuous CVP monitoring. Insulin management per internal medicine. Patient is not a diabetic, preoperative A1c 5.6%. Should remain on continuous IV insulin for 48 hours then may transition to subcutaneous per protocol. Pain control per current medication regimen. Avoid Toradol at this time due to his history of elevated creatinine preoperatively. Continue chest tube for another 24 hours, monitor output. Continue Soto catheter for another 24 hours, continue to monitor and record strict accurate intake and output. Daily weights. More recommendations to follow based on patient's clinical course. Time with Patient: Greater than 30
[2024-09-11 10:37] LABS: Glucose,Whole Blood 135 mg/dL (70-110)
[2024-09-11] MEDS: METOPROLOL TARTRATE 12.5 MG TAB PO STA (10:49)
--- NOTE | 2024-09-11 11:19 | P.PN ---
Subjective Progress Note Date: 09/11/24 Subjective: Patient seen and examined at bedside. No acute events overnight. Patient tolerating some liquid diet. Was able to get out of the bed into the chair. Pertinent positives and negatives as discussed above, a complete review of systems was performed and all other systems are negative. Vitals Signs Reviewed. General: Nontoxic, no distress, appears at stated age Derm: Warm, dry, dressing clean, dry, intact Head: Atraumatic, normocephalic, symmetric Eyes: EOMI, no lid lag, anicteric sclera Mouth: No lip lesion, mucus membranes moist Cardiovascular: S1S2 reg, no murmur Lungs: CTA bilateral, no rhonchi, no rales, no accessory muscle use, chest tubes in place Abdominal: Soft, nontender to palpation, no guarding, no appreciable organomegaly Ext: No gross muscle atrophy, no edema, no contractures Neuro: CN II-XI grossly intact, no focal neuro deficits Psych: Alert, oriented, appropriate affect Data Reviewed Today: Pertinent Labs: WBC 15, hemoglobin 13.3, sodium 134, creatinine 1.1, total bili 1.1, AST 61, ALT 72, ALP 49, blood sugars range between 1 35-1 70 Imaging: Chest x-ray independently interpreted, shows postoperative changes Assessment and Plan: Acute NSTEMI Multivessel CAD, status post CABG Leukocytosis, anticipated outcome of surgery Hypertension Hyperlipidemia -Cardiothoracic surgery note reviewed, patient on aspirin 325 daily, atorvastatin 40 daily, Plavix 75 daily, metoprolol 25 twice daily, lisinopril 10 mg daily, continue chest tubes for another 24 hours, continue Soto catheter for another 24 hours -Cardiology note reviewed, continue current therapy -Pulmonology note reviewed, continue current therapy -Pain control with IV Tylenol, oral oxycodone, monitor for sedation -Repeat CBC and BMP tomorrow Hyperglycemia -A1c 5.6 -Continue insulin drip, blood sugars every hours -Patient currently on clear liquids, once oral intake improves, switch to subcu insulin likely tomorrow Resolved: Hyperkalemia Thank you for allowing us to participate in the care of this pleasant patient. Do not hesitate to contact us with questions. Someone can be reached from the [facility] hospitalist group all hours of the day at [phone] or via perfect serve. Objective - Vital Signs Vital signs: Vital Signs Temp 98.8 F 09/11/24 05:45 Pulse 86 09/11/24 09:30 Resp 25 H 09/11/24 09:30 BP 134/78 09/11/24 09:30 Pulse Ox 95 09/11/24 09:30 FiO2 40 09/10/24 22:05 Intake & Output 09/10/24 09/11/24 09/11/24 18:59 06:59 18:59 Intake Total 727.937 2452.622 271.933 Output Total 1485 1206 150 Balance -1202.000 -22.378 121.933 Weight 100.7 kg Intake: IV 282 1068 59 ACETAMINOPHEN IV (For NPO 100 ) 1,000 mg In Empty Bag 1 bag @ 400 mls/hr IVPB Q6HR [facility] Rx#:[id number] CO/CI 20 160 Magnesium Sulfate-D5w Pmx 650 1 gm In Dextrose/Water 1 100ml.bag @ 100 mls/hr IVPB Q1H [facility] Rx#: [id number] Pressure Bags 9 108 9 Sodium Chloride 0.9% 1, 50 100 50 000 ml @ 50 mls/hr IV . Q20H [facility] Rx#:[id number] ceFAZolin 2 gm In Sodium 50 Chloride 0.9% 50 ml @ 100 mls/hr IVPB ONCE ONE Rx# :[id number] Intake, IV Titration 1.000 115.622 12.933 Amount Clevidipine Butyrate 25 1.000 34.667 mg In Empty Bag 1 bag @ 1 MG/HR 2 mls/hr IV .Q24H [facility] Rx#:[id number] Dexmedetomidine/0.9% NaCl 10.816 (Pmx) 400 mcg In Empty Bag 1 bag @ Titrate IV . Q0M [facility] Rx#:[id number] Insulin Regular 100 unit 14.084 12.933 In Sodium Chloride 0.9% 100 ml @ Per Protocol IV .Q0M [facility] Rx#:[id number] propofoL 1,000 mg In 56.055 Empty Bag 1 bag @ Titrate IV .Q0M [facility] Rx#: [id number] Oral 200 Output: Chest Tube Drainage 0 486 20 Left Pleural 0 196 0 Mediastinal 0 290 20 Urine 685 720 130 Estimated Blood Loss 800 Other: Voiding Method Toilet Indwelling Catheter Indwelling Catheter Urinal ABP, PAP, CO, CI - Last Documented Arterial Blood Pressure 171/67 Pulmonary Artery Pressure 23/16 Cardiac Output 6.4 Cardiac Index 2.9 - Labs CBC & Chem 7: 09/11/24 04:20 09/11/24 04:20 Labs: Abnormal Lab Results - Last 24 Hours (Table) 09/09/24 09/10/24 09/10/24 Range/Units 05:14 13:51 15:19 WBC (3.8-10.6) k/uL RBC (4.30-5.90) m/uL Hgb (13.0-17.5) gm/dL Hct (39.0-53.0) % Neutrophils # (1.3-7.7) k/uL Lymphocytes # (1.0-4.8) k/uL INR (<1.2) ABG pH (7.35-7.45) ABG pCO2 (35-45) mmHg ABG pO2 302 H 203 H (83-108) mmHg ABG Total CO2 (19-24) mmol/L ABG O2 Saturation 99.1 H 99.0 H (94-97) % ABG Glucose 107 H (75-99) mg/dL Hemoglobin (13.0-17.5) gm/dL Sodium (137-145) mmol/L Carbon Dioxide (22-30) mmol/L Glucose (74-99) mg/dL POC Glucose (mg/dL) (70-110) mg/dL Calcium (8.4-10.2) mg/dL Magnesium (1.6-2.3) mg/dL AST (17-59) U/L ALT (4-49) U/L Total Protein (6.3-8.2) g/dL Arterial Blood Glucose 107 H (75-99) mg/dL Crossmatch See Detail 09/10/24 09/10/24 09/10/24 Range/Units 15:59 17:14 18:03 WBC 11.5 H (3.8-10.6) k/uL RBC 4.02 L (4.30-5.90) m/uL Hgb 12.7 L (13.0-17.5) gm/dL Hct 37.4 L (39.0-53.0) % Neutrophils # 9.4 H (1.3-7.7) k/uL Lymphocytes # (1.0-4.8) k/uL INR (<1.2) ABG pH (7.35-7.45) ABG pCO2 (35-45) mmHg ABG pO2 191 H 172 H (83-108) mmHg ABG Total CO2 (19-24) mmol/L ABG O2 Saturation 99.0 H 98.9 H (94-97) % ABG Glucose 100 H 108 H (75-99) mg/dL Hemoglobin 12.2 L 12.2 L (13.0-17.5) gm/dL Sodium (137-145) mmol/L Carbon Dioxide (22-30) mmol/L Glucose (74-99) mg/dL POC Glucose (mg/dL) (70-110) mg/dL Calcium (8.4-10.2) mg/dL Magnesium (1.6-2.3) mg/dL AST (17-59) U/L ALT (4-49) U/L Total Protein (6.3-8.2) g/dL Arterial Blood Glucose 100 H 108 H (75-99) mg/dL Crossmatch 09/10/24 09/10/24 09/10/24 Range/Units 18:03 18:03 18:31 WBC (3.8-10.6) k/uL RBC (4.30-5.90) m/uL Hgb (13.0-17.5) gm/dL Hct (39.0-53.0) % Neutrophils # (1.3-7.7) k/uL Lymphocytes # (1.0-4.8) k/uL INR 1.2 H (<1.2) ABG pH 7.31 L (7.35-7.45) ABG pCO2 49 H (35-45) mmHg ABG pO2 271 H (83-108) mmHg ABG Total CO2 26 H (19-24) mmol/L ABG O2 Saturation 100.0 H (94-97) % ABG Glucose (75-99) mg/dL Hemoglobin (13.0-17.5) gm/dL Sodium (137-145) mmol/L Carbon Dioxide (22-30) mmol/L Glucose (74-99) mg/dL POC Glucose (mg/dL) (70-110) mg/dL Calcium 8.1 L (8.4-10.2) mg/dL Magnesium 1.4 L (1.6-2.3) mg/dL AST (17-59) U/L ALT 71 H (4-49) U/L Total Protein 5.7 L (6.3-8.2) g/dL Arterial Blood Glucose (75-99) mg/dL Crossmatch 09/10/24 09/10/24 09/10/24 Range/Units 19:17 20:15 21:00 WBC 14.2 H (3.8-10.6) k/uL RBC 4.23 L (4.30-5.90) m/uL Hgb (13.0-17.5) gm/dL Hct (39.0-53.0) % Neutrophils # 11.6 H (1.3-7.7) k/uL Lymphocytes # (1.0-4.8) k/uL INR (<1.2) ABG pH (7.35-7.45) ABG pCO2 (35-45) mmHg ABG pO2 (83-108) mmHg ABG Total CO2 (19-24) mmol/L ABG O2 Saturation (94-97) % ABG Glucose (75-99) mg/dL Hemoglobin (13.0-17.5) gm/dL Sodium (137-145) mmol/L Carbon Dioxide (22-30) mmol/L Glucose (74-99) mg/dL POC Glucose (mg/dL) 111 H 155 H (70-110) mg/dL Calcium (8.4-10.2) mg/dL Magnesium (1.6-2.3) mg/dL AST (17-59) U/L ALT (4-49) U/L Total Protein (6.3-8.2) g/dL Arterial Blood Glucose (75-99) mg/dL Crossmatch 09/10/24 09/10/24 09/10/24 Range/Units 21:01 22:05 22:10 WBC (3.8-10.6) k/uL RBC (4.30-5.90) m/uL Hgb (13.0-17.5) gm/dL Hct (39.0-53.0) % Neutrophils # (1.3-7.7) k/uL Lymphocytes # (1.0-4.8) k/uL INR (<1.2) ABG pH 7.34 L (7.35-7.45) ABG pCO2 (35-45) mmHg ABG pO2 82 L (83-108) mmHg ABG Total CO2 (19-24) mmol/L ABG O2 Saturation (94-97) % ABG Glucose (75-99) mg/dL Hemoglobin (13.0-17.5) gm/dL Sodium (137-145) mmol/L Carbon Dioxide (22-30) mmol/L Glucose (74-99) mg/dL POC Glucose (mg/dL) 156 H 133 H (70-110) mg/dL Calcium (8.4-10.2) mg/dL Magnesium (1.6-2.3) mg/dL AST (17-59) U/L ALT (4-49) U/L Total Protein (6.3-8.2) g/dL Arterial Blood Glucose (75-99) mg/dL Crossmatch 09/10/24 09/11/24 09/11/24 Range/Units 22:55 00:00 00:00 WBC 14.5 H (3.8-10.6) k/uL RBC 4.25 L (4.30-5.90) m/uL Hgb (13.0-17.5) gm/dL Hct (39.0-53.0) % Neutrophils # 13.1 H (1.3-7.7) k/uL Lymphocytes # 0.5 L (1.0-4.8) k/uL INR (<1.2) ABG pH (7.35-7.45) ABG pCO2 (35-45) mmHg ABG pO2 (83-108) mmHg ABG Total CO2 (19-24) mmol/L ABG O2 Saturation (94-97) % ABG Glucose (75-99) mg/dL Hemoglobin (13.0-17.5) gm/dL Sodium (137-145) mmol/L Carbon Dioxide (22-30) mmol/L Glucose (74-99) mg/dL POC Glucose (mg/dL) 135 H 133 H (70-110) mg/dL Calcium (8.4-10.2) mg/dL Magnesium (1.6-2.3) mg/dL AST (17-59) U/L ALT (4-49) U/L Total Protein (6.3-8.2) g/dL Arterial Blood Glucose (75-99) mg/dL Crossmatch 09/11/24 09/11/24 09/11/24 Range/Units 01:08 02:08 02:59 WBC (3.8-10.6) k/uL RBC (4.30-5.90) m/uL Hgb (13.0-17.5) gm/dL Hct (39.0-53.0) % Neutrophils # (1.3-7.7) k/uL Lymphocytes # (1.0-4.8) k/uL INR (<1.2) ABG pH (7.35-7.45) ABG pCO2 (35-45) mmHg ABG pO2 (83-108) mmHg ABG Total CO2 (19-24) mmol/L ABG O2 Saturation (94-97) % ABG Glucose (75-99) mg/dL Hemoglobin (13.0-17.5) gm/dL Sodium (137-145) mmol/L Carbon Dioxide (22-30) mmol/L Glucose (74-99) mg/dL POC Glucose (mg/dL) 137 H 132 H 153 H (70-110) mg/dL Calcium (8.4-10.2) mg/dL Magnesium (1.6-2.3) mg/dL AST (17-59) U/L ALT (4-49) U/L Total Protein (6.3-8.2) g/dL Arterial Blood Glucose (75-99) mg/dL Crossmatch 09/11/24 09/11/24 09/11/24 Range/Units 04:18 04:20 04:20 WBC 15.0 H (3.8-10.6) k/uL RBC (4.30-5.90) m/uL Hgb (13.0-17.5) gm/dL Hct (39.0-53.0) % Neutrophils # 13.7 H (1.3-7.7) k/uL Lymphocytes # 0.6 L (1.0-4.8) k/uL INR (<1.2) ABG pH (7.35-7.45) ABG pCO2 (35-45) mmHg ABG pO2 (83-108) mmHg ABG Total CO2 (19-24) mmol/L ABG O2 Saturation (94-97) % ABG Glucose (75-99) mg/dL Hemoglobin (13.0-17.5) gm/dL Sodium 134 L (137-145) mmol/L Carbon Dioxide 21 L (22-30) mmol/L Glucose 136 H (74-99) mg/dL POC Glucose (mg/dL) 137 H (70-110) mg/dL Calcium (8.4-10.2) mg/dL Magnesium (1.6-2.3) mg/dL AST 65 H (17-59) U/L ALT 72 H (4-49) U/L Total Protein 6.1 L (6.3-8.2) g/dL Arterial Blood Glucose (75-99) mg/dL Crossmatch 09/11/24 09/11/24 09/11/24 Range/Units 05:09 05:56 07:03 WBC (3.8-10.6) k/uL RBC (4.30-5.90) m/uL Hgb (13.0-17.5) gm/dL Hct (39.0-53.0) % Neutrophils # (1.3-7.7) k/uL Lymphocytes # (1.0-4.8) k/uL INR (<1.2) ABG pH (7.35-7.45) ABG pCO2 (35-45) mmHg ABG pO2 (83-108) mmHg ABG Total CO2 (19-24) mmol/L ABG O2 Saturation (94-97) % ABG Glucose (75-99) mg/dL Hemoglobin (13.0-17.5) gm/dL Sodium (137-145) mmol/L Carbon Dioxide (22-30) mmol/L Glucose (74-99) mg/dL POC Glucose (mg/dL) 142 H 150 H 168 H (70-110) mg/dL Calcium (8.4-10.2) mg/dL Magnesium (1.6-2.3) mg/dL AST (17-59) U/L ALT (4-49) U/L Total Protein (6.3-8.2) g/dL Arterial Blood Glucose (75-99) mg/dL Crossmatch 09/11/24 09/11/24 09/11/24 Range/Units 08:21 09:03 10:35 WBC (3.8-10.6) k/uL RBC (4.30-5.90) m/uL Hgb (13.0-17.5) gm/dL Hct (39.0-53.0) % Neutrophils # (1.3-7.7) k/uL Lymphocytes # (1.0-4.8) k/uL INR (<1.2) ABG pH (7.35-7.45) ABG pCO2 (35-45) mmHg ABG pO2 (83-108) mmHg ABG Total CO2 (19-24) mmol/L ABG O2 Saturation (94-97) % ABG Glucose (75-99) mg/dL Hemoglobin (13.0-17.5) gm/dL Sodium (137-145) mmol/L Carbon Dioxide (22-30) mmol/L Glucose (74-99) mg/dL POC Glucose (mg/dL) 170 H 169 H 135 H (70-110) mg/dL Calcium (8.4-10.2) mg/dL Magnesium (1.6-2.3) mg/dL AST (17-59) U/L ALT (4-49) U/L Total Protein (6.3-8.2) g/dL Arterial Blood Glucose (75-99) mg/dL Crossmatch
[2024-09-11 12:02] LABS: Glucose,Whole Blood 124 mg/dL (70-110)
[2024-09-11] MEDS: lisinopriL 10 MG TAB PO SCH (12:41)
[2024-09-11 13:34] LABS: Glucose,Whole Blood 131 mg/dL (70-110)
[2024-09-11 15:22] LABS: Glucose,Whole Blood 131 mg/dL (70-110)
[2024-09-11] MEDS ORDERED: FLUTICASONE NASAL 50MCG/SPRAY 16GM BTL EA NOSTRIL PRN (15:33)
[2024-09-11 18:52] LABS: Glucose,Whole Blood 139 mg/dL (70-110)
[2024-09-11 19:57] LABS: Glucose,Whole Blood 143 mg/dL (70-110)
[2024-09-11] MEDS: METOPROLOL TARTRATE 25 MG TAB PO SCH (20:42)
[2024-09-11 23:10] LABS: Glucose,Whole Blood 134 mg/dL (70-110)
[2024-09-12 00:32] LABS: Glucose,Whole Blood 131 mg/dL (70-110)
[2024-09-12 02:26] LABS: Glucose,Whole Blood 126 mg/dL (70-110)
[2024-09-12] MEDS: ACETAMINOPHEN TAB 325 MG TAB PO PRN (04:21)
[2024-09-12 04:28] LABS: Glucose,Whole Blood 122 mg/dL (70-110)
[2024-09-12 05:41] LABS: ALT 42 U/L (4-49); AST 49 U/L (17-59); African American GFR (CKD) 55 (>60 ml/min/1.73 sqM); Albumin 3.6 g/dL (3.5-5.0); Alkaline Phosphatase 62 U/L (38-126); Anion Gap 7 mmol/L; Blood Urea Nitrogen 27 mg/dL (9-20); Calcium 8.9 mg/dL (8.4-10.2); Carbon Dioxide 20 mmol/L (22-30); Chloride 107 mmol/L (98-107); Glucose 125 mg/dL (74-99); Magnesium 2.3 mg/dL (1.6-2.3); Non-African American GFR(CKD) 47 (>60 ml/min/1.73 sqM); Potassium 4.3 mmol/L (3.5-5.1); Sodium 134 mmol/L (137-145); Total Bilirubin 0.8 mg/dL (0.2-1.3); Total Protein 5.9 g/dL (6.3-8.2)
[2024-09-12 05:48] LABS: Basophils % (A) 0 %; Eosinophils % (A) 0 %; HCT 39.3 % (39.0-53.0); HGB 13.1 gm/dL (13.0-17.5); Lymphocytes # (A) 1.4 k/uL (1.0-4.8); Lymphocytes % (A) 10 %; MCH 31.5 pg (25.0-35.0); MCHC 33.4 g/dL (31.0-37.0); MCV 94.3 fL (80.0-100.0); Mean Platelet Volume 8.3; Monocytes # (A) 0.9 k/uL (0-1.0); Monocytes % (A) 6 %; Neutrophils # (A) 11.9 k/uL (1.3-7.7); Neutrophils % (A) 82 %; Platelet Count 212 k/uL (150-450); RBC 4.17 m/uL (4.30-5.90); RDW 13.6 % (11.5-15.5); WBC 14.5 k/uL (3.8-10.6)
[2024-09-12 06:59] LABS: Glucose,Whole Blood 130 mg/dL (70-110)
--- NOTE | 2024-09-12 07:25 | P.PN ---
Subjective Progress Note Date: 09/12/24 Principal diagnosis: Multivessel coronary artery disease, non-ST elevated myocardial infarction this admission. Past medical history significant for hypertension, hyperlipidemia, myocardial infarction in April 2023, coronary artery disease with previous stenting to the RCA in April 2023, GERD, osteoarthritis, remote history of pneumonia, COVID in 2019, previous tobacco dependence. POD #2 Off-pump CABG x 3 with left internal mammary artery to the left anterior descending coronary artery, saphenous vein graft to posterior descending coronary artery, saphenous vein graft to obtuse marginal coronary artery. Endovascular vein harvest from left lower extremity greater saphenous vein. Occlusion of left atrial appendage with 35 mm AtriCure clip. Patient was seen and examined in follow-up today September 12, 2024 at his bedside in the intensive care unit. He is currently sitting up to bedside chair, is awake, alert, oriented x 3 and in no acute apparent distress. States he just got back from a walk in the hallway and ambulated around 300 feet and tolerated well. He denies any complaints of pain or shortness of breath at this time, although his oxygen saturations are 94% on 3 L nasal cannula. He is achieving 1250 mL on his incentive spirometry with encouragement. Bedside telemetry is showing sinus tachycardia heart rate 110 bpm. Mediastinal and left pleural ch est tubes remain in place to low continuous wall suction -20 cm H2O. No air leak is present. Mediastinal chest tube drained 30 mL output in the last 8 hours and 100 mL output in the last 24 hours. Left pleural chest tube drained 30 mL of thin serosanguineous drainage last 8 hours and 200 mL in the last 24 hours. Right IJ cordis remains in place with continuous CVP monitoring, current CVP pressure 10 mmHg. Laboratory and chest x-ray results were reviewed. Objective - Vital Signs Vital signs: Vital Signs Temp 98.5 F 09/12/24 04:00 Pulse 112 H 09/12/24 06:00 Resp 27 H 09/12/24 06:00 BP 116/73 09/12/24 06:00 Pulse Ox 95 09/12/24 06:00 FiO2 40 09/10/24 22:05 Intake & Output 09/11/24 09/12/24 09/12/24 18:59 06:59 18:59 Intake Total 949.383 480.75 Output Total 670 560 Balance 279.383 -79.25 Weight 101.8 kg Intake: IV 329 472 Pressure Bags 69 72 Sodium Chloride 0.9% 1, 260 350 000 ml @ 20 mls/hr IV . Q24H [facility] Rx#:[id number] ceFAZolin 2 gm In Sodium 50 Chloride 0.9% 50 ml @ 100 mls/hr IVPB ONCE ONE Rx# :[id number] Intake, IV Titration 20.383 8.75 Amount Insulin Regular 100 unit 20.383 8.75 In Sodium Chloride 0.9% 100 ml @ Per Protocol IV .Q0M [facility] [place] Rx#:[id number] Oral 600 Output: Chest Tube Drainage 160 80 Left Pleural 90 50 Mediastinal 70 30 Urine 510 480 Other: Voiding Method Indwelling Catheter Indwelling Catheter ABP, PAP, CO, CI - Last Documented Arterial Blood Pressure 161/88 Pulmonary Artery Pressure 23/16 Cardiac Output 6.4 Cardiac Index 2.9 - Exam CONSTITUTIONAL: Sitting up to the bedside chair in the intensive care unit, appears comfortable, cooperative, no apparent acute distress. HEENT: Neck is supple, no JVD, no lymphadenopathy. Right IJ Cordis in place and functioning. RESPIRATORY: Lungs sounds essentially clear throughout, diminished to his bilateral bases. Respirations are symmetrical and nonlabored. Currently on 3 L nasal with oxygen saturations 94%. Able to achieve 1250 mL on their incentive spirometry. Strong cough. CARDIOVASCULAR: Regular rhythm and rate. S1 and S2 present, negative for S3, gallop or murmur. Sternum is stable. Palpable peripheral pulses bilaterally. No calf pain or tenderness noted. Heart hugger in place with patient demonstrating appropriate use. Knee-high JENNIFER hose and sequential compression devices in place to his bilateral lower extremities. GASTROINTESTINAL: Abdomen soft, nontender, nondistended. Active bowel sounds present 4 quadrants. Tolerating diet. Passing flatus. No guarding or rigidity. GENITOURINARY: Soto present draining clear, yellow urine. Urine output 325 mL in the last 8 hours. INTEGUMENTARY: Skin is warm and dry with no evidence of clubbing or cyanosis. Midline sternal incision clean dry and well approximated, covered with dry intact dressing. Left lower extremity EVH site well approximated without redness or drainage. NEUROLOGIC: Cranial nerves II through XII intact. No focal deficits. MUSKULOSKELETAL: Able to move all extremities, strength equal bilaterally, generalized weakness. PSYCHIATRIC: Alert and oriented to person place and time, appropriate affect, intact judgment and insight. INVASIVE LINES AND TUBES: Mediastinal/left pleural chest tubes present and connected to low continuous wall suction, no air leaks present. Mediastinal tube with 30 mL of thin serosanguineous drainage overnight, 100 mL output in the last 24 hours. Left pleural chest tube with 30 mL of thin serosanguineous drainage overnight, 200 mL output in the last 24 hours. Right internal jugular Atkinson/Cordis, right radial arterial line present. Continuous CVP, current CVP pressure 10 millimeters of mercury. - Allied health notes Allied health notes reviewed: nursing - Labs CBC & Chem 7: 09/12/24 05:06 09/12/24 05:06 Labs: Abnormal Lab Results - Last 24 Hours (Table) 09/11/24 09/11/24 09/11/24 Range/Units 07:03 08:21 09:03 WBC (3.8-10.6) k/uL RBC (4.30-5.90) m/uL Neutrophils # (1.3-7.7) k/uL Sodium (137-145) mmol/L Carbon Dioxide (22-30) mmol/L BUN (9-20) mg/dL Creatinine (0.66-1.25) mg/dL Glucose (74-99) mg/dL POC Glucose (mg/dL) 168 H 170 H 169 H (70-110) mg/dL Total Protein (6.3-8.2) g/dL 09/11/24 09/11/24 09/11/24 Range/Units 10:35 12:00 13:33 WBC (3.8-10.6) k/uL RBC (4.30-5.90) m/uL Neutrophils # (1.3-7.7) k/uL Sodium (137-145) mmol/L Carbon Dioxide (22-30) mmol/L BUN (9-20) mg/dL Creatinine (0.66-1.25) mg/dL Glucose (74-99) mg/dL POC Glucose (mg/dL) 135 H 124 H 131 H (70-110) mg/dL Total Protein (6.3-8.2) g/dL 09/11/24 09/11/24 09/11/24 Range/Units 15:20 18:50 19:56 WBC (3.8-10.6) k/uL RBC (4.30-5.90) m/uL Neutrophils # (1.3-7.7) k/uL Sodium (137-145) mmol/L Carbon Dioxide (22-30) mmol/L BUN (9-20) mg/dL Creatinine (0.66-1.25) mg/dL Glucose (74-99) mg/dL POC Glucose (mg/dL) 131 H 139 H 143 H (70-110) mg/dL Total Protein (6.3-8.2) g/dL 09/11/24 09/12/24 09/12/24 Range/Units 23:09 00:31 02:24 WBC (3.8-10.6) k/uL RBC (4.30-5.90) m/uL Neutrophils # (1.3-7.7) k/uL Sodium (137-145) mmol/L Carbon Dioxide (22-30) mmol/L BUN (9-20) mg/dL Creatinine (0.66-1.25) mg/dL Glucose (74-99) mg/dL POC Glucose (mg/dL) 134 H 131 H 126 H (70-110) mg/dL Total Protein (6.3-8.2) g/dL 09/12/24 09/12/24 09/12/24 Range/Units 04:26 05:06 05:06 WBC 14.5 H (3.8-10.6) k/uL RBC 4.17 L (4.30-5.90) m/uL Neutrophils # 11.9 H (1.3-7.7) k/uL Sodium 134 L (137-145) mmol/L Carbon Dioxide 20 L (22-30) mmol/L BUN 27 H (9-20) mg/dL Creatinine 1.57 H (0.66-1.25) mg/dL Glucose 125 H (74-99) mg/dL POC Glucose (mg/dL) 122 H (70-110) mg/dL Total Protein 5.9 L (6.3-8.2) g/dL 09/12/24 Range/Units 06:58 WBC (3.8-10.6) k/uL RBC (4.30-5.90) m/uL Neutrophils # (1.3-7.7) k/uL Sodium (137-145) mmol/L Carbon Dioxide (22-30) mmol/L BUN (9-20) mg/dL Creatinine (0.66-1.25) mg/dL Glucose (74-99) mg/dL POC Glucose (mg/dL) 130 H (70-110) mg/dL Total Protein (6.3-8.2) g/dL - Imaging and Cardiology Chest x-ray: report reviewed, image reviewed Assessment and Plan Assessment: Triple-vessel coronary artery disease, non-STEMI this admission, status post off-pump three-vessel coronary artery bypass grafting surgery Chest pain, secondary to above Carotid artery stenosis, estimated at 50 to 69% at the right carotid bifurcation per carotid Doppler History of coronary artery disease with previous stenting to the RCA in April 2023 History of myocardial infarction in April 2023 Hypertension Hyperlipidemia, treated, cholesterol 121, LDL 59 Remote history of pneumonia COVID in 2019 GERD Osteoarthritis Previous tobacco dependence with cessation a long time ago, , preoperative FEV1 3.07, 83% of predicted value Plan: Continue to maximize medical therapy with aspirin, statin, Plavix and beta- delia. Will increase his metoprolol to tartrate to 25 mg p.o. every 8 hours with hold parameters. Wean oxygen as tolerated. Encourage incentive spirometry use 10 times every hour while awake. Bronchodilators per pulmonology. Increase activity, ambulate as tolerated. PT/OT/cardiac rehab following. Will monitor daily labs and chest x-rays. Electrolyte replacement per protocol. GI/DVT prophylaxis. Remove right IJ cordis. Insulin management per internal medicine. Patient is not a diabetic, preoperative A1c 5.6%. Should remain on continuous IV insulin for 48 hours then may transition to subcutaneous per protocol. Pain control per current medication regimen. Avoid Toradol at this time due to his history of elevated creatinine preoperatively. Discontinue oxycodone once chest tubes have been removed. Chest tubes will be removed today. Remove Soto catheter for another 24 hours, continue to monitor and record strict accurate intake and output. May bladder scan every 6 hours and as needed postvoid residuals, if greater than 300 mL of urine may straight cath. Daily weights. Shower daily starting tomorrow September 13, 2024. Remove right radial arterial line. More recommendations to follow based on patient's clinical course. Time with Patient: Greater than 30
--- NOTE | 2024-09-12 08:13 | P.PN ---
Subjective Progress Note Date: 09/12/24 The patient is a pleasant 59-year-old gentleman who was admitted to the hospital with chest discomfort and underwent a heart catheterization which showed severe triple-vessel coronary artery disease. He underwent open heart surgery yesterday and he underwent CABG x 3 with TERRY to LAD and SVG to OM and SVG to PDA. September 11, 2024 The patient was seen and evaluated this morning and this is postoperation day #1. He is stable hemodynamically has been maintaining normal sinus mechanism with also urine output appears to be within normal limits. Blood work and chest x-ray reviewed. Overall the patient is stable from a cardiac standpoint of view and he is on maximized medical treatment. Examination is remarkable for regular rhythm with a distant heart sounds and diminished breathing sounds bilaterally and no edema was noted in the lower extremities. September 12, 2024 The patient was seen and evaluated this morning. He is overall doing well. He is slightly tachycardic and the dose of beta-delia has increased and to be given earlier today which I would agree on. Otherwise he seems to be stable. Urine output has been within normal limits. Blood work was reviewed and chest x-ray was reviewed as well. Examination is remarkable for regular rhythm with diminished breathing sounds bilaterally and no edema was noted in the lower extremities. Assessment Acute coronary syndrome CAD Status post CABG Multiple comorbid conditions Plan Continue current medical regimen Continue monitor the blood work including CBC and BMP and electrolytes Follow-up with the daily chest x-ray Monitor the urine output Follow-up with the patient Objective - Vital Signs Vital signs: Vital Signs Temp 98.5 F 09/12/24 04:00 Pulse 103 H 09/12/24 07:00 Resp 21 09/12/24 07:00 BP 113/67 09/12/24 07:00 Pulse Ox 93 L 09/12/24 07:00 FiO2 40 09/10/24 22:05 Intake & Output 09/11/24 09/12/24 09/12/24 18:59 06:59 18:59 Intake Total 949.383 480.75 36 Output Total 670 560 100 Balance 279.383 -79.25 -64 Weight 101.8 kg Intake: IV 329 472 36 Pressure Bags 69 72 6 Sodium Chloride 0.9% 1, 260 350 30 000 ml @ 20 mls/hr IV . Q24H [facility] Rx#:[id number] ceFAZolin 2 gm In Sodium 50 Chloride 0.9% 50 ml @ 100 mls/hr IVPB ONCE ONE Rx# :[id number] Intake, IV Titration 20.383 8.75 Amount Insulin Regular 100 unit 20.383 8.75 In Sodium Chloride 0.9% 100 ml @ Per Protocol IV .Q0M [facility] Rx#:[id number] Oral 600 Output: Chest Tube Drainage 160 80 50 Left Pleural 90 50 20 Mediastinal 70 30 30 Urine 510 480 50 Other: Voiding Method Indwelling Catheter Indwelling Catheter ABP, PAP, CO, CI - Last Documented Arterial Blood Pressure 111/49 Pulmonary Artery Pressure 23/16 Cardiac Output 6.4 Cardiac Index 2.9 - Labs CBC & Chem 7: 09/12/24 05:06 09/12/24 05:06 Labs: Abnormal Lab Results - Last 24 Hours (Table) 09/11/24 09/11/24 09/11/24 Range/Units 08:21 09:03 10:35 WBC (3.8-10.6) k/uL RBC (4.30-5.90) m/uL Neutrophils # (1.3-7.7) k/uL Sodium (137-145) mmol/L Carbon Dioxide (22-30) mmol/L BUN (9-20) mg/dL Creatinine (0.66-1.25) mg/dL Glucose (74-99) mg/dL POC Glucose (mg/dL) 170 H 169 H 135 H (70-110) mg/dL Total Protein (6.3-8.2) g/dL 09/11/24 09/11/24 09/11/24 Range/Units 12:00 13:33 15:20 WBC (3.8-10.6) k/uL RBC (4.30-5.90) m/uL Neutrophils # (1.3-7.7) k/uL Sodium (137-145) mmol/L Carbon Dioxide (22-30) mmol/L BUN (9-20) mg/dL Creatinine (0.66-1.25) mg/dL Glucose (74-99) mg/dL POC Glucose (mg/dL) 124 H 131 H 131 H (70-110) mg/dL Total Protein (6.3-8.2) g/dL 09/11/24 09/11/24 09/11/24 Range/Units 18:50 19:56 23:09 WBC (3.8-10.6) k/uL RBC (4.30-5.90) m/uL Neutrophils # (1.3-7.7) k/uL Sodium (137-145) mmol/L Carbon Dioxide (22-30) mmol/L BUN (9-20) mg/dL Creatinine (0.66-1.25) mg/dL Glucose (74-99) mg/dL POC Glucose (mg/dL) 139 H 143 H 134 H (70-110) mg/dL Total Protein (6.3-8.2) g/dL 09/12/24 09/12/24 09/12/24 Range/Units 00:31 02:24 04:26 WBC (3.8-10.6) k/uL RBC (4.30-5.90) m/uL Neutrophils # (1.3-7.7) k/uL Sodium (137-145) mmol/L Carbon Dioxide (22-30) mmol/L BUN (9-20) mg/dL Creatinine (0.66-1.25) mg/dL Glucose (74-99) mg/dL POC Glucose (mg/dL) 131 H 126 H 122 H (70-110) mg/dL Total Protein (6.3-8.2) g/dL 09/12/24 09/12/24 09/12/24 Range/Units 05:06 05:06 06:58 WBC 14.5 H (3.8-10.6) k/uL RBC 4.17 L (4.30-5.90) m/uL Neutrophils # 11.9 H (1.3-7.7) k/uL Sodium 134 L (137-145) mmol/L Carbon Dioxide 20 L (22-30) mmol/L BUN 27 H (9-20) mg/dL Creatinine 1.57 H (0.66-1.25) mg/dL Glucose 125 H (74-99) mg/dL POC Glucose (mg/dL) 130 H (70-110) mg/dL Total Protein 5.9 L (6.3-8.2) g/dL
--- NOTE | 2024-09-12 08:37 | XR ---
EXAMINATION TYPE: XR chest 1V portable DATE OF EXAM: 09/12/2024 5:46 AM COMPARISON: 09/11/2024 CLINICAL INDICATION: Male, 59 years old with history of Post Operative Cardiac Surgery, , FINDINGS: Median sternotomy wires with postoperative clips. Mediastinal drain remains in place. Interval remova l of right IJ [place] catheter. IJ sheath remains. Left-sided chest tube in place. No appreciable p neumothorax. Heart remains moderately enlarged. Mild interstitial density remains. Prominent retrocar diac opacity remains on the left. IMPRESSION: Similar cardiomegaly and mild pulmonary vascular congestion. Ongoing prominent retrocardiac/left basi lar opacity, probably postoperative atelectasis. [facility], , 09/12/2024 8:35 AM
[2024-09-12] MEDS: PANTOPRAZOLE 40 MG TABLET PO SCH (08:52)
[2024-09-12] MEDS ORDERED: DEXTROSE 50% SYRINGE 50 ML IVP PRN ×2 (08:57)
[2024-09-12] MEDS ORDERED: lisinopriL 10 MG TAB PO SCH (09:00)
[2024-09-12] MEDS ORDERED: methocarbamoL 500 MG TAB PO PRN (11:39)
[2024-09-12 12:29] LABS: Glucose,Whole Blood 143 mg/dL (70-110)
[2024-09-12] MEDS: INSULIN ASPART (NovoLOG) 100 UNIT/ML VIAL SQ SCH ×2 (12:40→16:22)
--- NOTE | 2024-09-12 12:41 | P.PN ---
Subjective Progress Note Date: 09/12/24 Patient is 59-year-old male with past medical history significant for coronary artery disease with previous PCI/stenting, hypertension, hyperlipidemia, and remote history of tobacco use. Patient presented to the ED back on September 04 with non-ST elevation UT. Subsequently, underwent heart catheterization the following day showing severe triple-vessel coronary artery disease involving the LAD, left circumflex artery, and RCA. Cardiothoracic surgery was then consulted, and patient has had a thorough preoperative workup. Transthoracic echocardiogram showing a preserved left ventricular ejection fraction of 55 to 60%. No significant valvular abnormalities. Carotid Doppler significant for 50 to 69% stenosis at the right carotid bifurcation. Chest CT did not show evidence of acute pulmonary process such as focal consolidation, pneumothorax, pleural effusion; small right middle lobe 4 mm nodule. Yesterday, patient underwent off-pump CABG x 3 with TERRY to LAD, SVG to PDA, SVG to obtuse mar ginal, and left atrial appendage occlusion. No intraoperative complications were reported. EBL was 600. No blood products were necessary. Patient was then transferred back to the intensive care unit yesterday evening for recovery. Hemodynamics have remained stable. Not on any vasopressors. Current vitals include heart rate 84 bpm, blood pressure 101/58 mmHg, PAP 38/18 mmHg, and most recent CO/CI 5.8/2.6. Urine output has been adequate in the order of 30 to 50 cc/h. Minimal chest tube output with a total of 140 mL of serosanguineous drainage in the mediastinal chest tube and 107 mL of serosanguineous drainage within the left pleural atrium. These are to suction at -20 cm H2O. No dis cernible airleak. Postoperative chest x-ray showing the endotracheal tube 4 mm from the ja. NG tube coursing below the diaphragm. Left chest tube and mediastinal chest tube midline. No pneumothoraces or pleural effusions. Pulmonary artery catheter in appropriate position. Minimal left basilar atelectasis. Propofol has been stopped, and transitioned over to Precedex infusion in preparation for weaning. He is calm and cooperative. Rapid weaning protocol is in place. Patient was on pressure support for 30 minutes, and follow-up ABG is satisfactory. PaO2 82, pCO2 41, pH of 7.34. Weaning parameters are also satisfactory. RSBI 38 and negative inspiratory force -23. There is a positive cuff leak. Calm and following commands appropriately. Hence, I gave the order for the patient to be extubated. Patient is currently being evaluated in the intensive care unit, he is on 3 L/min nasal cannula. He is in no acute respiratory distress. He is alert and fully oriented. No focal neurological deficits. Most recent CBC: WBC count 14.2, hemoglobin 13.4, hematocrit 39.6, platelets 195. Most recent postoperative CMP: Sodium 138, potassium 3.8, chloride 107, serum bicarb 23, BUN 20, creatinine 1.12, glucose 135. iCal 4.7. Magnesium 1.4. LFTs unremarkable. Normal saline is infusing at 50 mL/h. Nitroglycerin also infusing at 5 mcg/min. Insulin being titrated per protocol. Precedex is going to be turned off. Patient is going to receive an incentive spirometer. Postsurgical pain rated 5 on a 10 point numerical scale. Patient feels is well-managed with current analgesics. Plan is for early ambulation in the morning. The patient is seen today September 12, 2024 in follow-up in the intensive care unit. Postoperative day #2. He is awake and alert in no acute distress. Sitting up in a chair at the bedside. Maintaining good O2 saturations in the 90s on room air. No IV fluids. Chest tubes have been removed. Right IJ cordis removed. X-ray shows similar cardiomegaly with mild pulmonary vascular congestion. No pneumothorax. Platelets 212. Sodium 134. Potassium 4.3. Bicarb 20. BUN 27. Creatinine 1.57. Glucose 125. Rest. Heparin for DVT prophylaxis. Objective - Vital Signs Vital signs: Vital Signs Temp 98.2 F 09/12/24 12:00 Pulse 110 H 09/12/24 12:00 Resp 22 09/12/24 12:00 BP 115/73 09/12/24 12:00 Pulse Ox 92 L 09/12/24 12:00 FiO2 40 09/10/24 22:05 Intake & Output 09/11/24 09/12/24 09/12/24 18:59 06:59 18:59 Intake Total 949.383 480.75 80.167 Output Total 670 560 200 Balance 279.383 -79.25 -119.833 Weight 101.8 kg Intake: IV 329 472 72 Pressure Bags 69 72 12 Sodium Chloride 0.9% 1, 260 350 60 000 ml @ 20 mls/hr IV . Q24H [facility] Rx#:[id number] ceFAZolin 2 gm In Sodium 50 Chloride 0.9% 50 ml @ 100 mls/hr IVPB ONCE ONE Rx# :[id number] Intake, IV Titration 20.383 8.75 8.167 Amount Insulin Regular 100 unit 20.383 8.75 8.167 In Sodium Chloride 0.9% 100 ml @ Per Protocol IV .Q0M [facility] Rx#:[id number] Oral 600 Output: Chest Tube Drainage 160 80 50 Left Pleural 90 50 20 Mediastinal 70 30 30 Urine 510 480 150 Other: Voiding Method Indwelling Catheter Indwelling Catheter Indwelling Catheter ABP, PAP, CO, CI - Last Documented Arterial Blood Pressure 103/47 Pulmonary Artery Pressure 23/16 Cardiac Output 6.4 Cardiac Index 2.9 - Exam GENERAL EXAM: Alert, 59-year-old male, sitting up in a chair, on room air, comfortable in no apparent distress. HEAD: Normocephalic and atraumatic EYES: Normal reaction of pupils, equal size. NOSE: Clear with pink turbinates. THROAT: No erythema or exudates. NECK: No masses, no JVD. CHEST: Midsternal incision approximated with surgical glue, postoperative dressing intact. Heart hugger in place. LUNGS: Equal air entry with no crackles, wheeze, rhonchi or dullness. No conversational dyspnea or accessory muscle use. CVS: S1 and S2 normal with no audible murmur, regular rhythm. No extra heart sounds ABDOMEN: No hepatosplenomegaly, active bowel sounds, no guarding or rigidity. SPINE: No scoliosis or deformity SKIN: No rashes CENTRAL NERVOUS SYSTEM: No focal deficits, tone is normal in all 4 extremities. EXTREMITIES: Bilateral lower extremities wrapped with Duarte bandages. No clubbing or cyanosis. Peripheral pulses are intact. - Labs CBC & Chem 7: 09/12/24 05:06 09/12/24 05:06 Labs: Abnormal Lab Results - Last 24 Hours (Table) 09/11/24 09/11/24 09/11/24 Range/Units 13:33 15:20 18:50 WBC (3.8-10.6) k/uL RBC (4.30-5.90) m/uL Neutrophils # (1.3-7.7) k/uL Sodium (137-145) mmol/L Carbon Dioxide (22-30) mmol/L BUN (9-20) mg/dL Creatinine (0.66-1.25) mg/dL Glucose (74-99) mg/dL POC Glucose (mg/dL) 131 H 131 H 139 H (70-110) mg/dL Total Protein (6.3-8.2) g/dL 09/11/24 09/11/24 09/12/24 Range/Units 19:56 23:09 00:31 WBC (3.8-10.6) k/uL RBC (4.30-5.90) m/uL Neutrophils # (1.3-7.7) k/uL Sodium (137-145) mmol/L Carbon Dioxide (22-30) mmol/L BUN (9-20) mg/dL Creatinine (0.66-1.25) mg/dL Glucose (74-99) mg/dL POC Glucose (mg/dL) 143 H 134 H 131 H (70-110) mg/dL Total Protein (6.3-8.2) g/dL 09/12/24 09/12/24 09/12/24 Range/Units 02:24 04:26 05:06 WBC 14.5 H (3.8-10.6) k/uL RBC 4.17 L (4.30-5.90) m/uL Neutrophils # 11.9 H (1.3-7.7) k/uL Sodium (137-145) mmol/L Carbon Dioxide (22-30) mmol/L BUN (9-20) mg/dL Creatinine (0.66-1.25) mg/dL Glucose (74-99) mg/dL POC Glucose (mg/dL) 126 H 122 H (70-110) mg/dL Total Protein (6.3-8.2) g/dL 09/12/24 09/12/24 09/12/24 Range/Units 05:06 06:58 12:27 WBC (3.8-10.6) k/uL RBC (4.30-5.90) m/uL Neutrophils # (1.3-7.7) k/uL Sodium 134 L (137-145) mmol/L Carbon Dioxide 20 L (22-30) mmol/L BUN 27 H (9-20) mg/dL Creatinine 1.57 H (0.66-1.25) mg/dL Glucose 125 H (74-99) mg/dL POC Glucose (mg/dL) 130 H 143 H (70-110) mg/dL Total Protein 5.9 L (6.3-8.2) g/dL Assessment and Plan Assessment: Severe triple-vessel coronary artery disease status postoperative day #2 following off-pump CABG x 3 with TERRY to the LAD, SVG to the PDA, SVG to the obtuse marginal, and left atrial appendage occlusion. No intraoperative complications were reported. Routine mechanical ventilator management, adequate ABG and weaning parameters. Extubated per rapid extubation protocol. Acute Non-ST elevation UT Acute leukocytosis, reactive to surgery Hypomagnesemia, replace per protocol Carotid artery stenosis, estimated at 50 to 69% at the right carotid bifurcation History of hypertension History of hyperlipidemia GERD Remote history of tobacco use Plan: The patient was seen and evaluated Chest x-ray, labs and medications reviewed Currently stable and on room air Working well with the incentive spirometer Continued on bronchodilators Heparin for DVT prophylaxis Increase his activity as tolerated We will continue to follow I have personally seen and examined the patient, performed the documentation and the assessment and plan as written. Number of minutes spent on the visit: 10 Dictation was produced using [employer] dictation software. Please excuse any grammatical, word or spelling errors.
[2024-09-12] MEDS: METOPROLOL TARTRATE 25 MG TAB PO STA (12:44)
--- NOTE | 2024-09-12 13:18 | P.PN ---
Subjective Progress Note Date: 09/12/24 Subjective: Patient seen and examined at bedside. No acute events overnight. Ambulating as well as tolerating oral intake. Pertinent positives and negatives as discussed above, a complete review of systems was performed and all other systems are negative. Vitals Signs Reviewed. General: Nontoxic, no distress, appears at stated age Derm: Warm, dry, dressing clean, dry, intact Head: Atraumatic, normocephalic, symmetric Eyes: EOMI, no lid lag, anicteric sclera Mouth: No lip lesion, mucus membranes moist Cardiovascular: S1S2 reg, no murmur Lungs: CTA bilateral, no rhonchi, no rales, no accessory muscle use Abdominal: Soft, nontender to palpation, no guarding, no appreciable organomeg aziza Ext: No gross muscle atrophy, no edema, no contractures Neuro: CN II-XI grossly intact, no focal neuro deficits Psych: Alert, oriented, appropriate affect Data Reviewed Today: Pertinent Labs: WBC 14.5, bicarb 20, creatinine 1.57, blood sugars range between 1 25-1 43, magnesium 2.3 Imaging: Chest x-ray independently interpreted, shows postoperative changes Assessment and Plan: Acute NSTEMI Multivessel CAD, status post CABG Leukocytosis, anticipated outcome of surgery Hypertension Hyperlipidemia Acute kidney injury -Cardiothoracic surgery note reviewed, patient on aspirin 325 daily, ator vastatin 40 daily, Plavix 75 daily, metoprolol 50 twice daily -Cardiology note reviewed, continue current therapy -Pulmonology note reviewed, continue current therapy -Pain control with Tylenol as needed -Repeat CBC and BMP tomorrow -Agree with discontinuing lisinopril Hyperglycemia -A1c 5.6 -Switch to subcu insulin ACH S Resolved: Hyperkalemia Thank you for allowing us to participate in the care of this pleasant patient. Do not hesitate to contact us with questions. Someone can be reached from the [facility] hospitalist group all hours of the day at [phone] or via perfect serve. Objective - Vital Signs Vital signs: Vital Signs Temp 98.2 F 09/12/24 12:00 Pulse 110 H 09/12/24 12:00 Resp 22 09/12/24 12:00 BP 115/73 09/12/24 12:00 Pulse Ox 92 L 09/12/24 12:00 FiO2 40 09/10/24 22:05 Intake & Output 09/11/24 09/12/24 09/12/24 18:59 06:59 18:59 Intake Total 949.383 480.75 80.167 Output Total 670 560 200 Balance 279.383 -79.25 -119.833 Weight 101.8 kg Intake: IV 329 472 72 Pressure Bags 69 72 12 Sodium Chloride 0.9% 1, 260 350 60 000 ml @ 20 mls/hr IV . Q24H [facility] Rx#:[id number] ceFAZolin 2 gm In Sodium 50 Chloride 0.9% 50 ml @ 100 mls/hr IVPB ONCE ONE Rx# :[id number] Intake, IV Titration 20.383 8.75 8.167 Amount Insulin Regular 100 unit 20.383 8.75 8.167 In Sodium Chloride 0.9% 100 ml @ Per Protocol IV .Q0M [facility] Rx#:[id number] Oral 600 Output: Chest Tube Drainage 160 80 50 Left Pleural 90 50 20 Mediastinal 70 30 30 Urine 510 480 150 Other: Voiding Method Indwelling Catheter Indwelling Catheter Indwelling Catheter ABP, PAP, CO, CI - Last Documented Arterial Blood Pressure 103/47 Pulmonary Artery Pressure 23/16 Cardiac Output 6.4 Cardiac Index 2.9 - Labs CBC & Chem 7: 09/12/24 05:06 09/12/24 05:06 Labs: Abnormal Lab Results - Last 24 Hours (Table) 09/11/24 09/11/24 09/11/24 Range/Units 13:33 15:20 18:50 WBC (3.8-10.6) k/uL RBC (4.30-5.90) m/uL Neutrophils # (1.3-7.7) k/uL Sodium (137-145) mmol/L Carbon Dioxide (22-30) mmol/L BUN (9-20) mg/dL Creatinine (0.66-1.25) mg/dL Glucose (74-99) mg/dL POC Glucose (mg/dL) 131 H 131 H 139 H (70-110) mg/dL Total Protein (6.3-8.2) g/dL 09/11/24 09/11/24 09/12/24 Range/Units 19:56 23:09 00:31 WBC (3.8-10.6) k/uL RBC (4.30-5.90) m/uL Neutrophils # (1.3-7.7) k/uL Sodium (137-145) mmol/L Carbon Dioxide (22-30) mmol/L BUN (9-20) mg/dL Creatinine (0.66-1.25) mg/dL Glucose (74-99) mg/dL POC Glucose (mg/dL) 143 H 134 H 131 H (70-110) mg/dL Total Protein (6.3-8.2) g/dL 09/12/24 09/12/24 09/12/24 Range/Units 02:24 04:26 05:06 WBC 14.5 H (3.8-10.6) k/uL RBC 4.17 L (4.30-5.90) m/uL Neutrophils # 11.9 H (1.3-7.7) k/uL Sodium (137-145) mmol/L Carbon Dioxide (22-30) mmol/L BUN (9-20) mg/dL Creatinine (0.66-1.25) mg/dL Glucose (74-99) mg/dL POC Glucose (mg/dL) 126 H 122 H (70-110) mg/dL Total Protein (6.3-8.2) g/dL 09/12/24 09/12/24 09/12/24 Range/Units 05:06 06:58 12:27 WBC (3.8-10.6) k/uL RBC (4.30-5.90) m/uL Neutrophils # (1.3-7.7) k/uL Sodium 134 L (137-145) mmol/L Carbon Dioxide 20 L (22-30) mmol/L BUN 27 H (9-20) mg/dL Creatinine 1.57 H (0.66-1.25) mg/dL Glucose 125 H (74-99) mg/dL POC Glucose (mg/dL) 130 H 143 H (70-110) mg/dL Total Protein 5.9 L (6.3-8.2) g/dL
[2024-09-12] MEDS ORDERED: METOPROLOL TARTRATE 25 MG TAB PO SCH (16:00)
[2024-09-12 16:15] LABS: Glucose,Whole Blood 126 mg/dL (70-110)
[2024-09-12 19:55] LABS: Glucose,Whole Blood 129 mg/dL (70-110)
[2024-09-12] MEDS: METOPROLOL TARTRATE 50 MG TAB PO SCH (20:03)
[2024-09-12] MEDS: MELATONIN 3 MG TABLET PO SCH (23:05)
[2024-09-13 05:59] LABS: Glucose,Whole Blood 103 mg/dL (70-110)
[2024-09-13] MEDS: bisacodyL 10 MG SUPP RECTAL PRN (06:11)
[2024-09-13 08:28] LABS: Basophils # (A) 0.1 k/uL (0-0.2); Basophils % (A) 1 %; Eosinophils # (A) 0.2 k/uL (0-0.7); Eosinophils % (A) 1 %; HCT 40.3 % (39.0-53.0); HGB 12.8 gm/dL (13.0-17.5); Lymphocytes # (A) 1.5 k/uL (1.0-4.8); Lymphocytes % (A) 9 %; MCH 30.8 pg (25.0-35.0); MCHC 31.7 g/dL (31.0-37.0); Mean Platelet Volume 8.4; Monocytes # (A) 0.6 k/uL (0-1.0); Monocytes % (A) 4 %; Neutrophils # (A) 13.2 k/uL (1.3-7.7); Neutrophils % (A) 84 %; Platelet Count 248 k/uL (150-450); RBC 4.16 m/uL (4.30-5.90); RDW 13.3 % (11.5-15.5); WBC 15.8 k/uL (3.8-10.6)
[2024-09-13 08:41] LABS: ALT 29 U/L (4-49); AST 40 U/L (17-59); African American GFR (CKD) 64 (>60 ml/min/1.73 sqM); Albumin 3.7 g/dL (3.5-5.0); Alkaline Phosphatase 58 U/L (38-126); Anion Gap 12 mmol/L; Blood Urea Nitrogen 29 mg/dL (9-20); Calcium 9.1 mg/dL (8.4-10.2); Carbon Dioxide 23 mmol/L (22-30); Chloride 102 mmol/L (98-107); Glucose 152 mg/dL (74-99); Non-African American GFR(CKD) 56 (>60 ml/min/1.73 sqM); Potassium 4.5 mmol/L (3.5-5.1); Sodium 137 mmol/L (137-145); Total Bilirubin 1.1 mg/dL (0.2-1.3); Total Protein 6.4 g/dL (6.3-8.2)
--- NOTE | 2024-09-13 08:55 | XR ---
EXAMINATION TYPE: XR chest 2V DATE OF EXAM: 09/13/2024 7:54 AM COMPARISON: 09/12/2024 CLINICAL INDICATION: Male, 59 years old with history of post op CABG, , TECHNIQUE: PA and lateral views FINDINGS: Median sternotomy wires and post-CABG clips. Heart remains mildly enlarged. Interval removal of media stinal drain and left-sided chest tube. No appreciable pneumothorax. There is a small left pleural ef fusion on the lateral view. Patchy opacity remains retrocardiac region and left base though improving from prior. IMPRESSION: Improved lung volumes with residual patchy postoperative atelectasis at the left base. A small left p leural effusion is also noted on the lateral view. [facility], , 09/13/2024 8:53 AM
--- NOTE | 2024-09-13 09:09 | P.PN ---
Subjective Progress Note Date: 09/13/24 Principal diagnosis: Multivessel coronary artery disease, non-ST elevated myocardial infarction this admission. Previous medical history of coronary artery disease with myocardial infarction and previous stenting to the RCA in April 2023, hypertension, hyperlipidemia, GERD, osteoarthritis, remote history of pneumonia, COVID in 2019, previous tobacco dependence. POD #3 Off-pump CABG x 3 with left internal mammary artery to the left anterior descending coronary artery, saphenous vein graft to posterior descending coronary artery, saphenous vein graft to obtuse marginal coronary artery. Endovascular vein harvest from left lower extremity greater saphenous vein. Occlusion of left atrial appendage with 35 mm AtriCure clip. The patient was seen and examined this morning sitting up in recliner on the cardiac stepdown unit in no acute distress. Remains in sinus rhythm to sinus tach, hemodynamically stable. Currently on room air with oxygen saturation in the mid 90s, able to achieve 1500 mL on incentive spirometry. States expected postsurgical pain is controlled on current medication regimen, denies shortness of breath. Patient has been ambulatory around the hallway without difficulty. He has voided sufficiently post Soto catheter removal. All lines and tubes were discontinued yesterday. Chest x-ray, labs reviewed. Anticipate discharge to home with home care tomorrow. No other new concerns. Objective - Vital Signs Vital signs: Vital Signs Temp 98.7 F 09/13/24 04:47 Pulse 95 09/13/24 08:17 Resp 17 09/13/24 04:47 BP 121/80 09/13/24 04:47 Pulse Ox 95 09/13/24 04:47 FiO2 40 09/10/24 22:05 Intake & Output 09/12/24 09/13/24 09/13/24 18:59 06:59 18:59 Intake Total 560.167 780 Output Total 508 700 Balance 52.167 80 Weight 100.7 kg Intake: IV 72 Pressure Bags 12 Sodium Chloride 0.9% 1, 60 000 ml @ 20 mls/hr IV . Q24H MARI Rx#:[id number] Intake, IV Titration 8.167 Amount Insulin Regular 100 unit 8.167 In Sodium Chloride 0.9% 100 ml @ Per Protocol IV .Q0M MARI Rx#:[id number] Oral 480 780 Output: Chest Tube Drainage 50 Left Pleural 20 Mediastinal 30 Urine 400 700 Post Void Residual 58 Other: Voiding Method Indwelling Catheter Urinal ABP, PAP, CO, CI - Last Documented Arterial Blood Pressure 103/47 Pulmonary Artery Pressure 23/16 Cardiac Output 6.4 Cardiac Index 2.9 - Exam CONSTITUTIONAL: Appears comfortable, cooperative, no acute distress RESPIRATORY: Lungs sounds diminished bilaterally. Respirations even, nonlabored. Currently on room air with oxygen saturation 94%. Able to achieve 1500 mL on incentive spirometry. Strong cough. CARDIOVASCULAR: S1, S2 present. Regular rate and rhythm, sinus rhythm to sinus tach on telemetry. Sternum stable. Palpable peripheral pulses bilaterally. No edema present. No calf pain or tenderness noted. Heart hugger in place with patient demonstrating appropriate use. Antiembolism stockings, SCDs present. GASTROINTESTINAL: Abdomen soft, nontender, nondistended. Active bowel sounds present 4 quadrants. Tolerating diet. Positive bowel movement. GENITOURINARY: Soto present draining clear, yellow urine. Output overnight 30-50 mL per hour, 1000 mL in the last 24 hours INTEGUMENTARY: Skin is warm and dry with evidence of good perfusion. Anterior chest incision well approximated and covered with dry intact dressing. Left lower extremity EVH site well approximated without redness or drainage. NEUROLOGIC: Cranial nerves II through XII intact MUSKULOSKELETAL: Able to move all extremities, strength equal bilaterally, gait normal PSYCHIATRIC: Alert and oriented to person place and time, appropriate affect, intact judgment and insight - Allied health notes Allied health notes reviewed: nursing - Labs CBC & Chem 7: 09/13/24 07:33 09/13/24 07:33 Labs: Abnormal Lab Results - Last 24 Hours (Table) 09/12/24 09/12/24 09/12/24 Range/Units 12:27 16:14 19:54 WBC (3.8-10.6) k/uL RBC (4.30-5.90) m/uL Hgb (13.0-17.5) gm/dL Neutrophils # (1.3-7.7) k/uL POC Glucose (mg/dL) 143 H 126 H 129 H (70-110) mg/dL 09/13/24 Range/Units 07:33 WBC 15.8 H (3.8-10.6) k/uL RBC 4.16 L (4.30-5.90) m/uL Hgb 12.8 L (13.0-17.5) gm/dL Neutrophils # 13.2 H (1.3-7.7) k/uL POC Glucose (mg/dL) (70-110) mg/dL - Imaging and Cardiology Chest x-ray: report reviewed, image reviewed Assessment and Plan Assessment: Triple-vessel coronary artery disease, non-STEMI this admission Chest pain, secondary to above Carotid artery stenosis, estimated at 50 to 69% at the right carotid bifurcation per carotid Doppler History of coronary artery disease with previous myocardial infarction and stenting to the RCA in April 2023 Hypertension Hyperlipidemia, treated, cholesterol 121, LDL 59 Remote history of pneumonia COVID in 2019 Previous tobacco dependence with cessation a long time ago, preoperative FEV1 83% of predicted Plan: Continue to maximize medical therapy with aspirin, statin, Plavix and beta- delia. Will increase beta-delia therapy as tolerated Encourage incentive spirometry use 10 times every hour while awake. Bronchodilators per pulmonology. Increase activity, ambulate as tolerated. PT/OT/cardiac rehab following. Will monitor daily labs and chest x-rays. Electrolyte replacement per protocol. GI/DVT prophylaxis. Insulin management per internal medicine. Patient is not a diabetic, preoperative A1c 5.6% Pain control per current medication regimen Continue to monitor and record strict accurate intake and output Daily weights. Shower daily Discharge planning in progress, anticipate discharge to home with home care in the next 24 hours More recommendations to follow based on patient's clinical course.
[2024-09-13 12:00] LABS: Glucose,Whole Blood 132 mg/dL (70-110)
--- NOTE | 2024-09-13 12:32 | P.PN ---
Subjective Progress Note Date: 09/13/24 Principal diagnosis: Coronary artery disease. Patient is 59-year-old male with past medical history significant for coronary artery disease with previous PCI/stenting, hypertension, hyperlipidemia, and remote history of tobacco use. Patient presented to the ED back on September 04 with non-ST elevation PR. Subsequently, underwent heart catheterization the following day showing severe triple-vessel coronary artery disease involving the LAD, left circumflex artery, and RCA. Cardiothoracic surgery was then consulted, and patient has had a thorough preoperative workup. Transthoracic echocardiogram showing a preserved left ventricular ejection fraction of 55 to 60%. No significant valvular abnormalities. Carotid Doppler significant for 50 to 69% stenosis at the right carotid bifurcation. Chest CT did not show evidence of acute pulmonary process such as focal consolidation, pneumothorax, pleural effusion; small right middle lobe 4 mm nodule. Yesterday, patient un derwent off-pump CABG x 3 with TERRY to LAD, SVG to PDA, SVG to obtuse marginal, and left atrial appendage occlusion. No intraoperative complications were reported. EBL was 600. No blood products were necessary. Patient was then transferred back to the intensive care unit yesterday evening for recovery. Hemodynamics have remained stable. Not on any vasopressors. Current vitals include heart rate 84 bpm, blood pressure 101/58 mmHg, PAP 38/18 mmHg, and most recent CO/CI 5.8/2.6. Urine output has been adequate in the order of 30 to 50 cc/h. Minimal chest tube output with a total of 140 mL of serosanguineous drainage in the mediastinal chest tube and 107 mL of serosanguineous drainage within the left pleural atrium. These are to suction at -20 cm H2O. No discernible airleak. Postoperative chest x-ray showing the endotracheal tube 4 mm from the ja. NG tube coursing below the diaphragm. Left chest tube and mediastinal chest tube midline. No pneumothoraces or pleural effusions. Pulmonary artery catheter in appropriate position. Minimal left basilar atelectasis. Propofol has been stopped, and transitioned over to Precedex infusion in preparation for weaning. He is calm and cooperative. Rapid weaning protocol is in place. Patient was on pressure support for 30 minutes, and follow-up ABG is satisfactory. PaO2 82, pCO2 41, pH of 7.34. Weaning parameters are also satisfactory. RSBI 38 and negative inspiratory force -23. There is a positive cuff leak. Calm and following commands appropriately. Hence, I gave the order for the patient to be extubated. Patient is currently being evaluated in the intensive care unit, he is on 3 L/min nasal cannula. He is in no acute respiratory distress. He is alert and fully oriented. No focal neurological deficits. Most recent CBC: WBC count 14.2, hemoglobin 13.4, hematocrit 39.6, platelets 195. Most recent postoperative CMP: Sodium 138, potassium 3.8, chloride 107, serum bicarb 23, BUN 20, creatinine 1.12, glucose 135. iCal 4.7. Magnesium 1.4. LFTs unremarkable. Normal saline is infusing at 50 mL/h. Nitroglycerin also infusing at 5 mcg/min. Insulin being titrated per protocol. Precedex is going to be turned off. Patient is going to receive an incentive spirometer. Postsurgical pain rated 5 on a 10 point numerical scale. Patient feels is well-managed with current analgesics. Plan is for early ambulation in the morning. The patient is seen today September 12, 2024 in follow-up in the intensive care unit. Postoperative day #2. He is awake and alert in no acute distress. Sitting up in a chair at the bedside. Maintaining good O2 saturations in the 90s on room air. No IV fluids. Chest tubes have been removed. Right IJ cordis removed. X-ray shows similar cardiomegaly with mild pulmonary vascular congestion. No pneumothorax. Platelets 212. Sodium 134. Potassium 4.3. Bicarb 20. BUN 27. Creatinine 1.57. Glucose 125. Rest. Heparin for DVT prophylaxis. Progress note dated September 13, 2024. The patient is seen today in room 354. The patient is resting comfortably. He has no complaints. He denies any shortness of breath, cough, wheezing, chest tightness, chest pain, fluttering, or any other symptoms for that matter. The patient is hoping to be discharged home tomorrow. He is on room air. Not receiving any IV fluids. The patient is postop day #3. White count 15.8, hemoglobin 12.8, hematocrit 40.3, and platelet count normal. Sodium potassium chloride CO2 all normal. Anion gap normal. BUN 29, creatinine 1.37. Glucose 132. Chest x-ray shows some patchy postoperative atelectasis. Objective - Vital Signs Vital signs: Vital Signs Temp 98.1 F 09/13/24 08:00 Pulse 100 09/13/24 12:09 Resp 18 09/13/24 08:00 BP 130/80 09/13/24 08:00 Pulse Ox 95 09/13/24 04:47 FiO2 40 09/10/24 22:05 Intake & Output 09/12/24 09/13/24 09/13/24 18:59 06:59 18:59 Intake Total 560.167 780 Output Total 508 700 Balance 52.167 80 Weight 100.7 kg Intake: IV 72 Pressure Bags 12 Sodium Chloride 0.9% 1, 60 000 ml @ 20 mls/hr IV . Q24H MARI Rx#:[id number] Intake, IV Titration 8.167 Amount Insulin Regular 100 unit 8.167 In Sodium Chloride 0.9% 100 ml @ Per Protocol IV .Q0M MARI Rx#:[id number] Oral 480 780 Output: Chest Tube Drainage 50 Left Pleural 20 Mediastinal 30 Urine 400 700 Post Void Residual 58 Other: Voiding Method Indwelling Catheter Urinal Urinal ABP, PAP, CO, CI - Last Documented Arterial Blood Pressure 103/47 Pulmonary Artery Pressure 23/16 Cardiac Output 6.4 Cardiac Index 2.9 - Exam No acute distress, oriented 3. Currently on room air. HEENT examination is grossly unremarkable. Mucous membranes are moist. No oral lesions. Neck supple. Full range of motion. No adenopathy thyromegaly or neck vein distention. Cardiovascular examination reveals regular rhythm rate. S1-S2 normal. No S3 or S4. No discernible murmur noted. Lungs reveal clear breath sounds. Breath sounds are equal bilaterally. No adventitious lung sounds including wheezes rhonchi or crackles. Abdomen soft bowel sounds are heard. No masses or tenderness. Extremities are intact. No cyanosis clubbing or edema. Skin is without rash or lesion. Neurologic examination is brief but nonfocal. - Labs CBC & Chem 7: 09/13/24 07:33 09/13/24 07:33 Labs: Abnormal Lab Results - Last 24 Hours (Table) 09/12/24 09/12/24 09/12/24 Range/Units 12:27 16:14 19:54 WBC (3.8-10.6) k/uL RBC (4.30-5.90) m/uL Hgb (13.0-17.5) gm/dL Neutrophils # (1.3-7.7) k/uL BUN (9-20) mg/dL Creatinine (0.66-1.25) mg/dL Glucose (74-99) mg/dL POC Glucose (mg/dL) 143 H 126 H 129 H (70-110) mg/dL 09/13/24 09/13/24 09/13/24 Range/Units 07:33 07:33 11:59 WBC 15.8 H (3.8-10.6) k/uL RBC 4.16 L (4.30-5.90) m/uL Hgb 12.8 L (13.0-17.5) gm/dL Neutrophils # 13.2 H (1.3-7.7) k/uL BUN 29 H (9-20) mg/dL Creatinine 1.37 H (0.66-1.25) mg/dL Glucose 152 H (74-99) mg/dL POC Glucose (mg/dL) 132 H (70-110) mg/dL Assessment and Plan Assessment: Severe triple-vessel coronary artery disease status postoperative day #3 following off-pump CABG x 3 with TERRY to the LAD, SVG to the PDA, SVG to the obtuse marginal, and left atrial appendage occlusion. Routine postoperative ventilator management. Acute Non-ST elevation PR. Acute leukocytosis, reactive to surgery. Hypomagnesemia. Carotid artery stenosis, estimated at 50 to 69% at the right carotid bifurcation. History of hypertension. History of hyperlipidemia. GERD. Remote history of tobacco use. Plan: Plan dated September 13, 2024. The patient is seen today in room 354. He is on room air. No IV fluids. The patient is postoperative day #3. The patient is hoping to be discharged home tomorrow. The patient continues to use his incentive spirometer. We recommend deep breathing, coughing, clearing of secretions. Labs, x-rays, medications are reviewed. He has some postoperative atelectatic changes at the lung bases. Other than that, the chest x-ray looks okay. We will continue to follow. Prognosis is guarded. Time with Patient: Less than 30
--- NOTE | 2024-09-13 12:45 | P.PN ---
Subjective HISTORY OF PRESENT ILLNESS: This is a 59-year-old male patient of Dr. Marilyn Hoang in the past and is now following with Dr. Jackson with past medical history of coronary artery disease status post angioplasty and stent placement of the right coronary artery in the setting of a mild non-ST MARILYN with known chronically occluded OM with collaterals, hypertension, hyperlipidemia. We have been asked to evaluate the patient for chest pain. The patient states that he developed some mid sternal chest pain when he arrived at work yesterday. He was not exerting himself at the time. He states it lasted for about 1 to 2 minutes and has not returned. He has been feeling more tired over the past couple of days. He denies having any other symptoms with this, no nausea or vomiting, no diaphoresis, no radiation of pain, no palpitations. He has been taking all of his medications as directed. Blood pressure 117/80, heart rate 74. Patient is seen today in the emergency center waiting for bed on the cardiac stepdown unit. He has been started on a heparin drip. Regarding kidney function, patient states that he has had trouble taking Mobic which caused his kidney function to worsen and he has been on and off this for his osteoarthritis. Discussed recommendations for cardiac catheterization for which patient is willing to move forward with. EKG: Sinus rhythm with Q waves similar to previous EKGs Chest x-ray: No acute findings. Laboratory studies: Troponin 0.019, 0.056, 0.049 and 0.03. proBNP 56. CBC within normal limits. BUN 25 creatinine 1.3. Home cardiac medications: Aspirin 81 mg daily, Zetia 10 mg daily, Imdur 30 mg daily, lisinopril 20 mg twice daily, Lopressor 25 mg twice daily, Crestor 20 mg daily. Cardiac catheterization performed 04/14/[address] Lowe revealed critical stenosis in the mid distal RCA with intimal disease of the moderate degree in the proximal and mid section. Mild disease in the distal left main, mild disease in the LAD. Totally occluded third obtuse marginal branch with retrograde filling through collaterals. Patient underwent successful stenting of the mid distal RCA. Echocardiogram performed 04/15/2023 revealed EF of 50 to 55%, mild mitral and tricuspid regurgitation. No pericardial effusion. 09/06 Yesterday, patient underwent cardiac catheterization with Dr. Haong which revealed severe three-vessel coronary artery disease. Patient has been seen by cardiothoracic surgery and scheduled for CABG 60%. Aortic sclerosis and mild mitral annular calcification. Carotid ultrasound reveals 50 to 69% stenosis of the right carotid bifurcation and less than 50% on the left. CT chest minimal c alcification along the aorta. Mild to moderate coronary artery atherosclerosis. Blood pressure 146/84, heart rate 77, pulse ox 95% on room air. Patient denies having any chest pain no lightheadedness or dizziness. He has been ambulating in his room without any symptoms. Noted the blood pressure readings are somewhat elevated but will be holding on starting any new medications at this time. Patient encouraged to start using incentive spirometer now. Repeat EKG normal sinus rhythm with no acute changes. 09/09/2024 Patient examined this morning at the bedside. Patient currently denies chest pain or pressure. He denies shortness of breath. He remains on IV heparin. Vital signs are stable. Telemetry reveals sinus mechanism. He is scheduled to undergo CABG tomorrow with Dr. Lynne. 09/10/2024 Patient examined this morning at the bedside. Patient's family is present. Patient currently denies chest pain or pressure. He denies shortness of breath. He remains on IV heparin. Patient is scheduled for CABG this afternoon. 09/13/2024 Patient has been transferred out of the intensive care unit to [facility]. Patient examined this morning the bedside. Patient currently denies chest pain or pressure. Telemetry Veals sinus mechanism. Vital signs are stable. PHYSICAL EXAM: VITAL SIGNS: Reviewed. GENERAL: Well-developed in no acute distress. NECK: Supple. No JVD or thyromegaly LUNGS: Respirations even and unlabored. Lungs essentially clear to auscultation bilaterally. HEART: Regular rate and rhythm. S1 and S2 heard. EXTREMITIES: Normal range of motion. No clubbing or cyanosis. Peripheral pulses intact. No lower extremity edema ASSESSMENT: NSTEMI with three-vessel coronary artery disease on cardiac cath performed 09/05 Status post off pump CABG x 3 vessels History of coronary artery disease with previous stenting of the mid distal RCA in April 2023 Hypertension Hyperlipidemia Former nicotine dependence Mild TRAN, creatinine 1.37 PLAN: Continue postoperative management per CT surgery Continue current cardiac medications Increase activity as tolerated Encourage use of incentive spirometer Continue telemetry monitoring Anticipate discharge home tomorrow if patient remains stable Further recommendations pending patient course Nurse practitioner note has been reviewed by physician. Signing provider agrees with the documented findings, assessment, and plan of care documented by MICROFILM MOUNTER as a scribe. Objective - Vital Signs Vital signs: Vital Signs Temp 98.1 F 09/13/24 08:00 Pulse 100 09/13/24 12:09 Resp 18 09/13/24 08:00 BP 130/80 09/13/24 08:00 Pulse Ox 95 09/13/24 04:47 FiO2 40 09/10/24 22:05 Intake & Output 09/12/24 09/13/24 09/13/24 18:59 06:59 18:59 Intake Total 560.167 780 Output Total 508 700 Balance 52.167 80 Weight 100.7 kg Intake: IV 72 Pressure Bags 12 Sodium Chloride 0.9% 1, 60 000 ml @ 20 mls/hr IV . Q24H MARI Rx#:[id number] Intake, IV Titration 8.167 Amount Insulin Regular 100 unit 8.167 In Sodium Chloride 0.9% 100 ml @ Per Protocol IV .Q0M MARI Rx#:[id number] Oral 480 780 Output: Chest Tube Drainage 50 Left Pleural 20 Mediastinal 30 Urine 400 700 Post Void Residual 58 Other: Voiding Method Indwelling Catheter Urinal Urinal ABP, PAP, CO, CI - Last Documented Arterial Blood Pressure 103/47 Pulmonary Artery Pressure 23/16 Cardiac Output 6.4 Cardiac Index 2.9 - Labs CBC & Chem 7: 09/13/24 07:33 09/13/24 07:33 Labs: Abnormal Lab Results - Last 24 Hours (Table) 09/12/24 09/12/24 09/13/24 Range/Units 16:14 19:54 07:33 WBC 15.8 H (3.8-10.6) k/uL RBC 4.16 L (4.30-5.90) m/uL Hgb 12.8 L (13.0-17.5) gm/dL Neutrophils # 13.2 H (1.3-7.7) k/uL BUN (9-20) mg/dL Creatinine (0.66-1.25) mg/dL Glucose (74-99) mg/dL POC Glucose (mg/dL) 126 H 129 H (70-110) mg/dL 09/13/24 09/13/24 Range/Units 07:33 11:59 WBC (3.8-10.6) k/uL RBC (4.30-5.90) m/uL Hgb (13.0-17.5) gm/dL Neutrophils # (1.3-7.7) k/uL BUN 29 H (9-20) mg/dL Creatinine 1.37 H (0.66-1.25) mg/dL Glucose 152 H (74-99) mg/dL POC Glucose (mg/dL) 132 H (70-110) mg/dL
--- NOTE | 2024-09-13 13:36 | P.PN ---
Subjective Progress Note Date: 09/13/24 Subjective: Patient seen and examined at bedside. No acute events overnight. Has no complaints. Eating well. Having stools. Ambulating. No pain. Patient is medically stable from discharge from our perspective Pertinent positives and negatives as discussed above, a complete review of sy stems was performed and all other systems are negative. Vitals Signs Reviewed. Gen: In NAD, non-toxic HEENT: normocephalic, atraumatic, hearing acuity is intant, mucous membranes moist CVS: perfusing all extremities well, no pitting edema, Respiratory: symmetric chest expansion, no accessory muscle use, GI: soft, NTTP, ND, : no suprapubic tenderness, no CVA tenderness MSK/Derm: no rashes, cyanosis Neuro: CN II-XII intact, no motor weakness, Psych: cooperative, euthymic mood, judgment and insight is intact Assessment and Plan: Acute NSTEMI Multivessel CAD, status post CABG Leukocytosis, anticipated outcome of surgery Hypertension Hyperlipidemia Acute kidney injury -Cardiothoracic surgery note reviewed, patient on aspirin 325 daily, atorvastatin 40 daily, Plavix 75 daily, metoprolol 50 twice daily -Cardiology note reviewed, continue current therapy -Pulmonology note reviewed, continue current therapy -Pain control with Tylenol as needed -Repeat CBC and BMP tomorrow -Agree with discontinuing lisinopril Hyperglycemia -A1c 5.6 -Switch to subcu insulin ACH S Resolved: Hyperkalemia Thank you for allowing us to participate in the care of this pleasant patient. Do not hesitate to contact us with questions. Someone can be reached from the [facility] hospitalist group all hours of the day at [phone] or via perfect serve. Objective - Vital Signs Vital signs: Vital Signs Temp 98.1 F 09/13/24 08:00 Pulse 100 09/13/24 12:09 Resp 18 09/13/24 08:00 BP 130/80 09/13/24 08:00 Pulse Ox 95 09/13/24 04:47 FiO2 40 09/10/24 22:05 Intake & Output 09/12/24 09/13/24 09/13/24 18:59 06:59 18:59 Intake Total 560.167 780 Output Total 508 700 Balance 52.167 80 Weight 100.7 kg Intake: IV 72 Pressure Bags 12 Sodium Chloride 0.9% 1, 60 000 ml @ 20 mls/hr IV . Q24H MARI Rx#:[id number] Intake, IV Titration 8.167 Amount Insulin Regular 100 unit 8.167 In Sodium Chloride 0.9% 100 ml @ Per Protocol IV .Q0M MARI Rx#:[id number] Oral 480 780 Output: Chest Tube Drainage 50 Left Pleural 20 Mediastinal 30 Urine 400 700 Post Void Residual 58 Other: Voiding Method Indwelling Catheter Urinal Urinal ABP, PAP, CO, CI - Last Documented Arterial Blood Pressure 103/47 Pulmonary Artery Pressure 23/16 Cardiac Output 6.4 Cardiac Index 2.9 - Labs CBC & Chem 7: 09/13/24 07:33 09/13/24 07:33 Labs: Abnormal Lab Results - Last 24 Hours (Table) 09/12/24 09/12/24 09/13/24 Range/Units 16:14 19:54 07:33 WBC 15.8 H (3.8-10.6) k/uL RBC 4.16 L (4.30-5.90) m/uL Hgb 12.8 L (13.0-17.5) gm/dL Neutrophils # 13.2 H (1.3-7.7) k/uL BUN (9-20) mg/dL Creatinine (0.66-1.25) mg/dL Glucose (74-99) mg/dL POC Glucose (mg/dL) 126 H 129 H (70-110) mg/dL 09/13/24 09/13/24 Range/Units 07:33 11:59 WBC (3.8-10.6) k/uL RBC (4.30-5.90) m/uL Hgb (13.0-17.5) gm/dL Neutrophils # (1.3-7.7) k/uL BUN 29 H (9-20) mg/dL Creatinine 1.37 H (0.66-1.25) mg/dL Glucose 152 H (74-99) mg/dL POC Glucose (mg/dL) 132 H (70-110) mg/dL
[2024-09-13] MEDS: METOPROLOL TARTRATE 50 MG TAB PO SCH (15:20)
[2024-09-13 17:02] LABS: Glucose,Whole Blood 125 mg/dL (70-110)
[2024-09-13 20:10] LABS: Glucose,Whole Blood 150 mg/dL (70-110)
--- NOTE | 2024-09-14 05:48 | P.PN ---
Subjective Progress Note Date: 09/14/24 The patient is a pleasant 59-year-old gentleman who was admitted to the hospital with chest discomfort and underwent a heart catheterization which showed severe triple-vessel coronary artery disease. He underwent open heart surgery yesterday and he underwent CABG x 3 with TERRY to LAD and SVG to OM and SVG to PDA. September 11, 2024 The patient was seen and evaluated this morning and this is postoperation day #1. He is stable hemodynamically has been maintaining normal sinus mechanism with also urine output appears to be within normal limits. Blood work and chest x-ray reviewed. Overall the patient is stable from a cardiac standpoint of view and he is on maximized medical treatment. Examination is remarkable for regular rhythm with a distant heart sounds and diminished breathing sounds bilaterally and no edema was noted in the lower extremities. September 12, 2024 The patient was seen and evaluated this morning. He is overall doing well. He is slightly tachycardic and the dose of beta-delia has increased and to be given earlier today which I would agree on. Otherwise he seems to be stable. Urine output has been within normal limits. Blood work was reviewed and chest x-ray was reviewed as well. Examination is remarkable for regular rhythm with diminished breathing sounds bilaterally and no edema was noted in the lower extremities. Normal 2023 The patient was seen and evaluated this morning. He is asymptomatic but he has been in atrial fibrillation with RVR. I am going to start the patient on amiodarone IV bolus and drip per protocol. Otherwise he is on beta-delia which we will continue. We will also continue dual antiplatelet therapy along with a statin. The examination is remarkable for irregular rhythm with a fast heart rate and diminished breathing sounds bilaterally and no edema was noted in the lower extremities. Assessment Acute coronary syndrome CAD Status post CABG A-fib with RVR which is new Multiple comorbid conditions Plan Continue current medical regimen Continue monitor the blood work including CBC and BMP and electrolytes Follow-up with the daily chest x-ray Start the patient on amiodarone IV Continue beta-delia Monitor the urine output Follow-up with the patient Objective - Vital Signs Vital signs: Vital Signs Temp 98.2 F 09/13/24 19:15 Pulse 101 H 09/14/24 04:00 Resp 16 09/14/24 04:00 BP 129/71 09/14/24 04:00 Pulse Ox 93 L 09/14/24 04:00 FiO2 40 09/10/24 22:05 Intake & Output 09/13/24 09/13/24 09/14/24 06:59 18:59 06:59 Intake Total 780 120 540 Output Total 700 800 Balance 80 120 -260 Weight 100.7 kg Intake: Oral 780 120 540 Output: Urine 700 800 Other: Voiding Method Urinal Urinal Urinal # Voids 1 # Bowel Movements 2 ABP, PAP, CO, CI - Last Documented Arterial Blood Pressure 103/47 Pulmonary Artery Pressure 23/16 Cardiac Output 6.4 Cardiac Index 2.9 - Labs CBC & Chem 7: 09/13/24 07:33 09/13/24 07:33 Labs: Abnormal Lab Results - Last 24 Hours (Table) 09/13/24 09/13/24 09/13/24 Range/Units 07:33 07:33 11:59 WBC 15.8 H (3.8-10.6) k/uL RBC 4.16 L (4.30-5.90) m/uL Hgb 12.8 L (13.0-17.5) gm/dL Neutrophils # 13.2 H (1.3-7.7) k/uL BUN 29 H (9-20) mg/dL Creatinine 1.37 H (0.66-1.25) mg/dL Glucose 152 H (74-99) mg/dL POC Glucose (mg/dL) 132 H (70-110) mg/dL 09/13/24 09/13/24 Range/Units 17:01 20:09 WBC (3.8-10.6) k/uL RBC (4.30-5.90) m/uL Hgb (13.0-17.5) gm/dL Neutrophils # (1.3-7.7) k/uL BUN (9-20) mg/dL Creatinine (0.66-1.25) mg/dL Glucose (74-99) mg/dL POC Glucose (mg/dL) 125 H 150 H (70-110) mg/dL
[2024-09-14 05:53] LABS: Glucose,Whole Blood 137 mg/dL (70-110)
[2024-09-14] MEDS: DEXTROSE 5% IN WATER 100 ML with AMIODARONE 150 MG IV PRN (05:55)
[2024-09-14] MEDS: AMIODARONE 360 MG in DEXTROSE 5% IN WATER 200 ML IV PRN (06:16)
--- NOTE | 2024-09-14 07:17 | XR ---
EXAMINATION TYPE: XR chest 2V DATE OF EXAM: 09/14/2024 6:34 AM COMPARISON: Chest radiographs from 09/13/2024 CLINICAL INDICATION: Male, 59 years old with history of post cardiac surgery; TECHNIQUE: XR chest 2V Frontal and lateral views of the chest. FINDINGS: Lungs/Pleura: There is no evidence of pleural effusion, focal consolidation, or pneumothorax. Pulmonary vascularity: Pulmonary vascular congestion. Heart/mediastinum: Cardiomediastinal silhouette is enlarged and stable. Left atrial appendage occlusi on device is present. Musculoskeletal: No acute osseous pathology. IMPRESSION: Post cardiac surgery with mild pulmonary edema and cardia megaly. [facility], , 09/14/2024 7:14 AM
[2024-09-14 07:25] LABS: HCT 37.5 % (39.0-53.0); HGB 12.6 gm/dL (13.0-17.5); MCH 32.2 pg (25.0-35.0); MCHC 33.7 g/dL (31.0-37.0); MCV 95.6 fL (80.0-100.0); Mean Platelet Volume 8.9; Platelet Count 240 k/uL (150-450); RBC 3.92 m/uL (4.30-5.90); RDW 13.6 % (11.5-15.5); WBC 12.6 k/uL (3.8-10.6)
--- NOTE | 2024-09-14 07:45 | P.PN ---
Subjective Progress Note Date: 09/14/24 Principal diagnosis: Multivessel coronary artery disease, non-ST elevated myocardial infarction this admission. Previous medical history of coronary artery disease with myocardial infarction and previous stenting to the RCA in April 2023, hypertension, hyperlipidemia, GERD, osteoarthritis, remote history of pneumonia, COVID in 2019, previous tobacco dependence. POD #4 Off-pump CABG x 3 with left internal mammary artery to the left anterior descending coronary artery, saphenous vein graft to posterior descending coronary artery, saphenous vein graft to obtuse marginal coronary artery. Endovascular vein harvest from left lower extremity greater saphenous vein. Occlusion of left atrial appendage with 35 mm AtriCure clip Paroxysmal atrial fibrillation, known expected occurrence after open heart surgery The patient was seen and examined this morning sitting up in recliner on the cardiac stepdown unit in no acute distress. Currently in A-fib with heart rate in the low 100s, hemodynamically stable. Was started on IV amiodarone this morning. Currently on room air with oxygen saturation in the mid 90s, able to achieve 2000 mL on incentive spirometry. States expected postsurgical pain is controlled on current medication regimen, denies shortness of breath. Patient has been ambulatory around the hallway without difficulty. Received first postoperative shower yesterday without difficulty. Chest x-ray, labs pending. Anticipate discharge to home with home care tomorrow. No other new concerns. Objective - Vital Signs Vital signs: Vital Signs Temp 98.2 F 09/13/24 19:15 Pulse 101 H 09/14/24 04:00 Resp 16 09/14/24 04:00 BP 129/71 09/14/24 04:00 Pulse Ox 93 L 09/14/24 04:00 FiO2 40 09/10/24 22:05 Intake & Output 09/13/24 09/14/24 09/14/24 18:59 06:59 18:59 Intake Total 120 540 Output Total 900 Balance 120 -360 Weight 100.5 kg Intake: Oral 120 540 Output: Urine 900 Other: Voiding Method Urinal Urinal # Voids 1 # Bowel Movements 2 ABP, PAP, CO, CI - Last Documented Arterial Blood Pressure 103/47 Pulmonary Artery Pressure 23/16 Cardiac Output 6.4 Cardiac Index 2.9 - Exam CONSTITUTIONAL: Appears comfortable, cooperative, no acute distress RESPIRATORY: Lungs sounds diminished in the bases bilaterally. Respirations even, nonlabored. Currently on room air with oxygen saturation 93%. Able to achieve 2000 mL on incentive spirometry. Strong cough. CARDIOVASCULAR: S1, S2 present. Irregular rate and rhythm, atrial fibrillation on telemetry. Sternum stable. Palpable peripheral pulses bilaterally. No edema present. No calf pain or tenderness noted. Heart hugger in place with patient demonstrating appropriate use. Antiembolism stockings, SCDs present. GASTROINTESTINAL: Abdomen soft, nontender, nondistended. Active bowel sounds present 4 quadrants. Tolerating diet. Positive bowel movement 09/13 GENITOURINARY: Continues to void, 200-300 mL at a time INTEGUMENTARY: Skin is warm and dry with evidence of good perfusion. Anterior chest incision well approximated. Left lower extremity EVH site well approxima bakari without redness or drainage. NEUROLOGIC: Cranial nerves II through XII intact MUSKULOSKELETAL: Able to move all extremities, strength equal bilaterally, gait normal PSYCHIATRIC: Alert and oriented to person place and time, appropriate affect, intact judgment and insight - Allied health notes Allied health notes reviewed: nursing - Labs CBC & Chem 7: 09/14/24 06:15 09/13/24 07:33 Labs: Abnormal Lab Results - Last 24 Hours (Table) 09/13/24 09/13/24 09/13/24 Range/Units 07:33 07:33 11:59 WBC 15.8 H (3.8-10.6) k/uL RBC 4.16 L (4.30-5.90) m/uL Hgb 12.8 L (13.0-17.5) gm/dL Hct (39.0-53.0) % Neutrophils # 13.2 H (1.3-7.7) k/uL BUN 29 H (9-20) mg/dL Creatinine 1.37 H (0.66-1.25) mg/dL Glucose 152 H (74-99) mg/dL POC Glucose (mg/dL) 132 H (70-110) mg/dL 09/13/24 09/13/24 09/14/24 Range/Units 17:01 20:09 05:50 WBC (3.8-10.6) k/uL RBC (4.30-5.90) m/uL Hgb (13.0-17.5) gm/dL Hct (39.0-53.0) % Neutrophils # (1.3-7.7) k/uL BUN (9-20) mg/dL Creatinine (0.66-1.25) mg/dL Glucose (74-99) mg/dL POC Glucose (mg/dL) 125 H 150 H 137 H (70-110) mg/dL 09/14/24 Range/Units 06:15 WBC 12.6 H (3.8-10.6) k/uL RBC 3.92 L (4.30-5.90) m/uL Hgb 12.6 L (13.0-17.5) gm/dL Hct 37.5 L (39.0-53.0) % Neutrophils # (1.3-7.7) k/uL BUN (9-20) mg/dL Creatinine (0.66-1.25) mg/dL Glucose (74-99) mg/dL POC Glucose (mg/dL) (70-110) mg/dL - Imaging and Cardiology Chest x-ray: report reviewed, image reviewed Assessment and Plan Assessment: Triple-vessel coronary artery disease, non-STEMI this admission Chest pain, secondary to above Carotid artery stenosis, estimated at 50 to 69% at the right carotid bifurcation per carotid Doppler Paroxysmal atrial fibrillation, known common occurrence after open heart surgery History of coronary artery disease with previous myocardial infarction and stenting to the RCA in April 2023 Hypertension Hyperlipidemia, treated, cholesterol 121, LDL 59 Remote history of pneumonia COVID in 2019 Previous tobacco dependence with cessation a long time ago, preoperative FEV1 83% of predicted Plan: Continue to maximize medical therapy with aspirin, statin, Plavix and beta- delia. Will increase beta-delia therapy as tolerated Continue amiodarone, will transition to oral. No anticoagulation necessary unless patient remains in atrial fibrillation greater than 24 hours or goes in and out of A-fib Encourage incentive spirometry use 10 times every hour while awake. Bronchodilators per pulmonology. Increase activity, ambulate as tolerated. PT/OT/cardiac rehab following. Will monitor daily labs and chest x-rays. Electrolyte replacement per protocol. GI/DVT prophylaxis. Insulin management per internal medicine. Patient is not a diabetic, preoperative A1c 5.6% Pain control per current medication regimen Continue to monitor and record strict accurate intake and output Daily weights. Shower daily Discharge planning in progress, anticipate discharge to home with home care in the next 24 hours More recommendations to follow based on patient's clinical course.
[2024-09-14 08:00] LABS: African American GFR (CKD) 72 (>60 ml/min/1.73 sqM); Anion Gap 11 mmol/L; Blood Urea Nitrogen 34 mg/dL (9-20); Calcium 8.8 mg/dL (8.4-10.2); Carbon Dioxide 24 mmol/L (22-30); Chloride 103 mmol/L (98-107); Glucose 131 mg/dL (74-99); Non-African American GFR(CKD) 63 (>60 ml/min/1.73 sqM); Potassium 4.2 mmol/L (3.5-5.1); Sodium 138 mmol/L (137-145)
[2024-09-14 11:40] LABS: Glucose,Whole Blood 143 mg/dL (70-110)
--- NOTE | 2024-09-14 12:06 | P.PN ---
Subjective Progress Note Date: 09/14/24 Principal diagnosis: Coronary artery disease. Patient is 59-year-old male with past medical history significant for coronary artery disease with previous PCI/stenting, hypertension, hyperlipidemia, and remote history of tobacco use. Patient presented to the ED back on September 04 with non-ST elevation NC. Subsequently, underwent heart catheterization the following day showing severe triple-vessel coronary artery disease involving the LAD, left circumflex artery, and RCA. Cardiothoracic surgery was then consulted, and patient has had a thorough preoperative workup. Transthoracic echocardiogram showing a preserved left ventricular ejection fraction of 55 to 60%. No significant valvular abnormalities. Carotid Doppler significant for 50 to 69% stenosis at the right carotid bifurcation. Chest CT did not show evidence of acute pulmonary process such as focal consolidation, pneumothorax, pleural effusion; small right middle lobe 4 mm nodule. Yesterday, patient un derwent off-pump CABG x 3 with TERRY to LAD, SVG to PDA, SVG to obtuse marginal, and left atrial appendage occlusion. No intraoperative complications were reported. EBL was 600. No blood products were necessary. Patient was then transferred back to the intensive care unit yesterday evening for recovery. Hemodynamics have remained stable. Not on any vasopressors. Current vitals include heart rate 84 bpm, blood pressure 101/58 mmHg, PAP 38/18 mmHg, and most recent CO/CI 5.8/2.6. Urine output has been adequate in the order of 30 to 50 cc/h. Minimal chest tube output with a total of 140 mL of serosanguineous drainage in the mediastinal chest tube and 107 mL of serosanguineous drainage within the left pleural atrium. These are to suction at -20 cm H2O. No discernible airleak. Postoperative chest x-ray showing the endotracheal tube 4 mm from the ja. NG tube coursing below the diaphragm. Left chest tube and mediastinal chest tube midline. No pneumothoraces or pleural effusions. Pulmonary artery catheter in appropriate position. Minimal left basilar atelectasis. Propofol has been stopped, and transitioned over to Precedex infusion in preparation for weaning. He is calm and cooperative. Rapid weaning protocol is in place. Patient was on pressure support for 30 minutes, and follow-up ABG is satisfactory. PaO2 82, pCO2 41, pH of 7.34. Weaning parameters are also satisfactory. RSBI 38 and negative inspiratory force -23. There is a positive cuff leak. Calm and following commands appropriately. Hence, I gave the order for the patient to be extubated. Patient is currently being evaluated in the intensive care unit, he is on 3 L/min nasal cannula. He is in no acute respiratory distress. He is alert and fully oriented. No focal neurological deficits. Most recent CBC: WBC count 14.2, hemoglobin 13.4, hematocrit 39.6, platelets 195. Most recent postoperative CMP: Sodium 138, potassium 3.8, chloride 107, serum bicarb 23, BUN 20, creatinine 1.12, glucose 135. iCal 4.7. Magnesium 1.4. LFTs unremarkable. Normal saline is infusing at 50 mL/h. Nitroglycerin also infusing at 5 mcg/min. Insulin being titrated per protocol. Precedex is going to be turned off. Patient is going to receive an incentive spirometer. Postsurgical pain rated 5 on a 10 point numerical scale. Patient feels is well-managed with current analgesics. Plan is for early ambulation in the morning. The patient is seen today September 12, 2024 in follow-up in the intensive care unit. Postoperative day #2. He is awake and alert in no acute distress. Sitting up in a chair at the bedside. Maintaining good O2 saturations in the 90s on room air. No IV fluids. Chest tubes have been removed. Right IJ cordis removed. X-ray shows similar cardiomegaly with mild pulmonary vascular congestion. No pneumothorax. Platelets 212. Sodium 134. Potassium 4.3. Bicarb 20. BUN 27. Creatinine 1.57. Glucose 125. Rest. Heparin for DVT prophylaxis. Progress note dated September 13, 2024. The patient is seen today in room 354. The patient is resting comfortably. He has no complaints. He denies any shortness of breath, cough, wheezing, chest tightness, chest pain, fluttering, or any other symptoms for that matter. The patient is hoping to be discharged home tomorrow. He is on room air. Not receiving any IV fluids. The patient is postop day #3. White count 15.8, hemoglobin 12.8, hematocrit 40.3, and platelet count normal. Sodium potassium chloride CO2 all normal. Anion gap normal. BUN 29, creatinine 1.37. Glucose 132. Chest x-ray shows some patchy postoperative atelectasis. Progress note dated September 14, 2024. The patient is seen today in room 354. The patient is doing relatively well. He was hoping to be discharged, but unfortunately, developed atrial fibrillation with RVR. He is on room air. He is receiving amiodarone at 1 mg/min. He has no specific complaints today. Sitting in a chair next to his hospital bed. Current labs include a white count of 12.6, hemoglobin 12.6, hematocrit 37.5, and a platelet count of 240,000. Sodium 138, potassium 4.2, chlorides 103, CO2 24, anion gap 11, BUN 34, and creatinine 1.25. Calcium is 8.8. Chest x-ray shows some mild bibasilar atelectasis. Objective - Vital Signs Vital signs: Vital Signs Temp 97.8 F 09/14/24 08:00 Pulse 98 09/14/24 09:18 Resp 18 09/14/24 08:00 BP 124/82 09/14/24 08:00 Pulse Ox 97 09/14/24 08:00 FiO2 40 09/10/24 22:05 Intake & Output 09/13/24 09/14/24 09/14/24 18:59 06:59 18:59 Intake Total 120 540 180 Output Total 900 Balance 120 -360 180 Weight 100.5 kg Intake: Oral 120 540 180 Output: Urine 900 Other: Voiding Method Urinal Urinal Urinal # Voids 1 # Bowel Movements 2 ABP, PAP, CO, CI - Last Documented Arterial Blood Pressure 103/47 Pulmonary Artery Pressure 23/16 Cardiac Output 6.4 Cardiac Index 2.9 - Exam No acute distress, oriented 3. Currently on room air. HEENT examination is grossly unremarkable. Mucous membranes are moist. No oral lesions. Neck supple. Full range of motion. No adenopathy thyromegaly or neck vein distention. Cardiovascular examination reveals regular rhythm rate. S1-S2 normal. No S3 or S4. No discernible murmur noted. Lungs reveal clear breath sounds. Breath sounds are equal bilaterally. No adventitious lung sounds including wheezes rhonchi or crackles. Abdomen soft bowel sounds are heard. No masses or tenderness. Extremities are intact. No cyanosis clubbing or edema. Skin is without rash or lesion. Neurologic examination is brief but nonfocal. - Labs CBC & Chem 7: 09/14/24 06:15 11/02/24 06:15 Labs: Abnormal Lab Results - Last 24 Hours (Table) 09/13/24 09/13/24 09/14/24 Range/Units 17:01 20:09 05:50 WBC (3.8-10.6) k/uL RBC (4.30-5.90) m/uL Hgb (13.0-17.5) gm/dL Hct (39.0-53.0) % BUN (9-20) mg/dL Glucose (74-99) mg/dL POC Glucose (mg/dL) 125 H 150 H 137 H (70-110) mg/dL 09/14/24 09/14/24 09/14/24 Range/Units 06:15 06:15 11:39 WBC 12.6 H (3.8-10.6) k/uL RBC 3.92 L (4.30-5.90) m/uL Hgb 12.6 L (13.0-17.5) gm/dL Hct 37.5 L (39.0-53.0) % BUN 34 H (9-20) mg/dL Glucose 131 H (74-99) mg/dL POC Glucose (mg/dL) 143 H (70-110) mg/dL Assessment and Plan Assessment: Severe triple-vessel coronary artery disease status postoperative day #4 following off-pump CABG x 3 with TERRY to the LAD, SVG to the PDA, SVG to the obtuse marginal, and left atrial appendage occlusion. Routine postoperative ventilator management. Postoperative atrial fibrillation. Acute Non-ST elevation NC. Acute leukocytosis, reactive to surgery. Hypomagnesemia. Carotid artery stenosis, estimated at 50 to 69% at the right carotid bifurc ation. History of hypertension. History of hyperlipidemia. GERD. Remote history of tobacco use. Plan: Plan dated September 13, 2024. The patient is seen today in room 354. He is on room air. No IV fluids. The patient is postoperative day #3. The patient is hoping to be discharged home tomorrow. The patient continues to use his incentive spirometer. We recommend deep breathing, coughing, clearing of secretions. Labs, x-rays, medications are reviewed. He has some postoperative atelectatic changes at the lung bases. Other than that, the chest x-ray looks okay. We will continue to follow. Prognosis is guarded. Plan dated September 14, 2024. The patient is seen today in room 354. Labs, x-rays, medications are reviewed. The patient is very stable. He is on room air. He did develop atrial fibrillation with RVR. For that reason, he is on amiodarone at 1 mg/min. He is hoping to be discharged tomorrow. Labs, x-rays, and all medications are reviewed. Overall, the patient feels well. He denies any shortness of breath, cough, wheezing, chest tightness, or phlegm production. He also denies any chest pain or pressure. Time with Patient: Less than 30
[2024-09-14] MEDS: AMIODARONE 450 MG in DEXTROSE 5% IN WATER 250 ML IV PRN (13:00)
--- NOTE | 2024-09-14 14:06 | P.PN ---
Subjective Progress Note Date: 09/14/24 Subjective: Patient seen and examined at bedside. Went into Afib with RVR last night, was started on amiodarone gtt. Pertinent positives and negatives as discussed above, a complete review of systems was performed and all other systems are negative. Vitals Signs Reviewed. Gen: In NAD, non-toxic HEENT: normocephalic, atraumatic, hearing acuity is intant, mucous membranes moist CVS: perfusing all extremities well, no pitting edema, Respiratory: symmetric chest expansion, no accessory muscle use, GI: soft, NTTP, ND, : no suprapubic tenderness, no CVA tenderness MSK/Derm: no rashes, cyanosis Neuro: CN II-XII intact, no motor weakness, Psych: cooperative, euthymic mood, judgment and insight is intact Assessment and Plan: Acute NSTEMI Multivessel CAD, status post CABG Leukocytosis, anticipated outcome of surgery Hypertension Hyperlipidemia Acute kidney injury -Cardiothoracic surgery note reviewed, patient on aspirin 325 daily, atorvastatin 40 daily, Plavix 75 daily, metoprolol 50 twice daily -Amiodarone gtt, transition to PO amiodarone -Cardiology note reviewed, continue current therapy -Pulmonology note reviewed, continue current therapy -Pain control with Tylenol as needed -Repeat CBC and BMP tomorrow -Agree with discontinuing lisinopril Hyperglycemia -A1c 5.6 -Switch to subcu insulin ACH S Resolved: Hyperkalemia Thank you for allowing us to participate in the care of this pleasant patient. Do not hesitate to contact us with questions. Someone can be reached from the [facility] hospitalist group all hours of the day at [phone] or via perfect serve. Objective - Vital Signs Vital signs: Vital Signs Temp 97.8 F 09/14/24 08:00 Pulse 91 09/14/24 12:53 Resp 18 09/14/24 08:00 BP 124/82 09/14/24 08:00 Pulse Ox 97 09/14/24 08:00 FiO2 40 09/10/24 22:05 Intake & Output 09/13/24 09/14/24 09/14/24 18:59 06:59 18:59 Intake Total 120 540 360 Output Total 900 300 Balance 120 -360 60 Weight 100.5 kg Intake: Oral 120 540 360 Output: Urine 900 300 Other: Voiding Method Urinal Urinal Urinal # Voids 1 # Bowel Movements 2 ABP, PAP, CO, CI - Last Documented Arterial Blood Pressure 103/47 Pulmonary Artery Pressure 23/16 Cardiac Output 6.4 Cardiac Index 2.9 - Labs CBC & Chem 7: 09/14/24 06:15 09/14/24 06:15 Labs: Abnormal Lab Results - Last 24 Hours (Table) 09/13/24 09/13/24 09/14/24 Range/Units 17:01 20:09 05:50 WBC (3.8-10.6) k/uL RBC (4.30-5.90) m/uL Hgb (13.0-17.5) gm/dL Hct (39.0-53.0) % BUN (9-20) mg/dL Glucose (74-99) mg/dL POC Glucose (mg/dL) 125 H 150 H 137 H (70-110) mg/dL 09/14/24 09/14/24 09/14/24 Range/Units 06:15 06:15 11:39 WBC 12.6 H (3.8-10.6) k/uL RBC 3.92 L (4.30-5.90) m/uL Hgb 12.6 L (13.0-17.5) gm/dL Hct 37.5 L (39.0-53.0) % BUN 34 H (9-20) mg/dL Glucose 131 H (74-99) mg/dL POC Glucose (mg/dL) 143 H (70-110) mg/dL
[2024-09-14 16:20] LABS: Glucose,Whole Blood 188 mg/dL (70-110)
[2024-09-14 19:53] LABS: Glucose,Whole Blood 120 mg/dL (70-110)
[2024-09-14] MEDS: AMIODARONE 200 MG TAB PO SCH (20:30)
--- NOTE | 2024-09-15 06:02 | P.PN ---
Subjective Progress Note Date: 09/15/24 The patient is a pleasant 59-year-old gentleman who was admitted to the hospital with chest discomfort and underwent a heart catheterization which showed severe triple-vessel coronary artery disease. He underwent open heart surgery yesterday and he underwent CABG x 3 with TERRY to LAD and SVG to OM and SVG to PDA. September 11, 2024 The patient was seen and evaluated this morning and this is postoperation day #1. He is stable hemodynamically has been maintaining normal sinus mechanism with also urine output appears to be within normal limits. Blood work and chest x-ray reviewed. Overall the patient is stable from a cardiac standpoint of view and he is on maximized medical treatment. Examination is remarkable for regular rhythm with a distant heart sounds and diminished breathing sounds bilaterally and no edema was noted in the lower extremities. September 12, 2024 The patient was seen and evaluated this morning. He is overall doing well. He is slightly tachycardic and the dose of beta-delia has increased and to be given earlier today which I would agree on. Otherwise he seems to be stable. Urine output has been within normal limits. Blood work was reviewed and chest x-ray was reviewed as well. Examination is remarkable for regular rhythm with diminished breathing sounds bilaterally and no edema was noted in the lower extremities. September 14 2024 The patient was seen and evaluated this morning. He is asymptomatic but he has been in atrial fibrillation with RVR. I am going to start the patient on amiodarone IV bolus and drip per protocol. Otherwise he is on beta-delia which we will continue. We will also continue dual antiplatelet therapy along with a statin. The examination is remarkable for irregular rhythm with a fast heart rate and diminished breathing sounds bilaterally and no edema was noted in the lower extremities. September 15, 2024 The patient was seen and evaluated this morning. He is converted to normal sinus mechanism. Currently he is on amiodarone IV which I am going to switch him to amiodarone orally. Otherwise he is on dual antiplatelet therapy along with high dose of beta-delia with metoprolol tartrate 100 mg p.o. twice daily. He is feeling better. Blood work from the morning still pending. The physical examination is remarkable for regular rhythm with a soft systolic murmur and clear breathing sounds bilaterally and no edema was noted Assessment Acute coronary syndrome CAD Status post CABG A-fib with RVR which is new Multiple comorbid conditions Plan Continue the current medical regimen Switch to amiodarone orally Continue dual antiplatelet therapy and statin Consider increasing the dose of statin into high intensity Follow-up with the patient Objective - Vital Signs Vital signs: Vital Signs Temp 97.8 F 09/14/24 20:00 Pulse 77 09/15/24 04:00 Resp 16 09/15/24 04:00 BP 148/85 09/15/24 04:00 Pulse Ox 97 09/15/24 04:00 FiO2 40 09/10/24 22:05 Intake & Output 09/14/24 09/14/24 09/15/24 06:59 18:59 05:59 Intake Total 277 979 4020.615 Output Total 900 300 750 Balance -360 240 533.615 Weight 100.5 kg Intake: Intake, IV Titration 203.615 Amount Amiodarone 450 mg In 203.615 Dextrose 5% in Water 250 ml @ 0.5 MG/MIN 16.667 mls/hr IV .Q15H PRN Rx#: [id number] Oral 146 632 0938 Output: Urine 900 300 750 Other: Voiding Method Urinal Urinal Urinal ABP, PAP, CO, CI - Last Documented Arterial Blood Pressure 103/47 Pulmonary Artery Pressure 23/16 Cardiac Output 6.4 Cardiac Index 2.9 - Labs CBC & Chem 7: 09/14/24 06:15 09/14/24 06:15 Labs: Abnormal Lab Results - Last 24 Hours (Table) 09/14/24 09/14/24 09/14/24 Range/Units 06:15 06:15 11:39 WBC 12.6 H (3.8-10.6) k/uL RBC 3.92 L (4.30-5.90) m/uL Hgb 12.6 L (13.0-17.5) gm/dL Hct 37.5 L (39.0-53.0) % BUN 34 H (9-20) mg/dL Glucose 131 H (74-99) mg/dL POC Glucose (mg/dL) 143 H (70-110) mg/dL 09/14/24 09/14/24 Range/Units 16:18 19:51 WBC (3.8-10.6) k/uL RBC (4.30-5.90) m/uL Hgb (13.0-17.5) gm/dL Hct (39.0-53.0) % BUN (9-20) mg/dL Glucose (74-99) mg/dL POC Glucose (mg/dL) 188 H 120 H (70-110) mg/dL
[2024-09-15 06:06] LABS: Glucose,Whole Blood 106 mg/dL (70-110)
[2024-09-15] MEDS ORDERED: SENNOSIDES-DOCUSATE SODIUM 1 EACH TAB PO PRN (06:35)
[2024-09-15 07:22] LABS: HCT 37.9 % (39.0-53.0); HGB 12.5 gm/dL (13.0-17.5); MCH 30.9 pg (25.0-35.0); MCV 93.7 fL (80.0-100.0); Mean Platelet Volume 8.6; Platelet Count 316 k/uL (150-450); RBC 4.05 m/uL (4.30-5.90); RDW 13.3 % (11.5-15.5); WBC 11.3 k/uL (3.8-10.6)
[2024-09-15 07:46] LABS: African American GFR (CKD) 78 (>60 ml/min/1.73 sqM); Anion Gap 10 mmol/L; Blood Urea Nitrogen 29 mg/dL (9-20); Carbon Dioxide 23 mmol/L (22-30); Chloride 100 mmol/L (98-107); Glucose 109 mg/dL (74-99); Non-African American GFR(CKD) 67 (>60 ml/min/1.73 sqM); Potassium 4.6 mmol/L (3.5-5.1); Sodium 133 mmol/L (137-145)
--- NOTE | 2024-09-15 07:58 | P.PN ---
Subjective Progress Note Date: 09/15/24 Principal diagnosis: Multivessel coronary artery disease, non-ST elevated myocardial infarction this admission. Previous medical history of coronary artery disease with myocardial infarction and previous stenting to the RCA in April 2023, hypertension, hyperlipidemia, GERD, osteoarthritis, remote history of pneumonia, COVID in 2019, previous tobacco dependence. POD #5 Off-pump CABG x 3 with left internal mammary artery to the left anterior descending coronary artery, saphenous vein graft to posterior descending coronary artery, saphenous vein graft to obtuse marginal coronary artery. Endovascular vein harvest from left lower extremity greater saphenous vein. Occlusion of left atrial appendage with 35 mm AtriCure clip Paroxysmal atrial fibrillation, known expected occurrence after open heart surgery The patient was seen and examined this morning sitting up in recliner on the cardiac stepdown unit in no acute distress. Currently in sinus rhythm, hemodynamically stable. No further episodes of atrial fibrillation. Currently on room air with oxygen saturation in the high 90s, able to achieve 2500 mL on incentive spirometry. States expected postsurgical pain is controlled on current medication regimen, denies shortness of breath. Patient has been ambulatory around the hallway without difficulty. Chest x-ray, labs pending. Anticipate discharge to home with home care today, patient states he feels ready. No other new concerns. Objective - Vital Signs Vital signs: Vital Signs Temp 97.8 F 09/14/24 20:00 Pulse 77 09/15/24 04:00 Resp 16 09/15/24 04:00 BP 148/85 09/15/24 04:00 Pulse Ox 97 09/15/24 04:00 FiO2 40 09/10/24 22:05 Intake & Output 09/14/24 09/15/24 09/15/24 19:59 06:59 18:59 Intake Total Output Total Balance Weight Intake: Intake, IV Titration Amount Amiodarone 450 mg In Dextrose 5% in Water 250 ml @ 0.5 MG/MIN 16.667 mls/hr IV .Q15H PRN Rx#: [id number] Oral Output: Urine Other: Voiding Method ABP, PAP, CO, CI - Last Documented Arterial Blood Pressure 103/47 Pulmonary Artery Pressure 23/16 Cardiac Output 6.4 Cardiac Index 2.9 - Exam CONSTITUTIONAL: Appears comfortable, cooperative, no acute distress RESPIRATORY: Lungs sounds diminished in the bases bilaterally. Respirations even, nonlabored. Currently on room air with oxygen saturation 97%. Able to a chieve 2500 mL on incentive spirometry. Strong cough. CARDIOVASCULAR: S1, S2 present. Regular rate and rhythm, sinus rhythm on telemetry. Sternum stable. Palpable peripheral pulses bilaterally. No edema present. No calf pain or tenderness noted. Heart hugger in place with patient demonstrating appropriate use. Antiembolism stockings, SCDs present. GASTROINTESTINAL: Abdomen soft, nontender, nondistended. Active bowel sounds present 4 quadrants. Tolerating diet. Positive bowel movement 09/14 GENITOURINARY: Continues to void INTEGUMENTARY: Skin is warm and dry with evidence of good perfusion. Anterior chest incision well approximated. Left lower extremity EVH site well approx imated without redness or drainage. NEUROLOGIC: Cranial nerves II through XII intact MUSKULOSKELETAL: Able to move all extremities, strength equal bilaterally, gait normal PSYCHIATRIC: Alert and oriented to person place and time, appropriate affect, intact judgment and insight - Allied health notes Allied health notes reviewed: nursing - Labs CBC & Chem 7: 09/15/24 06:28 09/15/24 06:28 Labs: Abnormal Lab Results - Last 24 Hours (Table) 09/14/24 09/14/24 09/14/24 Range/Units 11:39 16:18 19:51 WBC (3.8-10.6) k/uL RBC (4.30-5.90) m/uL Hgb (13.0-17.5) gm/dL Hct (39.0-53.0) % POC Glucose (mg/dL) 143 H 188 H 120 H (70-110) mg/dL 09/15/24 Range/Units 06:28 WBC 11.3 H (3.8-10.6) k/uL RBC 4.05 L (4.30-5.90) m/uL Hgb 12.5 L (13.0-17.5) gm/dL Hct 37.9 L (39.0-53.0) % POC Glucose (mg/dL) (70-110) mg/dL - Imaging and Cardiology Chest x-ray: image reviewed Assessment and Plan Assessment: Triple-vessel coronary artery disease, non-STEMI this admission Chest pain, secondary to above Carotid artery stenosis, estimated at 50 to 69% at the right carotid bifurcation per carotid Doppler Paroxysmal atrial fibrillation, known common occurrence after open heart surgery, status post ligation of the left atrial appendage History of coronary artery disease with previous myocardial infarction and stenting to the RCA in April 2023 Hypertension Hyperlipidemia, treated, cholesterol 121, LDL 59 Remote history of pneumonia COVID in 2019 Previous tobacco dependence with cessation a long time ago, preoperative FEV1 83% of predicted Plan: Continue to maximize medical therapy with aspirin, statin, Plavix and beta- delia. Will increase beta-delia therapy as tolerated, increased to 100 mg twice daily today Continue amiodarone, will taper weekly. No anticoagulation necessary Encourage incentive spirometry use 10 times every hour while awake. Bronchodilators per pulmonology. Increase activity, ambulate as tolerated. PT/OT/cardiac rehab following. GI/DVT prophylaxis. Insulin management per internal medicine. Patient is not a diabetic, preoperative A1c 5.6% Pain control per current medication regimen Continue to monitor and record strict accurate intake and output Daily weights. Shower daily Discharge planning in progress, anticipate discharge to home with home care this morning More recommendations to follow based on patient's clinical course.
--- NOTE | 2024-09-15 07:58 | XR ---
EXAMINATION TYPE: XR chest 2V DATE OF EXAM: 09/15/2024 7:48 AM COMPARISON: Chest radiographs from 09/14/2024 CLINICAL INDICATION: Male, 59 years old with history of Postcardiac surgery; [facility] TECHNIQUE: XR chest 2V Frontal and lateral views of the chest. FINDINGS: Lungs/Pleura: There is no evidence of pleural effusion, focal consolidation, or pneumothorax. Pulmonary vascularity: Unremarkable. Heart/mediastinum: Cardiomediastinal silhouette is enlarged and stable. Atherosclerotic calcificatio ns are seen in the aorta. Left atrial appendage occlusion device is present. Musculoskeletal: No acute osseous pathology. IMPRESSION: Postsurgical changes with left basilar atelectasis. No acute cardiopulmonary disease/process. [facility], , 09/15/2024 7:56 AM
[2024-09-15] MEDS: METOPROLOL TARTRATE 50 MG TAB PO SCH (08:20)
--- NOTE | 2024-09-15 08:35 | P.DS ---
Providers Date of admission: 09/06/24 06:56 Expected date of discharge: 09/15/24 Attending physician: Asim Lynne Consults: 09/04/24 21:01 Consult Physician Urgent Consulting Provider: Jeannette Lowe Consult Reason/Comments: cp Do you want consulting provider notified?: Yes 09/05/24 12:19 Consult Physician Routine Consulting Provider: Asim Lynne Consult Reason/Comments: 3v CAD, eval for CABG Do you want consulting provider notified?: Yes 09/09/24 08:25 Consult to Anesthesia Routine Consulting Provider: Anesthesia,Services Consult Reason/Comments: Cardiac Surgery Pre-Op 09/10/24 17:17 Consult Physician Routine Consulting Provider: Heriberto Wray Consult Reason/Comments: Ios Developer Consult: post cardiac surgery Do you want consulting provider notified?: Yes Consult Physician Routine Consulting Provider: Taylor Goetz Consult Reason/Comments: med mgmt Do you want consulting provider notified?: Already Contacted Primary care physician: Cody [facility] Course: FINAL DIAGNOSIS: Triple-vessel coronary artery disease, non-STEMI this admission Chest pain, secondary to above Carotid artery stenosis, estimated at 50 to 69% at the right carotid bifurcation per carotid Doppler Paroxysmal atrial fibrillation, known common occurrence after open heart surgery History of coronary artery disease with previous myocardial infarction and stenting to the RCA in April 2023 Hypertension Hyperlipidemia, treated, cholesterol 121, LDL 59 Remote history of pneumonia COVID in 2019 Previous tobacco dependence with cessation a long time ago, preoperative FEV1 83% of predicted PRINCIPAL PROCEDURE: Off-pump CABG x 3 with left internal mammary artery to the left anterior descending coronary artery, saphenous vein graft to posterior descending coronary artery, saphenous vein graft to obtuse marginal coronary artery Endovascular vein harvest from left lower extremity greater saphenous vein Occlusion of left atrial appendage with 35 mm AtriCure clip HISTORY OF PRESENT ILLNESS: This is a 59-year-old gentleman who follows outpatient with Dr. Velasquez for primary care and Dr. Eduardo for cardiology. In April 2023 he underwent heart catheterization by Dr. Lowe and had stent placed to the right coronary artery, was discharged on Effient for 1 year. He presented to [facility] emergency room this admission with complaints of chest pressure, stated it felt similar to when he was here over a year ago. He denied any shortness of breath, nausea, dizziness, or any other symptomatology. In the emergency room EKG demonstrated sinus rhythm without ischemic changes. Chest x-ray revealed no acute cardiopulmonary process. Lab work was unremarkable except BUN 25, creatinine 1.3, and troponin elevation as high as 0.056. The patient was admitted for evaluation and treatment with consultation placed to cardiology. Echocardiogram was completed demonstrating normal left ventricular systolic function with EF 55 to 60%, and no significant valvular pathology. He was taken to the [facility] by Dr. Hoang revealing triple-vessel coronary artery disease with RCA stenosis 70%, circumflex stenosis 100%, and proximal LAD stenosis 80 to 90%. Due to these findings consultation was placed to Dr. Lynne from cardiothoracic surgery for surgical revascularization recommendations. He was recommended to undergo surgical myocardial revas cularization. The usual perioperative course was discussed in detail with the patient and his family, all risks and benefits were explained, all questions were answered, and consent was obtained to proceed with surgery. The patient was kept inpatient due to the nature of his disease process. HOSPITAL COURSE: The patient was brought to the preoperative area 09/10/24, prepared in the usual fashion, and subsequently taken to the operating room where Dr. Lynne performed three-vessel off-pump CABG. Upon completion of surgery the patient was transferred to the cardiovascular intensive care unit where he was recovered and monitored hemodynamically. He was extubated, all lines, tubes, and drips were discontinued when appropriate, and he was transferred to 3 cardiac stepdown unit for further monitoring and rehabilitation. He did have a brief episode of atrial fibrillation which was treated with amiodarone. His oxygen was titrated down, he continued to work with physical and occupational therapy, he was tolerating oral diet, his pain was controlled, and he was ready to be discharged to home with [facility] home care on postoperative day #5. He received written and verbal instruction regarding his medications, activity restrictions, signs and symptoms requiring physician notification, and follow-up appointments. He is not being discharged on anticoagulation as he was in A-fib for a very short amount of time, he has been discharged on tapered dose of amiodarone, 400 mg twice daily through September 21, then 200 mg twice daily through September 28, then 200 mg daily through October 05, then stop. Patient Condition at Discharge: Stable Plan - Discharge Summary Discharge Rx Participant: Yes New Discharge Prescriptions: New Amiodarone [Cordarone] 400 mg PO BID #47 tab Pantoprazole [Protonix] 40 mg PO AC-BRKFST #30 tab Metoprolol Tartrate [Lopressor] 100 mg PO BID #60 tab Melatonin 6 mg PO HS PRN tab PRN Reason: Insomnia Clopidogrel [Plavix] 75 mg PO DAILY #30 tab Sennosides-Docusate Sodium [Senokot-S] 2 each PO HS PRN tab PRN Reason: Constipation Acetaminophen Tab [Tylenol] 650 mg PO Q4HR PRN tab PRN Reason: Fever And/ Or Mild Pain (1-3) Continue Montelukast [Singulair] 10 mg PO DAILY Rosuvastatin [Crestor] 20 mg PO DAILY traMADol HCL [Ultram] 50 mg PO BID PRN PRN Reason: Pain Cyclobenzaprine [Flexeril] 5 mg PO HS Aspirin EC [Ecotrin Low Dose] 81 mg PO DAILY Ezetimibe [Zetia] 10 mg PO DAILY Discontinued Omeprazole [PriLOSEC] 20 mg PO DAILY Metoprolol Tartrate [Lopressor] 25 mg PO BID #60 tab lisinopriL [Zestril] 20 mg PO BID Meloxicam [Mobic] 7.5 mg PO DAILY Isosorbide Mononitrate ER [Imdur] 30 mg PO DAILY Discharge Medication List traMADol HCL [Ultram] 50 mg PO BID PRN 09/06/21 [History] Aspirin EC [Ecotrin Low Dose] 81 mg PO DAILY 04/15/23 [History] Cyclobenzaprine [Flexeril] 5 mg PO HS 04/15/23 [History] Ezetimibe [Zetia] 10 mg PO DAILY 09/04/24 [History] Montelukast [Singulair] 10 mg PO DAILY 09/04/24 [History] Rosuvastatin [Crestor] 20 mg PO DAILY 09/04/24 [History] Acetaminophen Tab [Tylenol] 650 mg PO Q4HR PRN tab 09/15/24 [Rx] Amiodarone [Cordarone] 400 mg PO BID #47 tab 09/15/24 [Rx] Clopidogrel [Plavix] 75 mg PO DAILY #30 tab 09/15/24 [Rx] Melatonin 6 mg PO HS PRN tab 09/15/24 [Rx] Metoprolol Tartrate [Lopressor] 100 mg PO BID #60 tab 09/15/24 [Rx] Pantoprazole [Protonix] 40 mg PO AC-BRKFST #30 tab 09/15/24 [Rx] Sennosides-Docusate Sodium [Senokot-S] 2 each PO HS PRN tab 09/15/24 [Rx] Follow up Appointment(s)/Referral(s): [facility], [NON-STAFF] - 1-2 Days (You should be seen by RN the day after discharge, then 2-3 times per week until you start cardiac rehab) [facility],Cardiac [NON-STAFF] - 4 Weeks (You will receive a phone call in approximately 4-6 weeks for evaluation for cardiac rehab) Asim Lynne MD [STAFF PHYSICIAN] - 10/03/24 2:15 pm Paras Young NPC [Nurse Practitioner] - 09/20/24 12:15 pm (You will be seen in the surgeon's office behind the hospital in [facility], [address] Office phone number is ) Heriberto Wray DO [Doctor of Osteopathic Medicine] - 09/27/24 2:15 pm Trisha Eduardo MD [REFERRING] - 09/23/24 2:00 pm (You will be seen by Alicia nurse practitioner) Cody Velasquez DO [Primary Care Provider] - 09/19/24 10:20 am (You will see CLARA Vivar) Ambulatory/Diagnostic Orders: Complete Blood Count w/diff [LAB.AMB] Time Frame: 3 Days, Location: None Selected Comprehensive Metabolic Panel [LAB.AMB] Time Frame: 3 Days, Location: None Selected Activity/Diet/Wound Care/Special Instructions: DISCHARGE INSTRUCTIONS: 1. No driving for 4 weeks, or until physician gives their ok. 2. The patient should sleep in their own bed, no medical bed needed. 3. Stairs are not an issue. If the bedroom is upstairs, it is advised that the patient go up at night and down in the morning for the first week. Go slowly, using handrail and take 1 step at a time. 4. JENNIFER hose are to be worn for 30 days post surgery or until physician discontinues. 5. Heart hugger is to be worn 100% of the time until physician disconti nues.(except when showering) 6. No lifting, pushing, or pulling more than 10 pounds for 12 weeks. The physician will advise of any restriction changes. 7. The patient is expected to continue the prescribed walking program. 8. Continue pain control per as needed orders. 9. Continue with incentive spirometry and splinting/heart hugger until otherwise directed by the physician. 10. Must shower daily using liquid antibacterial soap 11. Routine sternal incision care. No powders, lotions, ointments on incisions. No dressings are necessary on incisions unless they are draining. Dermabond tape is to remain on sternal incision until surgeon follow-up. 12. Please call surgeon/MOLD CARPENTER for temp greater than 101 F or purulent drainage from incisions. 13. You should weigh yourself daily, record and bring log with you to follow up appointments. 14. All prescriptions given by surgeon for 30 days. Refills need to be filled through chemical laboratory tester/primary care physician. 15. A Red armband has been placed on the patient. It should be worn for 30 days post discharge from surgery and will be removed by the cardiac surgeons. If an ER visit is necessary, please make sure the number on the Red armband is called before going to ER. 16. You have been referred to and are expected to begin Cardiac Rehab in approximately 4-6 weeks. 17. Quitting smoking is the most important step you can take to improve your health. For additional information and assistance to quit smoking, please call the [place] tobacco quit line (1-361-ALMR-NOW/ ) or online: https://www.[email or web address].gov/[email or web address]/keep-[email or web address]- [email or web address]/chronicdiseases/tobacco/shb-pz-dpin-tobacco HOME HEALTH SERVICES TO PROVIDE: RN SKILLED HOME CARE SERVICES FOR POST-OP SURGICAL PATIENTS WITH THE FOLLOWING: Coronary Artery Bypass Surgery (CABG), Mitral Valve Replacement/Repair ( MVR), Aortic Valve Replacement/Repair (AVR) RN TO CONTINUE EDUCATION FROM ``ROAD TO A HEALTH HEART PATIENT EDUCATION MANUAL (GIVEN TO PATIENT IN THE HOSPITAL) MEDICATION RECONCILIATION WITH EDUCATION NEEDED ON FIRST HOME VISIT EMPHASIZE IMPORTANCE OF WEARING BREAST SUPPORT/HEART HUGGER ENCOURAGE USE OF INCENTIVE SPIROMETER 10 X EVERY HOUR WHILE AWAKE ENCOURAGE UTILIZATION OF LOWER EXTREMITY COMPRESSION STOCKINGS/JENNIFER HOSE and ELEVATE LEGS ABOVE LEVEL OF HEART WHILE AT REST. ENCOURAGE AMBULATION 3-5x/day INCREASING TOLERATES, WHILE AVOIDING EXTREMES IN TEMPERATURE FREQUENCY: RN TO OPEN THE PATIENT WITHIN 24 HOURS OF DISCHARGE FROM THE HOSPITAL WITH TELEHEALTH INSTALLED AT [facility], RN TO VISIT 2-3 X A WEEK FOR 4 WEEKS ESTABLISHED BY PATIENT NEEDS. LABORATORY: CBC, CMP TO BE DRAWN ON THE THIRD DAY HOME, (RAN STAT) FAX RESULTS TO [phone]. TELEHEALTH PARAMETERS: WEIGHT: NOTIFY MD OF WEIGHT GAIN OF 2 LBS IN 24 HOURS OR 5 LBS IN ONE WEEK HR: NOTIFY MD OF HR <55 BPM OR HR>100 BPM BP: NOTIFY MD IF BP <90/55 OR BP>140/100 O2 SAT: NOTIFY MD IF PO2<93% ON ROOM AIR SEND TELEHEALTH REPORT TO PRESSURE SEALER AND TESTER AND CARDIOVASCULAR SURGEON THE FIRST WEEK OF CARE AND THEN BI-WEEKLY. PLEASE ADDITIONALLY COMMUNICATE ANY ABNORMALS AND NEW FINDINGS TO THE SURGEONS OFFICE. Discharge Disposition: HOME WITH HOME HEALTH SERVICES
[2024-09-15 10:30] VITALS: BP 159/90; PULSE 98; RESP 18; TEMP 97.4
== END 2024-09-15 10:43 | disposition home health service (06) | DRG 234 ==
LOC: EC 17:21 → 3SCARD 21:03 → OBSVTOIN 09-06 06:56 → 2SICU 09-10 11:43 → 3SCARD 09-12 21:35
PROVIDERS: ADMIT Thoracic Surgery (Cardiothoracic Vascular Surgery); ATTEND Thoracic Surgery (Cardiothoracic Vascular Surgery)
PROC: 4A023N7 Measurement of Cardiac Sampling and Pressure, Left Heart, Percutaneous Approach (ICD-10-PCS; 2024-09-05)
PROC: B2111ZZ Fluoroscopy of Multiple Coronary Arteries using Low Osmolar Contrast (ICD-10-PCS; 2024-09-05)
PROC: B24BZZ4 Ultrasonography of Heart with Aorta, Transesophageal (ICD-10-PCS; 2024-09-05)
PROC: 06BQ4ZZ Excision of Left Saphenous Vein, Percutaneous Endoscopic Approach (ICD-10-PCS; 2024-09-10)
PROC: 02L70CK Occlusion of Left Atrial Appendage with Extraluminal Device, Open Approach (ICD-10-PCS; 2024-09-10)
PROC: 021109W Bypass Coronary Artery, Two Arteries from Aorta with Autologous Venous Tissue, Open Approach (ICD-10-PCS; principal; 2024-09-10 13:15)
PROC: 02100Z9 Bypass Coronary Artery, One Artery from Left Internal Mammary, Open Approach (ICD-10-PCS; 2024-09-10 13:15)
DX: I21.4 Non-ST elevation (NSTEMI) myocardial infarction (principal); N17.9 Acute kidney failure, unspecified; I25.110 Atherosclerotic heart disease of native coronary artery with unstable angina pectoris; E78.5 Hyperlipidemia, unspecified; E83.42 Hypomagnesemia; E87.5 Hyperkalemia; G89.29 Other chronic pain; I11.9 Hypertensive heart disease without heart failure; M19.90 Unspecified osteoarthritis, unspecified site; I65.21 Occlusion and stenosis of right carotid artery; I48.0 Paroxysmal atrial fibrillation; K21.9 Gastro-esophageal reflux disease without esophagitis; Z79.899 Other long term (current) drug therapy; Z79.82 Long term (current) use of aspirin; Z79.02 Long term (current) use of antithrombotics/antiplatelets; Z79.1 Long term (current) use of non-steroidal anti-inflammatories (NSAID); Z82.49 Family history of ischemic heart disease and other diseases of the circulatory system; Z87.891 Personal history of nicotine dependence; Z95.5 Presence of coronary angioplasty implant and graft; I25.2 Old myocardial infarction
CPT/HCPCS: 36415; 71045; 71046; 71250; 80048; 80053; 80061; 80074; 81003; 82330; 82805; 83036; 83690; 83735; 83880; 84443; 84484; 85025; 85027; 85520; 85610; 85730; 86850; 86891; 86900; 86901; 86920; 87070; 93005; 93306; 93458; 93880; 93922; 93970; 94002; 94150; 94640; 96361; 96365; 96366; 99291